=== PATIENT | female | born 1955 | race American Indian/Alaskan Native ===

== ENCOUNTER 2019-03-31 18:37 | Emergency (ER) | payer MEDICARE ==
[2019-03-31] MEDS ORDERED: ASPIRIN 81 MG TAB CHEW PO ONE (19:58)
[2019-03-31] MEDS ORDERED: SODIUM CHLORIDE 0.9% 1000 ML IV SOLN IV ONE (19:59)
[2019-03-31] MEDS ORDERED: PIPERACILLIN/TAZOBACTAM 3.375 3.375 GM/50 ML BAG IV ONE (20:01)
--- NOTE | 2019-03-31 20:07 | Emergency Department Report ---
ED Chest Pain HPI - General Chief Complaint: Chest Pain Stated Complaint: DIFFICULTY BREATHING Time Seen by Provider: 03/31/19 19:52 Source: patient, EMS Mode of arrival: Ambulatory Limitations: No Limitations - History of Present Illness Initial Comments: Patient is 63 years old female with history of chronic respiratory failure status post tracheostomy secondary to tracheal stenosis, COPD, hypertension and diabetes. Patient presented to the ER via EMS for evaluation of chest pain, cough, fever and chills for the last 2 days. Patient described her chest pain as substernal, sharp with no radiation. Patient stated that pain associated with shortness of breast. Patient is actively coughing in the emergency room. Patient denied any nausea, vomiting or abdominal pain. MD Complaint: chest pain -: days(s) (2) Onset: during rest Pain Location: substernal Severity: moderate Quality: sharp Consistency: intermittent Other Symptoms: cough, fever - Related Data Home Medications Medication Instructions Recorded Confirmed Last Taken Apixaban 5 mg PO Q12HRT 01/28/19 01/28/19 01/27/19 Atorvastatin 40 mg PO DAILY 01/28/19 01/28/19 01/27/19 Diclofenac 1% topical gel 1 applic TP DAILY PRN 01/28/19 01/28/19 Unknown Emollient Cream 20 mg PO DAILY 01/28/19 01/28/19 01/27/19 Escitalopram 20 mg PO DAILY 01/28/19 01/28/19 01/27/19 Gabapentin 300 mg PO BID 01/28/19 01/28/19 01/27/19 Lasix TAB 40 mg PO DAILY 01/28/19 01/28/19 01/27/19 Levothyroxine 125 mcg PO DAILY 01/28/19 01/28/19 01/27/19 Senna 8.6 mg PO Q12HRT 01/28/19 01/28/19 01/27/19 guaiFENesin 100 mg PO Q4HRT 01/28/19 01/28/19 01/27/19 Previous Rx's Medication Instructions Recorded Last Taken Type Ipratropium/Albuterol Sulfate 1 ampul IH Q8HRT #30 ampul.neb 02/01/19 Unknown Rx [DUONEB *Not for PRN Use*] Lisinopril [Zestril TAB] 2.5 mg PO BID #30 tablet 02/01/19 Unknown Rx Sulfamethoxazole/Trimethoprim 1 each PO Q12HR #60 tablet 02/01/19 Unknown Rx [Bactrim DS TAB] dilTIAZem [Cardizem] 60 mg PO Q6HR #120 tablet 02/01/19 Unknown Rx predniSONE 20 mg PO DAILY #10 02/01/19 Unknown Rx Allergies Allergy/AdvReac Type Severity Reaction Status Date / Time levofloxacin [From Levaquin] Allergy Rash Verified 01/27/19 21:36 morphine Allergy Rash Verified 01/27/19 21:36 Heart Score - HEART Score History: Moderately suspicious EKG: Non-specific Age: > 65 Risk factors: > 3 risk factors or hx of atherosclerotic disease Troponin: < normal limit HEART Score: 6 - Critical Actions Critical Actions: 4-6 pts:12-16.6% risk of adverse cardiac event. Should be admitted ED Review of Systems ROS: Stated complaint: DIFFICULTY BREATHING Other details as noted in HPI Comment: All other systems reviewed and negative Constitutional: chills, fever Respiratory: cough, shortness of breath, SOB with exertion, SOB at rest. denies: orthopnea, wheezing Cardiovascular: chest pain, palpitations Gastrointestinal: denies: abdominal pain, nausea, vomiting Musculoskeletal: denies: back pain Neurological: denies: headache, weakness, numbness, paresthesias, confusion, abnormal gait ED Past Medical Hx - Past Medical History Hx Hypertension: Yes Hx Congestive Heart Failure: Yes Hx Diabetes: Yes Hx Renal Disease: Yes Hx Arthritis: Yes Hx Headaches / Migraines: Yes Additional medical history: Acute and chronic resp failure, A-flutter, thracheomalacia, hypoxia, pulmonary edema, volume overload - Surgical History Hx Open Heart Surgery: Yes Additional Surgical History: trach from open heart surgery - Social History Smoking Status: Former Smoker - Medications Home Medications: Home Medications Medication Instructions Recorded Confirmed Last Taken Type Apixaban 5 mg PO Q12HRT 01/28/19 01/28/19 01/27/19 History Atorvastatin 40 mg PO DAILY 01/28/19 01/28/19 01/27/19 History Diclofenac 1% topical gel 1 applic TP DAILY PRN 01/28/19 01/28/19 Unknown History Emollient Cream 20 mg PO DAILY 01/28/19 01/28/19 01/27/19 History Escitalopram 20 mg PO DAILY 01/28/19 01/28/19 01/27/19 History Gabapentin 300 mg PO BID 01/28/19 01/28/19 01/27/19 History Lasix TAB 40 mg PO DAILY 01/28/19 01/28/19 01/27/19 History Levothyroxine 125 mcg PO DAILY 01/28/19 01/28/19 01/27/19 History Senna 8.6 mg PO Q12HRT 01/28/19 01/28/19 01/27/19 History guaiFENesin 100 mg PO Q4HRT 01/28/19 01/28/19 01/27/19 History Ipratropium/Albuterol Sulfate 1 ampul IH Q8HRT #30 ampul.neb 02/01/19 Unknown Rx [DUONEB *Not for PRN Use*] Lisinopril [Zestril TAB] 2.5 mg PO BID #30 tablet 02/01/19 Unknown Rx Sulfamethoxazole/Trimethoprim 1 each PO Q12HR #60 tablet 02/01/19 Unknown Rx [Bactrim DS TAB] dilTIAZem [Cardizem] 60 mg PO Q6HR #120 tablet 02/01/19 Unknown Rx predniSONE 20 mg PO DAILY #10 02/01/19 Unknown Rx ED Physical Exam - General Limitations: No Limitations General appearance: alert, in no apparent distress - Head Head exam: Present: atraumatic, normocephalic, normal inspection - Eye Eye exam: Present: normal appearance - ENT ENT exam: Present: normal exam, normal orophraynx, mucous membranes moist - Neck Neck exam: Present: normal inspection, full ROM. Absent: tenderness, meningismus, lymphadenopathy, thyromegaly - Respiratory Respiratory exam: Present: rales, rhonchi. Absent: respiratory distress, wheezes, stridor, chest wall tenderness, accessory muscle use, decreased breath sounds, prolonged expiratory - Cardiovascular Cardiovascular Exam: Present: tachycardia, systolic murmur - GI/Abdominal GI/Abdominal exam: Present: soft, normal bowel sounds. Absent: distended, tenderness, guarding, rebound, rigid - Extremities Exam Extremities exam: Present: normal inspection, full ROM, normal capillary refill. Absent: tenderness, pedal edema, joint swelling, calf tenderness - Neurological Exam Neurological exam: Present: alert, oriented X3, CN II-XII intact - Skin Skin exam: Present: warm, intact, normal color ED Course Vital Signs 11/21/19 11/21/19 11/21/19 19:48 20:00 20:30 Temperature 98.4 F Pulse Rate 141 H 134 H 131 H Respiratory 20 14 27 H Rate Blood Pressure 126/51 146/50 O2 Sat by Pulse 98 100 100 Oximetry 03/31/19 03/31/19 03/31/19 21:00 21:31 22:01 Temperature Pulse Rate 127 H 127 H 129 H Respiratory 23 21 19 Rate Blood Pressure 146/50 146/50 146/50 O2 Sat by Pulse 100 100 99 Oximetry 03/31/19 03/31/19 03/31/19 22:31 22:55 23:00 Temperature Pulse Rate 130 H 125 H 124 H Respiratory 19 20 20 Rate Blood Pressure 146/50 146/50 146/98 O2 Sat by Pulse 100 100 99 Oximetry 03/31/19 04/01/19 04/01/19 23:31 00:01 00:37 Temperature Pulse Rate 132 H 128 H Respiratory 21 20 Rate Blood Pressure 146/98 146/98 146/98 O2 Sat by Pulse 98 99 100 Oximetry 04/01/19 04/01/19 04/01/19 00:47 01:01 01:33 Temperature Pulse Rate 120 H 115 H Respiratory 19 Rate Blood Pressure 146/98 146/98 O2 Sat by Pulse 97 Oximetry 04/01/19 04/01/19 04/01/19 02:01 02:30 03:01 Temperature Pulse Rate 101 H 89 66 Respiratory 20 19 18 Rate Blood Pressure 111/84 108/75 98/68 O2 Sat by Pulse 99 98 97 Oximetry 04/01/19 03:30 Temperature Pulse Rate 72 Respiratory 19 Rate Blood Pressure 97/62 O2 Sat by Pulse 99 Oximetry ED Medical Decision Making - Lab Data Result diagrams: 03/31/19 20:58 03/31/19 20:58 - EKG Data -: EKG Interpreted by Oh EKG shows normal: sinus rhythm Rate: tachycardia - EKG Data 04/01/19 02:14 Atrial flutter with RVR - Radiology Data Radiology results: report reviewed - Medical Decision Making Patient is 63 years old female with history of chronic respiratory failure status post tracheostomy secondary to tracheal stenosis, COPD, hypertension and diabetes. Patient presented to the ER via EMS for evaluation of chest pain, cough, fever and chills for the last 2 days. Patient described her chest pain as substernal, sharp with no radiation. Patient stated that pain associated with shortness of breast. Patient is actively coughing in the emergency room. Patient denied any nausea, vomiting or abdominal pain Patient found to have atrial flutter with RVR. Patient is started on Cardizem drip. Patient CTA chest showed type I aortic dissection. I discussed the patient with , cardiothoracic surgeon at [facility]. He accepted the patient to be transferred to [facility]. Patient received Dilaudid for pain. Dr Bravo called back and stated that there is no surgical bed at [facility] and advised to look for other facility I discussed the patient with Dr Mack from [facility]. Patient accepted by Dr Ferris and to be transferred to [facility]. Critical Care Time: Yes Critical care time in (mins) excluding proc time.: 60 Critical care attestation.: If time is entered above; I have spent that time in minutes in the direct care of this critically ill patient, excluding procedure time. ED Disposition Clinical Impression: Chest pain, Aortic dissection Disposition: [id number] ANOTHER TYPE HLTHCARE Is pt being admited?: No Condition: Stable Instructions: Chest Pain (ED) Referrals: PRIMARY CARE, [Primary Care Provider] - 3-5 Days
--- NOTE | 2019-03-31 20:43 | XRay Report ---
CHEST 1 VIEW INDICATION: Chest Pain COMPARISON: 01/27/2019 FINDINGS: Support devices: Tracheostomy tube remains in position Heart: Mildly enlarged but stable. Prominence of the left heart border could be left atrial enlargeme nt; it has not changed. Lungs/Pleura: Inspiration is more optimal, and I see no convincing evidence of acute disease. IMPRESSION: 1. No significant change. Signer Name: Nathan Presley MD Signed: 03/31/2019 8:39 PM Workstation Name: [email or web address]
[2019-03-31 21:11] LABS: Hematocrit 34.3 % (30.3-42.9); Hemoglobin 10.7 gm/dl (10.1-14.3); Mean Corpuscular HGB Conc 31 % (30-34); Mean Corpuscular Volume 87 fl (79-97); Platelet Count 296 K/mm3 (140-440); Red Blood Count 3.94 M/mm3 (3.65-5.03); Red Cell Distribution Width 17.8 % (13.2-15.2)
[2019-03-31 21:21] LABS: INR 1.16 (0.87-1.13)
[2019-03-31 21:22] LABS: Bacteria,Urine 4+ /HPF (Negative); Bilirubin,Urine NEG (Negative); Blood,Urine SM (Negative); Color,Urine Straw (Yellow); Mucus,Urine FEW /HPF; Protein,Urine <15 mg/dL mg/dL (Negative); Urobilinogen,Urine < 2.0 mg/dL (<2.0)
[2019-03-31 21:23] LABS: Partial Thromboplastin Time 31.1 Sec. (24.2-36.6)
[2019-03-31 21:28] LABS: BUN/Creatinine Ratio 34; Blood Urea Nitrogen 37 mg/dL (7-17); Calcium 9.1 mg/dL (8.4-10.2); Hemolysis Index 47
[2019-03-31 21:32] LABS: Alanine Aminotransferase 15 units/L (7-56); Albumin 3.9 g/dL (3.9-5)
[2019-03-31 21:48] LABS: Bilirubin,Direct < 0.2 mg/dL (0-0.2)
[2019-03-31 21:51] LABS: Basophils % (Manual) 0 % (0.0-1.8); Eosinophils % (Manual) 0 % (0.0-4.3); Myelocytes # (Manual) 0.1 K/mm3; Total Cells Counted 100
[2019-03-31 21:52] LABS: Anisocytosis Few; Target Cells Few
[2019-04-01] MEDS ORDERED: dilTIAZem 25 MG/5 ML INJ IV ONE (00:01)
[2019-04-01] MEDS ORDERED: dilTIAZem/D5W 100 MG/100 ML BAG IV SCH (01:00)
--- NOTE | 2019-04-01 01:35 | Cat Scan Report ---
CT angio chest INDICATION / CLINICAL INFORMATION: CHEST PAIN WITH SOB. TECHNIQUE: Axial CT images were obtained after injection of Omnipaque 350, 100 cc IV contrast using CTA protocol . 3 plane MIP / 3D reconstructions were produced. All CT scans at this location are performed using C T dose reduction for ALARA by means of automated exposure control. COMPARISON: None available. FINDINGS: Lung volumes are diminished and there is bilateral atelectasis. An tracheostomy catheter is in satisf actory position. Negative for mediastinal mass or adenopathy. Imaging of the upper abdomen is unremarkable. The bolus is suboptimal for evaluation the pulmonary arteries. No large central embolus is present. Negative for aneurysm. A type I dissection originates at the level of the right brachiocephalic arter y. No extension is seen into the deeper a sending thoracic aorta. What appears to be the false lumen is more posteriorly located and higher in density. The great vessels, celiac axis, SMA and right chel[place] l artery arise from the true lumen. Dilatation of the main pulmonary artery trunk measures 5.4 cm. IMPRESSION: 1. Type I dissection. 2. Diminished lung volumes with bilateral lateral atelectasis. 3. Dilated pulmonary artery trunk indicative of pulmonary arterial hypertension. CRITICAL RESULT: Time of Discovery: 12:25 AM. Time of Communication: 12:27 AM. Licensed Practitioner Receiving Report: Dr. Harrison in the emergency room. Read Back Performed: Yes. Signer Name: Miguelito Gonzalez MD Signed: 04/01/2019 1:31 AM Workstation Name: [id number]
[2019-04-01] MEDS ORDERED: HYDROmorphone 1 MG/1 ML INJ ONE (01:43)
[2019-04-01] MEDS ORDERED: HYDROmorphone 1 MG/1 ML INJ IV ONE (03:43)
[2019-04-01 05:07] VITALS: BP 91/76
== END 2019-04-01 06:06 | disposition other institution (70) ==
LOC: ED 18:37
DX: I71.00 Dissection of unspecified site of aorta (principal); R05 Cough; I11.0 Hypertensive heart disease with heart failure; I50.9 Heart failure, unspecified; E11.9 Type 2 diabetes mellitus without complications; M19.90 Unspecified osteoarthritis, unspecified site; G43.909 Migraine, unspecified, not intractable, without status migrainosus; Z98.890 Other specified postprocedural states; Z87.891 Personal history of nicotine dependence; Z79.899 Other long term (current) drug therapy; Z88.1 Allergy status to other antibiotic agents; Z88.5 Allergy status to narcotic agent
CPT/HCPCS: 36415; 71045; 71275; 80048; 80076; 81001; 82140; 83880; 84484; 85007; 85025; 85610; 85730; 87040; 93005; 93010; 96365; 96366; 96367; 96375; 99285; J1170; J2543; J7030; Q9967

== ENCOUNTER 2019-04-22 10:22 | Inpatient (IN) | payer MEDICARE ==
[2019-04-22] MEDS ORDERED: FAMOTIDINE 20 MG/2 ML INJ IV ONE (12:07)
[2019-04-22] MEDS ORDERED: ALBUTEROL 2.5 MG/3 ML NEBU IH ONE (12:07)
[2019-04-22] MEDS ORDERED: ACETAMINOPHEN 325 MG TAB PO STA (12:07)
--- NOTE | 2019-04-22 12:08 | Emergency Department Report ---
ED Chest Pain HPI - General Chief Complaint: Chest Pain Stated Complaint: CHEST PAIN Time Seen by Provider: 04/22/19 11:40 Source: patient, EMS ( EMS documentation not available at time of chart dictation ), RN notes reviewed, old records reviewed Mode of arrival: Stretcher Limitations: Physical Limitation - History of Present Illness MD Complaint: chest pain, other -: Gradual Onset: during rest Pain Location: left chest, right chest Pain Radiation: none Severity: mild Quality: aching Consistency: intermittent Improves With: nothing Worsens With: nothing Other Symptoms: cough Aspirin use within the Past 7 Days: (0) No - Related Data On Oral Contraceptives: No Home Medications Medication Instructions Recorded Confirmed Last Taken Apixaban 5 mg PO Q12HRT 01/28/19 01/28/19 01/27/19 Atorvastatin 40 mg PO DAILY 01/28/19 01/28/19 01/27/19 Diclofenac 1% topical gel 1 applic TP DAILY PRN 01/28/19 01/28/19 Unknown Emollient Cream 20 mg PO DAILY 01/28/19 01/28/19 01/27/19 Escitalopram 20 mg PO DAILY 01/28/19 01/28/19 01/27/19 Gabapentin 300 mg PO BID 01/28/19 01/28/19 01/27/19 Lasix TAB 40 mg PO DAILY 01/28/19 01/28/19 01/27/19 Levothyroxine 125 mcg PO DAILY 01/28/19 01/28/19 01/27/19 Senna 8.6 mg PO Q12HRT 01/28/19 01/28/19 01/27/19 guaiFENesin 100 mg PO Q4HRT 01/28/19 01/28/19 01/27/19 Previous Rx's Medication Instructions Recorded Last Taken Type Ipratropium/Albuterol Sulfate 1 ampul IH Q8HRT #30 ampul.neb 02/01/19 Unknown Rx [DUONEB *Not for PRN Use*] Lisinopril [Zestril TAB] 2.5 mg PO BID #30 tablet 02/01/19 Unknown Rx Sulfamethoxazole/Trimethoprim 1 each PO Q12HR #60 tablet 02/01/19 Unknown Rx [Bactrim DS TAB] dilTIAZem [Cardizem] 60 mg PO Q6HR #120 tablet 02/01/19 Unknown Rx predniSONE 20 mg PO DAILY #10 02/01/19 Unknown Rx Allergies Allergy/AdvReac Type Severity Reaction Status Date / Time levofloxacin [From Levaquin] Allergy Rash Verified 01/27/19 21:36 morphine Allergy Rash Verified 01/27/19 21:36 Heart Score - HEART Score History: Slightly suspicious EKG: Non-specific Age: 45-65 Risk factors: > 3 risk factors or hx of atherosclerotic disease Troponin: < normal limit HEART Score: 4 - Critical Actions Critical Actions: 4-6 pts:12-16.6% risk of adverse cardiac event. Should be admitted ED Review of Systems ROS: Stated complaint: CHEST PAIN Other details as noted in HPI ED Past Medical Hx - Past Medical History Hx Hypertension: Yes Hx Congestive Heart Failure: Yes Hx Diabetes: Yes Hx Renal Disease: Yes Hx Arthritis: Yes Hx Headaches / Migraines: Yes Additional medical history: Acute and chronic resp failure, A-flutter, thracheomalacia, hypoxia, pulmonary edema, volume overload, trach - Surgical History Hx Open Heart Surgery: Yes Additional Surgical History: trach from open heart surgery - Social History Smoking Status: Former Smoker Substance Use Type: None - Medications Home Medications: Home Medications Medication Instructions Recorded Confirmed Last Taken Type Apixaban 5 mg PO Q12HRT 01/28/19 01/28/19 01/27/19 History Atorvastatin 40 mg PO DAILY 01/28/19 01/28/19 01/27/19 History Diclofenac 1% topical gel 1 applic TP DAILY PRN 01/28/19 01/28/19 Unknown History Emollient Cream 20 mg PO DAILY 01/28/19 01/28/19 01/27/19 History Escitalopram 20 mg PO DAILY 01/28/19 01/28/19 01/27/19 History Gabapentin 300 mg PO BID 01/28/19 01/28/19 01/27/19 History Lasix TAB 40 mg PO DAILY 01/28/19 01/28/19 01/27/19 History Levothyroxine 125 mcg PO DAILY 01/28/19 01/28/19 01/27/19 History Senna 8.6 mg PO Q12HRT 01/28/19 01/28/19 01/27/19 History guaiFENesin 100 mg PO Q4HRT 01/28/19 01/28/19 01/27/19 History Ipratropium/Albuterol Sulfate 1 ampul IH Q8HRT #30 ampul.neb 02/01/19 Unknown Rx [DUONEB *Not for PRN Use*] Lisinopril [Zestril TAB] 2.5 mg PO BID #30 tablet 02/01/19 Unknown Rx Sulfamethoxazole/Trimethoprim 1 each PO Q12HR #60 tablet 02/01/19 Unknown Rx [Bactrim DS TAB] dilTIAZem [Cardizem] 60 mg PO Q6HR #120 tablet 02/01/19 Unknown Rx predniSONE 20 mg PO DAILY #10 02/01/19 Unknown Rx ED Physical Exam - General Limitations: No Limitations ED Course Vital Signs 04/22/19 11:22 Temperature 98.8 F Pulse Rate 103 H Respiratory 20 Rate Blood Pressure 146/102 O2 Sat by Pulse 98 Oximetry ED Medical Decision Making - Lab Data Result diagrams: 04/22/19 12:34 04/22/19 12:34 Critical care attestation.: If time is entered above; I have spent that time in minutes in the direct care of this critically ill patient, excluding procedure time. ED Disposition Condition: Stable Referrals: VALARIE PATRICIO MD [Primary Care Provider] - 3-5 Days
[2019-04-22 12:50] LABS: Basophils # (Auto) 0.1 K/mm3 (0.0-0.1); Basophils % (Auto) 1.9 % (0.0-1.8); Eosinophils # (Auto) 0.2 K/mm3 (0.0-0.4); Eosinophils % (Auto) 2.3 % (0.0-4.3); Hematocrit 33.1 % (30.3-42.9); Hemoglobin 10.4 gm/dl (10.1-14.3); Lymphocytes # (Auto) 1.6 K/mm3 (1.2-5.4); Lymphocytes % (Auto) 22.4 % (13.4-35.0); Mean Corpuscular HGB Conc 32 % (30-34); Mean Corpuscular Volume 86 fl (79-97); Monocytes # (Auto) 0.7 K/mm3 (0.0-0.8); Monocytes % (Auto) 10.6 % (0.0-7.3); Platelet Count 191 K/mm3 (140-440); Red Blood Count 3.83 M/mm3 (3.65-5.03); Red Cell Distribution Width 18.2 % (13.2-15.2)
[2019-04-22 13:04] LABS: Alanine Aminotransferase 24 units/L (7-56); BUN/Creatinine Ratio 11; Blood Urea Nitrogen 9 mg/dL (7-17); Calcium 9.5 mg/dL (8.4-10.2); Hemolysis Index 24
[2019-04-22 13:22] LABS: INR 1.06 (0.87-1.13)
[2019-04-22] MEDS ORDERED: FUROSEMIDE 40 MG/4 ML INJ IV ONE (14:09)
--- NOTE | 2019-04-22 14:09 | XRay Report ---
CHEST 1 VIEW 04/22/2019 1:01 PM INDICATION / CLINICAL INFORMATION: Chest Pain. Substernal chest pain that began at 1:00 AM. COMPARISON: None available. FINDINGS: SUPPORT DEVICES: Tracheostomy tube is unchanged. HEART / MEDIASTINUM: Enlarged but stable. Pulmonary venous hypertension. LUNGS / PLEURA: Borderline interstitial pulmonary edema. No significant pleural effusion. No pneumoth orax. ADDITIONAL FINDINGS: No significant additional findings. IMPRESSION: 1. Cardiomegaly with borderline interstitial pulmonary edema. Signer Name: Reginald Pino MD Signed: 04/22/2019 2:04 PM Workstation Name: [id number]
[2019-04-22] MEDS ORDERED: methylPREDNISolone Sod Succinate 125 MG/2 ML INJ IV ONE (14:10)
[2019-04-22] MEDS ORDERED: dilTIAZem 60 MG TAB PO STA (14:12)
[2019-04-22] MEDS ORDERED: IPRATROPIUM 0.02% NEBU 2.5 ML IH ONE (14:12)
--- NOTE | 2019-04-22 14:12 | Emergency Department Report ---
<MAURICIO VENEGAS - Last Filed: 04/22/19 15:09> ED General Adult HPI - General Chief complaint: Chest Pain Stated complaint: CHEST PAIN Time Seen by Provider: 04/22/19 11:40 Source: patient, EMS ( EMS documentation not available at time of chart dictation ), RN notes reviewed, old records reviewed Mode of arrival: Stretcher Limitations: No Limitations - History of Present Illness Initial comments: Cardiology: [place] [facility] Past medical history: Morbid obesity, chronic respiratory failure, COPD, chronic tracheostomy, tracheal stenosis, congestive heart failure, on systemic anticoagulation for A. fib/cecil schilling Apparently in 2013, patient had aortic dissection repair in 2013 at [facility]. There are reportedly no reports of coronary artery disease, and the patient recently had an echocardiogram performed [facility] [place], which showed dilated right heart Chambers, and ejection fraction of 50%. Patient was seen in this hospital March 2019, or chest discomfort, and was found to have a possible type I dissection, and she was transferred to [facility]. When questioned about her stay, she indicated that her tracheostomy was changed, but otherwise, no surgical intervention was performed. Today, she presents to the ER with a complaint of acute on chronic bilateral lower extremity swelling, chest wall discomfort, cough, shortness of breath. There is no vomiting. There is no diaphoresis. She endorses compliance with his systemic anticoagulation. There is no abdominal pain. There are no urinary symptoms. The patient denies hematemesis of bright red blood per rectum. The patient is also asking to eat at this time. -: Gradual Location: chest Severity scale (0 -10): 8 Quality: other Consistency: other Improves with: other Worsens with: other Associated Symptoms: other - Related Data Home Medications Medication Instructions Recorded Confirmed Last Taken Apixaban 5 mg PO Q12HRT 01/28/19 01/28/19 01/27/19 Atorvastatin 40 mg PO DAILY 01/28/19 01/28/19 01/27/19 Diclofenac 1% topical gel 1 applic TP DAILY PRN 01/28/19 01/28/19 Unknown Emollient Cream 20 mg PO DAILY 01/28/19 01/28/19 01/27/19 Escitalopram 20 mg PO DAILY 01/28/19 01/28/19 01/27/19 Gabapentin 300 mg PO BID 01/28/19 01/28/1901/27/19 Lasix TAB 40 mg PO DAILY 01/28/19 01/28/19 01/27/19 Levothyroxine 125 mcg PO DAILY 01/28/19 01/28/19 01/27/19 Senna 8.6 mg PO Q12HRT 01/28/19 01/28/19 01/27/19 guaiFENesin 100 mg PO Q4HRT 01/28/19 01/28/19 01/27/19 Previous Rx's Medication Instructions Recorded Last Taken Type Ipratropium/Albuterol Sulfate 1 ampul IH Q8HRT #30 ampul.neb 02/01/19 Unknown Rx [DUONEB *Not for PRN Use*] Lisinopril [Zestril TAB] 2.5 mg PO BID #30 tablet 02/01/19 Unknown Rx Sulfamethoxazole/Trimethoprim 1 each PO Q12HR #60 tablet 02/01/19 Unknown Rx [Bactrim DS TAB] dilTIAZem [Cardizem] 60 mg PO Q6HR #120 tablet 02/01/19 Unknown Rx predniSONE 20 mg PO DAILY #10 02/01/19 Unknown Rx Allergies Allergy/AdvReac Type Severity Reaction Status Date / Time levofloxacin [From Levaquin] Allergy Rash Verified 01/27/19 21:36 morphine Allergy Rash Verified 01/27/19 21:36 ED Review of Systems Constitutional: denies: fever Eyes: denies: eye discharge ENT: congestion Respiratory: shortness of breath, wheezing Cardiovascular: chest pain, edema Gastrointestinal: denies: vomiting Genitourinary: denies: dysuria Musculoskeletal: arthralgia, myalgia Skin: denies: lesions Neurological: weakness ED Past Medical Hx - Past Medical History Hx Hypertension: Yes Hx Congestive Heart Failure: Yes Hx Diabetes: Yes Hx Renal Disease: Yes Hx Arthritis: Yes Hx Headaches / Migraines: Yes Additional medical history: Acute and chronic resp failure, A-flutter, thracheomalacia, hypoxia, pulmonary edema, volume overload, trach - Surgical History Hx Open Heart Surgery: Yes Additional Surgical History: trach from open heart surgery - Social History Smoking Status: Former Smoker Substance Use Type: None - Medications Home Medications: Home Medications Medication Instructions Recorded Confirmed Last Taken Type Apixaban 5 mg PO Q12HRT 01/28/19 01/28/19 01/27/19 History Atorvastatin 40 mg PO DAILY 01/28/19 01/28/19 01/27/19 History Diclofenac 1% topical gel 1 applic TP DAILY PRN 01/28/19 01/28/19 Unknown His tory Emollient Cream 20 mg PO DAILY 01/28/19 01/28/19 01/27/19 History Escitalopram 20 mg PO DAILY 01/28/19 01/28/19 01/27/19 History Gabapentin 300 mg PO BID 01/28/19 01/28/19 01/27/19 History Lasix TAB 40 mg PO DAILY 01/28/19 01/28/19 01/27/19 History Levothyroxine 125 mcg PO DAILY 01/28/19 01/28/19 01/27/19 History Senna 8.6 mg PO Q12HRT 01/28/19 01/28/19 01/27/19 History guaiFENesin 100 mg PO Q4HRT 01/28/19 01/28/19 01/27/19 History Ipratropium/Albuterol Sulfate 1 ampul IH Q8HRT #30 ampul.neb 02/01/19 Unknown Rx [DUONEB *Not for PRN Use*] Lisinopril [Zestril TAB] 2.5 mg PO BID #30 tablet 02/01/19 Unknown Rx Sulfamethoxazole/Trimethoprim 1 each PO Q12HR #60 tablet 02/01/19 Unknown Rx [Bactrim DS TAB] dilTIAZem [Cardizem] 60 mg PO Q6HR #120 tablet 02/01/19 Unknown Rx predniSONE 20 mg PO DAILY #10 02/01/19 Unknown Rx ED Physical Exam - General Limitations: No Limitations General appearance: alert, anxious, obese - Head Head exam: Present: atraumatic, normocephalic - Eye Eye exam: Present: normal appearance, EOMI. Absent: nystagmus - ENT ENT exam: Present: normal exam, mucous membranes moist, normal external ear exam, other (tracheostomy in place, without redness, pus or streaking) - Neck Neck exam: Present: normal inspection, full ROM. Absent: tenderness, meningismus - Respiratory Respiratory exam: Present: respiratory distress, wheezes, rhonchi, accessory muscle use - Cardiovascular Cardiovascular Exam: Present: tachycardia, irregular rhythm, normal heart sounds. Absent: systolic murmur, diastolic murmur, rubs, gallop - GI/Abdominal GI/Abdominal exam: Present: soft. Absent: distended, tenderness, guarding, rebound, rigid, pulsatile mass - Extremities Exam Extremities exam: Present: normal inspection, full ROM, pedal edema, other (2+ pulses noted in the bilateral upper and lower extremities. There is no palpable cord. negative Homans sign. Muscular compartments are soft. The pelvis is stable.). Absent: calf tenderness - Back Exam Back exam: Present: normal inspection, full ROM. Absent: tenderness, CVA tenderness (R), CVA tenderness (L), paraspinal tenderness, vertebral tenderness - Neurological Exam Neurological exam: Present: alert, other (there is no facial droop. The tongue is midline. The extraocular movements are intact bilaterally. Speaking in full sentences. Minimal elevation of the base of the tongue. There is 5 out of 5 strength in the bilateral upper and lower extremities, and sensation is intact to light touch in the bilateral upper and lower extremities. Appropriate insight.) - Psychiatric Psychiatric exam: Present: anxious - Skin Skin exam: Present: warm, dry, intact, normal color. Absent: rash ED Course - Reevaluation(s) Reevaluation #1: 04/22/19 14:10 Differential diagnosis, including but not limited to: COPD, congestive heart failure, chronic dissection, pneumonia, acute coronary syndrome, pulmonary embolism Assessment and plan: 64-year-old female with multiple chronic medical issues, likely presenting with COPD and CHF exacerbation. Based off of review of her prior documentation, it is unlikely that any emergent surgical intervention wasn't active during her recent transfer. In addition, cardiology has recently consult on this patient, and has not specifically recommended cardiac risk stratification. Patient medical records have been requested, we are currently waiting them to be transmitted. We will currently treat her with albuterol, Atrovent, steroids, Lasix, Pepcid and Tylenol. CT scan of the chest is pending at this time. Clinically doubt pulmonary embolism at this time. 04/22/19 14:10 04/22/19 14:10 Reevaluation #2: 04/22/19 15:[address] Keegan Gibbons to follow up on cta chest Reevaluation #3: 04/22/19 15:09 Medical records are reviewed and appreciated. As per her discharge summary, this CT angiogram demonstrated a non-A, non-B arch dissection. As per discharge summary, it was thought that the patient had a residual type a dissection following repair, with no evidence of acute event. Patient was supposed to be discharged to follow up with Mana Brar in 2-3 weeks Patient was started on a diltiazem drip for rapid A. fib flutter. ED Medical Decision Making - Lab Data Result diagrams: 04/22/19 12:34 04/22/19 12:34 Vital Signs 04/22/19 11:22 Temperature 98.8 F Pulse Rate 103 H Respiratory 20 Rate Blood Pressure 146/102 O2 Sat by Pulse 98 Oximetry Lab Results 04/22/19 04/22/19 04/22/19 Range/Units 12:34 12:34 12:34 WBC 7.0 (4.5-11.0) K/mm3 RBC 3.83 (3.65-5.03) M/mm3 Hgb 10.4 (10.1-14.3) gm/dl Hct 33.1 (30.3-42.9) % MCV 86 (79-97) fl MCH 27 L (28-32) pg MCHC 32 (30-34) % RDW 18.2 H (13.2-15.2) % Plt Count 191 (140-440) K/mm3 Lymph % (Auto) 22.4 (13.4-35.0) % Pitt % (Auto) 10.6 H (0.0-7.3) % Eos % (Auto) 2.3 (0.0-4.3) % Baso % (Auto) 1.9 H (0.0-1.8) % Lymph # 1.6 (1.2-5.4) K/mm3 Pitt # 0.7 (0.0-0.8) K/mm3 Eos # 0.2 (0.0-0.4) K/mm3 Baso # 0.1 (0.0-0.1) K/mm3 Seg Neutrophils % 62.8 (40.0-70.0) % Seg Neutrophils # 4.4 (1.8-7.7) K/mm3 PT 13.9 (12.2-14.9) Sec. INR 1.06 (0.87-1.13) APTT 31.0 (24.2-36.6) Sec. D-Dimer 363.07 H (0-234) ng/mlDDU Sodium 141 (137-145) mmol/L Potassium 4.4 (3.6-5.0) mmol/L Chloride 101.3 (98-107) mmol/L Carbon Dioxide 26 (22-30) mmol/L Anion Gap 18 mmol/L BUN 9 (7-17) mg/dL Creatinine 0.8 (0.7-1.2) mg/dL Estimated GFR > 60 ml/min BUN/Creatinine Ratio 11 % Glucose 147 H (65-100) mg/dL Calcium 9.5 (8.4-10.2) mg/dL Magnesium 1.70 (1.7-2.3) mg/dL Total Bilirubin 0.60 (0.1-1.2) mg/dL AST 23 (5-40) units/L ALT 24 (7-56) units/L Alkaline Phosphatase 116 (35-129) units/L Total Creatine Kinase 156 H (30-135) units/L Troponin T 0.013 (0.00-0.029) ng/mL NT-Pro-B Natriuret Pep (0-900) pg/mL Total Protein 7.3 (6.3-8.2) g/dL Albumin 4.0 (3.9-5) g/dL Albumin/Globulin Ratio 1.2 % /13/19 Range/Units 12:34 WBC (4.5-11.0) K/mm3 RBC (3.65-5.03) M/mm3 Hgb (10.1-14.3) gm/dl Hct (30.3-42.9) % MCV (79-97) fl MCH (28-32) pg MCHC (30-34) % RDW (13.2-15.2) % Plt Count (140-440) K/mm3 Lymph % (Auto) (13.4-35.0) % Pitt % (Auto) (0.0-7.3) % Eos % (Auto) (0.0-4.3) % Baso % (Auto) (0.0-1.8) % Lymph # (1.2-5.4) K/mm3 Pitt # (0.0-0.8) K/mm3 Eos # (0.0-0.4) K/mm3 Baso # (0.0-0.1) K/mm3 Seg Neutrophils % (40.0-70.0) % Seg Neutrophils # (1.8-7.7) K/mm3 PT (12.2-14.9) Sec. INR (0.87-1.13) APTT (24.2-36.6) Sec. D-Dimer (0-234) ng/mlDDU Sodium (137-145) mmol/L Potassium (3.6-5.0) mmol/L Chloride (98-107) mmol/L Carbon Dioxide (22-30) mmol/L Anion Gap mmol/L BUN (7-17) mg/dL Creatinine (0.7-1.2) mg/dL Estimated GFR ml/min BUN/Creatinine Ratio % Glucose (65-100) mg/dL Calcium (8.4-10.2) mg/dL Magnesium (1.7-2.3) mg/dL Total Bilirubin (0.1-1.2) mg/dL AST (5-40) units/L ALT (7-56) units/L Alkaline Phosphatase (35-129) units/L Total Creatine Kinase (30-135) units/L Troponin T (0.00-0.029) ng/mL NT-Pro-B Natriuret Pep 2542 H (0-900) pg/mL Total Protein (6.3-8.2) g/dL Albumin (3.9-5) g/dL Albumin/Globulin Ratio % - EKG Data -: EKG Interpreted by Me - EKG Data 04/22/19 14:08 The EKG today shows atrial flutter, 2-1 block, QTC prolonged, PVC, motion artifact, abnormal EKG, unchanged from prior, not consistent with ST elevation myocardial infarction. - Radiology Data Radiology results: image reviewed interpreted by me: X-ray the chest shows enlarged cardiac silhouette, widened mediastinum, pulmonary vascular congestion, portable technique. ED Disposition Clinical Impression: Tracheostomy dependence, CHF exacerbation, COPD with exacerbation, Trachea displaced, Encounter for tracheostomy tube change, Obesity, Chronic thoracic aortic dissection, Atrial flutter, Anticoagulant long-term use Disposition: [id number] OP ADMIT IP TO THIS HOSP Condition: Stable <ARLYN REEDER - Last Filed: 04/22/19 17:40> - Procedure Description Procedures done: Ultrasound-guided peripheral venous access by Dr. Arlyn Reeder. Indication: Lack of venous access. Patient provided verbal informed consent for procedure. She understands the risk of arterial puncture and infiltration. I use vascular probe and ultrasound to view compressible forearm pain 3 cm distal to the antecubital crease. I access the vein under direct visualization with venous return. I was able to flush the catheter with 30 mL normal saline flushe without infiltration. No complication. Only one puncture attempt was required. ED Medical Decision Making - Lab Data Result diagrams: 04/22/19 12:34 04/22/19 12:34 <ANA GIBBONS - Last Filed: 04/22/19 22:27> ED Review of Systems ROS: Stated complaint: CHEST PAIN Other details as noted in HPI ED Course Vital Signs 04/22/19 04/22/19 04/22/19 11:22 14:11 14:57 Temperature 98.8 F Pulse Rate 103 H Pulse Rate [ 115 H Anterior Bilateral Throughout] Respiratory 20 Rate Respiratory 24 Rate [Anterior Bilateral Throughout] Blood Pressure 146/102 O2 Sat by Pulse 98 Oximetry O2 Sat by Pulse 96 Oximetry [ Assessment] 04/22/19 04/22/19 04/22/19 15:14 15:16 15:21 Temperature Pulse Rate 109 H 109 H Pulse Rate [ 115 H Anterior Bilateral Throughout] Respiratory 17 20 Rate Respiratory 21 Rate [Anterior Bilateral Throughout] Blood Pressure O2 Sat by Pulse 91 90 Oximetry O2 Sat by Pulse Oximetry [ Assessment] 04/22/19 04/22/19 04/22/19 15:30 15:46 16:00 Temperature Pulse Rate 116 H 103 H 106 H Pulse Rate [ Anterior Bilateral Throughout] Respiratory 26 H 22 20 Rate Respiratory Rate [Anterior Bilateral Throughout] Blood Pressure O2 Sat by Pulse 88 93 90 Oximetry O2 Sat by Pulse Oximetry [ Assessment] 04/22/19 04/22/19 04/22/19 16:16 16:46 17:00 Temperature Pulse Rate 106 H 102 H 114 H Pulse Rate [ Anterior Bilateral Throughout] Respiratory 20 25 H 25 H Rate Respiratory Rate [Anterior Bilateral Throughout] Blood Pressure O2 Sat by Pulse 99 99 87 Oximetry O2 Sat by Pulse Oximetry [ Assessment] 04/22/19 04/22/19 04/22/19 17:16 17:30 17:46 Temperature Pulse Rate 106 H 109 H 107 H Pulse Rate [ Anterior Bilateral Throughout] Respiratory 19 20 20 Rate Respiratory Rate [Anterior Bilateral Throughout] Blood Pressure O2 Sat by Pulse 97 98 97 Oximetry O2 Sat by Pulse Oximetry [ Assessment] 04/22/19 04/22/19 04/22/19 18:00 18:11 18:16 Temperature Pulse Rate 114 H 116 H 109 H Pulse Rate [ Anterior Bilateral Throughout] Respiratory 20 15 Rate Respiratory Rate [Anterior Bilateral Throughout] Blood Pressure 184/115 O2 Sat by Pulse 100 87 Oximetry O2 Sat by Pulse Oximetry [ Assessment] 04/22/19 04/22/19 04/22/19 18:30 18:40 18:46 Temperature Pulse Rate 114 H 18 L 104 H Pulse Rate [ Anterior Bilateral Throughout] Respiratory 20 109 H 22 Rate Respiratory Rate [Anterior Bilateral Throughout] Blood Pressure O2 Sat by Pulse 89 84 Oximetry O2 Sat by Pulse Oximetry [ Assessment] 04/22/19 04/22/19 04/22/19 19:00 19:15 19:31 Temperature Pulse Rate 108 H 104 H 106 H Pulse Rate [ Anterior Bilateral Throughout] Respiratory 17 21 14 Rate Respiratory Rate [Anterior Bilateral Throughout] Blood Pressure O2 Sat by Pulse 86 81 L 86 Oximetry O2 Sat by Pulse Oximetry [ Assessment] 04/22/19 04/22/19 04/22/19 20:31 20:45 21:12 Temperature Pulse Rate 116 H 117 H Pulse Rate [ Anterior Bilateral Throughout] Respiratory 30 H 30 H Rate Respiratory Rate [Anterior Bilateral Throughout] Blood Pressure 146/90 142/90 142/90 O2 Sat by Pulse 97 96 95 Oximetry O2 Sat by Pulse Oximetry [ Assessment] 04/22/19 04/22/19 04/22/19 21:15 21:31 21:45 Temperature Pulse Rate 115 H 118 H 110 H Pulse Rate [ Anterior Bilateral Throughout] Respiratory 16 30 H 30 H Rate Respiratory Rate [Anterior Bilateral Throughout] Blood Pressure 136/81 122/77 129/87 O2 Sat by Pulse 96 Oximetry O2 Sat by Pulse Oximetry [ Assessment] - Reevaluation(s) Reevaluation #4: 04/22/19 19:59 Unfortunately IV line placed by IV team infiltrated during CT angiogram attempt. Dr. Griffin Reeder was kind enough to place a 18-gauge catheter under ultrasound guidance for CT scan. At this time CT scan is still pending. Patient's tracheostomy was then noticed to be partially dislodged. I was at the bedside doing tracheostomy changed by respiratory therapist. 6.0 tracheostomy cannula was inserted. 02 saturations supported with Ambu bag and doing tracheostomy change. O2 saturations are in the 90s with supplemental oxygen via trach. Ativan 1 mg ordered after tracheostomy placement 04/22/19 20:29 The tracheostomy change patient became very anxious and sitting on the side of the bed of the oxygen saturation remained in the high 90s. Patient received Dilaudid 1 mg in addition to the Ativan she is given as well as 4 of Zofran. Patient is placed on vent for respiratory support. She is currently sedated wi th saturations of 98% on vent. ABG ordered. pt's pulse ox inacurrate at times while she was agitated and clenching her hands. sats remained in the 90's with good wave form 04/22/19 22:09 ct report reviewed: dissection stable lung opacities differential noted pt still on vent and sedated after ativan and dilaudid, bp improved abg on vent reviewed and suggest chronic co2 retention hospitalist to be informed for admission ED Medical Decision Making - Lab Data Result diagrams: 04/22/19 12:34 04/22/19 12:34 - Radiology Data Radiology results: report reviewed CTA CHEST WITH IV CONTRAST INDICATION / CLINICAL INFORMATION: cp sob dissection. TECHNIQUE: Axial CT images were obtained through the chest after injection of 200 ML IV contrast (100 mL on initial scan with IV infiltration. Additional 100 mL for subsequent repeat scan. ) 3 plane MIP and/or 3D reconstructions were produced. All CT scans at this location are performed using CT dose reduction for ALARA by means of automated exposure control. COMPARISON: Prior CTA chest, 04/01/2019 FINDINGS: PULMONARY ARTERIES: No pulmonary emboli. THORACIC AORTA: There is a known type I aortic dissection that is unchanged in appearance or extent since the recent CTA chest of 04/01/2019. HEART: No significant abnorm ality. No pericardial effusion. CORONARY ARTERIES: Coronary artery calcification is present diffusely. PLEURA: No pleural effusion. No pneumothorax. LYMPH NODES: No significant adenopathy. LUNGS: There are bibasilar pulmonary opacities present, new since the prior CTA chest. This could represent bibasilar pneumonia. ADDITIONAL FINDINGS: None. UPPER ABDOMEN: Images of the upper abdomen show absence of the left kidney. Aortic dissection is visible extending to the level of the aortic bifurcation. The celiac axis, SMA, and right renal artery appear to arise from the true lumen. The appearance is unchanged from prior exam. No acute finding is seen within the abdomen. SKELETAL STRUCTURES: No sign ificant osseous abnormality. Chronic spondylitic change of the spine is again noted. IMPRESSION: 1. No CT evidence for pulmonary embolism. 2. No interval change in the appearance or extent of the known type I aortic dissection 3. Interval development of pulmonary opacities throughout both lower lobes. It is unclear if this is atelectasis with congestion versus possible pneumonia. Clinical correlation is recommended.. Critical care attestation.: If time is entered above; I have spent that time in minutes in the direct care of this critically ill patient, excluding procedure time. ED Disposition Is pt being admited?: Yes Time of Disposition: 22:14 (Dr Carlson)
[2019-04-22] MEDS ORDERED: MORPHINE 2 MG/1 ML INJ IV ONE (15:32)
[2019-04-22] MEDS ORDERED: HYDROmorphone 1 MG/1 ML INJ IV ONE ×3 (15:47→20:20)
[2019-04-22] MEDS ORDERED: dilTIAZem 30 MG TAB ONE ×2 (16:32→18:05)
[2019-04-22] MEDS ORDERED: LORazepam 2 MG/ML VIAL IV ONE (19:56)
[2019-04-22] MEDS ORDERED: HYDROmorphone 1 MG/1 ML INJ ONE (20:23)
[2019-04-22 20:55] LABS: ABG Base Excess 1.8 mmol/L (-2.0-3.0); ABG HCO3 28.3 mmol/L (20.0-26.0); ABG Methemoglobin 0.5 % (0.0-1.5); ABG PCO2 52.8 mm Hg; ABG PH 7.346 pH Units (7.350-7.450); ABG PO2 115.9 mm Hg (80.0-90.0)
--- NOTE | 2019-04-22 21:40 | Cat Scan Report ---
CTA CHEST WITH IV CONTRAST INDICATION / CLINICAL INFORMATION: cp sob dissection. TECHNIQUE: Axial CT images were obtained through the chest after injection of 200 ML IV contrast (100 mL on init ial scan with IV infiltration. Additional 100 mL for subsequent repeat scan. ) 3 plane MIP and/or 3 D reconstructions were produced. All CT scans at this location are performed using CT dose reduction for ALARA by means of automated exposure control. COMPARISON: Prior CTA chest, 04/01/2019 FINDINGS: PULMONARY ARTERIES: No pulmonary emboli. THORACIC AORTA: There is a known type I aortic dissection that is unchanged in appearance or extent s kassi the recent CTA chest of 04/01/2019. HEART: No significant abnormality. No pericardial effusion. CORONARY ARTERIES: Coronary artery calcification is present diffusely. PLEURA: No pleural effusion. No pneumothorax. LYMPH NODES: No significant adenopathy. LUNGS: There are bibasilar pulmonary opacities present, new since the prior CTA chest. This could rep resent bibasilar pneumonia. ADDITIONAL FINDINGS: None. UPPER ABDOMEN: Images of the upper abdomen show absence of the left kidney. Aortic dissection is visi ble extending to the level of the aortic bifurcation. The celiac axis, SMA, and right renal artery ap pear to arise from the true lumen. The appearance is unchanged from prior exam. No acute finding is s een within the abdomen. SKELETAL STRUCTURES: No significant osseous abnormality. Chronic spondylitic change of the spine is a gain noted. IMPRESSION: 1. No CT evidence for pulmonary embolism. 2. No interval change in the appearance or extent of the known type I aortic dissection 3. Interval development of pulmonary opacities throughout both lower lobes. It is unclear if this is atelectasis with congestion versus possible pneumonia. Clinical correlation is recommended.. Signer Name: Jaylene Christine MD Signed: 04/22/2019 9:36 PM Workstation Name: [id number]
[2019-04-22] MEDS ORDERED: labetaloL 200 MG in DEXTROSE 5% IN WATER 160 ML IV ONE (21:47)
[2019-04-22] MEDS ORDERED: MORPHINE 2 MG/1 ML INJ IV PRN (23:20)
--- NOTE | 2019-04-23 02:07 | History and Physical Report ---
History of Present Illness Date of examination: 04/22/19 Date of admission: 04/22/19 22:17 Chief complaint: Shortness of breath Chest pain History of present illness: Patient is a 64-year-old -[place] female with significant history of Morbid obesity, chronic respiratory failure, COPD, chronic tracheostomy, tracheal stenosis, congestive heart failure, on systemic anticoagulation for A. fib/flutter on eliquis. She presents to the emergency room today complaining of shortness of breath and some chest pain. She was recently diagnosed at [facility] with a chronic thoracic aortic dissection which required no immediate intervention. She has indicated that she has been having progressive swelling of her lower extremities and has been having some shortness of breath. Patient is on chronic trach and she has some changes in positioning of her trach in the ER today and she had to be eventually placed on the ventilator. She denies any fever or chills, no nausea vomiting, no abdominal pain, no hematuria or dysuria. Work-up in the emergency room including chest x-ray was consistent with cardiomegaly and borderline interstitial pulmonary edema. Past History Past Medical History: atrial fib, COPD, heart failure, other (History of chronic aortic dissection) Past Surgical History: Other (Tracheostomy placement) Social history: no significant social history Family history: no significant family history Medications and Allergies Allergies Allergy/AdvReac Type Severity Reaction Status Date / Time levofloxacin [From Levaquin] Allergy Rash Verified 01/27/19 21:36 morphine Allergy Rash Verified 01/27/19 21:36 Home Medications Medication Instructions Recorded Confirmed Last Taken Type Apixaban 5 mg PO Q12HRT 01/28/19 01/28/19 01/27/19 History Atorvastatin 40 mg PO DAILY 01/28/19 01/28/19 01/27/19 History Diclofenac 1% topical gel 1 applic TP DAILY PRN 01/28/19 01/28/19 Unknown History Emollient Cream 20 mg PO DAILY 01/28/19 01/28/19 01/27/19 History Escitalopram 20 mg PO DAILY 01/28/19 01/28/19 01/27/19 History Gabapentin 300 mg PO BID 01/28/19 01/28/19 01/27/19 History Lasix TAB 40 mg PO DAILY 01/28/19 01/28/19 01/27/19 History Levothyroxine 125 mcg PO DAILY 01/28/19 01/28/19 01/27/19 History Senna 8.6 mg PO Q12HRT 01/28/19 01/28/19 01/27/19 History guaiFENesin 100 mg PO Q4HRT 01/28/19 01/28/19 01/27/19 History Ipratropium/Albuterol Sulfate 1 ampul IH Q8HRT #30 ampul.neb 02/01/19 Unknown Rx [DUONEB *Not for PRN Use*] Lisinopril [Zestril TAB] 2.5 mg PO BID #30 tablet 02/01/19 Unknown Rx Sulfamethoxazole/Trimethoprim 1 each PO Q12HR #60 tablet 02/01/19 Unknown Rx [Bactrim DS TAB] dilTIAZem [Cardizem] 60 mg PO Q6HR #120 tablet 02/01/19 Unknown Rx predniSONE 20 mg PO DAILY #10 02/01/19 Unknown Rx Active Meds: Active Medications Acetaminophen (Tylenol) 650 mg PO Q6H PRN PRN Reason: Pain MILD(1-3)/Fever >100.5/ARMENDARIZ Furosemide (Lasix) 40 mg IV BID@0600,1800 KAMARI Sodium Chloride (Sodium Chloride Flush Syringe 10 Ml) 10 ml IV BID KAMARI Sodium Chloride (Sodium Chloride Flush Syringe 10 Ml) 10 ml IV PRN PRN PRN Reason: LINE FLUSH Review of Systems Cardiovascular: chest pain, shortness of breath Exam - Constitutional Vitals: Temp Pulse Resp BP Pulse Ox 98.8 F 91 H 30 H 168/104 94 04/22/19 11:22 04/23/19 01:45 04/23/19 01:45 04/23/19 01:45 04/23/19 01:45 General appearance: Present: no acute distress, well-nourished - EENT Eyes: Present: PERRL, EOM intact ENT: hearing intact, clear oral mucosa, dentition normal, other (Trach in place) - Neck Neck: Present: supple, normal ROM - Respiratory Respiratory effort: normal Respiratory: bilateral: diminished - Cardiovascular Rhythm: regular Heart Sounds: Present: S1 & S2 - Extremities Extremities: pulses intact Extremity abnormal: edema (Trace bilateral ankle edema) Peripheral Pulses: within normal limits - Abdominal General gastrointestinal: Present: soft, non-tender, non-distended - Integumentary Integumentary: Present: clear, warm, dry - Neurologic Neurologic: CNII-XII intact Results - Labs CBC & Chem 7: 04/23/19 04:34 04/23/19 04:34 Labs: Abnormal lab results 04/22/19 04/22/19 04/22/19 Range/Units 12:34 12:34 12:34 MCH 27 L (28-32) pg RDW 18.2 H (13.2-15.2) % [place] % (Auto) 10.6 H (0.0-7.3) % Baso % (Auto) 1.9 H (0.0-1.8) % D-Dimer 363.07 H (0-234) ng/mlDDU ABG pH (7.350-7.450) pH Units ABG pO2 (80.0-90.0) mm Hg ABG HCO3 (20.0-26.0) mmol/L ABG Hemoglobin (12.0-16.0) gm/dl Glucose 147 H (65-100) mg/dL Total Creatine Kinase 156 H (30-135) units/L NT-Pro-B Natriuret Pep (0-900) pg/mL 04/22/19 04/22/19 Range/Units 12:34 20:35 MCH (28-32) pg RDW (13.2-15.2) % [place] % (Auto) (0.0-7.3) % Baso % (Auto) (0.0-1.8) % D-Dimer (0-234) ng/mlDDU ABG pH 7.346 L (7.350-7.450) pH Units ABG pO2 115.9 H (80.0-90.0) mm Hg ABG HCO3 28.3 H (20.0-26.0) mmol/L ABG Hemoglobin 11.7 L (12.0-16.0) gm/dl Glucose (65-100) mg/dL Total Creatine Kinase (30-135) units/L NT-Pro-B Natriuret Pep 2542 H (0-900) pg/mL Assessment and Plan - Patient Problems (1) CHF exacerbation Current Visit: Yes Status: Acute Plan to address problem: Patient will be diuresed with Lasix we will monitor input and output will also monitor daily weight. We will request cardiology evaluation and recommendation. (2) Chronic thoracic aortic dissection Current Visit: Yes Status: Acute Plan to address problem: Stable. She was recently evaluated at [facility] and does not require any immediate intervention (3) Encounter for tracheostomy tube change Current Visit: Yes Status: Acute Plan to address problem: Patient had changes in replacement of her trach today and had to be placed on a ventilator. We request further evaluation and follow-up by the solid surface fabricator. (4) Chest pain Current Visit: No Status: Acute Plan to address problem: Work-up so far been negative. Will monitor EKG. (5) History of atrial fibrillation Current Visit: Yes Status: Acute Plan to address problem: Rate is currently controlled. (6) DVT prophylaxis Current Visit: Yes Status: Acute Plan to address problem: Patient on anticoagulation. (7) Full code status Current Visit: Yes Status: Acute
[2019-04-23] MEDS ORDERED: HYDROmorphone 1 MG/1 ML INJ IV ONE (03:21)
[2019-04-23] MEDS ORDERED: HYDROmorphone 1 MG/1 ML INJ ONE ×3 (03:25→23:41)
[2019-04-23 05:02] LABS: Basophils % (Auto) 0.6 % (0.0-1.8); Hemoglobin 11.5 gm/dl (10.1-14.3); Lymphocytes % (Auto) 15.1 % (13.4-35.0); Mean Corpuscular HGB Conc 32 % (30-34); Mean Corpuscular Volume 85 fl (79-97); Monocytes # (Auto) 0.1 K/mm3 (0.0-0.8); Monocytes % (Auto) 0.8 % (0.0-7.3); Platelet Count 223 K/mm3 (140-440); Red Blood Count 4.24 M/mm3 (3.65-5.03); Red Cell Distribution Width 18.3 % (13.2-15.2)
[2019-04-23 05:10] LABS: INR 1.09 (0.87-1.13)
[2019-04-23 05:11] LABS: Partial Thromboplastin Time 30.2 Sec. (24.2-36.6)
[2019-04-23 05:20] LABS: BUN/Creatinine Ratio 12; Blood Urea Nitrogen 13 mg/dL (7-17); Calcium 10.1 mg/dL (8.4-10.2); Hemolysis Index 0
[2019-04-23 05:22] LABS: ABG Base Excess 3.9 mmol/L (-2.0-3.0); ABG HCO3 26.5 mmol/L (20.0-26.0); ABG Methemoglobin 0.5 % (0.0-1.5); ABG Oxygen Saturation 98.9 % (95.0-99.0); ABG PCO2 32.9 mm Hg; ABG PH 7.524 pH Units (7.350-7.450); ABG PO2 142.3 mm Hg (80.0-90.0)
[2019-04-23] MEDS ORDERED: FUROSEMIDE 40 MG/4 ML INJ ONE ×2 (06:32→18:00)
[2019-04-23] MEDS: FUROSEMIDE 40 MG/4 ML INJ IV SCH ×2 (06:33→18:01)
--- NOTE | 2019-04-23 08:18 | Progress Note ---
Assessment and Plan Assessment and plan: --Acute on chronic systolic CHF Current Visit: Yes Status: Acute Patient will be diuresed with Lasix we will monitor input and output will also monitor daily weight.f/u ECHO We will request cardiology evaluation and recommendation. -- Chronic thoracic aortic dissection Current Visit: Yes Status: Acute Stable. She was recently evaluated at [facility] and does not require any immediate intervention --Encounter for tracheostomy tube change Current Visit: Yes Status: Acute Patient had changes in replacement of her trach today and had to be placed on a ventilator. Pulmonary critical following --Acute on chronic respiratory failure ventilatory support, duo nebs, pulmonary critical following --Chest pain Current Visit: No Status: Acute Work-up so far been negative. Cardiology following --History of atrial fibrillation Current Visit: Yes Status: Acute Rate controlled.On Eliquis --DVT prophylaxis Current Visit: Yes Status: Acute Patient on anticoagulation. -- Full code status Current Visit: Yes Status: Acute Monitor closely and adjust management as needed Patient is awaiting ICU placement Plan of care reviewed with the patient and her nurse Critical care time 35 minutes History Interval history: Patient seen and examined in the emergency room awaiting ICU bed assignment Morbidly obese female patient with history of tracheostomy on vent Complains of shortness of breath and generalized body pains in moderate distress Denies chest pain, no nausea vomiting Vital signs noted Hospitalist Physical - Constitutional Vitals: Temp Pulse Resp BP Pulse Ox 98.8 F 107 H 28 H 145/80 100 04/22/19 11:22 04/23/19 06:01 04/23/19 06:01 04/23/19 06:01 04/23/19 06:12 General appearance: Present: mild distress, well-nourished - EENT Eyes: Present: PERRL - Neck Neck: Present: supple, normal ROM - Respiratory Respiratory effort: normal Respiratory: bilateral: diminished, rhonchi, negative: rales, wheezing - Cardiovascular Rhythm: regular Heart Sounds: Present: S1 & S2 - Extremities Extremities: no ischemia, No edema - Abdominal General gastrointestinal: soft, non-tender, non-distended, normal bowel sounds - Integumentary Integumentary: Present: clear, warm - Psychiatric Psychiatric: appropriate mood/affect, cooperative - Neurologic Neurologic: moves all extremities Results - Labs CBC & Chem 7: 04/23/19 04:34 04/23/19 04:34 Labs: Laboratory Last Values WBC 6.9 K/mm3 (4.5-11.0) 04/23/19 04:34 RBC 4.24 M/mm3 (3.65-5.03) 04/23/19 04:34 Hgb 11.5 gm/dl (10.1-14.3) 04/23/19 04:34 Hct 36.0 % (30.3-42.9) 04/23/19 04:34 MCV 85 fl (79-97) 04/23/19 04:34 MCH 27 pg (28-32) L 04/23/19 04:34 MCHC 32 % (30-34) 04/23/19 04:34 RDW 18.3 % (13.2-15.2) H 04/23/19 04:34 Plt Count 223 K/mm3 (140-440) 04/23/19 04:34 Lymph % (Auto) 15.1 % (13.4-35.0) 04/23/19 04:34 [place] % (Auto) 0.8 % (0.0-7.3) 04/23/19 04:34 Eos % (Auto) 0.0 % (0.0-4.3) 04/23/19 04:34 Baso % (Auto) 0.6 % (0.0-1.8) 04/23/19 04:34 Lymph # 1.0 K/mm3 (1.2-5.4) L 04/23/19 04:34 [place] # 0.1 K/mm3 (0.0-0.8) 04/23/19 04:34 Eos # 0.0 K/mm3 (0.0-0.4) 04/23/19 04:34 Baso # 0.0 K/mm3 (0.0-0.1) 04/23/19 04:34 Seg Neutrophils % 83.5 % (40.0-70.0) H 04/23/19 04:34 Seg Neutrophils # 5.7 K/mm3 (1.8-7.7) 04/23/19 04:34 PT 14.2 Sec. (12.2-14.9) 04/23/19 04:34 INR 1.09 (0.87-1.13) 04/23/19 04:34 APTT 30.2 Sec. (24.2-36.6) 04/23/19 04:34 D-Dimer 363.07 ng/mlDDU (0-234) H 04/22/19 12:34 ABG pH 7.524 pH Units (7.350-7.450) H 04/23/19 05:00 ABG pCO2 32.9 mm Hg 04/23/19 05:00 ABG pO2 142.3 mm Hg (80.0-90.0) H 04/23/19 05:00 ABG HCO3 26.5 mmol/L (20.0-26.0) H 04/23/19 05:00 ABG O2 Saturation 98.9 % (95.0-99.0) 04/23/19 05:00 ABG O2 Content 15.6 (0.0-44) 04/23/19 05:00 ABG Base Excess 3.9 mmol/L (-2.0-3.0) H 04/23/19 05:00 ABG Hemoglobin 11.3 gm/dl (12.0-16.0) L 04/23/19 05:00 ABG Carboxyhemoglobin 1.4 % (0.0-5.0) 04/23/19 05:00 ABG Methemoglobin 0.5 % (0.0-1.5) 04/23/19 05:00 Oxyhemoglobin 97.0 % (95.0-99.0) 04/23/19 05:00 FiO2 50 % 04/23/19 05:00 Sodium 144 mmol/L (137-145) 04/23/19 04:34 Potassium 4.5 mmol/L (3.6-5.0) 04/23/19 04:34 Chloride 99.1 mmol/L (98-107) 04/23/19 04:34 Carbon Dioxide 24 mmol/L (22-30) 04/23/19 04:34 Anion Gap 25 mmol/L 04/23/19 04:34 BUN 13 mg/dL (7-17) 04/23/19 04:34 Creatinine 1.1 mg/dL (0.7-1.2) 04/23/19 04:34 Estimated GFR > 60 ml/min 04/23/19 04:34 BUN/Creatinine Ratio 12 % 04/23/19 04:34 Glucose 217 mg/dL (65-100) H 04/23/19 04:34 Calcium 10.1 mg/dL (8.4-10.2) 04/23/19 04:34 Magnesium 1.70 mg/dL (1.7-2.3) 04/22/19 12:34 Total Bilirubin 0.60 mg/dL (0.1-1.2) 04/22/19 12:34 AST 23 units/L (5-40) 04/22/19 12:34 ALT 24 units/L (7-56) 04/22/19 12:34 Alkaline Phosphatase 116 units/L (35-129) 04/22/19 12:34 Total Creatine Kinase 156 units/L (30-135) H 04/22/19 12:34 Troponin T 0.014 ng/mL (0.00-0.029) 04/22/19 18:26 NT-Pro-B Natriuret Pep 2542 pg/mL (0-900) H 04/22/19 12:34 Total Protein 7.3 g/dL (6.3-8.2) 04/22/19 12:34 Albumin 4.0 g/dL (3.9-5) 04/22/19 12:34 Albumin/Globulin Ratio 1.2 % 04/22/19 12:34 Active Medications - Current Medications Current Medications: Generic Name Dose Route Start Last Admin Trade Name Freq PRN Reason Stop Dose Admin Acetaminophen 650 mg 04/22/19 23:20 Tylenol PO Q6H PRN Pain MILD(1-3)/Fever >100.5/ARMENDARIZ Furosemide 40 mg 04/23/19 06:00 04/23/19 06:33 Lasix IV 40 mg BID@0600,1800 KAMARI Administration Sodium Chloride 10 ml 04/23/19 10:00 Sodium Chloride Flush Syringe 10 Ml IV BID KAMARI Sodium Chloride 10 ml 04/22/19 23:20 Sodium Chloride Flush Syringe 10 Ml IV PRN PRN LINE FLUSH
[2019-04-23] MEDS ORDERED: HYDROmorphone 1 MG/1 ML INJ IM PRN (09:24)
[2019-04-23] MEDS: HYDROmorphone 1 MG/1 ML INJ IV PRN ×3 (09:51→23:35)
[2019-04-23] MEDS ORDERED: NON-FORMULARY EACH (Gabapentin 300 MG) PO SCH (10:00)
[2019-04-23] MEDS ORDERED: NON-FORMULARY EACH (Atorvastatin 40 MG) PO SCH (10:00)
[2019-04-23] MEDS ORDERED: LEVOTHYROXINE 125 MCG PO SCH (10:00)
[2019-04-23] MEDS ORDERED: NON-FORMULARY EACH (Escitalopram 20 MG) PO SCH (10:00)
--- NOTE | 2019-04-23 10:56 | Consultation ---
History of Present Illness Consult date: 04/23/19 Requesting physician: DAVID QUIROZ Reason for consult: other (acute and chronic respiratory failure; s/p trachesotomy; chest pain) History of present illness: Patient is a 64-year-old -[place] female with significant history of Morbid obesity, chronic respiratory failure, COPD, chronic tracheostomy, tracheal stenosis, congestive heart failure, on systemic anticoagulation for A. fib/flutter on eliquis. She presents to the emergency room today complaining of shortness of breath and some chest pain. She was recently diagnosed at [facility] with a chronic thoracic aortic dissection which required no immediate intervention. She has indicated that she has been having progressive swelling of her lower e xtremities and has been having some shortness of breath. Patient is on chronic trach and she has some changes in positioning of her trach in the ER today and she had to be eventually placed on the ventilator. She denies any fever or chills, no nausea vomiting, no abdominal pain, no hematuria or dysuria. Work-up in the emergency room including chest x-ray was consistent with cardiomegaly and borderline interstitial pulmonary edema. Patient was seen and examined. Vitals, labs, medications, chart and imaging reviewed. Currently resting peacefully on MVS REVIEW OF SYSTEMS Constitutional: denies: fever Eyes: denies: eye discharge ENT: congestion Respiratory: shortness of breath, wheezing Cardiovascular: chest pain, edema Gastrointestinal: denies: vomiting Genitourinary: denies: dysuria Musculoskeletal: arthralgia, myalgia Skin: denies: lesions Neurological: weakness Past History Past Medical History: atrial fib, COPD, heart failure, other (History of chronic aortic dissection) Past Surgical History: Other (Tracheostomy placement) Social history: no significant social history Family history: no significant family history Medications and Allergies Allergies Allergy/AdvReac Type Severity Reaction Status Date / Time levofloxacin [From Levaquin] Allergy Rash Verified 01/27/19 21:36 morphine Allergy Rash Verified 01/27/19 21:36 Home Medications Medication Instructions Recorded Confirmed Last Taken Type Apixaban 5 mg PO Q12HRT 01/28/19 04/25/19 01/27/19 History Atorvastatin 40 mg PO DAILY 01/28/19 04/25/19 01/27/19 History Escitalopram 20 mg PO DAILY 01/28/19 04/25/19 01/27/19 History guaiFENesin 600 mg PO Q4HRT 01/28/19 04/25/19 01/27/19 History Ipratropium/Albuterol Sulfate 1 ampul IH Q8HRT #30 ampul.neb 02/01/19 04/25/19 Unknown Rx [DUONEB *Not for PRN Use*] Benzonatate [Tessalon Perles] 100 mg PO Q8HR PRN 04/25/19 04/25/19 Unknown History Budesonide [Pulmicort Respules] 0.5 mg IH Q12HR 04/25/19 04/25/19 Unknown History Fluticasone [Flonase] 50 mcg BID 04/25/19 04/25/19 Unknown History HYDROcodone/APAP 5-325 [[place] 5 - 325 mg Q6HR PRN 04/25/19 04/25/19 Unknown History 5-325 mg TAB] Insulin Lispro [Admelog] 5 unit SQ TID 04/25/19 04/25/19 Unknown History Pantoprazole [Protonix TAB] 40 mg PO QDAY 04/25/19 04/25/19 Unknown History allopurinoL [Zyloprim] 300 mg PO QDAY 04/25/19 04/25/19 Unknown History Acetaminophen [Acetaminophen TAB] 1 tab PO Q6H PRN #15 tablet 04/26/19 Unknown Rx Apixaban [Eliquis] 5 mg PO Q12HR #60 tablet 04/26/19 Unknown Rx AtorvaSTATin [Lipitor] 40 mg PO QHS #30 tablet 04/26/19 Unknown Rx Famotidine [Pepcid] 20 mg PO DAILY #30 tablet 04/26/19 Unknown Rx Furosemide [Lasix TAB] 40 mg PO QDAY #30 tablet 04/26/19 Unknown Rx Gabapentin 300 mg PO BID #60 capsule 04/26/19 Unknown Rx Insulin Lispro 1 unit SQ ACHS PRN #1 vial 04/26/19 Unknown Rx Levothyroxine [Synthroid] 125 mcg PO DAILY@0600 #30 tablet 04/26/19 Unknown Rx Lisinopril [Zestril TAB] 2.5 mg PO QDAY #30 tab 04/26/19 Unknown Rx Magnesium Hydroxide [Milk of 30 ml PO QDAY PRN oral.liqd 04/26/19 Unknown Rx Magnesia] dilTIAZem CD [Cardizem Cd] 240 mg PO QDAY #30 cap 04/26/19 Unknown Rx hydrALAZINE [Apresoline TAB] 25 mg PO TID #90 tablet 04/26/19 Unknown Rx predniSONE [Deltasone] 1 dose PO QDAY #78 tab 04/26/19 Unknown Rx Insulin Glargine [Lantus VIAL] 12 unit SUB-Q QAM #1000 ml 04/28/19 Unknown Rx Active Meds: Active Medications Acetaminophen (Tylenol) 650 mg PO Q6H PRN PRN Reason: Pain MILD(1-3)/Fever >100.5/ARMENDARIZ Apixaban (Eliquis) 5 mg PO Q12HR KAMARI Atorvastatin Calcium (Lipitor) 40 mg PO QHS KAMARI Escitalopram Oxalate (Lexapro) 20 mg PO DAILY KAMARI Furosemide (Lasix) 40 mg IV BID@0600,1800 [facility] Last Admin: 04/23/19 06:33 Dose: 40 mg Documented by: Gabapentin (Gabapentin) 300 mg PO BID [facility] Hydromorphone HCl (Dilaudid) 0.5 mg IV Q6H PRN PRN Reason: Pain , Severe (7-10) Last Admin: 04/23/19 09:51 Dose: 0.5 mg Documented by: Levothyroxine Sodium (Synthroid) 125 mcg PO DAILY@0600 [facility] Sodium Chloride (Sodium Chloride Flush Syringe 10 Ml) 10 ml IV BID [facility] Last Admin: 04/23/19 09:52 Dose: 10 ml Documented by: Sodium Chloride (Sodium Chloride Flush Syringe 10 Ml) 10 ml IV PRN PRN PRN Reason: LINE FLUSH Physical Examination Vital signs: Vital Signs Temp Pulse Resp BP Pulse Ox 98.8 F 103 H 20 146/102 98 04/22/19 11:22 04/22/19 11:22 04/22/19 11:22 04/22/19 11:22 04/22/19 11:22 General appearance: Present: obes, normocephalic, atraumatic, on MVS Obese s/p tracheostomy - EENT Eyes: Present: PERRL - Neck Neck: Present: supple, normal ROM - Respiratory Respiratory effort: normal Respiratory: bilateral: diminished, rhonchi, negative: rales, wheezing - Cardiovascular Rhythm: regular Heart Sounds: Present: S1 & S2 - Extremities Extremities: no ischemia, + bilateral lower extremity edema - Abdominal General gastrointestinal: soft, non-tender, non-distended, normal bowel sounds - Integumentary Integumentary: Present: clear, warm - Psychiatric Psychiatric: anxious mood/affect, cooperative - Neurologic Neurologic: moves all extremities Results - Laboratory Findings CBC and BMP: 04/25/19 05:02 04/25/19 05:02 ABG ABG pH 7.524 pH Units (7.350-7.450) H 04/23/19 05:00 ABG pCO2 32.9 mm Hg 04/23/19 05:00 ABG pO2 142.3 mm Hg (80.0-90.0) H 04/23/19 05:00 ABG O2 Saturation 98.9 % (95.0-99.0) 04/23/19 05:00 PT/INR, D-dimer PT 14.2 Sec. (12.2-14.9) 04/23/19 04:34 INR 1.09 (0.87-1.13) 04/23/19 04:34 D-Dimer 363.07 ng/mlDDU (0-234) H 04/22/19 12:34 Abnormal lab findings: Abnormal Labs 04/22/19 04/22/19 04/22/19 12:34 12:34 12:34 MCH 27 L RDW 18.2 H [place] % (Auto) 10.6 H Baso % (Auto) 1.9 H Lymph # Seg Neutrophils % D-Dimer 363.07 H ABG pH ABG pO2 ABG HCO3 ABG Base Excess ABG Hemoglobin Glucose 147 H Total Creatine Kinase 156 H NT-Pro-B Natriuret Pep 04/22/19 04/22/19 04/23/19 12:34 20:35 04:34 MCH 27 L RDW 18.3 H [place] % (Auto) Baso % (Auto) Lymph # 1.0 L Seg Neutrophils % 83.5 H D-Dimer ABG pH 7.346 L ABG pO2 115.9 H ABG HCO3 28.3 H ABG Base Excess ABG Hemoglobin 11.7 L Glucose Total Creatine Kinase NT-Pro-B Natriuret Pep 2542 H 04/23/19 04/23/19 04:34 05:00 MCH RDW [place] % (Auto) Baso % (Auto) Lymph # Seg Neutrophils % D-Dimer ABG pH 7.524 H ABG pO2 142.3 H ABG HCO3 26.5 H ABG Base Excess 3.9 H ABG Hemoglobin 11.3 L Glucose 217 H Total Creatine Kinase NT-Pro-B Natriuret Pep - Diagnostic Findings Chest x-ray: image reviewed Assessment and Plan -Acute and chronic hypoxic respiratory failure -s/p trachesotomy with trach change -Pulmonary HTN, cor pulmonale -COPD -Morbid obesity -Sleep apnea with OHS -Acute on chronic systolic heart failure -Chronic atrial fibrillation -Chronic atrial fibrillation flutter - History of chronic aortic dissection stable -Morbid obesity RECOMMENDATIONS -Admit ICU -VAP bundle addressed -Trach care, airway clearance, secretion management - Continue to wean supplemental oxygen for target O2 sat's > 90% acutely - Start SBT and transition to ATP as tolerated - VAP bundle addressed - Lung protective strategies - Bronchodilators with pulmonary hygiene per RT - Accuchecks with glycemic control per SSI (While critically ill target blood glucose of 140-180 mg/dL; avoid hypoglycemia) - Avoid benzodiazepines to reduce the possibility of delirium - prn analgesia per CPOT score -Agitation management - Maintenance of sleep-wake cycle, avoid delirium -If she is not off MVS by the morning, will need tube feeding nutritional support -Aspiration precautions, HOB >40 - G.I. & VTE prophylaxis (chronic anticoagulation) - PT/OT/ROM exercises - Mobility protocol and off loading for pressure ulcer prevention -Chronic home medications, agitation management CONDITION: CRITICAL PROGNOSIS: GUARDED CODE STATUS: FULL CODE The high probability of a clinically significant, sudden or life-threatening d eterioration of the [respiratory, cardiovascular ] system(s) required my full and direct attention, intervention and personal management. The aggregate critical care time was [35] minutes without overlap. Time includes spent on; [x] Data Review and interpretation [x] Patient assessment and monitoring of vital signs [x] Documentation [x] Medication orders and management
--- NOTE | 2019-04-23 11:43 | Consultation ---
History of Present Illness Consult date: 04/23/19 Consult reason: atrial fibrillation History of present illness: 64 year old obese -[place] female presenting to the emergency room which shortness of breath. Chest x-ray shows some basilar interstitial edema in both lung mcdonald. Patient's has his chronic history of atrial fibrillation and is on chronic anticoagulation. Past History Past Medical History: atrial fib, COPD, heart failure, other (History of chronic aortic dissection) Past Surgical History: Other (Tracheostomy placement) Social history: no significant social history Family history: no significant family history Medications and Allergies Allergies Allergy/AdvReac Type Severity Reaction Status Date / Time levofloxacin [From Levaquin] Allergy Rash Verified 01/27/19 21:36 morphine Allergy Rash Verified 01/27/19 21:36 Home Medications Medication Instructions Recorded Confirmed Last Taken Type Apixaban 5 mg PO Q12HRT 01/28/19 01/28/19 01/27/19 History Atorvastatin 40 mg PO DAILY 01/28/19 01/28/19 01/27/19 History Diclofenac 1% topical gel 1 applic TP DAILY PRN 01/28/19 01/28/19 Unknown History Emollient Cream 20 mg PO DAILY 01/28/19 01/28/19 01/27/19 History Escitalopram 20 mg PO DAILY 01/28/19 01/28/19 01/27/19 History Gabapentin 300 mg PO BID 01/28/19 01/28/19 01/27/19 History Lasix TAB 40 mg PO DAILY 01/28/19 01/28/19 01/27/19 History Levothyroxine 125 mcg PO DAILY 01/28/19 01/28/19 01/27/19 History Senna 8.6 mg PO Q12HRT 01/28/19 01/28/19 01/27/19 History guaiFENesin 100 mg PO Q4HRT 01/28/19 01/28/19 01/27/19 History Ipratropium/Albuterol Sulfate 1 ampul IH Q8HRT #30 ampul.neb 02/01/19 Unknown Rx [DUONEB *Not for PRN Use*] Lisinopril [Zestril TAB] 2.5 mg PO BID #30 tablet 02/01/19 Unknown Rx Sulfamethoxazole/Trimethoprim 1 each PO Q12HR #60 tablet 02/01/19 Unknown Rx [Bactrim DS TAB] dilTIAZem [Cardizem] 60 mg PO Q6HR #120 tablet 02/01/19 Unknown Rx predniSONE 20 mg PO DAILY #10 02/01/19 Unknown Rx Active Meds: Active Medications Acetaminophen (Tylenol) 650 mg PO Q6H PRN PRN Reason: Pain MILD(1-3)/Fever >100.5/ARMENDARIZ Apixaban (Eliquis) 5 mg PO Q12HR [facility] Atorvastatin Calcium (Lipitor) 40 mg PO QHS [facility] Escitalopram Oxalate (Lexapro) 20 mg PO DAILY [facility] Furosemide (Lasix) 40 mg IV BID@0600,1800 [facility] Last Admin: 04/23/19 06:33 Dose: 40 mg Documented by: Gabapentin (Gabapentin) 300 mg PO BID [facility] Hydromorphone HCl (Dilaudid) 0.5 mg IV Q6H PRN PRN Reason: Pain , Severe (7-10) Last Admin: 04/23/19 09:51 Dose: 0.5 mg Documented by: Levothyroxine Sodium (Synthroid) 125 mcg PO DAILY@0600 [facility] Sodium Chloride (Sodium Chloride Flush Syringe 10 Ml) 10 ml IV BID [facility] Last Admin: 04/23/19 09:52 Dose: 10 ml Documented by: Sodium Chloride (Sodium Chloride Flush Syringe 10 Ml) 10 ml IV PRN PRN PRN Reason: LINE FLUSH Review of Systems Constitutional: no weight loss, no weight gain, no chills, no sweats, no night sweats, no fatigue Ears, nose, mouth and throat: no deferred, no ear pain, no ear discharge, no tinnitis, no decreased hearing, no sinus pain, no epistaxis, no dental pain, no mouth pain Breasts: no deferred, no normal, no change in shape, no swelling Cardiovascular: no chest pain, no orthopnea, no palpitations, no edema, no syncope Respiratory: no cough, no cough with sputum, no hemoptysis, no shortness of breath, no dyspnea on exertion, no congestion, no pain Gastrointestinal: no abdominal pain, no nausea, no vomiting, no diarrhea, no constipation, no melena, no hematochezia Genitourinary Female: no dyspareunia, no dysmenorrhea, no dysuria, no nocturia, no vaginal itching Integumentary: no rash, no pruritis, no redness, no sores, no wounds Neurological: no paralysis, no weakness, no parathesias, no vertigo, no headaches Psychiatric: no anxiety, no memory loss, no change in sleep habits, no sleep disturbances Endocrine: no cold intolerance, no heat intolerance, no polyphagia, no excessive thirst Physical Examination Vital Signs Temp Pulse Resp BP Pulse Ox 98.8 F 103 H 20 146/102 98 04/22/19 11:22 04/22/19 11:22 04/22/19 11:22 04/22/19 11:04/22/19 11:22 General appearance: no acute distress, mild distress, obese HEENT: Positive: PERRL, EOMI, Normocephaly, Mucus Membranes Moist Neck: Positive: neck supple, trachea midline, Other (Midline trach in place). Negative: JVD/HJR Cardiac: Positive: S1/S2, PMI, Dilated, Laterally Displaced. Negative: Reg Rate and Rhythm, S3, S4 Lungs: Positive: clear to auscultation. Negative: No Wheeze, Rales, Rhonchi Neuro: Positive: Grossly Intact Abdomen: Positive: Unremarkable, Active Bowel Sounds Extremities: Present: normal. Absent: edema Results 04/23/19 04:34 04/23/19 04:34 Cardiac Enzymes 04/22/19 Range/Units 12:34 AST 23 (5-40) units/L Coagulation 04/22/19 04/23/19 Range/Units 12:34 04:34 PT 13.9 14.2 (12.2-14.9) Sec. INR 1.06 1.09 (0.87-1.13) APTT 31.0 30.2 (24.2-36.6) Sec. CBC 04/22/19 04/23/19 Range/Units 12:34 04:34 WBC 7.0 6.9 (4.5-11.0) K/mm3 RBC 3.83 4.24 (3.65-5.03) M/mm3 Hgb 10.4 11.5 (10.1-14.3) gm/dl Hct 33.1 36.0 (30.3-42.9) % Plt Count 191 223 (140-440) K/mm3 Lymph # 1.6 1.0 L (1.2-5.4) K/mm3 [place] # 0.7 0.1 (0.0-0.8) K/mm3 Eos # 0.2 0.0 (0.0-0.4) K/mm3 Baso # 0.1 0.0 (0.0-0.1) K/mm3 Comprehensive Metabolic Panel 04/22/19 04/23/19 Range/Units 12:34 04:34 Sodium 141 144 (137-145) mmol/L Potassium 4.4 4.5 (3.6-5.0) mmol/L Chloride 101.3 99.1 (98-107) mmol/L Carbon Dioxide 26 24 (22-30) mmol/L BUN 9 13 (7-17) mg/dL Creatinine 0.8 1.1 (0.7-1.2) mg/dL Glucose 147 H 217 H (65-100) mg/dL Calcium 9.5 10.1 (8.4-10.2) mg/dL AST 23 (5-40) units/L ALT 24 (7-56) units/L Alkaline Phosphatase 116 (35-129) units/L Total Protein 7.3 (6.3-8.2) g/dL Albumin 4.0 (3.9-5) g/dL EKG interpretations - Telemetry EKG Rhythm: Atrial Fibrillation Assessment and Plan 1. Acute decompensated systolic heart failure 2. Chronic atrial fibrillation 3. COPD 4. Chronic tracheostomy in place 5. Chronic atrial fibrillation flutter 6. History of chronic aortic dissection stable 7. Morbid obesity 8. Chronic cor pulmonale with severe pulmonary hypertension Plan Currently stable resume home cardiac medication gradual diuresis. Check echocardiogram
[2019-04-23] MEDS: ESCITALOPRAM 10 MG TAB PO SCH (12:08)
[2019-04-23] MEDS: LEVOTHYROXINE 125 MCG TAB PO SCH (12:08)
[2019-04-23] MEDS ORDERED: GABAPENTIN 300 MG CAP ONE ×2 (18:00→23:40)
[2019-04-23] MEDS: GABAPENTIN 300 MG CAP PO SCH ×2 (18:01→23:35)
[2019-04-23] MEDS ORDERED: hydrALAZINE 20 MG/1 ML INJ IV PRN (18:22)
[2019-04-23] MEDS ORDERED: NON-FORMULARY EACH (Apixaban 5 MG) PO SCH (20:00)
[2019-04-23] MEDS: hydrALAZINE 25 MG TAB PO SCH (23:35)
[2019-04-23] MEDS: APIXABAN 5 MG TAB PO SCH (23:35)
[2019-04-23] MEDS ORDERED: APIXABAN 5 MG TAB ONE (23:40)
[2019-04-23] MEDS ORDERED: hydrALAZINE 25 MG TAB ONE (23:40)
[2019-04-24] MEDS ORDERED: hydrALAZINE 25 MG TAB ONE (06:52)
[2019-04-24] MEDS ORDERED: FUROSEMIDE 40 MG/4 ML INJ ONE (06:52)
[2019-04-24] MEDS: FUROSEMIDE 40 MG/4 ML INJ IV SCH ×2 (07:11→18:47)
[2019-04-24] MEDS: hydrALAZINE 25 MG TAB PO SCH ×3 (07:11→21:10)
[2019-04-24] MEDS: LEVOTHYROXINE 125 MCG TAB PO SCH (07:11)
[2019-04-24] MEDS: HYDROmorphone 1 MG/1 ML INJ IV PRN ×2 (07:30→21:09)
[2019-04-24] MEDS ORDERED: HYDROmorphone 1 MG/1 ML INJ ONE ×2 (07:46→13:02)
[2019-04-24] MEDS ORDERED: GABAPENTIN 300 MG CAP ONE (10:17)
[2019-04-24] MEDS ORDERED: APIXABAN 5 MG TAB ONE (10:17)
[2019-04-24] MEDS: GABAPENTIN 300 MG CAP PO SCH ×2 (10:22→21:10)
[2019-04-24] MEDS: ESCITALOPRAM 10 MG TAB PO SCH (10:22)
[2019-04-24] MEDS: APIXABAN 5 MG TAB PO SCH ×2 (10:22→21:10)
--- NOTE | 2019-04-24 12:08 | Progress Note ---
Assessment and Plan 1. Acute decompensated systolic heart failure 2. Chronic atrial fibrillation 3. COPD 4. Chronic tracheostomy in place 5. Chronic Lymphedema 6. History of chronic aortic dissection stable 7. Morbid obesity 8. Chronic cor pulmonale with severe pulmonary hypertension Plan Currently stable resume home cardiac medication gradual diuresis. Check echocardiogram Subjective Date of service: 05/01/19 Interval history: No cardiac symptoms. Objective Vital Signs Pulse Resp BP BP Pulse Ox Pulse Ox 04/24/19 07:56 119 H 24 148/83 98 04/24/19 07:09 121 H 24 140/83 97 04/24/19 07:00 123 H 52/30 92 04/24/19 06:30 121 H 52/30 91 04/24/19 06:00 52/30 95 04/24/19 05:30 52/30 86 04/24/19 05:00 127 H 52/30 91 04/24/19 04:40 96 04/24/19 04:30 124 H 52/30 87 04/24/19 04:00 116 H 52/30 93 04/24/19 03:30 131 H 52/30 100 04/24/19 03:00 127 H 96 04/24/19 02:30 127 H 95 04/24/19 02:00 130/102 91 04/24/19 01:30 130/102 94 04/24/19 01:15 97 04/24/19 01:00 130/102 98 04/24/19 00:46 130/102 91 04/24/19 00:30 130/102 98 04/24/19 00:16 130/102 98 04/24/19 00:00 130/102 100 04/23/19 23:46 130/102 85 04/23/19 23:30 130/102 88 04/23/19 23:16 130/102 89 04/23/19 23:00 130/102 93 04/23/19 22:46 130/102 92 04/23/19 22:30 130/102 85 04/23/19 22:16 130/102 90 04/23/19 22:00 130/102 98 04/23/19 21:46 130/102 99 04/23/19 21:30 130/102 100 04/23/19 21:16 130/102 91 04/23/19 21:00 130/102 88 04/23/19 20:46 130/102 95 04/23/19 20:30 130/102 95 04/23/19 20:16 128 H 16 130/102 100 04/23/19 20:00 124 H 15 129/94 95 04/23/19 19:46 124 H 16 158/140 94 04/23/19 19:35 121 H 52/30 97 04/23/19 19:30 125 H 18 152/110 99 04/23/19 19:16 121 H 30 H 100 04/23/19 19:00 123 H 18 152/110 04/23/19 18:45 123 H 22 152/110 04/23/19 18:31 126 H 18 152/110 04/23/19 18:25 97 04/23/19 18:15 122 H 25 H 152/110 100 04/23/19 18:01 116 H 20 179/113 100 04/23/19 17:45 125 H 17 179/113 100 04/23/19 17:31 121 H 27 H 152/110 100 04/23/19 17:15 122 H 14 179/113 100 04/23/19 17:00 118 H 15 179/113 95 04/23/19 16:45 117 H 17 183/122 98 04/23/19 16:30 123 H 15 183/122 95 04/23/19 16:27 18 04/23/19 16:15 113 H 21 161/120 100 04/23/19 16:00 121 H 19 161/120 93 04/23/19 15:45 114 H 16 158/110 100 04/23/19 15:30 115 H 17 158/110 97 04/23/19 15:15 110 H 22 178/115 100 04/23/19 15:00 118 H 17 178/115 97 04/23/19 14:45 117 H 14 179/112 100 04/23/19 14:30 116 H 20 179/112 96 04/23/19 14:15 122 H 23 166/107 100 04/23/19 14:01 122 H 24 166/107 100 04/23/19 13:45 113 H 13 166/107 04/23/19 13:31 119 H 12 166/107 04/23/19 13:15 118 H 17 166/107 04/23/19 13:01 120 H 13 166/107 99 04/23/19 12:45 109 H 17 166/107 100 04/23/19 12:35 113 H 18 99 - Physical Examination HEENT: Positive: PERRL, EOMI, Normocephaly, Mucus Membranes Moist Neck: Positive: neck supple, trachea midline, Other (Midline trach in place). Negative: JVD/HJR Cardiac: Positive: Regular Rate, irregularly irregular, S1/S2, PMI, Dilated, Laterally Displaced Lungs: Positive: clear to auscultation, No Wheeze, Rales, Rhonchi Neuro: Positive: Grossly Intact, No Lateralizing Findings Abdomen: Positive: Unremarkable, Active Bowel Sounds Extremities: Present: normal, edema, +3 Edema, Other
--- NOTE | 2019-04-24 12:16 | XRay Report ---
CHEST 1 VIEW 04/24/2019 11:39 AM INDICATION / CLINICAL INFORMATION: resp failure on vent. COMPARISON: 04/22/19 FINDINGS: SUPPORT DEVICES: Tracheostomy tube is unchanged. HEART / MEDIASTINUM: Heart is enlarged but stable. LUNGS / PLEURA: Slight improvement in interstitial edema. No pneumothorax. ADDITIONAL FINDINGS: No significant additional findings. IMPRESSION: 1. Improved pulmonary edema. Signer Name: Reginald Pino MD Signed: 04/24/2019 12:12 PM Workstation Name: [id number]
--- NOTE | 2019-04-24 13:07 | Progress Note ---
Assessment and Plan -Acute and chronic hypoxic respiratory failure -s/p trachesotomy with trach change -Pulmonary HTN, cor pulmonale -COPD -Morbid obesity -Sleep apnea with OHS -Acute on chronic systolic heart failure -Chronic atrial fibrillation -Chronic atrial fibrillation flutter - History of chronic aortic dissection stable -Morbid obesity -ATP- in severe distress at this time. 1 dose of dilaudid given, 1 dose of furosemide, 1 dose of 80mg solumedrol and bronchodilaotrs administered stat. -Trach care, airway clearance, secretion management - Continue to wean supplemental oxygen for target O2 sat's > 90% - Bronchodilators with pulmonary hygiene per RT -Accuchecks with glycemic control per SSI (While critically ill target blood glucose of 140-180 mg/dL; avoid hypoglycemia) -Avoid benzodiazepines to reduce the possibility of delirium - prn analgesia per CPOT score -Agitation management - Maintenance of sleep-wake cycle, avoid delirium -Aspiration precautions, HOB >40 - G.I. & VTE prophylaxis (chronic anticoagulation) - PT/OT/ROM exercises - Mobility protocol and off loading for pressure ulcer prevention -Chronic home medications, agitation management CONDITION: CRITICAL PROGNOSIS: GUARDED CODE STATUS: FULL CODE The high probability of a clinically significant, sudden or life-threatening deterioration of the [respiratory, cardiovascular ] system(s) required my full and direct attention, intervention and personal management. The aggregate critical care time was [30] minutes without overlap. Time includes spent on; [x] Data Review and interpretation [x] Patient assessment and monitoring of vital signs [x] Documentation [x] Medication orders and management Subjective Date of service: 04/24/19 Interval history: Patient is seen today for:acute on chronic respiratory failure;s/p tracheostomy; acute systolic heart failure; morbid obesity; Seen and examined at bedside; 24hour events reviewed; nursing and respiratory ca re staff consulted; in acute respiratory distress, tachypnic, tachycardia, restless in bed- just brought up to the ICU from the ED s/p trach to ATP Objective - Exam Narrative Exam: General appearance: Present: obese, normocephalic, atraumatic, In severe respiratory distress Obese s/p tracheostomy to ATP - EENT Eyes: Present: PERRL - Neck Neck: Present: supple, normal ROM - Respiratory Respiratory effort: normal Respiratory: bilateral: diminished, rhonchi, negative: rales, wheezing - Cardiovascular Rhythm: regular Heart Sounds: Present: S1 & S2 - Extremities Extremities: no ischemia, + bilateral lower extremity edema - Abdominal General gastrointestinal: soft, non-tender, non-distended, normal bowel sounds - Integumentary Integumentary: Present: clear, warm - Psychiatric Psychiatric: anxious mood/affect, cooperative - Neurologic Neurologic: moves all extremities Vital Signs - 12hr 04/24/19 04/24/19 04/24/19 01:15 01:30 02:00 Pulse Rate Respiratory Rate Blood Pressure 130/102 130/102 Blood Pressure [Left] O2 Sat by Pulse 97 94 91 Oximetry O2 Sat by Pulse Oximetry [ Assessment] 04/24/19 04/24/19 04/24/19 02:30 03:00 03:30 Pulse Rate 127 H 127 H 131 H Respiratory Rate Blood Pressure 52/30 Blood Pressure [Left] O2 Sat by Pulse 95 96 100 Oximetry O2 Sat by Pulse Oximetry [ Assessment] 04/24/19 04/24/19 04/24/19 04:00 04:30 04:40 Pulse Rate 116 H 124 H Respiratory Rate Blood Pressure 52/30 52/30 Blood Pressure [Left] O2 Sat by Pulse 93 87 Oximetry O2 Sat by Pulse 96 Oximetry [ Assessment] 04/24/19 04/24/19 04/24/19 05:00 05:30 06:00 Pulse Rate 127 H Respiratory Rate Blood Pressure 52/30 52/30 52/30 Blood Pressure [Left] O2 Sat by Pulse 91 86 95 Oximetry O2 Sat by Pulse Oximetry [ Assessment] 04/24/19 04/24/19 04/24/19 06:30 07:00 07:09 Pulse Rate 121 H 123 H 121 H Respiratory 24 Rate Blood Pressure 52/30 52/30 Blood Pressure 140/83 [Left] O2 Sat by Pulse 91 92 97 Oximetry O2 Sat by Pulse Oximetry [ Assessment] 04/24/19 04/24/19 04/24/19 07:30 07:56 08:00 Pulse Rate 124 H 119 H 133 H Respiratory 24 Rate Blood Pressure 148/83 148/83 Blood Pressure 148/83 [Left] O2 Sat by Pulse 97 98 98 Oximetry O2 Sat by Pulse Oximetry [ Assessment] 04/24/19 04/24/19 04/24/19 08:30 09:00 09:30 Pulse Rate 119 H 135 H Respiratory 17 Rate Blood Pressure 148/83 148/83 148/83 Blood Pressure [Left] O2 Sat by Pulse 96 93 84 Oximetry O2 Sat by Pulse Oximetry [ Assessment] 04/24/19 04/24/19 04/24/19 10:30 11:00 11:30 Pulse Rate 131 H 112 H 131 H Respiratory 29 H 29 H 18 Rate Blood Pressure 107/85 107/85 Blood Pressure 107/65 [Left] O2 Sat by Pulse 80 L 81 L 100 Oximetry O2 Sat by Pulse Oximetry [ Assessment] 04/24/19 12:36 Pulse Rate 129 H Respiratory 18 Rate Blood Pressure Blood Pressure 132/66 [Left] O2 Sat by Pulse 100 Oximetry O2 Sat by Pulse Oximetry [ Assessment] CBC and BMP: 04/25/19 05:02 04/25/19 05:02 ABG, PT/INR, D-dimer: ABG POC ABG pH 7.433 (7.35-7.45) 04/24/19 00:46 ABG pH 7.524 pH Units (7.350-7.450) H 04/23/19 05:00 POC ABG pCO2 50.0 (35-45) H 04/24/19 00:46 ABG pCO2 32.9 mm Hg 04/23/19 05:00 POC ABG pO2 119 (80-105) H 04/24/19 00:46 ABG pO2 142.3 mm Hg (80.0-90.0) H 04/23/19 05:00 POC ABG HCO3 33.4 (22-26 mml/L) 04/24/19 00:46 POC ABG Total CO2 35 (23-27mmol/L) 04/24/19 00:46 POC ABG O2 Sat 99 04/24/19 00:46 ABG O2 Saturation 98.9 % (95.0-99.0) 04/23/19 05:00 PT/INR, D-dimer PT 14.2 Sec. (12.2-14.9) 04/23/19 04:34 INR 1.09 (0.87-1.13) 04/23/19 04:34 D-Dimer 363.07 ng/mlDDU (0-234) H 04/22/19 12:34 Abnormal lab findings: Abnormal Labs 12/13/19 12/13/19 12/13/19 12:34 12:34 12:34 MCH 27 L RDW 18.2 H [place] % (Auto) 10.6 H Baso % (Auto) 1.9 H Lymph # Seg Neutrophils % D-Dimer 363.07 H ABG pH POC ABG pCO2 POC ABG pO2 ABG pO2 ABG HCO3 ABG Base Excess ABG Hemoglobin Glucose 147 H Total Creatine Kinase 156 H NT-Pro-B Natriuret Pep 04/22/19 04/22/19 04/23/19 12:34 20:35 04:34 MCH 27 L RDW 18.3 H [place] % (Auto) Baso % (Auto) Lymph # 1.0 L Seg Neutrophils % 83.5 H D-Dimer ABG pH 7.346 L POC ABG pCO2 POC ABG pO2 ABG pO2 115.9 H ABG HCO3 28.3 H ABG Base Excess ABG Hemoglobin 11.7 L Glucose Total Creatine Kinase NT-Pro-B Natriuret Pep 2542 H 04/23/19 04/23/19 04/24/19 04:34 05:00 00:46 MCH RDW [place] % (Auto) Baso % (Auto) Lymph # Seg Neutrophils % D-Dimer ABG pH 7.524 H POC ABG pCO2 50.0 H POC ABG pO2 119 H ABG pO2 142.3 H ABG HCO3 26.5 H ABG Base Excess 3.9 H ABG Hemoglobin 11.3 L Glucose 217 H Total Creatine Kinase NT-Pro-B Natriuret Pep
[2019-04-24] MEDS ORDERED: dilTIAZem 30 MG TAB PO ONE ×2 (14:24→16:00)
--- NOTE | 2019-04-24 14:49 | Progress Note ---
Assessment and Plan Assessment and plan: --Afib flutter with rapid ventricular rate: Current Visit: Yes Status: Acute will resume home Cardizem, closely monitor IV Cardizem as needed, if no improvement Consider Cardizem drip, Patient is on Eliquis Cardiology following --Acute on chronic respiratory failure Current Visit: Yes Status: Acute s/p ventilatory support, today patient is on T piece Follow-up chest x-ray today, improved pulmonary edema --Encounter for tracheostomy tube change Current Visit: Yes Status: Acute Tracheostomy care --Acute on chronic systolic CHF/ EF 30 to 35% Current Visit: Yes Status: Acute IV diuretics, input output monitoring, low-sodium diet Beta-blockers, BASSAM inhibitors, cardiology following -- Chronic thoracic aortic dissection Current Visit: Yes Status: Acute Stable. She was recently evaluated at [facility] and does not require any immediate intervention --Atypical chest pain Current Visit: No Status: Acute Work-up so far been negative. Cardiology following --History of atrial fibrillation Current Visit: Yes Status: Acute Rate controlled on admission. Today has intermittant a flutter with rapid ventricular rate on Eliquis --DVT prophylaxis Current Visit: Yes Status: Acute Patient on anticoagulation. -- Full code status Current Visit: Yes Status: Acute Closely monitor in ICU, adjust the management as needed Plan of care reviewed with the patient, family member at the bedside And her nurse Sales Associate Cashier recommendations noted and appreciated Critical care time 35 minutes History Interval history: Patient seen and examined in ER awaiting ICU bed assignment Medical records reviewed Patient is admitted with acute on chronic respiratory failure A. fib flutter, today rapid ventricular rate Patient denies any chest pain, is moderate shortness of breath Off ventilatory support, tracheostomy on T-piece Mild distress, Vital signs reviewed Hospitalist Physical - Constitutional Vitals: Temp Pulse Resp BP Pulse Ox 98.8 F 133 H 31 H 152/105 91 04/22/19 11:22 04/24/19 13:30 04/24/19 13:30 04/24/19 13:30 04/24/19 13:30 General appearance: Present: mild distress, well-nourished, other (Tracheostomy on T-piece) - EENT Eyes: Present: PERRL, EOM intact - Neck Neck: Present: supple, normal ROM - Respiratory Respiratory effort: normal Respiratory: bilateral: diminished, rhonchi, negative: rales, wheezing - Cardiovascular Rhythm: irregularly irregular Heart Sounds: Present: S1 & S2 (Tachycardia) - Extremities Extremities: no ischemia Extremity abnormal: edema - Abdominal General gastrointestinal: soft, non-tender, non-distended, normal bowel sounds - Integumentary Integumentary: Present: clear, warm - Psychiatric Psychiatric: appropriate mood/affect, cooperative - Neurologic Neurologic: CNII-XII intact, moves all extremities Results - Labs CBC & Chem 7: 04/23/19 04:34 04/23/19 04:34 Labs: Laboratory Last Values WBC 6.9 K/mm3 (4.5-11.0) 04/23/19 04:34 RBC 4.24 M/mm3 (3.65-5.03) 04/23/19 04:34 Hgb 11.5 gm/dl (10.1-14.3) 04/23/19 04:34 Hct 36.0 % (30.3-42.9) 04/23/19 04:34 MCV 85 fl (79-97) 04/23/19 04:34 MCH 27 pg (28-32) L 04/23/19 04:34 MCHC 32 % (30-34) 04/23/19 04:34 RDW 18.3 % (13.2-15.2) H 04/23/19 04:34 Plt Count 223 K/mm3 (140-440) 04/23/19 04:34 Lymph % (Auto) 15.1 % (13.4-35.0) 04/23/19 04:34 [place] % (Auto) 0.8 % (0.0-7.3) 04/23/19 04:34 Eos % (Auto) 0.0 % (0.0-4.3) 04/23/19 04:34 Baso % (Auto) 0.6 % (0.0-1.8) 04/23/19 04:34 Lymph # 1.0 K/mm3 (1.2-5.4) L 04/23/19 04:34 [place] # 0.1 K/mm3 (0.0-0.8) 04/23/19 04:34 Eos # 0.0 K/mm3 (0.0-0.4) 04/23/19 04:34 Baso # 0.0 K/mm3 (0.0-0.1) 04/23/19 04:34 Seg Neutrophils % 83.5 % (40.0-70.0) H 04/23/19 04:34 Seg Neutrophils # 5.7 K/mm3 (1.8-7.7) 04/23/19 04:34 PT 14.2 Sec. (12.2-14.9) 04/23/19 04:34 INR 1.09 (0.87-1.13) 04/23/19 04:34 APTT 30.2 Sec. (24.2-36.6) 04/23/19 04:34 D-Dimer 363.07 ng/mlDDU (0-234) H 04/22/19 12:34 POC ABG pH 7.433 (7.35-7.45) 04/24/19 00:46 ABG pH 7.524 pH Units (7.350-7.450) H 04/23/19 05:00 POC ABG pCO2 50.0 (35-45) H 04/24/19 00:46 ABG pCO2 32.9 mm Hg 04/23/19 05:00 POC ABG pO2 119 (80-105) H 04/24/19 00:46 ABG pO2 142.3 mm Hg (80.0-90.0) H 04/23/19 05:00 POC ABG HCO3 33.4 (22-26 mml/L) 04/24/19 00:46 ABG HCO3 26.5 mmol/L (20.0-26.0) H 04/23/19 05:00 POC ABG Total CO2 35 (23-27mmol/L) 04/24/19 00:46 POC ABG O2 Sat 99 04/24/19 00:46 ABG O2 Saturation 98.9 % (95.0-99.0) 04/23/19 05:00 ABG O2 Content 15.6 (0.0-44) 04/23/19 05:00 POC ABG Base Excess 9 ((-2) - (+3)mmol/L) 04/24/19 00:46 ABG Base Excess 3.9 mmol/L (-2.0-3.0) H 04/23/19 05:00 ABG Hemoglobin 11.3 gm/dl (12.0-16.0) L 04/23/19 05:00 ABG Carboxyhemoglobin 1.4 % (0.0-5.0) 04/23/19 05:00 ABG Methemoglobin 0.5 % (0.0-1.5) 04/23/19 05:00 Oxyhemoglobin 97.0 % (95.0-99.0) 04/23/19 05:00 FiO2 40 % 04/24/19 00:46 Sodium 144 mmol/L (137-145) 04/23/19 04:34 Potassium 4.5 mmol/L (3.6-5.0) 04/23/19 04:34 Chloride 99.1 mmol/L (98-107) 04/23/19 04:34 Carbon Dioxide 24 mmol/L (22-30) 04/23/19 04:34 Anion Gap 25 mmol/L 04/23/19 04:34 BUN 13 mg/dL (7-17) 04/23/19 04:34 Creatinine 1.1 mg/dL (0.7-1.2) 04/23/19 04:34 Estimated GFR > 60 ml/min 04/23/19 04:34 BUN/Creatinine Ratio 12 % 04/23/19 04:34 Glucose 217 mg/dL (65-100) H 04/23/19 04:34 Calcium 10.1 mg/dL (8.4-10.2) 04/23/19 04:34 Magnesium 1.70 mg/dL (1.7-2.3) 04/22/19 12:34 Total Bilirubin 0.60 mg/dL (0.1-1.2) 04/22/19 12:34 AST 23 units/L (5-40) 04/22/19 12:34 ALT 24 units/L (7-56) 04/22/19 12:34 Alkaline Phosphatase 116 units/L (35-129) 04/22/19 12:34 Total Creatine Kinase 156 units/L (30-135) H 04/22/19 12:34 Troponin T 0.014 ng/mL (0.00-0.029) 04/22/19 18:26 NT-Pro-B Natriuret Pep 2542 pg/mL (0-900) H 04/22/19 12:34 Total Protein 7.3 g/dL (6.3-8.2) 04/22/19 12:34 Albumin 4.0 g/dL (3.9-5) 04/22/19 12:34 Albumin/Globulin Ratio 1.2 % 04/22/19 12:34 Active Medications - Current Medications Current Medications: Generic Name Dose Route Start Last Admin Trade Name Freq PRN Reason Stop Dose Admin Acetaminophen 650 mg 04/22/19 23:20 Tylenol PO Q6H PRN Pain MILD(1-3)/Fever >100.5/ARMENDARIZ Apixaban 5 mg 04/23/19 22:00 04/24/19 10:22 Eliquis PO 5 mg Q12HR KAMARI Administration Atorvastatin Calcium 40 mg 04/23/19 22:00 04/23/19 23:35 Lipitor PO 40 mg QHS KAMARI Administration Diltiazem HCl 30 mg 04/24/19 18:00 Cardizem PO Q6HR KAMARI Escitalopram Oxalate 20 mg 04/23/19 12:00 04/24/19 10:22 Lexapro PO 20 mg DAILY KAMARI Administration Furosemide 40 mg 04/23/19 06:00 04/24/19 07:11 Lasix IV 40 mg BID@0600,1800 KAMARI Administration Gabapentin 300 mg 04/23/19 12:00 04/24/19 10:22 Gabapentin PO 300 mg BID KAMARI Administration Hydralazine HCl 25 mg 04/23/19 22:00 04/24/19 07:11 Apresoline PO 25 mg Q8HR KAMARI Administration Hydralazine HCl 10 mg 04/23/19 18:22 Apresoline IV Q4HR PRN Hypertension Hydromorphone HCl 0.5 mg 04/23/19 09:50 04/24/19 07:30 Dilaudid IV 0.5 mg Q6H PRN Administration Pain , Severe (7-10) Levothyroxine Sodium 125 mcg 04/23/19 12:00 04/24/19 07:11 Synthroid PO 125 mcg DAILY@0600 K[facility]ARI Administration Sodium Chloride 10 ml 04/23/19 10:00 04/24/19 12:01 Sodium Chloride Flush Syringe 10 Ml IV 10 ml BID KAMARI Administration Sodium Chloride 10 ml 04/22/19 23:20 Sodium Chloride Flush Syringe 10 Ml IV PRN PRN LINE FLUSH
[2019-04-24] MEDS: methylPREDNISolone Sod Succinate 125 MG/2 ML INJ IV SCH (15:16)
[2019-04-24] MEDS: IPRATROPIUM/ALBUTEROL SULFATE 3 ML AMPUL.NEB IH SCH ×2 (15:36→20:44)
[2019-04-24] MEDS ORDERED: dilTIAZem 25 MG/5 ML INJ IV PRN (15:41)
--- NOTE | 2019-04-24 15:58 | XRay Report ---
CHEST 1 VIEW INDICATION / CLINICAL INFORMATION: Respiratory failure. COMPARISON: 04/24/2019 at 1140 hours FINDINGS: SUPPORT DEVICES: Tracheostomy tube is stable in position. HEART / MEDIASTINUM: Cardiac silhouette remains enlarged with ectasia of the thoracic aorta and promi nence of the pulmonary arteries. LUNGS / PLEURA: Pulmonary vascular congestion is developing. Additionally there is interval developme nt of left pleural effusion. No pneumothorax. ADDITIONAL FINDINGS: No significant additional findings. IMPRESSION: 1. Interval development of pulmonary vascular congestion and left pleural effusion. Signer Name: Jaylene Christine MD Signed: 04/24/2019 3:54 PM Workstation Name: [id number]
[2019-04-24] MEDS ORDERED: HYDROmorphone 1 MG/1 ML INJ IV ONE (16:00)
[2019-04-24] MEDS: ACETYLCYSTEINE 20% 200 MG/1 ML *FOR INHALATION USE INHALATION SCH (16:07)
[2019-04-24] MEDS ORDERED: dilTIAZem 30 MG TAB PO SCH (20:00)
[2019-04-24] MEDS: dilTIAZem 30 MG TAB PO SCH (21:10)
[2019-04-25] MEDS: methylPREDNISolone Sod Succinate 125 MG/2 ML INJ IV SCH ×4 (01:36→21:43)
[2019-04-25] MEDS: HYDROmorphone 1 MG/1 ML INJ IV PRN ×4 (01:40→21:43)
[2019-04-25] MEDS: ACETYLCYSTEINE 20% 200 MG/1 ML *FOR INHALATION USE INHALATION SCH ×3 (05:07→21:10)
[2019-04-25 05:28] LABS: Hematocrit 34.6 % (30.3-42.9); Lymphocytes # (Auto) 0.7 K/mm3 (1.2-5.4); Lymphocytes % (Auto) 8.9 % (13.4-35.0); Mean Corpuscular HGB Conc 32 % (30-34); Mean Corpuscular Volume 85 fl (79-97); Monocytes # (Auto) 0.1 K/mm3 (0.0-0.8); Monocytes % (Auto) 1.6 % (0.0-7.3); Platelet Count 197 K/mm3 (140-440); Red Blood Count 4.06 M/mm3 (3.65-5.03); Red Cell Distribution Width 18.2 % (13.2-15.2)
[2019-04-25 06:04] LABS: Alanine Aminotransferase 22 units/L (7-56); Albumin 4.1 g/dL (3.9-5); BUN/Creatinine Ratio 19; Blood Urea Nitrogen 21 mg/dL (7-17); Calcium 8.7 mg/dL (8.4-10.2); Hemolysis Index 9
[2019-04-25] MEDS: hydrALAZINE 25 MG TAB PO SCH ×3 (06:57→21:42)
[2019-04-25] MEDS: dilTIAZem 60 MG TAB PO SCH ×3 (06:57→19:07)
[2019-04-25] MEDS: FUROSEMIDE 40 MG/4 ML INJ IV SCH ×2 (06:58→19:07)
[2019-04-25] MEDS: LEVOTHYROXINE 125 MCG TAB PO SCH (06:58)
[2019-04-25] MEDS: IPRATROPIUM/ALBUTEROL SULFATE 3 ML AMPUL.NEB IH SCH ×4 (07:50→21:10)
[2019-04-25] MEDS: APIXABAN 5 MG TAB PO SCH ×2 (09:25→21:42)
[2019-04-25] MEDS: GABAPENTIN 300 MG CAP PO SCH ×2 (09:25→21:42)
[2019-04-25] MEDS: ESCITALOPRAM 10 MG TAB PO SCH (09:25)
[2019-04-25] MEDS ORDERED: dilTIAZem 25 MG/5 ML INJ IV PRN (10:00)
--- NOTE | 2019-04-25 10:44 | Progress Note ---
Assessment and Plan Assessment and plan: Patient is a 64-year-old -[place] female with significant history of Morbid obesity, chronic respiratory failure, COPD, chronic tracheostomy, tracheal stenosis, congestive heart failure, on systemic anticoagulation for A. fib/flutter on eliquis. She presents to the emergency room today complaining of shortness of breath and some chest pain. She was recently diagnosed at [facility] with a chronic thoracic aortic dissection which required no immediate intervention. Patient had tracheostomy tube change was in acute respiratory failure placed on ventilatory support, patient stabilized, went removed and placed on T-piece, had brief episode of a flutter with rapid ventricular rate, resolved with Cardizem --Acute on chronic respiratory failure Current Visit: Yes Status: Acute s/p ventilatory support, today patient is on T piece Follow-up chest x-ray today, improved pulmonary edema --Encounter for tracheostomy tube change Current Visit: Yes Status: Acute Tracheostomy care --Afib flutter with rapid ventricular rate: Resolved Current Visit: Yes Status: Acute will resume home Cardizem, closely monitor IV Cardizem as needed, if no improvement Consider Cardizem drip, Patient is on Eliquis Cardiology following --Acute on chronic systolic CHF/ EF 30 to 35% Current Visit: Yes Status: Acute IV diuretics, input output monitoring, low-sodium diet Beta-blockers, BASSAM inhibitors, cardiology following -- Chronic thoracic aortic dissection Current Visit: Yes Status: Acute Stable. She was recently evaluated at [facility] and does not require any immediate intervention --Atypical chest pain Current Visit: No Status: Acute Work-up so far been negative. Cardiology following --History of atrial fibrillation Current Visit: Yes Status: Acute Rate controlled on admission. Today has intermittant a flutter with rapid ventricular rate on Eliquis --DVT prophylaxis Current Visit: Yes Status: Acute Patient on anticoagulation. -- Full code status Current Visit: Yes Status: Acute Stable to be transferred out of ICU, adjust the management as needed Plan of care reviewed with the patient, family member at the bedside And her nurse, [employer] Intern recommendations noted and appreciated Critical care time 35 minutes Disposition; discharge in 1 to 2 days if stable History Interval history: Patient Seen and examined medical records reviewed Patient feels better today on T-piece Sinus rhythm rate controlled Denies chest pain or shortness of breath Vital signs noted Hospitalist Physical - Constitutional Vitals: Temp Pulse Resp BP Pulse Ox 98.4 F 114 H 14 88/58 90 04/25/19 08:00 04/25/19 09:01 04/25/19 09:01 04/25/19 09:01 04/25/19 09:01 General appearance: Present: mild distress, well-nourished, other (Tracheostomy on T-piece) - EENT Eyes: Present: PERRL, EOM intact - Neck Neck: Present: supple, normal ROM - Respiratory Respiratory effort: normal Respiratory: bilateral: diminished, rhonchi, negative: rales, wheezing - Cardiovascular Rhythm: regular Heart Sounds: Present: S1 & S2 - Extremities Extremities: no ischemia Extremity abnormal: edema - Abdominal General gastrointestinal: soft, non-tender, non-distended, normal bowel sounds - Integumentary Integumentary: Present: clear, warm - Psychiatric Psychiatric: appropriate mood/affect, cooperative - Neurologic Neurologic: moves all extremities Results - Labs CBC & Chem 7: 04/25/19 05:02 04/25/19 05:02 Labs: Laboratory Last Values WBC 8.1 K/mm3 (4.5-11.0) 04/25/19 05:02 RBC 4.06 M/mm3 (3.65-5.03) 04/25/19 05:02 Hgb 11.0 gm/dl (10.1-14.3) 04/25/19 05:02 Hct 34.6 % (30.3-42.9) 04/25/19 05:02 MCV 85 fl (79-97) 04/25/19 05:02 MCH 27 pg (28-32) L 04/25/19 05:02 MCHC 32 % (30-34) 04/25/19 05:02 RDW 18.2 % (13.2-15.2) H 04/25/19 05:02 Plt Count 197 K/mm3 (140-440) 04/25/19 05:02 Lymph % (Auto) 8.9 % (13.4-35.0) L 04/25/19 05:02 [place] % (Auto) 1.6 % (0.0-7.3) 04/25/19 05:02 Eos % (Auto) 0.0 % (0.0-4.3) 04/25/19 05:02 Baso % (Auto) 0.0 % (0.0-1.8) 04/25/19 05:02 Lymph # 0.7 K/mm3 (1.2-5.4) L 04/25/19 05:02 [place] # 0.1 K/mm3 (0.0-0.8) 04/25/19 05:02 Eos # 0.0 K/mm3 (0.0-0.4) 04/25/19 05:02 Baso # 0.0 K/mm3 (0.0-0.1) 04/25/19 05:02 Seg Neutrophils % 89.5 % (40.0-70.0) H 04/25/19 05:02 Seg Neutrophils # 7.2 K/mm3 (1.8-7.7) 04/25/19 05:02 PT 14.2 Sec. (12.2-14.9) 04/23/19 04:34 INR 1.09 (0.87-1.13) 04/23/19 04:34 APTT 30.2 Sec. (24.2-36.6) 04/23/19 04:34 D-Dimer 363.07 ng/mlDDU (0-234) H 04/22/19 12:34 POC ABG pH 7.433 (7.35-7.45) 04/24/19 00:46 ABG pH 7.524 pH Units (7.350-7.450) H 04/23/19 05:00 POC ABG pCO2 50.0 (35-45) H 04/24/19 00:46 ABG pCO2 32.9 mm Hg 04/23/19 05:00 POC ABG pO2 119 (80-105) H 04/24/19 00:46 ABG pO2 142.3 mm Hg (80.0-90.0) H 04/23/19 05:00 POC ABG HCO3 33.4 (22-26 mml/L) 04/24/19 00:46 ABG HCO3 26.5 mmol/L (20.0-26.0) H 04/23/19 05:00 POC ABG Total CO2 35 (23-27mmol/L) 04/24/19 00:46 POC ABG O2 Sat 99 04/24/19 00:46 ABG O2 Saturation 98.9 % (95.0-99.0) 04/23/19 05:00 ABG O2 Content 15.6 (0.0-44) 04/23/19 05:00 POC ABG Base Excess 9 ((-2) - (+3)mmol/L) 04/24/19 00:46 ABG Base Excess 3.9 mmol/L (-2.0-3.0) H 04/23/19 05:00 ABG Hemoglobin 11.3 gm/dl (12.0-16.0) L 04/23/19 05:00 ABG Carboxyhemoglobin 1.4 % (0.0-5.0) 04/23/19 05:00 ABG Methemoglobin 0.5 % (0.0-1.5) 04/23/19 05:00 Oxyhemoglobin 97.0 % (95.0-99.0) 04/23/19 05:00 FiO2 40 % 04/24/19 00:46 Sodium 141 mmol/L (137-145) 04/25/19 05:02 Potassium 4.2 mmol/L (3.6-5.0) 04/25/19 05:02 Chloride 95.6 mmol/L (98-107) L 04/25/19 05:02 Carbon Dioxide 26 mmol/L (22-30) 04/25/19 05:02 Anion Gap 24 mmol/L 04/25/19 05:02 BUN 21 mg/dL (7-17) H 04/25/19 05:02 Creatinine 1.1 mg/dL (0.7-1.2) 04/25/19 05:02 Estimated GFR > 60 ml/min 04/25/19 05:02 BUN/Creatinine Ratio 19 % 04/25/19 05:02 Glucose 246 mg/dL (65-100) H 04/25/19 05:02 Calcium 8.7 mg/dL (8.4-10.2) 04/25/19 05:02 Magnesium 1.70 mg/dL (1.7-2.3) 04/22/19 12:34 Total Bilirubin 0.80 mg/dL (0.1-1.2) 04/25/19 05:02 AST 19 units/L (5-40) 04/25/19 05:02 ALT 22 units/L (7-56) 04/25/19 05:02 Alkaline Phosphatase 98 units/L (35-129) 04/25/19 05:02 Total Creatine Kinase 156 units/L (30-135) H 04/22/19 12:34 Troponin T 0.014 ng/mL (0.00-0.029) 04/22/19 18:26 NT-Pro-B Natriuret Pep 2542 pg/mL (0-900) H 04/22/19 12:34 Total Protein 6.8 g/dL (6.3-8.2) 04/25/19 05:02 Albumin 4.1 g/dL (3.9-5) 04/25/19 05:02 Albumin/Globulin Ratio 1.5 % 04/25/19 05:02 Active Medications - Current Medications Current Medications: Generic Name Dose Route Start Last Admin Trade Name Freq PRN Reason Stop Dose Admin Acetaminophen 650 mg 04/22/19 23:20 Tylenol PO Q6H PRN Pain MILD(1-3)/Fever >100.5/ARMENDARIZ Acetylcysteine 200 mg 04/24/19 16:00 04/25/19 07:49 Mucomyst Inhalation INHALATION 04/26/19 08:01 200 mg Q8HRT KAMARI Administration Albuterol/Ipratropium 1 ampul 04/24/19 16:00 04/25/19 07:50 Duoneb *Not For Prn Use* IH 1 ampul QIDRT KAMARI Administration Apixaban 5 mg 04/23/19 22:00 04/25/19 09:25 Eliquis PO 5 mg Q12HR KAMARI Administration Atorvastatin Calcium 40 mg 04/23/19 22:00 04/24/19 21:10 Lipitor PO 40 mg QHS KAMARI Administration Diltiazem HCl 60 mg 04/25/19 06:00 04/25/19 06:57 Cardizem PO 60 mg Q6HR KAMARI Administration Diltiazem HCl 10 mg 04/25/19 10:00 Cardizem IV Q4H PRN Tachyarrhythmias Escitalopram Oxalate 20 mg 04/23/19 12:00 04/25/19 09:25 Lexapro PO 20 mg DAILY KAMARI Administration Furosemide 40 mg 04/23/19 06:00 04/25/19 06:58 Lasix IV 40 mg BID@0600,1800 KAMARI Administration Gabapentin 300 mg 04/23/19 12:00 04/25/19 09:25 Gabapentin PO 300 mg BID KAMARI Administration Hydralazine HCl 25 mg 04/23/19 22:00 04/25/19 06:57 Apresoline PO 25 mg Q8HR KAMARI Administration Hydralazine HCl 10 mg 04/23/19 18:22 04/24/19 15:07 Apresoline IV 10 mg Q4HR PRN Administration Hypertension Hydromorphone HCl 0.5 mg 04/23/19 09:50 04/25/19 08:02 Dilaudid IV 0.5 mg Q6H PRN Administration Pain , Severe (7-10) Levothyroxine Sodium 125 mcg 04/23/19 12:00 04/25/19 06:58 Synthroid PO 125 mcg DAILY@0600 KAMARI Administration Methylprednisolone Sodium Succinate 80 mg 04/24/19 16:00 04/25/19 08:02 Solu-Medrol IV 80 mg Q8H KAMARI Administration Sodium Chloride 10 ml 04/23/19 10:00 04/25/19 09:26 Sodium Chloride Flush Syringe 10 Ml IV 10 ml BID KAMARI Administration Sodium Chloride 10 ml 04/22/19 23:20 Sodium Chloride Flush Syringe 10 Ml IV PRN PRN LINE FLUSH
[2019-04-25] MEDS ORDERED: ALBUTEROL 2.5 MG/3 ML NEBU IH PRN (11:44)
--- NOTE | 2019-04-25 11:49 | Progress Note ---
Assessment and Plan Acute heart failure Dilated cardiomyopathy an echocardiogram this admission shows a decreased left ventricular systolic function EF 30-35%. an echocardiogram at [facility] 11/2018 reports an LVEF at 50%. Chronic atrial fibrillation rate controlled with diltiazem on oral anticoagulation with Eliquis Chronic pulmonary disease Steroid dependent COPD with indwelling tracheostomy Hx of thoracotomy in 2013 for repair of a thoracic aortic dissection. Subjective Date of service: 04/25/19 Interval history: Patient is sitting up at the bedside and appears comfortable. Afib with a well controlled ventricular rate on telemetry. Objective Vital Signs Temp Pulse Pulse Pulse Resp Resp BP 04/25/19 11:41 86 12 04/25/19 11:01 96 H 15 184/149 04/25/19 10:31 68 20 112/80 04/25/19 10:00 76 19 121/66 04/25/19 09:31 103 H 23 121/66 04/25/19 09:01 114 H 14 88/58 04/25/19 08:31 102 H 23 154/95 04/25/19 08:20 04/25/19 08:17 04/25/19 08:01 77 20 130/84 04/25/19 08:00 98.4 F 77 77 20 04/25/19 07:50 77 16 04/25/19 07:30 75 20 152/96 04/25/19 07:01 116 H 14 140/76 04/25/19 06:57 82 142/89 04/25/19 06:31 83 16 136/86 04/25/19 06:01 107 H 21 136/86 04/25/19 05:30 107 H 20 136/86 04/25/19 05:00 79 19 136/85 04/25/19 04:30 74 18 131/75 04/25/19 04:01 73 21 131/99 04/25/19 04:00 04/25/19 03:30 78 18 131/87 04/25/19 03:00 97.8 F 91 H 21 135/87 04/25/19 02:31 97 H 16 140/88 04/25/19 02:00 106 H 11 L 136/97 04/25/19 01:30 109 H 21 149/86 04/25/19 01:00 115 H 20 141/91 04/25/19 00:30 97 H 18 149/86 04/25/19 00:00 98 H 20 152/92 04/24/19 23:30 85 19 152/92 04/24/19 23:00 98.2 F 98 H 20 136/93 04/24/19 22:30 115 H 23 170/100 04/24/19 22:00 125 H 20 170/100 04/24/19 21:30 125 H 24 136/93 04/24/19 21:26 127 H 25 H 04/24/19 21:10 125 H 136/93 04/24/19 21:00 126 H 29 H 148/92 04/24/19 20:47 04/24/19 20:30 119 H 20 139/116 04/24/19 20:00 117 H 27 H 139/116 04/24/19 19:30 121 H 27 H 140/95 04/24/19 19:00 99.0 F 127 H 16 142/86 04/24/19 18:32 112 H 22 148/96 04/24/19 18:30 116 H 22 148/96 04/24/19 18:24 116 H 21 148/96 04/24/19 18:20 116 H 22 148/96 04/24/19 18:10 117 H 21 148/96 04/24/19 18:00 119 H 45 H 142/99 04/24/19 17:50 125 H 17 142/99 04/24/19 17:40 126 H 24 142/99 04/24/19 17:30 122 H 26 H 154/90 04/24/19 17:20 118 H 23 154/90 04/24/19 17:10 129 H 25 H 154/90 04/24/19 17:00 123 H 20 145/90 04/24/19 16:50 128 H 25 H 145/90 04/24/19 16:40 127 H 24 145/90 04/24/19 16:35 126 H 04/24/19 16:30 125 H 25 H 04/24/19 16:20 127/83 04/24/19 16:18 127/83 04/24/19 16:08 128 H 137/86 04/24/19 15:44 129 H 19 04/24/19 15:37 129 H 20 04/24/19 15:30 99.1 F 04/24/19 15:09 134 H 205/165 04/24/19 15:07 135 H 205/165 04/24/19 14:20 134 H 26 H 127/83 04/24/19 14:10 134 H 26 H 127/83 04/24/19 14:00 134 H 26 H 127/83 04/24/19 13:50 133 H 24 127/83 04/24/19 13:40 134 H 26 H 127/83 04/24/19 13:30 133 H 31 H 152/105 04/24/19 13:00 137 H 25 H 147/89 04/24/19 12:36 129 H 18 04/24/19 12:30 140 H 30 H 131/97 BP Pulse Ox Pulse Ox 04/25/19 11:41 04/25/19 11:01 89 04/25/19 10:31 87 04/25/19 10:00 94 04/25/19 09:31 90 04/25/19 09:01 90 04/25/19 08:31 86 04/25/19 08:20 96 04/25/19 08:17 95 04/25/19 08:01 87 04/25/19 08:00 87 04/25/19 07:50 04/25/19 07:30 84 04/25/19 07:01 92 04/25/19 06:57 04/25/19 06:31 93 04/25/19 06:01 98 04/25/19 05:30 04/25/19 05:00 93 04/25/19 04:30 94 04/25/19 04:01 91 04/25/19 04:00 96 04/25/19 03:30 88 04/25/19 03:00 89 04/25/19 02:31 86 04/25/19 02:00 97 04/25/19 01:30 99 04/25/19 01:00 90 04/25/19 00:30 90 04/25/19 00:00 94 04/24/19 23:30 88 04/24/19 23:00 92 04/24/19 22:30 92 04/24/19 22:00 91 04/24/19 21:30 91 04/24/19 21:26 04/24/19 21:10 04/24/19 21:00 99 04/24/19 20:47 96 04/24/19 20:30 96 04/24/19 20:00 95 04/24/19 19:30 86 04/24/19 19:00 88 04/24/19 18:32 82 L 04/24/19 18:30 91 04/24/19 18:24 91 04/24/19 18:20 91 04/24/19 18:10 91 04/24/19 18:00 92 04/24/19 17:50 95 04/24/19 17:40 88 04/24/19 17:30 88 04/24/19 17:20 89 04/24/19 17:10 88 04/24/19 17:00 88 04/24/19 16:50 87 04/24/19 16:40 89 04/24/19 16:35 04/24/19 16:30 88 04/24/19 16:20 04/24/19 16:18 04/24/19 16:08 04/24/19 15:44 98 04/24/19 15:37 04/24/19 15:30 04/24/19 15:09 04/24/19 15:07 04/24/19 14:20 91 04/24/19 14:10 93 04/24/19 14:00 88 04/24/19 13:50 86 04/24/19 13:40 89 04/24/19 13:30 91 04/24/19 13:00 99 04/24/19 12:36 132/66 100 04/24/19 12:30 - Physical Examination General: No Apparent Distress HEENT: Positive: PERRL Neck: Positive: Other (Midline trach in place) Cardiac: Positive: irregularly irregular Neuro: Positive: Grossly Intact - Labs and Meds Cardiac Enzymes 04/25/19 Range/Units 05:02 AST 19 (5-40) units/L CBC 04/25/19 Range/Units 05:02 WBC 8.1 (4.5-11.0) K/mm3 RBC 4.06 (3.65-5.03) M/mm3 Hgb 11.0 (10.1-14.3) gm/dl Hct 34.6 (30.3-42.9) % Plt Count 197 (140-440) K/mm3 Lymph # 0.7 L (1.2-5.4) K/mm3 [place] # 0.1 (0.0-0.8) K/mm3 Eos # 0.0 (0.0-0.4) K/mm3 Baso # 0.0 (0.0-0.1) K/mm3 Comprehensive Metabolic Panel 04/25/19 Range/Units 05:02 Sodium 141 (137-145) mmol/L Potassium 4.2 (3.6-5.0) mmol/L Chloride 95.6 L (98-107) mmol/L Carbon Dioxide 26 (22-30) mmol/L BUN 21 H (7-17) mg/dL Creatinine 1.1 (0.7-1.2) mg/dL Glucose 246 H (65-100) mg/dL Calcium 8.7 (8.4-10.2) mg/dL AST 19 (5-40) units/L ALT 22 (7-56) units/L Alkaline Phosphatase 98 (35-129) units/L Total Protein 6.8 (6.3-8.2) g/dL Albumin 4.1 (3.9-5) g/dL
[2019-04-25] MEDS: INSULIN LISPRO 100 UNIT/ML SUB-Q SCH ×3 (11:59→22:47)
--- NOTE | 2019-04-25 12:05 | Progress Note ---
Assessment and Plan Acute and chronic hypoxic respiratory failure s/p trachesotomy with trach change Pulmonary HTN, cor pulmonale COPD Morbid obesity Sleep apnea with OHS Acute on chronic systolic heart failure Chronic atrial fibrillation Chronic atrial fibrillation flutter History of chronic aortic dissection stable Morbid obesity - discussed CTA with radiologist; apparently contrast films not getting across earlier - ST evaluation for PMV trials - add Pepcid for GI prophylaxis - continue supplemental oxygen as needed to keep O2 sat's > 90% - continue bronchodilators (AISHWARYA & LABA) with routine trach care and pulmonary hygiene per RT - Accuchecks with glycemic control per SSI for target BG < 180 mg/dl - continue systemic steroids with slow taper (tapered to 60 mg IV q8h) - continue aspiration precautions, HOB >40 - continue anticoagulation for A-fib - PT/OT as tolerated - mobility protocols for pressure ulcer prophylaxis - GI & VTE prophylaxis - Flu & Pneumovax addressed per protocol - Discharge planning ongoing concurrently .... re-evaluate in am & prn Subjective Date of service: 04/25/19 Principal diagnosis: Ac and ch hypoxemic resp failure; Pulmonary HTN; COPD; YOHANNES; A-fib Interval history: Patient is seen today for: Ac and ch hypoxemic resp failure; s/p trachesotomy with trach change; Pulmonary HTN; COPD; Morbid obesity; YOHANNES Seen and examined at bedside; 24hour events reviewed; nursing and respiratory care staff consulted; no adverse overnight events reported to me; resting peacefully in bed; denies acute chest pains or palpitations; feels better; ate breakfast; No N/V/F/C; remains on RTC t-piece Objective Vital Signs - 12hr 04/25/19 04/25/19 04/25/19 00:30 01:00 01:30 Temperature Pulse Rate 97 H 115 H 109 H Pulse Rate [ Anterior Bilateral Throughout] Pulse Rate [ From Monitor] Respiratory 18 20 21 Rate Respiratory Rate [Anterior Bilateral Throughout] Blood Pressure 149/86 141/91 149/86 O2 Sat by Pulse 90 90 99 Oximetry O2 Sat by Pulse Oximetry [ Assessment] 04/25/19 04/25/19 04/25/19 02:00 02:31 03:00 Temperature 97.8 F Pulse Rate 106 H 97 H 91 H Pulse Rate [ Anterior Bilateral Throughout] Pulse Rate [ From Monitor] Respiratory 11 L 16 21 Rate Respiratory Rate [Anterior Bilateral Throughout] Blood Pressure 136/97 140/88 135/87 O2 Sat by Pulse 97 86 89 Oximetry O2 Sat by Pulse Oximetry [ Assessment] 04/25/19 04/25/19 04/25/19 03:30 04:00 04:01 Temperature Pulse Rate 78 73 Pulse Rate [ Anterior Bilateral Throughout] Pulse Rate [ From Monitor] Respiratory 18 21 Rate Respiratory Rate [Anterior Bilateral Throughout] Blood Pressure 131/87 131/99 O2 Sat by Pulse 88 91 Oximetry O2 Sat by Pulse 96 Oximetry [ Assessment] 04/25/19 04/25/19 04/25/19 04:30 05:00 05:30 Temperature Pulse Rate 74 79 107 H Pulse Rate [ Anterior Bilateral Throughout] Pulse Rate [ From Monitor] Respiratory 18 19 20 Rate Respiratory Rate [Anterior Bilateral Throughout] Blood Pressure 131/75 136/85 136/86 O2 Sat by Pulse 94 93 Oximetry O2 Sat by Pulse Oximetry [ Assessment] 04/25/19 04/25/19 04/25/19 06:01 06:31 06:57 Temperature Pulse Rate 107 H 83 82 Pulse Rate [ Anterior Bilateral Throughout] Pulse Rate [ From Monitor] Respiratory 21 16 Rate Respiratory Rate [Anterior Bilateral Throughout] Blood Pressure 136/86 136/86 142/89 O2 Sat by Pulse 98 93 Oximetry O2 Sat by Pulse Oximetry [ Assessment] 04/25/19 04/25/19 04/25/19 07:01 07:30 07:50 Temperature Pulse Rate 116 H 75 Pulse Rate [ 77 Anterior Bilateral Throughout] Pulse Rate [ From Monitor] Respiratory 14 20 Rate Respiratory 16 Rate [Anterior Bilateral Throughout] Blood Pressure 140/76 152/96 O2 Sat by Pulse 92 84 Oximetry O2 Sat by Pulse Oximetry [ Assessment] 04/25/19 04/25/19 04/25/19 08:00 08:01 08:17 Temperature 98.4 F Pulse Rate 77 77 Pulse Rate [ Anterior Bilateral Throughout] Pulse Rate [ 77 From Monitor] Respiratory 20 20 Rate Respiratory Rate [Anterior Bilateral Throughout] Blood Pressure 130/84 O2 Sat by Pulse 87 87 95 Oximetry O2 Sat by Pulse Oximetry [ Assessment] 04/25/19 04/25/19 04/25/19 08:20 08:31 09:01 Temperature Pulse Rate 102 H 114 H Pulse Rate [ Anterior Bilateral Throughout] Pulse Rate [ From Monitor] Respiratory 23 14 Rate Respiratory Rate [Anterior Bilateral Throughout] Blood Pressure 154/95 88/58 O2 Sat by Pulse 86 90 Oximetry O2 Sat by Pulse 96 Oximetry [ Assessment] 04/25/19 04/25/19 04/25/19 09:31 10:00 10:31 Temperature Pulse Rate 103 H 76 68 Pulse Rate [ Anterior Bilateral Throughout] Pulse Rate [ From Monitor] Respiratory 23 19 20 Rate Respiratory Rate [Anterior Bilateral Throughout] Blood Pressure 121/66 121/66 112/80 O2 Sat by Pulse 90 94 87 Oximetry O2 Sat by Pulse Oximetry [ Assessment] 04/25/19 04/25/19 04/25/19 11:01 11:41 11:43 Temperature Pulse Rate 96 H Pulse Rate [ 86 Anterior Bilateral Throughout] Pulse Rate [ From Monitor] Respiratory 15 Rate Respiratory 12 Rate [Anterior Bilateral Throughout] Blood Pressure 184/149 O2 Sat by Pulse 89 97 Oximetry O2 Sat by Pulse Oximetry [ Assessment] 04/25/19 11:58 Temperature Pulse Rate 76 Pulse Rate [ Anterior Bilateral Throughout] Pulse Rate [ From Monitor] Respiratory Rate Respiratory Rate [Anterior Bilateral Throughout] Blood Pressure 111/75 O2 Sat by Pulse Oximetry O2 Sat by Pulse Oximetry [ Assessment] Constitutional: no acute distress, other (elderly looking morbidly obese AAF, normocephalic with mildly increased respiratory effort at rest) Eyes: non-icteric ENT: oropharynx moist, other (+ midline Shiley trach tube in Neck (#6)) Neck: supple, other (+ large neck circumference) Effort: mildly labored Ascultation: Bilateral: diminished breath sounds, rhonchi Percussion: Bilateral: not dull Cardiovascular: regular rate and rhythm Gastrointestinal: normoactive bowel sounds, soft, non-tender, non-distended, other (protuberant) Integumentary: normal Extremities: no cyanosis, pulses normal, no ischemia or petechiae, edema (trace) Neurologic: normal mental status, non-focal exam (grossly), pupils equal and round, CN II-XII normal Psychiatric: anxious CBC and BMP: 04/25/19 05:02 04/25/19 05:02 ABG, PT/INR, D-dimer: ABG POC ABG pH 7.433 (7.35-7.45) 04/24/19 00:46 ABG pH 7.524 pH Units (7.350-7.450) H 04/23/19 05:00 POC ABG pCO2 50.0 (35-45) H 04/24/19 00:46 ABG pCO2 32.9 mm Hg 04/23/19 05:00 POC ABG pO2 119 (80-105) H 04/24/19 00:46 ABG pO2 142.3 mm Hg (80.0-90.0) H 04/23/19 05:00 POC ABG HCO3 33.4 (22-26 mml/L) 04/24/19 00:46 POC ABG Total CO2 35 (23-27mmol/L) 04/24/19 00:46 POC ABG O2 Sat 99 04/24/19 00:46 ABG O2 Saturation 98.9 % (95.0-99.0) 04/23/19 05:00 PT/INR, D-dimer PT 14.2 Sec. (12.2-14.9) 04/23/19 04:34 INR 1.09 (0.87-1.13) 04/23/19 04:34 D-Dimer 363.07 ng/mlDDU (0-234) H 04/22/19 12:34 Abnormal lab findings: Abnormal Labs 04/22/19 04/22/19 04/22/19 12:34 12:34 12:34 MCH 27 L RDW 18.2 H Lymph % (Auto) [place] % (Auto) 10.6 H Baso % (Auto) 1.9 H Lymph # Seg Neutrophils % D-Dimer 363.07 H ABG pH POC ABG pCO2 POC ABG pO2 ABG pO2 ABG HCO3 ABG Base Excess ABG Hemoglobin Chloride BUN Glucose 147 H POC Glucose Total Creatine Kinase 156 H NT-Pro-B Natriuret Pep 04/22/19 04/22/19 04/23/19 12:34 20:35 04:34 MCH 27 L RDW 18.3 H Lymph % (Auto) [place] % (Auto) Baso % (Auto) Lymph # 1.0 L Seg Neutrophils % 83.5 H D-Dimer ABG pH 7.346 L POC ABG pCO2 POC ABG pO2 ABG pO2 115.9 H ABG HCO3 28.3 H ABG Base Excess ABG Hemoglobin 11.7 L Chloride BUN Glucose POC Glucose Total Creatine Kinase NT-Pro-B Natriuret Pep 2542 H 04/23/19 04/23/19 04/24/19 04:34 05:00 00:46 MCH RDW Lymph % (Auto) [place] % (Auto) Baso % (Auto) Lymph # Seg Neutrophils % D-Dimer ABG pH 7.524 H POC ABG pCO2 50.0 H POC ABG pO2 119 H ABG pO2 142.3 H ABG HCO3 26.5 H ABG Base Excess 3.9 H ABG Hemoglobin 11.3 L Chloride BUN Glucose 217 H POC Glucose Total Creatine Kinase NT-Pro-B Natriuret Pep 04/25/19 04/25/19 04/25/19 05:02 05:02 11:56 MCH 27 L RDW 18.2 H Lymph % (Auto) 8.9 L [place] % (Auto) Baso % (Auto) Lymph # 0.7 L Seg Neutrophils % 89.5 H D-Dimer ABG pH POC ABG pCO2 POC ABG pO2 ABG pO2 ABG HCO3 ABG Base Excess ABG Hemoglobin Chloride 95.6 L BUN 21 H Glucose 246 H POC Glucose 327 H Total Creatine Kinase NT-Pro-B Natriuret Pep CT scan - chest: image reviewed (no contrast noted on CTA chest) Allied health notes reviewed: nursing
[2019-04-25] MEDS: FAMOTIDINE 20 MG TAB PO SCH (13:48)
[2019-04-25] MEDS: INSULIN GLARGINE 100 UNITS/ML SUB-Q SCH (13:48)
[2019-04-25] MEDS ORDERED: MAGNESIUM HYDROXIDE (MOM) ORAL LIQD UDC PO PRN (14:49)
[2019-04-26] MEDS: dilTIAZem 60 MG TAB PO SCH ×4 (00:20→18:10)
[2019-04-26] MEDS: ACETYLCYSTEINE 20% 200 MG/1 ML *FOR INHALATION USE INHALATION SCH ×2 (05:03→09:12)
[2019-04-26] MEDS: hydrALAZINE 25 MG TAB PO SCH ×3 (05:35→22:16)
[2019-04-26] MEDS: HYDROmorphone 1 MG/1 ML INJ IV PRN ×4 (05:36→22:30)
[2019-04-26] MEDS: FUROSEMIDE 40 MG/4 ML INJ IV SCH ×2 (05:36→18:10)
[2019-04-26] MEDS: LEVOTHYROXINE 125 MCG TAB PO SCH (05:36)
[2019-04-26] MEDS: methylPREDNISolone Sod Succinate 125 MG/2 ML INJ IV SCH ×3 (05:36→22:17)
[2019-04-26] MEDS: IPRATROPIUM/ALBUTEROL SULFATE 3 ML AMPUL.NEB IH SCH ×3 (08:27→20:32)
[2019-04-26] MEDS: INSULIN LISPRO 100 UNIT/ML SUB-Q SCH ×4 (09:19→23:41)
[2019-04-26] MEDS: APIXABAN 5 MG TAB PO SCH ×2 (09:22→22:16)
[2019-04-26] MEDS: GABAPENTIN 300 MG CAP PO SCH ×2 (09:23→22:16)
[2019-04-26] MEDS: FAMOTIDINE 20 MG TAB PO SCH (09:23)
[2019-04-26] MEDS: ESCITALOPRAM 10 MG TAB PO SCH (09:23)
--- NOTE | 2019-04-26 10:38 | Progress Note ---
Assessment and Plan Acute heart failure Dilated cardiomyopathy an echocardiogram this admission shows a decreased left ventricular systolic function EF 30-35%. an echocardiogram at [place] 11/2018 reports an LVEF at 50%. Chronic atrial fibrillation rate controlled with diltiazem on oral anticoagulation with Eliquis Chronic pulmonary disease Steroid dependent COPD with indwelling tracheostomy Hx of thoracotomy in 2013 for repair of a thoracic aortic dissection. no documented coronary artery disease Morbidly obese Recommend: Continue medical therapy for chronic atrial fibrillation and for left ventricular systolic dysfunction as tolerated. Subjective Date of service: 04/26/19 Interval history: Patient is sitting up at the bedside and appears comfortable. Afib with a well controlled ventricular rate on telemetry. Objective Vital Signs Temp Pulse Pulse Pulse Resp Resp BP 04/26/19 09:47 04/26/19 09:46 04/26/19 09:42 116 H 20 04/26/19 05:35 64 127/89 04/26/19 04:00 86 04/26/19 03:35 98.3 F 64 19 127/89 04/26/19 01:48 85 20 04/26/19 00:20 74 04/26/19 00:00 92 H 04/25/19 23:07 98.8 F 62 18 113/78 04/25/19 21:42 56 L 113/78 04/25/19 21:16 04/25/19 21:10 74 20 04/25/19 19:49 98.3 F 56 L 20 113/78 04/25/19 19:07 75 123/93 04/25/19 18:31 123/93 04/25/19 17:38 123/93 04/25/19 17:01 75 16 123/93 04/25/19 16:31 71 11 L 123/93 04/25/19 16:30 98.1 F 04/25/19 16:01 76 20 119/86 04/25/19 16:00 76 76 20 04/25/19 15:31 76 14 118/78 04/25/19 15:00 73 18 115/79 04/25/19 14:35 74 118/78 04/25/19 14:31 72 21 118/78 04/25/19 14:01 65 18 100/72 04/25/19 13:31 74 22 141/80 04/25/19 13:01 92 H 25 H 139/76 04/25/19 12:31 118 H 19 141/80 04/25/19 12:01 93 H 19 139/76 04/25/19 12:00 97.9 F 105 H 93 H 19 04/25/19 11:58 76 111/75 04/25/19 11:43 04/25/19 11:41 86 12 04/25/19 11:31 76 17 112/80 04/25/19 11:01 96 H 15 184/149 Pulse Ox Pulse Ox 04/26/19 09:47 98 04/26/19 09:46 98 04/26/19 09:42 04/26/19 05:35 04/26/19 04:00 96 04/26/19 03:35 94 04/26/19 01:48 93 04/26/19 00:20 04/26/19 00:00 04/25/19 23:07 96 04/25/19 21:42 04/25/19 21:16 96 04/25/19 21:10 04/25/19 19:49 94 04/25/19 19:07 04/25/19 18:31 04/25/19 17:38 04/25/19 17:01 95 04/25/19 16:31 93 04/25/19 16:30 04/25/19 16:01 93 04/25/19 16:00 93 04/25/19 15:31 97 04/25/19 15:00 92 04/25/19 14:35 04/25/19 14:31 94 04/25/19 14:01 94 04/25/19 13:31 96 04/25/19 13:01 95 04/25/19 12:31 92 04/25/19 12:01 94 04/25/19 12:00 94 04/25/19 11:58 04/25/19 11:43 97 04/25/19 11:41 04/25/19 11:31 95 04/25/19 11:01 89 - Physical Examination General: No Apparent Distress HEENT: Positive: PERRL Neck: Positive: Other (Midline trach in place) Cardiac: Positive: irregularly irregular Neuro: Positive: Grossly Intact Extremities: Present: edema - Allied health notes Allied health notes reviewed: nursing
[2019-04-26] MEDS: INSULIN GLARGINE 100 UNITS/ML SUB-Q SCH (12:09)
--- NOTE | 2019-04-26 13:39 | Progress Note ---
Assessment and Plan Patient is resting on Ttube, FiO2 35%, O2 saturation is 98%. Patient is afebrile, no leukocytosis. Patient complains of nonspecific symptoms, no acute respiratory distress. Patient CXR reported pulmonary vascular congestion and left pleural effusion. Obtaining ultrasound of the chest. if there is significant effusion, consider thoracentesis. if no significant pleural effusion, patient can be discharged from the pulmonary point of view. Recommend pulmonary follow up as out patient. - Patient Problems (1) COPD with exacerbation Current Visit: Yes Status: Acute Plan to address problem: Continue ttube, Fio2 of 35%. Continue albuterol and atrovent aerosol treatments continue IV solumedrol Patient is on apxiaban continue famotidine (2) CHF exacerbation Current Visit: Yes Status: Acute Plan to address problem: Mangement as per cardiology (3) Atrial flutter Current Visit: Yes Status: Acute Plan to address problem: Patient is on apixaban Management as per cardiology (4) Pleural effusion, left Current Visit: Yes Status: Acute Plan to address problem: Obtain ultrasound of the chest (5) Acute and chronic respiratory failure Current Visit: Yes Status: Acute Plan to address problem: Continue ttube, Fio2 of 35%. Continue albuterol and atrovent aerosol treatments continue IV solumedrol Patient is on apxiaban continue famotidine Subjective Date of service: 04/26/19 Interval history: Patient is resting on Ttube, FiO2 35%, O2 saturation is 98%. Patient is a febrile, no leukocytosis. Patient complains of nonspecific symptoms, no acute respiratory distress. Patient CXR reported pulmonary vascular congestion and left pleural effusion. Obtaining ultrasound of the chest. if there is significant effusion, consider thoracentesis. if no significant pleural eff usion, patient can be discharged from the pulmonary point of view. Recommend pulmonary follow up as out patient. Objective Vital Signs - 12hr 04/26/19 04/26/19 04/26/19 01:48 03:35 04:00 Temperature 98.3 F Pulse Rate 64 86 Pulse Rate [ Anterior Bilateral Throughout] Pulse Rate [ 85 From Monitor] Respiratory 20 19 Rate Respiratory Rate [Anterior Bilateral Throughout] Blood Pressure 127/89 O2 Sat by Pulse 93 94 Oximetry O2 Sat by Pulse 96 Oximetry [ Assessment] 04/26/19 04/26/19 04/26/19 05:35 08:00 09:03 Temperature Pulse Rate 64 64 59 L Pulse Rate [ Anterior Bilateral Throughout] Pulse Rate [ From Monitor] Respiratory Rate Respiratory Rate [Anterior Bilateral Throughout] Blood Pressure 127/89 95/60 O2 Sat by Pulse 99 Oximetry O2 Sat by Pulse Oximetry [ Assessment] 04/26/19 04/26/19 04/26/19 09:42 09:46 09:47 Temperature Pulse Rate Pulse Rate [ 116 H Anterior Bilateral Throughout] Pulse Rate [ From Monitor] Respiratory Rate Respiratory 20 Rate [Anterior Bilateral Throughout] Blood Pressure O2 Sat by Pulse 98 Oximetry O2 Sat by Pulse 98 Oximetry [ Assessment] 04/26/19 12:03 Temperature Pulse Rate Pulse Rate [ Anterior Bilateral Throughout] Pulse Rate [ From Monitor] Respiratory 20 Rate Respiratory Rate [Anterior Bilateral Throughout] Blood Pressure O2 Sat by Pulse Oximetry O2 Sat by Pulse Oximetry [ Assessment] Constitutional: no acute distress, alert, other (elderly looking morbidly obese AAF, normocephalic, patient somewhat anxious) Eyes: non-icteric ENT: oropharynx moist, other (+ midline Shiley trach tube in Neck (#6)) Neck: supple, other (+ large neck circumference) Effort: mildly labored Ascultation: Bilateral: diminished breath sounds Percussion: Bilateral: not dull Cardiovascular: regular rate and rhythm Gastrointestinal: normoactive bowel sounds, soft, non-tender, non-distended, other (protuberant) Integumentary: normal Extremities: no cyanosis, pulses normal, no ischemia or petechiae, edema (trace) Neurologic: normal mental status, non-focal exam (grossly), pupils equal and round, CN II-XII normal Psychiatric: anxious CBC and BMP: 04/25/19 05:02 04/25/19 05:02 ABG, PT/INR, D-dimer: ABG POC ABG pH 7.433 (7.35-7.45) 04/24/19 00:46 ABG pH 7.524 pH Units (7.350-7.450) H 04/23/19 05:00 POC ABG pCO2 50.0 (35-45) H 04/24/19 00:46 ABG pCO2 32.9 mm Hg 04/23/19 05:00 POC ABG pO2 119 (80-105) H 04/24/19 00:46 ABG pO2 142.3 mm Hg (80.0-90.0) H 04/23/19 05:00 POC ABG HCO3 33.4 (22-26 mml/L) 04/24/19 00:46 POC ABG Total CO2 35 (23-27mmol/L) 04/24/19 00:46 POC ABG O2 Sat 99 04/24/19 00:46 ABG O2 Saturation 98.9 % (95.0-99.0) 04/23/19 05:00 PT/INR, D-dimer PT 14.2 Sec. (12.2-14.9) 04/23/19 04:34 INR 1.09 (0.87-1.13) 04/23/19 04:34 D-Dimer 363.07 ng/mlDDU (0-234) H 04/22/19 12:34 Abnormal lab findings: Abnormal Labs 04/22/19 04/22/19 04/22/19 12:34 12:34 12:34 MCH 27 L RDW 18.2 H Lymph % (Auto) Sebastian % (Auto) 10.6 H Baso % (Auto) 1.9 H Lymph # Seg Neutrophils % D-Dimer 363.07 H ABG pH POC ABG pCO2 POC ABG pO2 ABG pO2 ABG HCO3 ABG Base Excess ABG Hemoglobin Chloride BUN Glucose 147 H POC Glucose Total Creatine Kinase 156 H NT-Pro-B Natriuret Pep 04/22/19 04/22/19 04/23/19 12:34 20:35 04:34 MCH 27 L RDW 18.3 H Lymph % (Auto) Sebastian % (Auto) Baso % (Auto) Lymph # 1.0 L Seg Neutrophils % 83.5 H D-Dimer ABG pH 7.346 L POC ABG pCO2 POC ABG pO2 ABG pO2 115.9 H ABG HCO3 28.3 H ABG Base Excess ABG Hemoglobin 11.7 L Chloride BUN Glucose POC Glucose Total Creatine Kinase NT-Pro-B Natriuret Pep 2542 H 04/23/19 04/23/19 04/24/19 04:34 05:00 00:46 MCH RDW Lymph % (Auto) Sebastian % (Auto) Baso % (Auto) Lymph # Seg Neutrophils % D-Dimer ABG pH 7.524 H POC ABG pCO2 50.0 H POC ABG pO2 119 H ABG pO2 142.3 H ABG HCO3 26.5 H ABG Base Excess 3.9 H ABG Hemoglobin 11.3 L Chloride BUN Glucose 217 H POC Glucose Total Creatine Kinase NT-Pro-B Natriuret Pep 04/25/19 04/25/19 04/25/19 05:02 05:02 11:56 MCH 27 L RDW 18.2 H Lymph % (Auto) 8.9 L Sebastian % (Auto) Baso % (Auto) Lymph # 0.7 L Seg Neutrophils % 89.5 H D-Dimer ABG pH POC ABG pCO2 POC ABG pO2 ABG pO2 ABG HCO3 ABG Base Excess ABG Hemoglobin Chloride 95.6 L BUN 21 H Glucose 246 H POC Glucose 327 H Total Creatine Kinase NT-Pro-B Natriuret Pep 04/25/19 04/25/19 04/26/19 16:22 23:48 09:14 MCH RDW Lymph % (Auto) Sebastian % (Auto) Baso % (Auto) Lymph # Seg Neutrophils % D-Dimer ABG pH POC ABG pCO2 POC ABG pO2 ABG pO2 ABG HCO3 ABG Base Excess ABG Hemoglobin Chloride BUN Glucose POC Glucose 313 H 247 H 292 H Total Creatine Kinase NT-Pro-B Natriuret Pep 04/26/19 04/26/19 12:21 12:42 MCH RDW Lymph % (Auto) Sebastian % (Auto) Baso % (Auto) Lymph # Seg Neutrophils % D-Dimer ABG pH POC ABG pCO2 POC ABG pO2 ABG pO2 ABG HCO3 ABG Base Excess ABG Hemoglobin Chloride BUN Glucose POC Glucose 362 H 344 H Total Creatine Kinase NT-Pro-B Natriuret Pep Chest x-ray: report reviewed (Pulmonary vascular congestion and left pleural effusion.), image reviewed Allied health notes reviewed: nursing
--- NOTE | 2019-04-26 13:52 | Progress Note ---
Assessment and Plan Assessment and plan: Patient is a 64-year-old -[place] woman with a history of Morbid obesity, chronic respiratory failure, COPD, chronic tracheostomy, tracheal stenosis, congestive heart failure, A. fib/flutter on eliquis and type 1 Aortic dissection who presented to [facility] ED with shortness of breath and chest pains. She was recently diagnosed at [facility] with an Aortic Dissection but required no immediate intervention. Patient had tracheostomy tube change due to acute respiratory failure and placed on mechanical ventilatory support, patient stabilized, MV was weaned off and she was placed on T-piece. She had brief episode of a flutter with rapid ventricular rate, resolved with IV Cardizem. --Acute on chronic respiratory failure suspected due to CHF+Lung disease Current Visit: Yes Status: Acute s/p ventilatory support, today patient is on T piece Follow-up chest x-ray today, improved pulmonary edema --Acute on chronic systolic CHF/ EF 30 to 35% Current Visit: Yes Status: Acute IV diuretics, input output monitoring, low-sodium diet Beta-blockers if bp allows, small dose of BASSAM inhibitors d/w Dr. Varghese, Cardiology following ok to discharge per Dr. Varghese --Encounter for tracheostomy tube change Current Visit: Yes Status: Acute Tracheostomy care --Afib/A. flutter with rapid ventricular rate: Resolved Current Visit: Yes Status: Acute will resume home Cardizem, closely monitor IV Cardizem treatment to oral Cardizem Patient is on Eliquis Cardiology following --Dilated cardiomyopathy an echocardiogram this admission shows a decreased left ventricular systolic function EF 30-35%. an echocardiogram at [place] 11/2018 reports an LVEF at 50%. --Chronic thoracic aortic dissection Current Visit: Yes Status: Acute Stable. She was recently evaluated at [facility] and does not require any immediate intervention --Atypical chest pain Current Visit: No Status: Acute Work-up so far been negative. Cardiology following --Hx of thoracotomy in 2013 for repair of a thoracic aortic dissection. no documented coronary artery disease --Morbidly obese diet modification stressed --History of chronic atrial fibrillation Current Visit: Yes Status: Acute Rate controlled on admission. Today has intermittant a flutter with rapid ventricular rate on Eliquis --DVT prophylaxis Current Visit: Yes Status: Acute Patient on anticoagulation. -- Full code status Current Visit: Yes Status: Acute Disposition: home History Interval history: Patient was seen and examined. Follow-up on current diagnosis of respiratory failure. No overnight events reported to me. Patient denies any chest pain, shortness breath, nausea/vomiting or severe headaches. Imaging, nursing note, chart, labs and old chart reviewed. Discussed with patient. Hospitalist Physical - Physical exam Narrative exam: Gen: WDWN, NAD, Awake, Alert, Orientated HEENT: NCAT, EOMI, PERRL, OP Clear Neck: supple, no adenopathy, no thyromegaly, no JVD CVS/Heart: RRR, normal S1S2, pulses present bilaterally Chest/Lungs: CTA B, Symmetrical chest expansion, good air entry bilaterally GI/Abdomen: soft, NTND, good bowel sounds, no guarding or rebound /Bladder: no suprapubic tenderness, no CVA or paraspinal tenderness Extermity/Skin: no c/c/e, no obvious rash MSK: FROM x 4 Neuro: CN 2-12 grossly intact, no new focal deficits Psych: calm - Constitutional Vitals: Temp Pulse Resp BP Pulse Ox 98.3 F 116 H 20 95/60 98 04/26/19 03:35 04/26/19 09:42 04/26/19 12:03 04/26/19 09:03 04/26/19 09:47 General appearance: Present: well-nourished, other (Tracheostomy on T-piece) Results - Labs CBC & Chem 7: 04/25/19 05:02 04/25/19 05:02 Labs: Laboratory Last Values WBC 8.1 K/mm3 (4.5-11.0) 04/25/19 05:02 RBC 4.06 M/mm3 (3.65-5.03) 04/25/19 05:02 Hgb 11.0 gm/dl (10.1-14.3) 04/25/19 05:02 Hct 34.6 % (30.3-42.9) 04/25/19 05:02 MCV 85 fl (79-97) 04/25/19 05:02 MCH 27 pg (28-32) L 04/25/19 05:02 MCHC 32 % (30-34) 04/25/19 05:02 RDW 18.2 % (13.2-15.2) H 04/25/19 05:02 Plt Count 197 K/mm3 (140-440) 04/25/19 05:02 Lymph % (Auto) 8.9 % (13.4-35.0) L 04/25/19 05:02 Winston % (Auto) 1.6 % (0.0-7.3) 04/25/19 05:02 Eos % (Auto) 0.0 % (0.0-4.3) 04/25/19 05:02 Baso % (Auto) 0.0 % (0.0-1.8) 04/25/19 05:02 Lymph # 0.7 K/mm3 (1.2-5.4) L 04/25/19 05:02 Winston # 0.1 K/mm3 (0.0-0.8) 04/25/19 05:02 Eos # 0.0 K/mm3 (0.0-0.4) 04/25/19 05:02 Baso # 0.0 K/mm3 (0.0-0.1) 04/25/19 05:02 Seg Neutrophils % 89.5 % (40.0-70.0) H 04/25/19 05:02 Seg Neutrophils # 7.2 K/mm3 (1.8-7.7) 04/25/19 05:02 PT 14.2 Sec. (12.2-14.9) 04/23/19 04:34 INR 1.09 (0.87-1.13) 04/23/19 04:34 APTT 30.2 Sec. (24.2-36.6) 04/23/19 04:34 D-Dimer 363.07 ng/mlDDU (0-234) H 04/22/19 12:34 POC ABG pH 7.433 (7.35-7.45) 04/24/19 00:46 ABG pH 7.524 pH Units (7.350-7.450) H 04/23/19 05:00 POC ABG pCO2 50.0 (35-45) H 04/24/19 00:46 ABG pCO2 32.9 mm Hg 04/23/19 05:00 POC ABG pO2 119 (80-105) H 04/24/19 00:46 ABG pO2 142.3 mm Hg (80.0-90.0) H 04/23/19 05:00 POC ABG HCO3 33.4 (22-26 mml/L) 04/24/19 00:46 ABG HCO3 26.5 mmol/L (20.0-26.0) H 04/23/19 05:00 POC ABG Total CO2 35 (23-27mmol/L) 04/24/19 00:46 POC ABG O2 Sat 99 04/24/19 00:46 ABG O2 Saturation 98.9 % (95.0-99.0) 04/23/19 05:00 ABG O2 Content 15.6 (0.0-44) 04/23/19 05:00 POC ABG Base Excess 9 ((-2) - (+3)mmol/L) 04/24/19 00:46 ABG Base Excess 3.9 mmol/L (-2.0-3.0) H 04/23/19 05:00 ABG Hemoglobin 11.3 gm/dl (12.0-16.0) L 04/23/19 05:00 ABG Carboxyhemoglobin 1.4 % (0.0-5.0) 04/23/19 05:00 ABG Methemoglobin 0.5 % (0.0-1.5) 04/23/19 05:00 Oxyhemoglobin 97.0 % (95.0-99.0) 04/23/19 05:00 FiO2 40 % 04/24/19 00:46 Sodium 141 mmol/L (137-145) 04/25/19 05:02 Potassium 4.2 mmol/L (3.6-5.0) 04/25/19 05:02 Chloride 95.6 mmol/L (98-107) L 04/25/19 05:02 Carbon Dioxide 26 mmol/L (22-30) 04/25/19 05:02 Anion Gap 24 mmol/L 04/25/19 05:02 BUN 21 mg/dL (7-17) H 04/25/19 05:02 Creatinine 1.1 mg/dL (0.7-1.2) 04/25/19 05:02 Estimated GFR > 60 ml/min 04/25/19 05:02 BUN/Creatinine Ratio 19 % 04/25/19 05:02 Glucose 246 mg/dL (65-100) H 04/25/19 05:02 POC Glucose 344 (70-105) H 04/26/19 12:42 Calcium 8.7 mg/dL (8.4-10.2) 04/25/19 05:02 Magnesium 1.70 mg/dL (1.7-2.3) 04/22/19 12:34 Total Bilirubin 0.80 mg/dL (0.1-1.2) 04/25/19 05:02 AST 19 units/L (5-40) 04/25/19 05:02 ALT 22 units/L (7-56) 04/25/19 05:02 Alkaline Phosphatase 98 units/L (35-129) 04/25/19 05:02 Total Creatine Kinase 156 units/L (30-135) H 04/22/19 12:34 Troponin T 0.014 ng/mL (0.00-0.029) 04/22/19 18:26 NT-Pro-B Natriuret Pep 2542 pg/mL (0-900) H 04/22/19 12:34 Total Protein 6.8 g/dL (6.3-8.2) 04/25/19 05:02 Albumin 4.1 g/dL (3.9-5) 04/25/19 05:02 Albumin/Globulin Ratio 1.5 % 04/25/19 05:02 Active Medications - Current Medications Current Medications: Generic Name Dose Route Start Last Admin Trade Name Freq PRN Reason Stop Dose Admin Acetaminophen 650 mg 04/22/19 23:20 Tylenol PO Q6H PRN Pain MILD(1-3)/Fever >100.5/ARMENDARIZ Albuterol 2.5 mg 04/25/19 11:44 Proventil IH Q4HRT PRN Shortness Of Breath Albuterol/Ipratropium 1 ampul 04/25/19 14:00 04/26/19 08:27 Duoneb *Not For Prn Use* IH Not Given TIDRT KAMARI Apixaban 5 mg 04/23/19 22:00 04/26/19 09:22 Eliquis PO 5 mg Q12HR KAMARI Administration Atorvastatin Calcium 40 mg 04/23/19 22:00 04/25/19 21:42 Lipitor PO 40 mg QHS KAMARI Administration Diltiazem HCl 60 mg 04/25/19 06:00 04/26/19 12:01 Cardizem PO 60 mg Q6HR KAMARI Administration Diltiazem HCl 10 mg 04/25/19 10:00 Cardizem IV Q4H PRN Tachyarrhythmias Escitalopram Oxalate 20 mg 04/23/19 12:00 04/26/19 09:23 Lexapro PO 20 mg DAILY KAMARI Administration Famotidine 20 mg 04/25/19 13:00 04/26/19 09:23 Pepcid PO 20 mg DAILY KAMARI Administration Furosemide 40 mg 04/23/19 06:00 04/26/19 05:36 Lasix IV 40 mg BID@0600,1800 KAMARI Administration Gabapentin 300 mg 04/23/19 12:00 04/26/19 09:23 Gabapentin PO 300 mg BID KAMARI Administration Hydralazine HCl 25 mg 04/23/19 22:00 04/26/19 05:35 Apresoline PO 25 mg Q8HR KAMARI Administration Hydralazine HCl 10 mg 04/23/19 18:22 04/24/19 15:07 Apresoline IV 10 mg Q4HR PRN Administration Hypertension Hydromorphone HCl 0.5 mg 04/23/19 09:50 04/26/19 12:03 Dilaudid IV 0.5 mg Q6H PRN Administration Pain , Severe (7-10) Insulin Glargine 8 units 04/25/19 13:00 04/26/19 12:09 Lantus SUB-Q 8 units DAILY KAMARI Administration Insulin Human Lispro 0 unit 04/25/19 11:30 04/26/19 12:55 Humalog SUB-Q 6 unit ACHS KAMARI Administration Protocol Levothyroxine Sodium 125 mcg 04/23/19 12:00 04/26/19 05:36 Synthroid PO 125 mcg DAILY@0600 KAMARI Administration Magnesium Hydroxide 30 ml 04/25/19 14:49 Milk Of Magnesia PO QDAY PRN Constipation Methylprednisolone Sodium Succinate 60 mg 04/25/19 13:00 04/26/19 05:36 Solu-Medrol IV 60 mg Q8H KAMARI Administration Sodium Chloride 10 ml 04/23/19 10:00 04/26/19 09:24 Sodium Chloride Flush Syringe 10 Ml IV 10 ml BID KAMARI Administration Sodium Chloride 10 ml 04/22/19 23:20 Sodium Chloride Flush Syringe 10 Ml IV PRN PRN LINE FLUSH Nutrition/Malnutrition Assess - Dietary Evaluation Nutrition/Malnutrition Findings: Nutrition Notes Start: 04/25/19 12:51 Freq: Status: Active Protocol: Document 04/25/19 12:51 LM (Rec: 04/25/19 13:20 LM [id number]) Nutrition Notes Need for Assessment generated from: MD Order,Education Initial or Follow up Assessment Current Diagnosis COPD,Heart Failure,Respiratory Failure Other Pertinent Diagnosis a fib, trach dependence Current Diet mechanical soft Labs/Tests BUN 21 BG 246 Pertinent Medications Solumedrol Lasix Humalog Height 5 ft 9 in Weight 100 kg Usual Body Weight 122.72 kg [place] Body Weight (kg) 65.90 BMI 32.5 Weight change and time frame 18.5% wt loss. Time frame unknown Weight Status Obese Subjective/Other Information MD consult for diet education. Pt not able to speak at time of visit and communicated by writing. Pt repoerted she ate 50% of breakfast this AM and that her UBW is 270 lb. Pt unaware of wt loss or time frame. Provided low NA diet education for pt. Pt with no diagnosis of DM and no A1C in chart. Elevated BG may be due to solumedrol. Pt asked for Ensure. Will give Glucerna d/t elevated BG. Burn Absent Trauma Absent GI Symptoms None Current % PO Fair (50-74%) Minimum of two criteria Yes Energy Intake (severe) < or equal to 50% Estimated Energy Requirement > or equal to 5 days Interpretation of Weight Loss (severe) >10% in 6 months #1 Nutrition Diagnosis Malnutrition Etiology COPD, chronic illness As Evidenced by Signs and Symptoms 18.5% wt loss, < or equal to 50% EER >5 days Is patient on ventilator? No Is Patient Ambulatory and/or Out of Bed No REE-([facility]-confined to bed) 1936.296 Kcal/Kg value to use for calculation 17 Approximate Energy Requirements Using 1700 kcal/Kg Calculation Used for Recommendations Kcal/kg Additional Notes Protein: 99-125g (1.2-1.5g/kg AdjBW 83 kg) Fluid: 1 ml/kcal or per MD Nutrition Intervention Change Diet Order: Continue current Add Supplement/Snack (indicate name/kcal Glucerna strawberry daily /protein ) Provides kCal: 220 Provides Protein (gm) 10 Teaching Recipient Patient Learning Readiness Good Teaching Methods Discussion,Handout Response to Teaching Verbalize understanding Education Handouts Provided Hypertension Barriers to Learning Cognitive/Verbal RD phone number provided Yes Patient aware of follow up options Yes Goal #1 Meet at least 75% of energy and protein needs Anticipated Discharge Needs: Cardiac Follow-Up By: 04/27/19 Additional Comments F/U for PO/ONS intakes, ONS needs, diet education needs
--- NOTE | 2019-04-26 13:58 | Discharge Summary ---
Providers - Providers Date of Admission: 04/22/19 22:17 Date of discharge: 04/29/19 Attending physician: AMAURY HOPPER 04/22/19 23:20 Consult to Dietitian/Nutrition [CONS] Routine Physician Instructions: Reason For Exam: Reason for Consult: Diet education Consult to Physician [CONS] Routine Comment: Consulting Provider: MAIRA SAUCEDO Physician Instructions: Reason For Exam: TRACHEOSTOMY DEPENDENT, 04/23/19 06:09 Consult to Cardiology [CONS] Routine Consulting Provider: MAURICIO REMY Reason For Exam: chest pain, h/o afib Primary care physician: VALARIE PATRICIO Hospitalization Condition: Stable Hospital course: Patient is a 64-year-old -[place] woman with a history of IDDM, Morbid obesity, chronic respiratory failure, COPD, chronic tracheostomy, tracheal stenosis, congestive heart failure, A. fib/flutter on eliquis and type 1 Aortic dissection who presented to [facility] ED with shortness of breath and chest pains. She was recently diagnosed at [facility] with an Aortic Dissection but required no immediate intervention. Patient had tracheostomy tube change due to acute respiratory failure and placed on mechanical ventilatory support, patient stabilized, MV was weaned off and she was placed on T-piece. She had brief episode of a flutter with rapid ventricular rate, resolved with IV Cardizem. Discharge Diagnoses: --Acute on chronic respiratory failure suspected due to CHF+Lung disease --Acute on chronic systolic CHF/ EF 30 to 35% --Encounter for tracheostomy tube change --Afib/A. flutter with rapid ventricular rate: Resolved --Dilated cardiomyopathy, an echocardiogram this admission shows a decreased left ventricular systolic function EF 30-35%. An echocardiogram at [place] 11/2018 reports an LVEF at 50%. --Chronic Aortic dissection --Atypical chest pain --Hx of thoracotomy in 2013 for repair of a thoracic aortic dissection. --Morbidly obese --History of chronic atrial fibrillation --Uncontrolled type 2 IDDM with hyperglycemia due to steroids: ok to d/c with weaning dose of steroids and increase in Lantus dose Disposition: home Disposition: - TO HOME OR SELFCARE Time spent for discharge: 31 minutes Core Measure Documentation - Palliative Care Palliative Care/ Comfort Measures: Not Applicable - Core Measures Any of the following diagnoses?: none - VTE Discharge Requirements Deep Vein Thrombosis/Pulmonary Embolism Present on Admission: No Has pt received <5 days of overlap therapy or INR<2.0: No Anticoagulant overlap therapy prescribed at discharge: No Contraindication No Overlap Therapy order at DC: Not Indicated Exam - Physical Exam Narrative exam: Gen: chronic disable appearing, WDWN, NAD, Awake, Alert, Orientated HEENT: NCAT, EOMI, PERRL, OP Clear Neck: trach collar in place supple, no adenopathy, no thyromegaly, no JVD CVS/Heart: irregular irregular, normal S1S2, pulses present bilaterally Chest/Lungs: diminished air entry, Symmetrical chest expansion, good air entry bilaterally GI/Abdomen: soft, NTND, good bowel sounds, no guarding or rebound /Bladder: no suprapubic tenderness, no CVA or paraspinal tenderness Extermity/Skin: no c/c/e, no obvious rash, large legs with chronic venous changes MSK: FROM x 4 Neuro: CN 2-12 grossly intact, no new focal deficits Psych: calm - Constitutional Vitals: Temp Pulse Resp BP Pulse Ox 98.3 F 116 H 20 95/60 98 04/26/19 03:35 04/26/19 09:42 04/26/19 12:03 04/26/19 09:03 04/26/19 09:47 Plan Activity: up only with assistance (continue to use your Walker), fall precautions, other (no strenous activity ) Diet: low salt (Mechanical soft) Follow up with: VALARIE PATRICIO MD [Primary Care Provider] - 3-5 Days Prescriptions: RX: AtorvaSTATin [Lipitor] 40 mg PO QHS #30 tablet RX: hydrALAZINE [Apresoline TAB] 25 mg PO TID #90 tablet dilTIAZem CD [Cardizem Cd] 240 mg PO QDAY #30 cap RX: predniSONE [Deltasone] 1 dose PO QDAY #78 tab RX: Apixaban [Eliquis] 5 mg PO Q12HR #60 tablet RX: Insulin Lispro 1 unit SQ ACHS PRN #1 vial PRN Reason: Hyperglycemia Insulin Glargine [Lantus VIAL] 12 unit SUB-Q QAM #1000 ml Furosemide [Lasix TAB] 40 mg PO QDAY #30 tablet RX: Famotidine [Pepcid] 20 mg PO DAILY #30 tablet RX: Lisinopril [Zestril TAB] 2.5 mg PO QDAY #30 tab
[2019-04-27] MEDS: dilTIAZem 60 MG TAB PO SCH ×5 (01:00→23:34)
[2019-04-27] MEDS: methylPREDNISolone Sod Succinate 125 MG/2 ML INJ IV SCH ×3 (05:42→20:59)
[2019-04-27] MEDS: HYDROmorphone 1 MG/1 ML INJ IV PRN ×3 (05:43→20:05)
[2019-04-27] MEDS: hydrALAZINE 25 MG TAB PO SCH ×3 (05:47→21:00)
[2019-04-27] MEDS: LEVOTHYROXINE 125 MCG TAB PO SCH (05:48)
[2019-04-27] MEDS: FUROSEMIDE 40 MG/4 ML INJ IV SCH ×2 (05:49→19:05)
[2019-04-27] MEDS: INSULIN GLARGINE 100 UNITS/ML SUB-Q SCH (09:00)
[2019-04-27] MEDS: INSULIN LISPRO 100 UNIT/ML SUB-Q SCH ×4 (09:00→22:48)
[2019-04-27] MEDS: ACETAMINOPHEN 325 MG TAB PO PRN (09:06)
[2019-04-27] MEDS: FAMOTIDINE 20 MG TAB PO SCH (09:08)
[2019-04-27] MEDS: ESCITALOPRAM 10 MG TAB PO SCH (09:09)
[2019-04-27] MEDS: APIXABAN 5 MG TAB PO SCH ×2 (09:09→21:00)
[2019-04-27] MEDS: GABAPENTIN 300 MG CAP PO SCH ×2 (09:10→21:00)
[2019-04-27] MEDS: IPRATROPIUM/ALBUTEROL SULFATE 3 ML AMPUL.NEB IH SCH ×3 (09:57→20:00)
--- NOTE | 2019-04-27 12:37 | Progress Note ---
<HOOD MAYA - Last Filed: 04/27/19 12:59> Assessment and Plan Acute heart failure Dilated cardiomyopathy an echocardiogram this admission shows a decreased left ventricular systolic function EF 30-35%. an echocardiogram at [place] 11/2018 reports an LVEF at 50%. Chronic atrial fibrillation rate controlled with diltiazem on oral anticoagulation with Eliquis Chronic pulmonary disease Steroid dependent COPD with indwelling tracheostomy Hx of thoracotomy in 2013 for repair of a thoracic aortic dissection. no documented coronary artery disease Morbidly obese Recommend: Continue medical therapy for chronic atrial fibrillation and for left ventricular systolic dysfunction as tolerated. Otherwise, conservative cardiac management. We will sign off. Subjective Date of service: 04/27/19 Interval history: Patient is sitting up at the bedside and appears comfortable. Discharge planning is in process. Afib with a well controlled ventricular rate on telemetry. Objective Vital Signs Temp Pulse Pulse Resp Resp BP Pulse Ox 04/27/19 11:15 84 04/27/19 11:13 98.1 F 76 20 131/86 91 04/27/19 09:57 74 20 04/27/19 09:48 94 04/27/19 08:00 104 H 04/27/19 07:50 98.5 F 76 20 126/95 91 04/27/19 03:25 98.0 F 88 18 127/101 89 04/27/19 01:00 97 04/27/19 00:00 82 04/26/19 23:52 98.0 F 82 20 109/86 93 04/26/19 20:41 97 04/26/19 20:00 63 20 04/26/19 19:31 98.4 F 113 H 18 112/85 95 04/26/19 18:34 22 04/26/19 18:26 89 135/74 98 04/26/19 16:24 04/26/19 16:02 96 H 18 04/26/19 13:00 20 97 Pulse Ox 04/27/19 11:15 04/27/19 11:13 04/27/19 09:57 04/27/19 09:48 04/27/19 08:00 97 04/27/19 07:50 04/27/19 03:25 04/27/19 01:00 04/27/19 00:00 96 04/26/19 23:52 04/26/19 20:41 04/26/19 20:00 12/17/19 19:31 04/26/19 18:34 04/26/19 18:26 04/26/19 16:24 96 04/26/19 16:02 04/26/19 13:00 - Physical Examination General: No Apparent Distress HEENT: Positive: PERRL Neck: Positive: Other (Midline trach in place) Cardiac: Positive: irregularly irregular Neuro: Positive: Grossly Intact - Allied health notes Allied health notes reviewed: nursing <MAURICIO REMY - Last Filed: 05/03/19 23:34> Assessment and Plan I have seen and evaluated the patient and agree with the assessment and plan.
--- NOTE | 2019-04-27 17:48 | Progress Note ---
Assessment and Plan Assessment and plan: Patient is a 64-year-old -Iranian woman with a history of Morbid obesity, chronic respiratory failure, COPD, chronic tracheostomy, tracheal stenosis, congestive heart failure, A. fib/flutter on eliquis and type 1 Aortic dissection who [facility] with shortness of breath and chest pains. She was recently diagnosed at [facility] with an Aortic Dissection but required no immediate intervention. Patient had tracheostomy tube change due to acute respiratory failure and placed on mechanical ventilatory support, patient stabilized, MV was weaned off and she was placed on T-piece. She had brief episode of a flutter with rapid ventricular rate, resolved with IV Cardizem. --Acute on chronic respiratory failure suspected due to CHF+Lung disease Current Visit: Yes Status: Acute s/p ventilatory support, today patient is on T piece Follow-up chest x-ray today, improved pulmonary edema --Acute on chronic systolic CHF/ EF 30 to 35% Current Visit: Yes Status: Acute IV diuretics, input output monitoring, low-sodium diet Beta-blockers if bp allows, small dose of BASSAM inhibitors d/w Dr. Varghese, Cardiology following ok to discharge per Dr. Varghese --Encounter for tracheostomy tube change Current Visit: Yes Status: Acute Tracheostomy care --Afib/A. flutter with rapid ventricular rate: Resolved Current Visit: Yes Status: Acute will resume home Cardizem, closely monitor IV Cardizem treatment to oral Cardizem Patient is on Eliquis Cardiology following --Dilated cardiomyopathy an echocardiogram this admission shows a decreased left ventricular systolic function EF 30-35%. an echocardiogram at [place] 11/2018 reports an LVEF at 50%. --Chronic thoracic aortic dissection Current Visit: Yes Status: Acute Stable. She was recently evaluated at [facility] and does not require any immediate intervention --Atypical chest pain Current Visit: No Status: Acute Work-up so far been negative. Cardiology following --Hx of thoracotomy in 2014 for repair of a thoracic aortic dissection. no documented coronary artery disease --Morbidly obese diet modification stressed --History of chronic atrial fibrillation Current Visit: Yes Status: Acute Rate controlled on admission. Today has intermittant a flutter with rapid ventricular rate on Eliquis --DVT prophylaxis Current Visit: Yes Status: Acute Patient on anticoagulation. -- Full code status Current Visit: Yes Status: Acute Disposition: awaiting on Dr. Bennett clearance, called him but no answer, he ordered chest ultrasound which has not been reported. I called head of [facility], Dr. Vegas, still unable to resolve the issue of Chest Ultrasound being done but no report. Also, Dr. Bennett has yet to round History Interval history: Patient was seen and examined. Follow-up on current diagnosis of respiratory failure. No overnight events reported to me. Patient denies any chest pain, shortness breath, nausea/vomiting or severe headaches. Imaging, nursing note, chart, labs and old chart reviewed. Discussed with patient. Hospitalist Physical - Physical exam Narrative exam: Gen: chronic disable appearing, WDWN, NAD, Awake, Alert, Orientated HEENT: NCAT, EOMI, PERRL, OP Clear Neck: trach collar in place supple, no adenopathy, no thyromegaly, no JVD CVS/Heart: irregular irregular, normal S1S2, pulses present bilaterally Chest/Lungs: diminished air entry, Symmetrical chest expansion, good air entry bilaterally GI/Abdomen: soft, NTND, good bowel sounds, no guarding or rebound /Bladder: no suprapubic tenderness, no CVA or paraspinal tenderness Extermity/Skin: no c/c/e, no obvious rash, large legs with chronic venous changes MSK: FROM x 4 Neuro: CN 2-12 grossly intact, no new focal deficits Psych: calm - Constitutional Vitals: Temp Pulse Resp BP Pulse Ox 98.1 F 90 20 131/86 96 04/27/19 11:13 04/27/19 15:36 04/27/19 13:20 04/27/19 11:13 04/27/19 13:00 General appearance: Present: well-nourished, other (Tracheostomy on T-piece) Results - Labs CBC & Chem 7: 04/25/19 05:02 04/25/19 05:02 Labs: Laboratory Last Values WBC 8.1 K/mm3 (4.5-11.0) 04/25/19 05:02 RBC 4.06 M/mm3 (3.65-5.03) 04/25/19 05:02 Hgb 11.0 gm/dl (10.1-14.3) 04/25/19 05:02 Hct 34.6 % (30.3-42.9) 04/25/19 05:02 MCV 85 fl (79-97) 04/25/19 05:02 MCH 27 pg (28-32) L 04/25/19 05:02 MCHC 32 % (30-34) 04/25/19 05:02 RDW 18.2 % (13.2-15.2) H 04/25/19 05:02 Plt Count 197 K/mm3 (140-440) 04/25/19 05:02 Lymph % (Auto) 8.9 % (13.4-35.0) L 04/25/19 05:02 [place] % (Auto) 1.6 % (0.0-7.3) 04/25/19 05:02 Eos % (Auto) 0.0 % (0.0-4.3) 04/25/19 05:02 Baso % (Auto) 0.0 % (0.0-1.8) 04/25/19 05:02 Lymph # 0.7 K/mm3 (1.2-5.4) L 04/25/19 05:02 [place] # 0.1 K/mm3 (0.0-0.8) 04/25/19 05:02 Eos # 0.0 K/mm3 (0.0-0.4) 04/25/19 05:02 Baso # 0.0 K/mm3 (0.0-0.1) 04/25/19 05:02 Seg Neutrophils % 89.5 % (40.0-70.0) H 04/25/19 05:02 Seg Neutrophils # 7.2 K/mm3 (1.8-7.7) 04/25/19 05:02 PT 14.2 Sec. (12.2-14.9) 04/23/19 04:34 INR 1.09 (0.87-1.13) 04/23/19 04:34 APTT 30.2 Sec. (24.2-36.6) 04/23/19 04:34 D-Dimer 363.07 ng/mlDDU (0-234) H 04/22/19 12:34 POC ABG pH 7.433 (7.35-7.45) 04/24/19 00:46 ABG pH 7.524 pH Units (7.350-7.450) H 04/23/19 05:00 POC ABG pCO2 50.0 (35-45) H 04/24/19 00:46 ABG pCO2 32.9 mm Hg 04/23/19 05:00 POC ABG pO2 119 (80-105) H 04/24/19 00:46 ABG pO2 142.3 mm Hg (80.0-90.0) H 04/23/19 05:00 POC ABG HCO3 33.4 (22-26 mml/L) 04/24/19 00:46 ABG HCO3 26.5 mmol/L (20.0-26.0) H 04/23/19 05:00 POC ABG Total CO2 35 (23-27mmol/L) 04/24/19 00:46 POC ABG O2 Sat 99 04/24/19 00:46 ABG O2 Saturation 98.9 % (95.0-99.0) 04/23/19 05:00 ABG O2 Content 15.6 (0.0-44) 04/23/19 05:00 POC ABG Base Excess 9 ((-2) - (+3)mmol/L) 04/24/19 00:46 ABG Base Excess 3.9 mmol/L (-2.0-3.0) H 04/23/19 05:00 ABG Hemoglobin 11.3 gm/dl (12.0-16.0) L 04/23/19 05:00 ABG Carboxyhemoglobin 1.4 % (0.0-5.0) 04/23/19 05:00 ABG Methemoglobin 0.5 % (0.0-1.5) 04/23/19 05:00 Oxyhemoglobin 97.0 % (95.0-99.0) 04/23/19 05:00 FiO2 40 % 04/24/19 00:46 Sodium 141 mmol/L (137-145) 04/25/19 05:02 Potassium 4.2 mmol/L (3.6-5.0) 04/25/19 05:02 Chloride 95.6 mmol/L (98-107) L 04/25/19 05:02 Carbon Dioxide 26 mmol/L (22-30) 04/25/19 05:02 Anion Gap 24 mmol/L 04/25/19 05:02 BUN 21 mg/dL (7-17) H 04/25/19 05:02 Creatinine 1.1 mg/dL (0.7-1.2) 04/25/19 05:02 Estimated GFR > 60 ml/min 04/25/19 05:02 BUN/Creatinine Ratio 19 % 04/25/19 05:02 Glucose 246 mg/dL (65-100) H 04/25/19 05:02 POC Glucose 425 (70-105) H 04/27/19 16:49 Calcium 8.7 mg/dL (8.4-10.2) 04/25/19 05:02 Magnesium 1.70 mg/dL (1.7-2.3) 04/22/19 12:34 Total Bilirubin 0.80 mg/dL (0.1-1.2) 04/25/19 05:02 AST 19 units/L (5-40) 04/25/19 05:02 ALT 22 units/L (7-56) 04/25/19 05:02 Alkaline Phosphatase 98 units/L (35-129) 04/25/19 05:02 Total Creatine Kinase 156 units/L (30-135) H 04/22/19 12:34 Troponin T 0.014 ng/mL (0.00-0.029) 04/22/19 18:26 NT-Pro-B Natriuret Pep 2542 pg/mL (0-900) H 04/22/19 12:34 Total Protein 6.8 g/dL (6.3-8.2) 04/25/19 05:02 Albumin 4.1 g/dL (3.9-5) 04/25/19 05:02 Albumin/Globulin Ratio 1.5 % 04/25/19 05:02 Active Medications - Current Medications Current Medications: Generic Name Dose Route Start Last Admin Trade Name Freq PRN Reason Stop Dose Admin Acetaminophen 650 mg 04/22/19 23:20 04/27/19 09:06 Tylenol PO 650 mg Q6H PRN Administration Pain MILD(1-3)/Fever >100.5/ARMENDARIZ Albuterol 2.5 mg 04/25/19 11:44 Proventil IH Q4HRT PRN Shortness Of Breath Albuterol/Ipratropium 1 ampul 04/25/19 14:00 04/27/19 13:19 Duoneb *Not For Prn Use* IH 1 ampul TIDRT KAMARI Administration Apixaban 5 mg 04/23/19 22:00 04/27/19 09:09 Eliquis PO 5 mg Q12HR KAMARI Administration Atorvastatin Calcium 40 mg 04/23/19 22:00 04/26/19 22:17 Lipitor PO 40 mg QHS KAMARI Administration Diltiazem HCl 60 mg 04/25/19 06:00 04/27/19 11:15 Cardizem PO 60 mg Q6HR KAMARI Administration Diltiazem HCl 10 mg 04/25/19 10:00 Cardizem IV Q4H PRN Tachyarrhythmias Escitalopram Oxalate 20 mg 04/23/19 12:00 04/27/19 09:09 Lexapro PO 20 mg DAILY KAMARI Administration Famotidine 20 mg 04/25/19 13:00 04/27/19 09:08 Pepcid PO 20 mg DAILY KAMARI Administration Furosemide 40 mg 04/23/19 06:00 04/27/19 05:49 Lasix IV 40 mg BID@0600,1800 KAMARI Administration Gabapentin 300 mg 04/23/19 12:00 04/27/19 09:10 Gabapentin PO 300 mg BID KAMARI Administration Hydralazine HCl 25 mg 04/23/19 22:00 04/27/19 15:36 Apresoline PO 25 mg Q8HR KAMARI Administration Hydralazine HCl 10 mg 04/23/19 18:22 04/24/19 15:07 Apresoline IV 10 mg Q4HR PRN Administration Hypertension Hydromorphone HCl 0.5 mg 04/23/19 09:50 04/27/19 11:20 Dilaudid IV 0.5 mg Q6H PRN Administration Pain , Severe (7-10) Insulin Glargine 8 units 04/25/19 13:00 04/27/19 09:00 Lantus SUB-Q 8 units DAILY KAMARI Administration Insulin Human Lispro 0 unit 04/25/19 11:30 04/27/19 11:18 Humalog SUB-Q 6 unit ACHS KAMARI Administration Protocol Levothyroxine Sodium 125 mcg 04/23/19 12:00 04/27/19 05:48 Synthroid PO 125 mcg DAILY@0600 KAMARI Administration Magnesium Hydroxide 30 ml 04/25/19 14:49 04/27/19 09:06 Milk Of Magnesia PO 30 ml QDAY PRN Administration Constipation Methylprednisolone Sodium Succinate 60 mg 04/25/19 13:00 04/27/19 15:34 Solu-Medrol IV 60 mg Q8H KAMARI Administration Sodium Chloride 10 ml 04/23/19 10:00 04/27/19 11:17 Sodium Chloride Flush Syringe 10 Ml IV 10 ml BID KAMARI Administration Sodium Chloride 10 ml 04/22/19 23:20 Sodium Chloride Flush Syringe 10 Ml IV PRN PRN LINE FLUSH Nutrition/Malnutrition Assess - Dietary Evaluation Nutrition/Malnutrition Findings: Nutrition Notes Start: 04/25/19 12:51 Freq: Status: Active Protocol: Document 04/27/19 09:45 CT (Rec: 04/27/19 09:51 CT [id number]) Co-Sign 04/27/19 09:45 LP Nutrition Notes Initial or Follow up Reassessment Current Diagnosis COPD,Heart Failure,Respiratory Failure Other Pertinent Diagnosis a fib, trach dependence Current Diet mechanical soft Labs/Tests POC Glu 301 Pertinent Medications Lasix Solumedrol Humalog Lantus Height 5 ft 9 in Weight 122.4 kg [place] Body Weight (kg) 65.90 BMI 39.8 Weight change and time frame wt gain noted possibly d/t edema/fluid accumulation Weight Status Obese Subjective/Other Information Follow up for PO/ONS intake and diet education reinforcement. Pt is non verbal, was able to shake head yes and no. Pt stated she does not have her glasses to read the diet education handout. Pt stated she has a family member that will come to the hospital and will read it to her in full and they will write down any questions. Gave verbal education for Heart Failure diet. Pt ate 100% of breakfast and 50% of dinner. Pt requested 2 Glucerna per day. Percent of energy/protein needs met: 100% energy / 86% protein Burn Absent Trauma Absent GI Symptoms None Current % PO Good (75-100%) Minimum of two criteria Yes Energy Intake (severe) < or equal to 50% Estimated Energy Requirement > or equal to 5 days Interpretation of Weight Loss (severe) >10% in 6 months #1 Nutrition Diagnosis Malnutrition As Evidenced by Signs and Symptoms Pt consumng 100% energy and 86 % protein needs Diagnosis Progress(for reassessment Improved documentation) Is patient on ventilator? No Is Patient Ambulatory and/or Out of Bed No REE-([facility]-confined to bed) 2204.820 Kcal/Kg value to use for calculation 14 Approximate Energy Requirements Using 1714 kcal/Kg Calculation Used for Recommendations Kcal/kg Additional Notes Protein: 99-125g (1.2-1.5g/kg AdjBW 83 kg) Fluid: 1 ml/kcal or per MD Nutrition Intervention Change Diet Order: Continue current Add Supplement/Snack (indicate name/kcal Add glucerna BID /protein ) Provides kCal: 440 Provides Protein (gm) 20 Teaching Recipient Patient Learning Readiness Good Teaching Methods Discussion,Handout Response to Teaching Verbalize understanding Education Handouts Provided Heart Failure Barriers to Learning Cognitive/Verbal RD phone number provided Yes Patient aware of follow up options Yes Goal #1 Meet at least 75% of energy and protein needs Anticipated Discharge Needs: Cardiac Follow-Up By: 05/04/19 Additional Comments Follow up for stable intakes, diet education needs
--- NOTE | 2019-04-27 17:52 | Progress Note ---
Assessment and Plan Patient is resting on Ttube, FiO2 35%, O2 saturation is 96%. Patient is afebrile, no leukocytosis. Patient CXR reported pulmonary vascular congestion and left pleural effusion. Obtained ultrasound of the chest, no significant pleural effusion reported. Patient can be discharged from pulmonary point of view. Recommend pulmonary follow up as out patient. - Patient Problems (1) COPD with exacerbation Current Visit: Yes Status: Acute Plan to address problem: Continue ttube, Fio2 of 35%. Continue albuterol and atrovent aerosol treatments continue IV solumedrol Patient is on apxiaban continue famotidine (2) CHF exacerbation Current Visit: Yes Status: Acute Plan to address problem: Mangement as per cardiology (3) Atrial flutter Current Visit: Yes Status: Acute Plan to address problem: Patient is on apixaban Management as per cardiology (4) Pleural effusion, left Current Visit: Yes Status: Acute Plan to address problem: Obtained ultrasound of the chest, no significant pleural effusion reported (5) Acute and chronic respiratory failure Current Visit: Yes Status: Acute Plan to address problem: Continue ttube, Fio2 of 35%. Continue albuterol and atrovent aerosol treatments continue IV solumedrol Patient is on apxiaban continue famotidine Subjective Date of service: 04/27/19 Interval history: Patient is resting on Ttube, FiO2 35%, O2 saturation is 96%. Patient is afebrile, no leukocytosis. Patient CXR reported pulmonary vascular congestion and left pleural effusion. Obtained ultrasound of the chest, no significant pleural effusion reported. Patient can be discharged from pulmonary point of view. Recommend pulmonary follow up as out patient. Objective Vital Signs - 12hr 04/27/19 04/27/19 04/27/19 07:50 08:00 09:48 Temperature 98.5 F Pulse Rate 76 104 H Pulse Rate [ Anterior Bilateral Throughout] Pulse Rate [ Left Dorsalis Pedis] Pulse Rate [ Right Dorsalis Pedis] Respiratory 20 Rate Respiratory Rate [Anterior Bilateral Throughout] Respiratory Rate [Chest] Blood Pressure 126/95 O2 Sat by Pulse 91 94 Oximetry O2 Sat by Pulse 97 Oximetry [ Assessment] 04/27/19 04/27/19 04/27/19 09:57 10:00 11:13 Temperature 98.1 F Pulse Rate 76 Pulse Rate [ 74 Anterior Bilateral Throughout] Pulse Rate [ Left Dorsalis Pedis] Pulse Rate [ Right Dorsalis Pedis] Respiratory 20 Rate Respiratory 20 Rate [Anterior Bilateral Throughout] Respiratory 18 Rate [Chest] Blood Pressure 131/86 O2 Sat by Pulse 91 Oximetry O2 Sat by Pulse Oximetry [ Assessment] 04/27/19 04/27/19 04/27/19 11:15 12:00 13:00 Temperature Pulse Rate 84 80 Pulse Rate [ Anterior Bilateral Throughout] Pulse Rate [ 80 Left Dorsalis Pedis] Pulse Rate [ 18 L Right Dorsalis Pedis] Respiratory Rate Respiratory Rate [Anterior Bilateral Throughout] Respiratory Rate [Chest] Blood Pressure O2 Sat by Pulse 96 Oximetry O2 Sat by Pulse Oximetry [ Assessment] 04/27/19 04/27/19 13:20 15:36 Temperature Pulse Rate 90 Pulse Rate [ 74 Anterior Bilateral Throughout] Pulse Rate [ Left Dorsalis Pedis] Pulse Rate [ Right Dorsalis Pedis] Respiratory Rate Respiratory 20 Rate [Anterior Bilateral Throughout] Respiratory Rate [Chest] Blood Pressure O2 Sat by Pulse Oximetry O2 Sat by Pulse Oximetry [ Assessment] Constitutional: no acute distress, alert, other (elderly looking morbidly obese AAF, normocephalic, patient somewhat anxious) Eyes: non-icteric ENT: oropharynx moist, other (+ midline Shiley trach tube in Neck (#6)) Neck: supple, other (+ large neck circumference) Effort: mildly labored Ascultation: Bilateral: diminished breath sounds Percussion: Bilateral: not dull Cardiovascular: regular rate and rhythm Gastrointestinal: normoactive bowel sounds, soft, non-tender, non-distended, other (protuberant) Integumentary: normal Extremities: no cyanosis, pulses normal, no ischemia or petechiae, edema (trace) Neurologic: normal mental status, non-focal exam (grossly), pupils equal and round, CN II-XII normal Psychiatric: anxious CBC and BMP: 04/25/19 05:02 04/25/19 05:02 ABG, PT/INR, D-dimer: ABG POC ABG pH 7.433 (7.35-7.45) 04/24/19 00:46 ABG pH 7.524 pH Units (7.350-7.450) H 04/23/19 05:00 POC ABG pCO2 50.0 (35-45) H 04/24/19 00:46 ABG pCO2 32.9 mm Hg 04/23/19 05:00 POC ABG pO2 119 (80-105) H 04/24/19 00:46 ABG pO2 142.3 mm Hg (80.0-90.0) H 04/23/19 05:00 POC ABG HCO3 33.4 (22-26 mml/L) 04/24/19 00:46 POC ABG Total CO2 35 (23-27mmol/L) 04/24/19 00:46 POC ABG O2 Sat 99 04/24/19 00:46 ABG O2 Saturation 98.9 % (95.0-99.0) 04/23/19 05:00 PT/INR, D-dimer PT 14.2 Sec. (12.2-14.9) 04/23/19 04:34 INR 1.09 (0.87-1.13) 04/23/19 04:34 D-Dimer 363.07 ng/mlDDU (0-234) H 04/22/19 12:34 Abnormal lab findings: Abnormal Labs 04/22/19 04/22/19 04/22/19 12:34 12:34 12:34 MCH 27 L RDW 18.2 H Lymph % (Auto) [place] % (Auto) 10.6 H Baso % (Auto) 1.9 H Lymph # Seg Neutrophils % D-Dimer 363.07 H ABG pH POC ABG pCO2 POC ABG pO2 ABG pO2 ABG HCO3 ABG Base Excess ABG Hemoglobin Chloride BUN Glucose 147 H POC Glucose Total Creatine Kinase 156 H NT-Pro-B Natriuret Pep 04/22/19 04/22/19 04/23/19 12:34 20:35 04:34 MCH 27 L RDW 18.3 H Lymph % (Auto) [place] % (Auto) Baso % (Auto) Lymph # 1.0 L Seg Neutrophils % 83.5 H D-Dimer ABG pH 7.346 L POC ABG pCO2 POC ABG pO2 ABG pO2 115.9 H ABG HCO3 28.3 H ABG Base Excess ABG Hemoglobin 11.7 L Chloride BUN Glucose POC Glucose Total Creatine Kinase NT-Pro-B Natriuret Pep 2542 H 04/23/19 04/23/19 04/24/19 04:34 05:00 00:46 MCH RDW Lymph % (Auto) [place] % (Auto) Baso % (Auto) Lymph # Seg Neutrophils % D-Dimer ABG pH 7.524 H POC ABG pCO2 50.0 H POC ABG pO2 119 H ABG pO2 142.3 H ABG HCO3 26.5 H ABG Base Excess 3.9 H ABG Hemoglobin 11.3 L Chloride BUN Glucose 217 H POC Glucose Total Creatine Kinase NT-Pro-B Natriuret Pep 04/25/19 04/25/19 04/25/19 05:02 05:02 11:56 MCH 27 L RDW 18.2 H Lymph % (Auto) 8.9 L [place] % (Auto) Baso % (Auto) Lymph # 0.7 L Seg Neutrophils % 89.5 H D-Dimer ABG pH POC ABG pCO2 POC ABG pO2 ABG pO2 ABG HCO3 ABG Base Excess ABG Hemoglobin Chloride 95.6 L BUN 21 H Glucose 246 H POC Glucose 327 H Total Creatine Kinase NT-Pro-B Natriuret Pep 04/25/19 04/25/19 04/26/19 16:22 23:48 09:14 MCH RDW Lymph % (Auto) [place] % (Auto) Baso % (Auto) Lymph # Seg Neutrophils % D-Dimer ABG pH POC ABG pCO2 POC ABG pO2 ABG pO2 ABG HCO3 ABG Base Excess ABG Hemoglobin Chloride BUN Glucose POC Glucose 313 H 247 H 292 H Total Creatine Kinase NT-Pro-B Natriuret Pep 04/26/19 04/26/19 04/26/19 12:21 12:42 17:52 MCH RDW Lymph % (Auto) [place] % (Auto) Baso % (Auto) Lymph # Seg Neutrophils % D-Dimer ABG pH POC ABG pCO2 POC ABG pO2 ABG pO2 ABG HCO3 ABG Base Excess ABG Hemoglobin Chloride BUN Glucose POC Glucose 362 H 344 H 333 H Total Creatine Kinase NT-Pro-B Natriuret Pep 04/26/19 04/27/19 04/27/19 21:02 07:57 11:21 MCH RDW Lymph % (Auto) [place] % (Auto) Baso % (Auto) Lymph # Seg Neutrophils % D-Dimer ABG pH POC ABG pCO2 POC ABG pO2 ABG pO2 ABG HCO3 ABG Base Excess ABG Hemoglobin Chloride BUN Glucose POC Glucose 359 H 301 H 347 H Total Creatine Kinase NT-Pro-B Natriuret Pep 04/27/19 16:49 MCH RDW Lymph % (Auto) [place] % (Auto) Baso % (Auto) Lymph # Seg Neutrophils % D-Dimer ABG pH POC ABG pCO2 POC ABG pO2 ABG pO2 ABG HCO3 ABG Base Excess ABG Hemoglobin Chloride BUN Glucose POC Glucose 425 H Total Creatine Kinase NT-Pro-B Natriuret Pep Allied health notes reviewed: nursing
--- NOTE | 2019-04-27 18:59 | Ultrasound Report ---
Sonography of the chest INDICATION: Left pleural effusion COMPARISON: Chest x-ray 04/24/2019 Examination of the chest bilaterally revealed no significant pleural effusion. Signer Name: Seb Major MD Signed: 04/27/2019 6:54 PM Workstation Name: [id number]
[2019-04-27] MEDS ORDERED: INSULIN LISPRO 100 UNIT/ML SUB-Q ONE (23:00)
[2019-04-27] MEDS: dilTIAZem 30 MG TAB PO SCH (23:37)
[2019-04-28] MEDS: HYDROmorphone 1 MG/1 ML INJ IV PRN (03:26)
[2019-04-28] MEDS: hydrALAZINE 25 MG TAB PO SCH ×3 (05:01→21:10)
[2019-04-28] MEDS: FUROSEMIDE 40 MG/4 ML INJ IV SCH ×2 (05:01→18:14)
[2019-04-28] MEDS: methylPREDNISolone Sod Succinate 125 MG/2 ML INJ IV SCH ×3 (05:01→21:11)
[2019-04-28] MEDS: LEVOTHYROXINE 125 MCG TAB PO SCH (05:01)
[2019-04-28] MEDS: dilTIAZem 60 MG TAB PO SCH ×4 (05:01→23:40)
[2019-04-28] MEDS: IPRATROPIUM/ALBUTEROL SULFATE 3 ML AMPUL.NEB IH SCH ×3 (08:27→21:21)
[2019-04-28] MEDS: FAMOTIDINE 20 MG TAB PO SCH (09:27)
[2019-04-28] MEDS: APIXABAN 5 MG TAB PO SCH ×2 (09:27→21:09)
[2019-04-28] MEDS: ESCITALOPRAM 10 MG TAB PO SCH (09:27)
[2019-04-28] MEDS: GABAPENTIN 300 MG CAP PO SCH ×2 (09:27→21:09)
[2019-04-28] MEDS: INSULIN GLARGINE 100 UNITS/ML SUB-Q SCH (09:28)
[2019-04-28] MEDS: INSULIN LISPRO 100 UNIT/ML SUB-Q SCH ×4 (09:29→23:40)
[2019-04-28] MEDS: ACETAMINOPHEN 325 MG TAB PO PRN (09:43)
--- NOTE | 2019-04-28 13:30 | Progress Note ---
Assessment and Plan -Acute and chronic hypoxic respiratory failure -s/p trachesotomy with trach change -Pulmonary HTN, cor pulmonale -COPD -Morbid obesity -Sleep apnea with OHS -Acute on chronic systolic heart failure -Chronic atrial fibrillation -Chronic atrial fibrillation flutter - History of chronic aortic dissection stable -Morbid obesity -Trach care, airway clearance, secretion management - Continue to wean supplemental oxygen for target O2 sat's > 90% acutely - Bronchodilators with pulmonary hygiene per RT - Accuchecks with glycemic control per SSI - Avoid benzodiazepines to reduce the possibility of delirium - prn analgesia per CPOT score - Maintenance of sleep-wake cycle, avoid delirium -Aspiration precautions, HOB >40 - G.I. & VTE prophylaxis (chronic anticoagulation) - PT/OT/ROM exercises - Mobility protocol and off loading for pressure ulcer prevention -Chronic home medications, agitation management Discharge planning Subjective Date of service: 04/28/19 Interval history: Patient is seen today for:acute on chronic respiratory failure;s/p tracheostomy; acute systolic heart failure; morbid obesity; Seen and examined at bedside; 24hour events reviewed; nursing and respiratory care staff consulted; no adverse overnight events reported to me; resting peacefully in bed; denies acute chest pains or palpitations; feels better; ate b reakfast; No N/V/F/C; remains on ATC Doing well, discharge planning under way Objective Vital Signs - 12hr 04/28/19 04/28/19 04/28/19 03:19 04:18 08:00 Temperature 98.2 F Pulse Rate 80 Pulse Rate [ 100 H Anterior Bilateral Throughout] Respiratory 20 Rate Respiratory 18 Rate [Anterior Bilateral Throughout] Blood Pressure 142/102 O2 Sat by Pulse 86 Oximetry O2 Sat by Pulse 100 100 Oximetry [ Assessment] 04/28/19 04/28/19 04/28/19 08:24 08:29 09:15 Temperature 98.3 F Pulse Rate 75 Pulse Rate [ 95 H Anterior Bilateral Throughout] Respiratory 18 Rate Respiratory 24 Rate [Anterior Bilateral Throughout] Blood Pressure 134/94 O2 Sat by Pulse 98 99 Oximetry O2 Sat by Pulse Oximetry [ Assessment] 04/28/19 04/28/19 04/28/19 10:00 12:19 12:25 Temperature 98.7 F Pulse Rate 75 83 83 Pulse Rate [ Anterior Bilateral Throughout] Respiratory 20 Rate Respiratory Rate [Anterior Bilateral Throughout] Blood Pressure 133/103 133/103 O2 Sat by Pulse 99 98 Oximetry O2 Sat by Pulse Oximetry [ Assessment] Constitutional: no acute distress, alert, other (elderly looking morbidly obese AAF, normocephalic,up beat) Eyes: non-icteric ENT: oropharynx moist, other (+ midline Shiley trach tube in Neck (#6)) Neck: supple, other (+ large neck circumference) Effort: normal Ascultation: Bilateral: diminished breath sounds, rhonchi Percussion: Bilateral: not dull Cardiovascular: regular rate and rhythm, other (S1,S2, no murmurs) Gastrointestinal: normoactive bowel sounds, soft, non-tender, non-distended, other (protuberant) Integumentary: normal Extremities: no cyanosis, pulses normal, no ischemia or petechiae, edema (trace) Neurologic: normal mental status, non-focal exam (grossly), pupils equal and round, CN II-XII normal, motor strength normal and Psychiatric: mood appropriate, affect normal CBC and BMP: 04/25/19 05:02 04/25/19 05:02 ABG, PT/INR, D-dimer: ABG POC ABG pH 7.433 (7.35-7.45) 04/24/19 00:46 ABG pH 7.524 pH Units (7.350-7.450) H 04/23/19 05:00 POC ABG pCO2 50.0 (35-45) H 04/24/19 00:46 ABG pCO2 32.9 mm Hg 04/23/19 05:00 POC ABG pO2 119 (80-105) H 04/24/19 00:46 ABG pO2 142.3 mm Hg (80.0-90.0) H 04/23/19 05:00 POC ABG HCO3 33.4 (22-26 mml/L) 04/24/19 00:46 POC ABG Total CO2 35 (23-27mmol/L) 04/24/19 00:46 POC ABG O2 Sat 99 04/24/19 00:46 ABG O2 Saturation 98.9 % (95.0-99.0) 04/23/19 05:00 PT/INR, D-dimer PT 14.2 Sec. (12.2-14.9) 12/14/19 04:34 INR 1.09 (0.87-1.13) 04/23/19 04:34 D-Dimer 363.07 ng/mlDDU (0-234) H 04/22/19 12:34 Abnormal lab findings: Abnormal Labs 04/22/19 04/22/19 04/22/19 12:34 12:34 12:34 MCH 27 L RDW 18.2 H Lymph % (Auto) [place] % (Auto) 10.6 H Baso % (Auto) 1.9 H Lymph # Seg Neutrophils % D-Dimer 363.07 H ABG pH POC ABG pCO2 POC ABG pO2 ABG pO2 ABG HCO3 ABG Base Excess ABG Hemoglobin Chloride BUN Glucose 147 H POC Glucose Total Creatine Kinase 156 H NT-Pro-B Natriuret Pep 04/22/19 04/22/19 04/23/19 12:34 20:35 04:34 MCH 27 L RDW 18.3 H Lymph % (Auto) [place] % (Auto) Baso % (Auto) Lymph # 1.0 L Seg Neutrophils % 83.5 H D-Dimer ABG pH 7.346 L POC ABG pCO2 POC ABG pO2 ABG pO2 115.9 H ABG HCO3 28.3 H ABG Base Excess ABG Hemoglobin 11.7 L Chloride BUN Glucose POC Glucose Total Creatine Kinase NT-Pro-B Natriuret Pep 2542 H 04/23/19 04/23/19 04/24/19 04:34 05:00 00:46 MCH RDW Lymph % (Auto) [place] % (Auto) Baso % (Auto) Lymph # Seg Neutrophils % D-Dimer ABG pH 7.524 H POC ABG pCO2 50.0 H POC ABG pO2 119 H ABG pO2 142.3 H ABG HCO3 26.5 H ABG Base Excess 3.9 H ABG Hemoglobin 11.3 L Chloride BUN Glucose 217 H POC Glucose Total Creatine Kinase NT-Pro-B Natriuret Pep 04/25/19 04/25/19 04/25/19 05:02 05:02 11:56 MCH 27 L RDW 18.2 H Lymph % (Auto) 8.9 L [place] % (Auto) Baso % (Auto) Lymph # 0.7 L Seg Neutrophils % 89.5 H D-Dimer ABG pH POC ABG pCO2 POC ABG pO2 ABG pO2 ABG HCO3 ABG Base Excess ABG Hemoglobin Chloride 95.6 L BUN 21 H Glucose 246 H POC Glucose 327 H Total Creatine Kinase NT-Pro-B Natriuret Pep 04/25/19 04/25/19 04/26/19 16:22 23:48 09:14 MCH RDW Lymph % (Auto) [place] % (Auto) Baso % (Auto) Lymph # Seg Neutrophils % D-Dimer ABG pH POC ABG pCO2 POC ABG pO2 ABG pO2 ABG HCO3 ABG Base Excess ABG Hemoglobin Chloride BUN Glucose POC Glucose 313 H 247 H 292 H Total Creatine Kinase NT-Pro-B Natriuret Pep 04/26/19 04/26/19 04/26/19 12:21 12:42 17:52 MCH RDW Lymph % (Auto) [place] % (Auto) Baso % (Auto) Lymph # Seg Neutrophils % D-Dimer ABG pH POC ABG pCO2 POC ABG pO2 ABG pO2 ABG HCO3 ABG Base Excess ABG Hemoglobin Chloride BUN Glucose POC Glucose 362 H 344 H 333 H Total Creatine Kinase NT-Pro-B Natriuret Pep 04/26/19 04/27/19 04/27/19 21:02 07:57 11:21 MCH RDW Lymph % (Auto) [place] % (Auto) Baso % (Auto) Lymph # Seg Neutrophils % D-Dimer ABG pH POC ABG pCO2 POC ABG pO2 ABG pO2 ABG HCO3 ABG Base Excess ABG Hemoglobin Chloride BUN Glucose POC Glucose 359 H 301 H 347 H Total Creatine Kinase NT-Pro-B Natriuret Pep 04/27/19 04/27/19 04/28/19 16:49 22:21 07:33 MCH RDW Lymph % (Auto) [place] % (Auto) Baso % (Auto) Lymph # Seg Neutrophils % D-Dimer ABG pH POC ABG pCO2 POC ABG pO2 ABG pO2 ABG HCO3 ABG Base Excess ABG Hemoglobin Chloride BUN Glucose POC Glucose 425 H 369 H 306 H Total Creatine Kinase NT-Pro-B Natriuret Pep 04/28/19 12:02 MCH RDW Lymph % (Auto) [place] % (Auto) Baso % (Auto) Lymph # Seg Neutrophils % D-Dimer ABG pH POC ABG pCO2 POC ABG pO2 ABG pO2 ABG HCO3 ABG Base Excess ABG Hemoglobin Chloride BUN Glucose POC Glucose 495 H Total Creatine Kinase NT-Pro-B Natriuret Pep Allied health notes reviewed: nursing
--- NOTE | 2019-04-28 18:07 | Progress Note ---
Assessment and Plan Assessment and plan: Patient is a 64-year-old -[place] woman with a history of Morbid obesity, chronic respiratory failure, COPD, chronic tracheostomy, tracheal stenosis, congestive heart failure, A. fib/flutter on eliquis and type 1 Aortic dissection who presented to [facility] ED with shortness of breath and chest pains. She was recently diagnosed at [facility] with an Aortic Dissection but required no immediate intervention. Patient had tracheostomy tube change due to acute respiratory failure and placed on mechanical ventilatory support, patient stabilized, MV was weaned off and she was placed on T-piece. She had brief episode of a flutter with rapid ventricular rate, resolved with IV Cardizem. --Acute on chronic respiratory failure suspected due to CHF+Lung disease Current Visit: Yes Status: Acute s/p ventilatory support, today patient is on T piece Follow-up chest x-ray today, improved pulmonary edema --Acute on chronic systolic CHF/ EF 30 to 35% Current Visit: Yes Status: Acute IV diuretics, input output monitoring, low-sodium diet Beta-blockers if bp allows, small dose of BASSAM inhibitors d/w Dr. Varghese, Cardiology following ok to discharge per Dr. Varghese --Encounter for tracheostomy tube change Current Visit: Yes Status: Acute Tracheostomy care --Afib/A. flutter with rapid ventricular rate: Resolved Current Visit: Yes Status: Acute will resume home Cardizem, closely monitor IV Cardizem treatment to oral Cardizem Patient is on Eliquis Cardiology following --Dilated cardiomyopathy an echocardiogram this admission shows a decreased left ventricular systolic function EF 30-35%. an echocardiogram at [facility] 11/2018 reports an LVEF at 50%. --Chronic thoracic aortic dissection Current Visit: Yes Status: Acute Stable. She was recently evaluated at [facility] and does not require any immediate intervention --Atypical chest pain Current Visit: No Status: Acute Work-up so far been negative. Cardiology following --Hx of thoracotomy in 2014 for repair of a thoracic aortic dissection. no documented coronary artery disease --Morbidly obese diet modification stressed --History of chronic atrial fibrillation Current Visit: Yes Status: Acute Rate controlled on admission. Today has intermittant a flutter with rapid ventricular rate on Eliquis --DVT prophylaxis Current Visit: Yes Status: Acute Patient on anticoagulation. -- Full code status Current Visit: Yes Status: Acute Disposition: waiting on transportation, d/c have been entered since 0658 this morning. History Interval history: Patient was seen and examined. Follow-up on current diagnosis of respiratory failure. No overnight events reported to me. Patient denies any chest pain, shortness breath, nausea/vomiting or severe headaches. Imaging, nursing note, chart, labs and old chart reviewed. Discussed with patient. Hospitalist Physical - Physical exam Narrative exam: Gen: chronic disable appearing, WDWN, NAD, Awake, Alert, Orientated HEENT: NCAT, EOMI, PERRL, OP Clear Neck: trach collar in place supple, no adenopathy, no thyromegaly, no JVD CVS/Heart: irregular irregular, normal S1S2, pulses present bilaterally Chest/Lungs: diminished air entry, Symmetrical chest expansion, good air entry bilaterally GI/Abdomen: soft, NTND, good bowel sounds, no guarding or rebound /Bladder: no suprapubic tenderness, no CVA or paraspinal tenderness Extermity/Skin: no c/c/e, no obvious rash, large legs with chronic venous changes MSK: FROM x 4 Neuro: CN 2-12 grossly intact, no new focal deficits Psych: calm - Constitutional Vitals: Temp Pulse Resp BP Pulse Ox 98.7 F 88 18 133/103 95 04/28/19 12:19 04/28/19 14:38 04/28/19 14:38 04/28/19 12:25 04/28/19 14:03 General appearance: Present: well-nourished, other (Tracheostomy on T-piece) Results - Labs CBC & Chem 7: 04/25/19 05:02 04/25/19 05:02 Labs: Laboratory Last Values WBC 8.1 K/mm3 (4.5-11.0) 04/25/19 05:02 RBC 4.06 M/mm3 (3.65-5.03) 04/25/19 05:02 Hgb 11.0 gm/dl (10.1-14.3) 04/25/19 05:02 Hct 34.6 % (30.3-42.9) 04/25/19 05:02 MCV 85 fl (79-97) 04/25/19 05:02 MCH 27 pg (28-32) L 04/25/19 05:02 MCHC 32 % (30-34) 04/25/19 05:02 RDW 18.2 % (13.2-15.2) H 04/25/19 05:02 Plt Count 197 K/mm3 (140-440) 04/25/19 05:02 Lymph % (Auto) 8.9 % (13.4-35.0) L 04/25/19 05:02 Latimer % (Auto) 1.6 % (0.0-7.3) 04/25/19 05:02 Eos % (Auto) 0.0 % (0.0-4.3) 04/25/19 05:02 Baso % (Auto) 0.0 % (0.0-1.8) 04/25/19 05:02 Lymph # 0.7 K/mm3 (1.2-5.4) L 04/25/19 05:02 Latimer # 0.1 K/mm3 (0.0-0.8) 04/25/19 05:02 Eos # 0.0 K/mm3 (0.0-0.4) 04/25/19 05:02 Baso # 0.0 K/mm3 (0.0-0.1) 04/25/19 05:02 Seg Neutrophils % 89.5 % (40.0-70.0) H 04/25/19 05:02 Seg Neutrophils # 7.2 K/mm3 (1.8-7.7) 04/25/19 05:02 PT 14.2 Sec. (12.2-14.9) 04/23/19 04:34 INR 1.09 (0.87-1.13) 04/23/19 04:34 APTT 30.2 Sec. (24.2-36.6) 04/23/19 04:34 D-Dimer 363.07 ng/mlDDU (0-234) H 04/22/19 12:34 POC ABG pH 7.433 (7.35-7.45) 04/24/19 00:46 ABG pH 7.524 pH Units (7.350-7.450) H 04/23/19 05:00 POC ABG pCO2 50.0 (35-45) H 04/24/19 00:46 ABG pCO2 32.9 mm Hg 04/23/19 05:00 POC ABG pO2 119 (80-105) H 04/24/19 00:46 ABG pO2 142.3 mm Hg (80.0-90.0) H 04/23/19 05:00 POC ABG HCO3 33.4 (22-26 mml/L) 04/24/19 00:46 ABG HCO3 26.5 mmol/L (20.0-26.0) H 04/23/19 05:00 POC ABG Total CO2 35 (23-27mmol/L) 04/24/19 00:46 POC ABG O2 Sat 99 04/24/19 00:46 ABG O2 Saturation 98.9 % (95.0-99.0) 04/23/19 05:00 ABG O2 Content 15.6 (0.0-44) 04/23/19 05:00 POC ABG Base Excess 9 ((-2) - (+3)mmol/L) 04/24/19 00:46 ABG Base Excess 3.9 mmol/L (-2.0-3.0) H 04/23/19 05:00 ABG Hemoglobin 11.3 gm/dl (12.0-16.0) L 04/23/19 05:00 ABG Carboxyhemoglobin 1.4 % (0.0-5.0) 04/23/19 05:00 ABG Methemoglobin 0.5 % (0.0-1.5) 04/23/19 05:00 Oxyhemoglobin 97.0 % (95.0-99.0) 04/23/19 05:00 FiO2 40 % 04/24/19 00:46 Sodium 141 mmol/L (137-145) 04/25/19 05:02 Potassium 4.2 mmol/L (3.6-5.0) 04/25/19 05:02 Chloride 95.6 mmol/L (98-107) L 04/25/19 05:02 Carbon Dioxide 26 mmol/L (22-30) 04/25/19 05:02 Anion Gap 24 mmol/L 04/25/19 05:02 BUN 21 mg/dL (7-17) H 04/25/19 05:02 Creatinine 1.1 mg/dL (0.7-1.2) 04/25/19 05:02 Estimated GFR > 60 ml/min 04/25/19 05:02 BUN/Creatinine Ratio 19 % 04/25/19 05:02 Glucose 246 mg/dL (65-100) H 04/25/19 05:02 POC Glucose 393 (70-105) H 04/28/19 17:27 Calcium 8.7 mg/dL (8.4-10.2) 04/25/19 05:02 Magnesium 1.70 mg/dL (1.7-2.3) 04/22/19 12:34 Total Bilirubin 0.80 mg/dL (0.1-1.2) 04/25/19 05:02 AST 19 units/L (5-40) 04/25/19 05:02 ALT 22 units/L (7-56) 04/25/19 05:02 Alkaline Phosphatase 98 units/L (35-129) 04/25/19 05:02 Total Creatine Kinase 156 units/L (30-135) H 04/22/19 12:34 Troponin T 0.014 ng/mL (0.00-0.029) 04/22/19 18:26 NT-Pro-B Natriuret Pep 2542 pg/mL (0-900) H 04/22/19 12:34 Total Protein 6.8 g/dL (6.3-8.2) 04/25/19 05:02 Albumin 4.1 g/dL (3.9-5) 04/25/19 05:02 Albumin/Globulin Ratio 1.5 % 04/25/19 05:02 Active Medications - Current Medications Current Medications: Generic Name Dose Route Start Last Admin Trade Name Freq PRN Reason Stop Dose Admin Acetaminophen 650 mg 04/22/19 23:20 04/28/19 09:43 Tylenol PO 650 mg Q6H PRN Administration Pain MILD(1-3)/Fever >100.5/ARMENDARIZ Albuterol 2.5 mg 04/25/19 11:44 Proventil IH Q4HRT PRN Shortness Of Breath Albuterol/Ipratropium 1 ampul 04/25/19 14:00 04/28/19 14:01 Duoneb *Not For Prn Use* IH 1 ampul TIDRT KAMARI Administration Apixaban 5 mg 04/23/19 22:00 04/28/19 09:27 Eliquis PO 5 mg Q12HR KAMARI Administration Atorvastatin Calcium 40 mg 04/23/19 22:00 04/27/19 21:00 Lipitor PO 40 mg QHS KAMARI Administration Diltiazem HCl 60 mg 04/25/19 06:00 04/28/19 12:25 Cardizem PO 60 mg Q6HR KAMARI Administration Diltiazem HCl 10 mg 04/25/19 10:00 Cardizem IV Q4H PRN Tachyarrhythmias Escitalopram Oxalate 20 mg 04/23/19 12:00 04/28/19 09:27 Lexapro PO 20 mg DAILY KAMARI Administration Famotidine 20 mg 04/25/19 13:00 04/28/19 09:27 Pepcid PO 20 mg DAILY KAMARI Administration Furosemide 40 mg 04/23/19 06:00 04/28/19 05:01 Lasix IV 40 mg BID@0600,1800 KAMARI Administration Gabapentin 300 mg 04/23/19 12:00 04/28/19 09:27 Gabapentin PO 300 mg BID KAMARI Administration Hydralazine HCl 25 mg 04/23/19 22:00 04/28/19 05:01 Apresoline PO 25 mg Q8HR KAMARI Administration Hydralazine HCl 10 mg 04/23/19 18:22 04/24/19 15:07 Apresoline IV 10 mg Q4HR PRN Administration Hypertension Hydromorphone HCl 0.5 mg 04/23/19 09:50 04/28/19 03:26 Dilaudid IV 0.5 mg Q6H PRN Administration Pain , Severe (7-10) Insulin Glargine 8 units 04/25/19 13:00 04/28/19 09:28 Lantus SUB-Q 8 units DAILY KAMARI Administration Insulin Human Lispro 0 unit 04/25/19 11:30 04/28/19 12:22 Humalog SUB-Q 8 unit ACHS KAMARI Administration Protocol Levothyroxine Sodium 125 mcg 04/23/19 12:00 04/28/19 05:01 Synthroid PO 125 mcg DAILY@0600 KAMARI Administration Magnesium Hydroxide 30 ml 04/25/19 14:49 04/27/19 09:06 Milk Of Magnesia PO 30 ml QDAY PRN Administration Constipation Methylprednisolone Sodium Succinate 60 mg 04/25/19 13:00 04/28/19 05:01 Solu-Medrol IV 60 mg Q8H KAMARI Administration Sodium Chloride 10 ml 04/23/19 10:00 04/28/19 09:28 Sodium Chloride Flush Syringe 10 Ml IV 10 ml BID KAMARI Administration Sodium Chloride 10 ml 04/22/19 23:20 Sodium Chloride Flush Syringe 10 Ml IV PRN PRN LINE FLUSH Nutrition/Malnutrition Assess - Dietary Evaluation Nutrition/Malnutrition Findings: Nutrition Notes Start: 04/25/19 12:51 Freq: Status: Active Protocol: Document 04/27/19 09:45 CT (Rec: 04/27/19 09:51 CT [id number]) Co-Sign 04/27/19 09:45 LP Nutrition Notes Initial or Follow up Reassessment Current Diagnosis COPD,Heart Failure,Respiratory Failure Other Pertinent Diagnosis a fib, trach dependence Current Diet mechanical soft Labs/Tests POC Glu 301 Pertinent Medications Lasix Solumedrol Humalog Lantus Height 5 ft 9 in Weight 122.4 kg [place] Body Weight (kg) 65.90 BMI 39.8 Weight change and time frame wt gain noted possibly d/t edema/fluid accumulation Weight Status Obese Subjective/Other Information Follow up for PO/ONS intake and diet education reinforcement. Pt is non verbal, was able to shake head yes and no. Pt stated she does not have her glasses to read the diet education handout. Pt stated she has a family member that will come to the hospital and will read it to her in full and they will write down any questions. Gave verbal education for Heart Failure diet. Pt ate 100% of breakfast and 50% of dinner. Pt requested 2 Glucerna per day. Percent of energy/protein needs met: 100% energy / 86% protein Burn Absent Trauma Absent GI Symptoms None Current % PO Good (75-100%) Minimum of two criteria Yes Energy Intake (severe) < or equal to 50% Estimated Energy Requirement > or equal to 5 days Interpretation of Weight Loss (severe) >10% in 6 months #1 Nutrition Diagnosis Malnutrition As Evidenced by Signs and Symptoms Pt consumng 100% energy and 86 % protein needs Diagnosis Progress(for reassessment Improved documentation) Is patient on ventilator? No Is Patient Ambulatory and/or Out of Bed No REE-([place]-confined to bed) 2204.820 Kcal/Kg value to use for calculation 14 Approximate Energy Requirements Using 1714 kcal/Kg Calculation Used for Recommendations Kcal/kg Additional Notes Protein: 99-125g (1.2-1.5g/kg AdjBW 83 kg) Fluid: 1 ml/kcal or per MD Nutrition Intervention Change Diet Order: Continue current Add Supplement/Snack (indicate name/kcal Add glucerna BID /protein ) Provides kCal: 440 Provides Protein (gm) 20 Teaching Recipient Patient Learning Readiness Good Teaching Methods Discussion,Handout Response to Teaching Verbalize understanding Education Handouts Provided Heart Failure Barriers to Learning Cognitive/Verbal RD phone number provided Yes Patient aware of follow up options Yes Goal #1 Meet at least 75% of energy and protein needs Anticipated Discharge Needs: Cardiac Follow-Up By: 05/04/19 Additional Comments Follow up for stable intakes, diet education needs
[2019-04-29] MEDS: LEVOTHYROXINE 125 MCG TAB PO SCH (06:31)
[2019-04-29] MEDS: hydrALAZINE 25 MG TAB PO SCH (06:31)
[2019-04-29] MEDS: methylPREDNISolone Sod Succinate 125 MG/2 ML INJ IV SCH (06:31)
[2019-04-29] MEDS: dilTIAZem 60 MG TAB PO SCH (06:31)
[2019-04-29] MEDS: FUROSEMIDE 40 MG/4 ML INJ IV SCH (06:32)
[2019-04-29 08:14] VITALS: BP 125/90
[2019-04-29] MEDS: IPRATROPIUM/ALBUTEROL SULFATE 3 ML AMPUL.NEB IH SCH ×2 (08:31→13:02)
[2019-04-29] MEDS: INSULIN LISPRO 100 UNIT/ML SUB-Q SCH (09:27)
[2019-04-29] MEDS: FAMOTIDINE 20 MG TAB PO SCH (10:35)
[2019-04-29] MEDS: ESCITALOPRAM 10 MG TAB PO SCH (10:35)
[2019-04-29] MEDS: ACETAMINOPHEN 325 MG TAB PO PRN (10:36)
[2019-04-29] MEDS: APIXABAN 5 MG TAB PO SCH (10:36)
[2019-04-29] MEDS: GABAPENTIN 300 MG CAP PO SCH (10:37)
[2019-04-29] MEDS: INSULIN GLARGINE 100 UNITS/ML SUB-Q SCH (10:40)
== END 2019-04-29 15:43 | disposition home or self-care (01) | DRG 208 ==
LOC: ED 10:22 → CC1 22:17 → 4A 04-25 17:48
PROVIDERS: ADMIT Internal Medicine Geriatric Medicine; ATTEND Internal Medicine
PROC: 5A1935Z Respiratory Ventilation, Less than 24 Consecutive Hours (ICD-10-PCS; principal; 2019-04-22)
PROC: 4A033R1 Measurement of Arterial Saturation, Peripheral, Percutaneous Approach (ICD-10-PCS; 2019-04-22)
PROC: 05HY33Z Insertion of Infusion Device into Upper Vein, Percutaneous Approach (ICD-10-PCS; 2019-04-22)
PROC: B54MZZA Ultrasonography of Right Upper Extremity Veins, Guidance (ICD-10-PCS; 2019-04-22)
PROC: 0B21XFZ Change Tracheostomy Device in Trachea, External Approach (ICD-10-PCS; 2019-04-22)
DX: J95.09 Other tracheostomy complication (principal); J96.20 Acute and chronic respiratory failure, unspecified whether with hypoxia or hypercapnia; I50.23 Acute on chronic systolic (congestive) heart failure; I71.01 Dissection of thoracic aorta; J44.1 Chronic obstructive pulmonary disease with (acute) exacerbation; I48.20 Chronic atrial fibrillation, unspecified; I48.92 Unspecified atrial flutter; I42.0 Dilated cardiomyopathy; J90 Pleural effusion, not elsewhere classified; E66.2 Morbid (severe) obesity with alveolar hypoventilation; Z68.41 Body mass index [BMI] 40.0-44.9, adult; I25.10 Atherosclerotic heart disease of native coronary artery without angina pectoris; I11.0 Hypertensive heart disease with heart failure; E11.649 Type 2 diabetes mellitus with hypoglycemia without coma; G43.909 Migraine, unspecified, not intractable, without status migrainosus; I27.29 Other secondary pulmonary hypertension; M19.90 Unspecified osteoarthritis, unspecified site; I27.81 Cor pulmonale (chronic); Y84.8 Other medical procedures as the cause of abnormal reaction of the patient, or of later complication, without mention of misadventure at the time of the procedure; Z79.01 Long term (current) use of anticoagulants; Z71.3 Dietary counseling and surveillance; Z88.1 Allergy status to other antibiotic agents; Z88.6 Allergy status to analgesic agent; Z87.891 Personal history of nicotine dependence
CPT/HCPCS: 36415; 36600; 71045; 71275; 76604; 80048; 80053; 82550; 82803; 82962; 83735; 83880; 84484; 85025; 85379; 85610; 85730; 93005; 93010; 93306; 94002; 94003; 94640; 94644; 94760; 96374; 96375; 96376; G0378; A9270-GY; J0360; J1170; J1815; J1940; J2060; J2270; J2930; Q9967

== ENCOUNTER 2019-07-11 14:02 | Inpatient (IN) | payer MEDICARE ==
[2019-07-11] MEDS ORDERED: HYDROmorphone 1 MG/1 ML INJ IV ONE (14:35)
[2019-07-11] MEDS ORDERED: methylPREDNISolone Sod Succinate 125 MG/2 ML INJ IV ONE (14:35)
[2019-07-11] MEDS ORDERED: ALBUTEROL 2.5 MG/3 ML NEBU IH ONE (14:35)
[2019-07-11] MEDS ORDERED: ONDANSETRON 4 MG/2 ML INJ IV ONE (14:35)
[2019-07-11] MEDS ORDERED: MAGNESIUM SULFATE 2 GM/50 ML BAG IV ONE (14:35)
[2019-07-11] MEDS ORDERED: BENZONATATE 100 MG CAP PO ONE (14:35)
[2019-07-11] MEDS ORDERED: IPRATROPIUM 0.02% NEBU 2.5 ML IH ONE (14:36)
--- NOTE | 2019-07-11 14:45 | XRay Report ---
CHEST 2 VIEWS INDICATION: Chest Pain. COMPARISON: 06/28/2019 FINDINGS: Support devices: Stable satisfactory device positioning. Heart: Stable cardiomegaly and sternotomy change. Lungs/pleura: No acute air space or interstitial disease. No pneumothorax. Additional findings: None. IMPRESSION: 1. No acute findings. Signer Name: Ihsan Arita MD Signed: 07/11/2019 2:40 PM Workstation Name: [id number]
[2019-07-11 15:00] LABS: Basophils % (Auto) 0.9 % (0.0-1.8); Eosinophils % (Auto) 0.8 % (0.0-4.3); Hematocrit 32.3 % (30.3-42.9); Hemoglobin 10.4 gm/dl (10.1-14.3); Lymphocytes # (Auto) 1.8 K/mm3 (1.2-5.4); Lymphocytes % (Auto) 33.8 % (13.4-35.0); Mean Corpuscular HGB Conc 32 % (30-34); Mean Corpuscular Volume 82 fl (79-97); Monocytes # (Auto) 0.6 K/mm3 (0.0-0.8); Monocytes % (Auto) 10.3 % (0.0-7.3); Platelet Count 133 K/mm3 (140-440); Red Blood Count 3.94 M/mm3 (3.65-5.03)
[2019-07-11 15:11] LABS: INR 1.06 (0.87-1.13)
[2019-07-11 15:15] LABS: BUN/Creatinine Ratio 19; Blood Urea Nitrogen 17 mg/dL (7-17); Calcium 9.2 mg/dL (8.4-10.2); Hemolysis Index 26
--- NOTE | 2019-07-11 15:36 | Emergency Department Report ---
ED Shortness of Breath HPI - General Chief Complaint: Dyspnea/Respdistress Stated Complaint: MARÍA Time Seen by Provider: 07/11/19 14:27 Source: patient, EMS, old records reviewed Mode of arrival: Stretcher Limitations: No Limitations - History of Present Illness Initial Comments: 64-year-old female the past medical history of tracheostomy dependence, CHF, COPD, diabetes, hypertension, chronic type I aortic dissection, and chronic atrial fibrillation currently on Eliquis presents to the hospital complains of shortness of breath x2 days. Patient having a cough productive of green sputum and increased wheezing episodes. Patient also complains of increasing generalized leg edema with associated leg pain due to swelling. Patient is chronic respiratory failure and is oxygen dependent. Upon EMS arrival patient had labored breathing and using accessory muscles. She received Solu-Medrol 125 mg and albuterol 5 mg prior to arrival. Patient states she has been compliant with her medications including Lasix. She reports anterior left-sided chest pain that is worse with palpation. - Related Data Home Medications Medication Instructions Recorded Confirmed Last Taken Insulin Lispro [Admelog] 5 unit SQ TID 04/25/19 06/29/19 Unknown Previous Rx's Medication Instructions Recorded Last Taken Type Acetaminophen [Acetaminophen TAB] 1 tab PO Q6H PRN #15 tablet 04/26/19 Unknown Rx Lisinopril [Zestril TAB] 2.5 mg PO QDAY #30 tab 04/26/19 Unknown Rx Apixaban 5 mg PO Q12HRT #60 07/02/19 Unknown Rx Apixaban [Eliquis] 5 mg PO Q12HR #60 tablet 07/02/19 Unknown Rx AtorvaSTATin [Lipitor] 40 mg PO QHS #30 tablet 07/02/19 Unknown Rx Benzonatate [Tessalon Perles] 100 mg PO Q8HR PRN #30 cap 07/02/19 Unknown Rx Budesonide [Pulmicort Respules] 0.5 mg IH Q12HR 30 Days 07/02/19 Unknown Rx Escitalopram 20 mg PO DAILY #30 07/02/19 Unknown Rx Escitalopram [Lexapro] 20 mg PO DAILY tablet 07/02/19 Unknown Rx Famotidine [Pepcid] 20 mg PO DAILY #30 tablet 07/02/19 Unknown Rx Fluticasone [Flonase] 50 mcg IN BID 30 Days bottle 07/02/19 Unknown Rx Fluticasone [Flonase] 200 mcg NS QDAY bottle 07/02/19 Unknown Rx Furosemide [Lasix TAB] 40 mg PO QDAY #30 tablet 07/02/19 Unknown Rx Gabapentin 300 mg PO BID #60 capsule 07/02/19 Unknown Rx Insulin Glargine [Lantus VIAL] 12 unit SUB-Q QAM #1000 ml 07/02/19 Unknown Rx Ipratropium/Albuterol Sulfate 1 ampul IH Q8HRT #30 ampul.neb 07/02/19 Unknown Rx [DUONEB *Not for PRN Use*] Levothyroxine [Synthroid] 125 mcg PO DAILY@0600 #30 tablet 07/02/19 Unknown Rx Magnesium Hydroxide [Milk of 30 ml PO QDAY PRN 30 Days 07/02/19 Unknown Rx Magnesia] oral.liqd Pantoprazole [Protonix TAB] 40 mg PO QDAY #30 07/02/19 Unknown Rx Prednisone [predniSONE 5 mg (6-Day 5 mg PO .TAPER #1 tab.ds.pk 07/02/19 Unknown Rx Pack, 21 Tabs)] allopurinoL [Zyloprim] 300 mg PO QDAY #30 07/02/19 Unknown Rx dilTIAZem CD [Cardizem CD] 240 mg PO QDAY #30 cap 07/02/19 Unknown Rx guaiFENesin [Robitussin] 200 mg PO Q4H PRN #1 bottle 07/02/19 Unknown Rx hydrALAZINE [Apresoline TAB] 25 mg PO TID #90 tablet 07/02/19 Unknown Rx lisinopriL [Zestril TAB] 2.5 mg PO QDAY #30 tablet 07/02/19 Unknown Rx oxyCODONE /ACETAMINOPHEN [Percocet 2 tab PO Q6H PRN #8 tablet 07/02/19 Unknown Rx 5/325 mg] Allergies Allergy/AdvReac Type Severity Reaction Status Date / Time levofloxacin [From Levaquin] Allergy Rash Verified 01/27/19 21:36 morphine Allergy Rash Verified 01/27/19 21:36 ED Review of Systems ROS: Stated complaint: MARÍA Other details as noted in HPI Comment: All other systems reviewed and negative ED Past Medical Hx - Past Medical History Previous Medical History?: Yes Hx Hypertension: Yes Hx Congestive Heart Failure: Yes Hx Diabetes: Yes Hx Renal Disease: Yes Hx Arthritis: Yes Hx Headaches / Migraines: Yes Hx COPD: Yes Additional medical history: Acute and chronic resp failure, A-flutter, thracheomalacia, hypoxia, pulmonary edema, volume overload, trach, a-fib, chronic type I aortic dissection - Surgical History Past Surgical History?: Yes Hx Open Heart Surgery: Yes Additional Surgical History: trach from open heart surgery - Social History Smoking Status: Never Smoker Substance Use Type: None - Medications Home Medications: Home Medications Medication Instructions Recorded Confirmed Last Taken Type Insulin Lispro [Admelog] 5 unit SQ TID 04/25/19 06/29/19 Unknown History Acetaminophen [Acetaminophen TAB] 1 tab PO Q6H PRN #15 tablet 04/26/19 06/29/19 Unknown Rx Lisinopril [Zestril TAB] 2.5 mg PO QDAY #30 tab 04/26/19 06/29/19 Unknown Rx Apixaban 5 mg PO Q12HRT #60 07/02/19 Unknown Rx Apixaban [Eliquis] 5 mg PO Q12HR #60 tablet 07/02/19 Unknown Rx AtorvaSTATin [Lipitor] 40 mg PO QHS #30 tablet 07/02/19 Unknown Rx Benzonatate [Tessalon Perles] 100 mg PO Q8HR PRN #30 cap 07/02/19 Unknown Rx Budesonide [Pulmicort Respules] 0.5 mg IH Q12HR 30 Days 07/02/19 Unknown Rx Escitalopram 20 mg PO DAILY #30 07/02/19 Unknown Rx Escitalopram [Lexapro] 20 mg PO DAILY tablet 07/02/19 Unknown Rx Famotidine [Pepcid] 20 mg PO DAILY #30 tablet 07/02/19 Unknown Rx Fluticasone [Flonase] 50 mcg IN BID 30 Days bottle 07/02/19 Unknown Rx Fluticasone [Flonase] 200 mcg NS QDAY bottle 07/02/19 Unknown Rx Furosemide [Lasix TAB] 40 mg PO QDAY #30 tablet 07/02/19 Unknown Rx Gabapentin 300 mg PO BID #60 capsule 07/02/19 Unknown Rx Insulin Glargine [Lantus VIAL] 12 unit SUB-Q QAM #1000 ml 07/02/19 Unknown Rx Ipratropium/Albuterol Sulfate 1 ampul IH Q8HRT #30 ampul.neb 07/02/19 Unknown Rx [DUONEB *Not for PRN Use*] Levothyroxine [Synthroid] 125 mcg PO DAILY@0600 #30 tablet 07/02/19 Unknown Rx Magnesium Hydroxide [Milk of 30 ml PO QDAY PRN 30 Days 07/02/19 Unknown Rx Magnesia] oral.liqd Pantoprazole [Protonix TAB] 40 mg PO QDAY #30 07/02/19 Unknown Rx Prednisone [predniSONE 5 mg (6-Day 5 mg PO .TAPER #1 tab.ds.pk 07/02/19 Unknown Rx Pack, 21 Tabs)] allopurinoL [Zyloprim] 300 mg PO QDAY #30 07/02/19 Unknown Rx dilTIAZem CD [Cardizem CD] 240 mg PO QDAY #30 cap 07/02/19 Unknown Rx guaiFENesin [Robitussin] 200 mg PO Q4H PRN #1 bottle 07/02/19 Unknown Rx hydrALAZINE [Apresoline TAB] 25 mg PO TID #90 tablet 07/02/19 Unknown Rx lisinopriL [Zestril TAB] 2.5 mg PO QDAY #30 tablet 07/02/19 Unknown Rx oxyCODONE /ACETAMINOPHEN [Percocet 2 tab PO Q6H PRN #8 tablet 07/02/19 Unknown Rx 5/325 mg] ED Physical Exam - General Limitations: No Limitations - Other Other exam information: General: No acute distress Head: Atraumatic Eyes: normal appearance ENT: Moist mucous membranes Neck: Normal appearance, no midline tenderness Chest: Mild tachypnea, no accessory muscle use, reproducible anterior chest wall tenderness, bilateral expiratory wheezing CV: Regular rate and rhythm Abdomen: Soft, normal bowel sounds, nontender, nondistended, no rebound or guarding Back: Normal inspection Extremity: Bilateral lower extremity edema, without leg asymmetry or isolated calf tenderness Neuro: Alert O x 3, no facial asymmetry, speech clear, no gross motor sensory deficit Psych: Appropriate behavior Skin: No rash ED Course Vital Signs 07/11/19 07/11/19 07/11/19 14:06 14:09 14:10 Temperature 97.8 F Pulse Rate 87 Pulse Rate [ Posterior Bilateral Bases ] Respiratory 24 Rate Respiratory Rate [Posterior Bilateral Bases] Blood Pressure 127/95 127/95 Blood Pressure [Right] O2 Sat by Pulse 99 93 99 Oximetry 07/11/19 07/11/19 07/11/19 14:11 14:12 14:14 Temperature Pulse Rate 73 88 88 Pulse Rate [ Posterior Bilateral Bases ] Respiratory 12 18 Rate Respiratory Rate [Posterior Bilateral Bases] Blood Pressure 127/95 127/95 127/95 Blood Pressure [Right] O2 Sat by Pulse 100 100 100 Oximetry 07/11/19 07/11/19 07/11/19 14:15 14:16 14:18 Temperature Pulse Rate 86 89 Pulse Rate [ Posterior Bilateral Bases ] Respiratory 22 15 19 Rate Respiratory Rate [Posterior Bilateral Bases] Blood Pressure 127/95 127/95 Blood Pressure [Right] O2 Sat by Pulse 100 100 100 Oximetry 07/11/19 07/11/19 07/11/19 14:20 14:22 14:24 Temperature Pulse Rate 85 90 82 Pulse Rate [ Posterior Bilateral Bases ] Respiratory 15 19 14 Rate Respiratory Rate [Posterior Bilateral Bases] Blood Pressure 127/95 127/95 127/95 Blood Pressure [Right] O2 Sat by Pulse 100 100 100 Oximetry 07/11/19 07/11/19 07/11/19 14:26 14:28 14:30 Temperature Pulse Rate 87 88 82 Pulse Rate [ Posterior Bilateral Bases ] Respiratory 12 17 18 Rate Respiratory Rate [Posterior Bilateral Bases] Blood Pressure 127/95 127/95 131/91 Blood Pressure [Right] O2 Sat by Pulse 100 98 99 Oximetry 07/11/19 07/11/19 07/11/19 14:32 14:34 14:36 Temperature Pulse Rate 89 93 H 89 Pulse Rate [ Posterior Bilateral Bases ] Respiratory 16 13 17 Rate Respiratory Rate [Posterior Bilateral Bases] Blood Pressure 131/91 131/91 131/91 Blood Pressure [Right] O2 Sat by Pulse 100 100 99 Oximetry 07/11/19 07/11/19 07/11/19 14:38 14:40 14:42 Temperature Pulse Rate 88 95 H 88 Pulse Rate [ Posterior Bilateral Bases ] Respiratory 17 14 17 Rate Respiratory Rate [Posterior Bilateral Bases] Blood Pressure 131/91 131/91 131/91 Blood Pressure [Right] O2 Sat by Pulse 98 99 98 Oximetry 07/11/19 07/11/19 07/11/19 14:44 14:46 14:48 Temperature Pulse Rate 85 86 90 Pulse Rate [ Posterior Bilateral Bases ] Respiratory 19 12 14 Rate Respiratory Rate [Posterior Bilateral Bases] Blood Pressure 131/91 131/91 131/91 Blood Pressure [Right] O2 Sat by Pulse 98 99 100 Oximetry 07/11/19 07/11/19 07/11/19 14:50 14:52 14:54 Temperature Pulse Rate 111 H 95 H 90 Pulse Rate [ Posterior Bilateral Bases ] Respiratory 25 H 24 16 Rate Respiratory Rate [Posterior Bilateral Bases] Blood Pressure 131/91 131/91 131/91 Blood Pressure [Right] O2 Sat by Pulse 97 94 100 Oximetry 07/11/19 07/11/19 07/11/19 14:56 14:58 15:00 Temperature Pulse Rate 89 86 94 H Pulse Rate [ Posterior Bilateral Bases ] Respiratory 20 20 22 Rate Respiratory Rate [Posterior Bilateral Bases] Blood Pressure 131/91 131/91 131/91 Blood Pressure [Right] O2 Sat by Pulse 100 100 100 Oximetry 07/11/19 07/11/19 07/11/19 15:01 15:06 15:08 Temperature Pulse Rate 94 H 88 98 H Pulse Rate [ Posterior Bilateral Bases ] Respiratory 19 22 22 Rate Respiratory Rate [Posterior Bilateral Bases] Blood Pressure 84/62 Blood Pressure [Right] O2 Sat by Pulse 100 100 100 Oximetry 07/11/19 07/11/19 07/11/19 15:10 15:17 15:20 Temperature Pulse Rate 97 H 97 H Pulse Rate [ 87 Posterior Bilateral Bases ] Respiratory 22 14 Rate Respiratory 19 Rate [Posterior Bilateral Bases] Blood Pressure 84/62 117/86 Blood Pressure [Right] O2 Sat by Pulse 98 100 Oximetry 07/11/19 07/11/19 07/11/19 15:49 15:50 16:00 Temperature Pulse Rate 88 87 Pulse Rate [ Posterior Bilateral Bases ] Respiratory 19 19 Rate Respiratory Rate [Posterior Bilateral Bases] Blood Pressure 125/93 Blood Pressure 127/100 [Right] O2 Sat by Pulse 95 90 Oximetry 07/11/19 17:00 Temperature Pulse Rate 106 H Pulse Rate [ Posterior Bilateral Bases ] Respiratory 17 Rate Respiratory Rate [Posterior Bilateral Bases] Blood Pressure 112/93 Blood Pressure [Right] O2 Sat by Pulse 97 Oximetry ED Medical Decision Making - Lab Data Result diagrams: 07/11/19 14:35 07/11/19 14:35 Lab Results 07/11/19 07/11/19 07/11/19 Range/Units 14:35 14:35 14:35 WBC 5.4 (4.5-11.0) K/mm3 RBC 3.94 (3.65-5.03) M/mm3 Hgb 10.4 (10.1-14.3) gm/dl Hct 32.3 (30.3-42.9) % MCV 82 (79-97) fl MCH 27 L (28-32) pg MCHC 32 (30-34) % RDW 20.0 H (13.2-15.2) % Plt Count 133 L (140-440) K/mm3 Lymph % (Auto) 33.8 (13.4-35.0) % [place] % (Auto) 10.3 H (0.0-7.3) % Eos % (Auto) 0.8 (0.0-4.3) % Baso % (Auto) 0.9 (0.0-1.8) % Lymph # 1.8 (1.2-5.4) K/mm3 [place] # 0.6 (0.0-0.8) K/mm3 Eos # 0.0 (0.0-0.4) K/mm3 Baso # 0.0 (0.0-0.1) K/mm3 Seg Neutrophils % 54.2 (40.0-70.0) % Seg Neutrophils # 3.0 (1.8-7.7) K/mm3 PT 13.9 (12.2-14.9) Sec. INR 1.06 (0.87-1.13) Sodium 141 (137-145) mmol/L Potassium 4.2 (3.6-5.0) mmol/L Chloride 100.6 (98-107) mmol/L Carbon Dioxide 27 (22-30) mmol/L Anion Gap 18 mmol/L BUN 17 (7-17) mg/dL Creatinine 0.9 (0.7-1.2) mg/dL Estimated GFR > 60 ml/min BUN/Creatinine Ratio 19 % Glucose 266 H (65-100) mg/dL Calcium 9.2 (8.4-10.2) mg/dL Troponin T < 0.010 (0.00-0.029) ng/mL NT-Pro-B Natriuret Pep (0-900) pg/mL 07/11/19 Range/Units 14:35 WBC (4.5-11.0) K/mm3 RBC (3.65-5.03) M/mm3 Hgb (10.1-14.3) gm/dl Hct (30.3-42.9) % MCV (79-97) fl MCH (28-32) pg MCHC (30-34) % RDW (13.2-15.2) % Plt Count (140-440) K/mm3 Lymph % (Auto) (13.4-35.0) % [place] % (Auto) (0.0-7.3) % Eos % (Auto) (0.0-4.3) % Baso % (Auto) (0.0-1.8) % Lymph # (1.2-5.4) K/mm3 [place] # (0.0-0.8) K/mm3 Eos # (0.0-0.4) K/mm3 Baso # (0.0-0.1) K/mm3 Seg Neutrophils % (40.0-70.0) % Seg Neutrophils # (1.8-7.7) K/mm3 PT (12.2-14.9) Sec. INR (0.87-1.13) Sodium (137-145) mmol/L Potassium (3.6-5.0) mmol/L Chloride (98-107) mmol/L Carbon Dioxide (22-30) mmol/L Anion Gap mmol/L BUN (7-17) mg/dL Creatinine (0.7-1.2) mg/dL Estimated GFR ml/min BUN/Creatinine Ratio % Glucose (65-100) mg/dL Calcium (8.4-10.2) mg/dL Troponin T (0.00-0.029) ng/mL NT-Pro-B Natriuret Pep 957.5 H (0-900) pg/mL - EKG Data -: EKG Interpreted by Me (David schilling) EKG shows normal: ST-T waves (No STEMI) Rate: normal (88) - EKG Data When compared to previous EKG there are: no significant change - Radiology Data Radiology results: report reviewed CHEST 2 VIEWS INDICATION: Chest Pain. COMPARISON: 06/28/2019 FINDINGS: Support devices: Stable satisfactory device positioning. Heart: Stable cardiomegaly and sternotomy change. Lungs/pleura: No acute air space or interstitial disease. No pneumothorax. Additional findings: None. IMPRESSION: 1. No acute findings. - Medical Decision Making Patient presents with COPD exacerbation and reproducible anterior chest wall tenderness with unchanged EKG and negative troponin. Patient treated in the ED with additional Solu-Medrol, magnesium, duo nebs, and tracheostomy care. Patient also has extremity edema likely result of right heart failure/chronic pulmonary hypertension without signs of pulmonary edema on chest x-ray. Patient will be admitted to the hospitalist service for further management - Differential Diagnosis COPD, asthma, bronchitis, pneumonia, CHF Critical Care Time: No Critical care attestation.: If time is entered above; I have spent that time in minutes in the direct care of this critically ill patient, excluding procedure time. ED Disposition Clinical Impression: COPD with exacerbation, Tracheostomy dependent, Atrial flutter, Bilateral lower extremity edema, Chest wall pain Disposition: OP ADMIT IP TO THIS HOSP Is pt being admited?: Yes Condition: Stable Time of Disposition: 16:01 (Dr ko/hosp)
--- NOTE | 2019-07-11 21:37 | History and Physical Report ---
History of Present Illness Date of examination: 07/11/19 Date of admission: 07/11/19 16:04 Chief complaint: Increasing SOB for 3 days History of present illness: 64-year-old female the past medical history of tracheostomy dependence, CHF, COPD, diabetes, hypertension, chronic type I aortic dissection, and chronic atrial fibrillation currently on Eliquis presents to the hospital complains of shortness of breath x2 days. Patient having a cough productive of green sputum and increased wheezing episodes. Patient also complains of increasing generalized leg edema with associated leg pain due to swelling. Patient is chronic respiratory failure and is oxygen dependent. Upon EMS arrival patient had labored breathing and using accessory muscles. She received Solu-Medrol 125 mg and albuterol 5 mg prior to arrival. Patient states she has been compliant with her medications including Lasix. She reports anterior left-sided chest pain that is worse with palpation. Past Medical History Previous Medical History?: Yes Hypertension: Yes Congestive Heart Failure: Yes Diabetes: Yes Renal Disease: Yes Arthritis: Yes Headaches / Migraines: Yes COPD: Yes Additional medical history: Acute and chronic resp failure, A-flutter, t hracheomalacia, hypoxia, pulmonary edema, volume overload, trach, a-fib, chronic type I aortic dissection Surgical History Past Surgical History?: Yes Open Heart Surgery: Yes Additional Surgical History: trach from open heart surgery Social History Smoking Status: Never Smoker Substance Use Type: None Family history Htn - Medications Home Medications: Home Medications Medication Instructions Recorded Confirmed Last Taken Type Insulin Lispro [Admelog] 5 unit SQ TID 04/25/19 06/29/19 Unknown History Acetaminophen [Acetaminophen TAB] 1 tab PO Q6H PRN #15 tablet 04/26/19 06/29/19 Unknown Rx Lisinopril [Zestril TAB] 2.5 mg PO QDAY #30 tab 04/26/19 06/29/19 Unknown Rx Apixaban 5 mg PO Q12HRT #60 07/02/19 Unknown Rx Apixaban [Eliquis] 5 mg PO Q12HR #60 tablet 07/02/19 Unknown Rx AtorvaSTATin [Lipitor] 40 mg PO QHS #30 tablet 07/02/19 Unknown Rx Benzonatate [Tessalon Perles] 100 mg PO Q8HR PRN #30 cap 07/02/19 Unknown Rx Budesonide [Pulmicort Respules] 0.5 mg IH Q12HR 30 Days 07/02/19 Unknown Rx Escitalopram 20 mg PO DAILY #30 07/02/19 Unknown Rx Escitalopram [Lexapro] 20 mg PO DAILY tablet 07/02/19 Unknown Rx Famotidine [Pepcid] 20 mg PO DAILY #30 tablet 07/02/19 Unknown Rx Fluticasone [Flonase] 50 mcg IN BID 30 Days bottle 07/02/19 Unknown Rx Fluticasone [Flonase] 200 mcg NS QDAY bottle 07/02/19 Unknown Rx Furosemide [Lasix TAB] 40 mg PO QDAY #30 tablet 07/02/19 Unknown Rx Gabapentin 300 mg PO BID #60 capsule 07/02/19 Unknown Rx Insulin Glargine [Lantus VIAL] 12 unit SUB-Q QAM #1000 ml 07/02/19 Unknown Rx Ipratropium/Albuterol Sulfate 1 ampul IH Q8HRT #30 ampul.neb 07/02/19 Unknown Rx [DUONEB *Not for PRN Use*] Levothyroxine [Synthroid] 125 mcg PO DAILY@0600 #30 tablet 07/02/19 Unknown Rx Magnesium Hydroxide [Milk of 30 ml PO QDAY PRN 30 Days 07/02/19 Unknown Rx Magnesia] oral.liqd Pantoprazole [Protonix TAB] 40 mg PO QDAY #30 07/02/19 Unknown Rx Prednisone [predniSONE 5 mg (6-Day 5 mg PO .TAPER #1 tab.ds.pk 07/02/19 Unknown Rx Pack, 21 Tabs)] allopurinoL [Zyloprim] 300 mg PO QDAY #30 07/02/19 Unknown Rx dilTIAZem CD [Cardizem CD] 240 mg PO QDAY #30 cap 07/02/19 Unknown Rx guaiFENesin [Robitussin] 200 mg PO Q4H PRN #1 bottle 07/02/19 Unknown Rx hydrALAZINE [Apresoline TAB] 25 mg PO TID #90 tablet 07/02/19 Unknown Rx lisinopriL [Zestril TAB] 2.5 mg PO QDAY #30 tablet 07/02/19 Unknown Rx oxyCODONE /ACETAMINOPHEN [Percocet 2 tab PO Q6H PRN #8 tablet 07/02/19 Unknown Rx 5/325 mg] Review of Systems ROS: Stated complaint: MARÍA Other details as noted in HPI All other systems reviewed and negative Medications and Allergies Allergies Allergy/AdvReac Type Severity Reaction Status Date / Time levofloxacin [From Levaquin] Allergy Rash Verified 01/27/19 21:36 morphine Allergy Rash Verified 01/27/19 21:36 Home Medications Medication Instructions Recorded Confirmed Last Taken Type Insulin Lispro [Admelog] 5 unit SQ TID 04/25/19 06/29/19 Unknown History Acetaminophen [Acetaminophen TAB] 1 tab PO Q6H PRN #15 tablet 04/26/19 06/29/19 Unknown Rx Lisinopril [Zestril TAB] 2.5 mg PO QDAY #30 tab 04/26/19 06/29/19 Unknown Rx Apixaban 5 mg PO Q12HRT #60 07/02/19 Unknown Rx Apixaban [Eliquis] 5 mg PO Q12HR #60 tablet 07/02/19 Unknown Rx AtorvaSTATin [Lipitor] 40 mg PO QHS #30 tablet 07/02/19 Unknown Rx Benzonatate [Tessalon Perles] 100 mg PO Q8HR PRN #30 cap 07/02/19 Unknown Rx Budesonide [Pulmicort Respules] 0.5 mg IH Q12HR 30 Days 07/02/19 Unknown Rx Escitalopram 20 mg PO DAILY #30 07/02/19 Unknown Rx Escitalopram [Lexapro] 20 mg PO DAILY tablet 07/02/19 Unknown Rx Famotidine [Pepcid] 20 mg PO DAILY #30 tablet 07/02/19 Unknown Rx Fluticasone [Flonase] 50 mcg IN BID 30 Days bottle 07/02/19 Unknown Rx Fluticasone [Flonase] 200 mcg NS QDAY bottle 07/02/19 Unknown Rx Furosemide [Lasix TAB] 40 mg PO QDAY #30 tablet 07/02/19 Unknown Rx Gabapentin 300 mg PO BID #60 capsule 07/02/19 Unknown Rx Insulin Glargine [Lantus VIAL] 12 unit SUB-Q QAM #1000 ml 07/02/19 Unknown Rx Ipratropium/Albuterol Sulfate 1 ampul IH Q8HRT #30 ampul.neb 07/02/19 Unknown Rx [DUONEB *Not for PRN Use*] Levothyroxine [Synthroid] 125 mcg PO DAILY@0600 #30 tablet 07/02/19 Unknown Rx Magnesium Hydroxide [Milk of 30 ml PO QDAY PRN 30 Days 07/02/19 Unknown Rx Magnesia] oral.liqd Pantoprazole [Protonix TAB] 40 mg PO QDAY #30 07/02/19 Unknown Rx Prednisone [predniSONE 5 mg (6-Day 5 mg PO .TAPER #1 tab.ds.pk 07/02/19 Unknown Rx Pack, 21 Tabs)] allopurinoL [Zyloprim] 300 mg PO QDAY #30 07/02/19 Unknown Rx dilTIAZem CD [Cardizem CD] 240 mg PO QDAY #30 cap 07/02/19 Unknown Rx guaiFENesin [Robitussin] 200 mg PO Q4H PRN #1 bottle 07/02/19 Unknown Rx hydrALAZINE [Apresoline TAB] 25 mg PO TID #90 tablet 07/02/19 Unknown Rx lisinopriL [Zestril TAB] 2.5 mg PO QDAY #30 tablet 07/02/19 Unknown Rx oxyCODONE /ACETAMINOPHEN [Percocet 2 tab PO Q6H PRN #8 tablet 07/02/19 Unknown Rx 5/325 mg] Exam - Constitutional Vitals: Temp Pulse Resp BP Pulse Ox 97.8 F 115 H 18 115/65 98 07/11/19 14:06 07/11/19 20:00 07/11/19 20:00 07/11/19 20:00 07/11/19 19:40 General appearance: Present: mild distress, well-nourished - EENT Eyes: Present: PERRL ENT: hearing intact, clear oral mucosa - Neck Neck: Present: supple, normal ROM - Respiratory Respiratory effort: normal Respiratory: bilateral: diminished, rhonchi, wheezing - Cardiovascular Heart rate: 78 Rhythm: regular Heart Sounds: Present: S1 & S2. Absent: rub, click - Extremities Extremities: no ischemia, pulses intact, pulses symmetrical, No edema Extremity abnormal: edema Peripheral Pulses: within normal limits - Abdominal General gastrointestinal: Present: soft, non-tender, non-distended, normal bowel sounds Female genitourinary: Present: normal - Rectal Rectal Exam: deferred - Integumentary Integumentary: Present: clear, warm, dry - Musculoskeletal Musculoskeletal: gait normal, strength equal bilaterally - Psychiatric Psychiatric: appropriate mood/affect, intact judgment & insight - Neurologic Neurologic: CNII-XII intact, moves all extremities - Allied Health Allied health notes reviewed: nursing, case management Results - Labs CBC & Chem 7: 07/12/19 04:22 07/12/19 04:22 Labs: Laboratory Last Values WBC 5.4 K/mm3 (4.5-11.0) 07/11/19 14:35 RBC 3.94 M/mm3 (3.65-5.03) 07/11/19 14:35 Hgb 10.4 gm/dl (10.1-14.3) 07/11/19 14:35 Hct 32.3 % (30.3-42.9) 07/11/19 14:35 MCV 82 fl (79-97) 07/11/19 14:35 MCH 27 pg (28-32) L 07/11/19 14:35 MCHC 32 % (30-34) 07/11/19 14:35 RDW 20.0 % (13.2-15.2) H 07/11/19 14:35 Plt Count 133 K/mm3 (140-440) L 07/11/19 14:35 Lymph % (Auto) 33.8 % (13.4-35.0) 07/11/19 14:35 Cross % (Auto) 10.3 % (0.0-7.3) H 07/11/19 14:35 Eos % (Auto) 0.8 % (0.0-4.3) 07/11/19 14:35 Baso % (Auto) 0.9 % (0.0-1.8) 07/11/19 14:35 Lymph # 1.8 K/mm3 (1.2-5.4) 07/11/19 14:35 Cross # 0.6 K/mm3 (0.0-0.8) 07/11/19 14:35 Eos # 0.0 K/mm3 (0.0-0.4) 07/11/19 14:35 Baso # 0.0 K/mm3 (0.0-0.1) 07/11/19 14:35 Seg Neutrophils % 54.2 % (40.0-70.0) 07/11/19 14:35 Seg Neutrophils # 3.0 K/mm3 (1.8-7.7) 07/11/19 14:35 PT 13.9 Sec. (12.2-14.9) 07/11/19 14:35 INR 1.06 (0.87-1.13) 07/11/19 14:35 Sodium 141 mmol/L (137-145) 07/11/19 14:35 Potassium 4.2 mmol/L (3.6-5.0) 07/11/19 14:35 Chloride 100.6 mmol/L (98-107) 07/11/19 14:35 Carbon Dioxide 27 mmol/L (22-30) 07/11/19 14:35 Anion Gap 18 mmol/L 07/11/19 14:35 BUN 17 mg/dL (7-17) 07/11/19 14:35 Creatinine 0.9 mg/dL (0.7-1.2) 07/11/19 14:35 Estimated GFR > 60 ml/min 07/11/19 14:35 BUN/Creatinine Ratio 19 % 07/11/19 14:35 Glucose 266 mg/dL (65-100) H 07/11/19 14:35 Calcium 9.2 mg/dL (8.4-10.2) 07/11/19 14:35 Troponin T < 0.010 ng/mL (0.00-0.029) 07/11/19 20:30 NT-Pro-B Natriuret Pep 957.5 pg/mL (0-900) H 07/11/19 14:35 - Imaging and Cardiology EKG: report reviewed Chest x-ray: report reviewed (NAF) Assessment and Plan Advance Directives: Yes (Full code) VTE prophylaxis?: Chemical Plan of care discussed with patient/family: Yes - Patient Problems (1) Acute respiratory failure with hypoxia Current Visit: Yes Status: Acute Plan to address problem: Patient initiated on IV Levaquin IV Solumedrol and Duonebs RTC and prn Vent if necessary Patient has Trach (2) COPD with exacerbation Current Visit: Yes Status: Acute Plan to address problem: Patient initiated on IV Levaquin IV Solumedrol and Duonebs RTC and prn Vent if necessary Patient has Trach (3) Tracheostomy dependence Current Visit: Yes Status: Chronic Plan to address problem: trach care (4) IDDM (insulin dependent diabetes mellitus) Current Visit: Yes Status: Chronic Plan to address problem: Cont insulin and coverage (5) Morbid obesity Current Visit: No Status: Chronic Plan to address problem: Patient to be counselleled about need for bariatric surgery Doubt whether she will get medical/cardiology clearance To see Dr Cunha as outpatient for consultation (6) HTN (hypertension) Current Visit: Yes Status: Chronic Qualifiers: Hypertension type: essential hypertension Qualified Code(s): I10 - Essentia l (primary) hypertension Plan to address problem: Cnt antihypertensives (7) HLD (hyperlipidemia) Current Visit: Yes Status: Chronic Qualifiers: Hyperlipidemia type: mixed hyperlipidemia Qualified Code(s): E78.2 - Mixed hyperlipidemia Plan to address problem: On statins (8) Hypothyroidism (acquired) Current Visit: Yes Status: Chronic Plan to address problem: COnt synthyroid (9) GERD (gastroesophageal reflux disease) Current Visit: Yes Status: Chronic Qualifiers: Esophagitis presence: without esophagitis Qualified Code(s): K21.9 - Gastro-esophageal reflux disease without esophagitis Plan to address problem: COnt PPI's (10) DVT prophylaxis Current Visit: No Status: Acute Plan to address problem: On ELiquis for Afib and GI prophylaxis
[2019-07-11] MEDS ORDERED: ACETAMINOPHEN 325 MG TAB PO PRN ×2 (21:39→21:43)
[2019-07-11] MEDS ORDERED: BENZONATATE 100 MG CAP PO PRN (21:39)
[2019-07-11] MEDS ORDERED: MAGNESIUM HYDROXIDE (MOM) ORAL LIQD UDC PO PRN (21:39)
[2019-07-11] MEDS ORDERED: ONDANSETRON 4 MG/2 ML INJ IV PRN (21:43)
[2019-07-11] MEDS ORDERED: oxyCODONE /ACETAMINOPHEN 5-325MG TAB PO PRN (21:43)
[2019-07-11] MEDS ORDERED: ALBUTEROL 2.5 MG/3 ML NEBU IH PRN (21:45)
[2019-07-11] MEDS ORDERED: NON-FORMULARY EACH (Escitalopram 20 MG) PO SCH (21:45)
[2019-07-11] MEDS ORDERED: HEPARIN 5,000 UNIT/1 ML VIAL SUB-Q SCH (22:00)
[2019-07-11] MEDS ORDERED: INSULIN GLARGINE 100 UNITS/ML SUB-Q SCH (22:00)
[2019-07-11] MEDS: BUDESONIDE 0.5 MG/2 ML NEBU IH SCH (22:26)
[2019-07-11] MEDS: AZITHROMYCIN 500 MG in SODIUM CHLORIDE 0.9% 250ML 250 ML IV SCH (23:11)
[2019-07-11] MEDS: FLUTICASONE PROPIONATE NASAL SPRAY 16 GM NS SCH (23:11)
[2019-07-11] MEDS: cefTRIAXone/NS 2 GM/100 ML 2 GM/100 ML BAG IV SCH (23:11)
[2019-07-11] MEDS: APIXABAN 5 MG TAB PO SCH (23:12)
[2019-07-11] MEDS: allopurinoL 300 MG TAB PO SCH (23:12)
[2019-07-11] MEDS: LISINOPRIL 5 MG TAB PO SCH (23:13)
[2019-07-11] MEDS: PANTOPRAZOLE 40 MG TAB PO SCH (23:13)
[2019-07-11] MEDS: FAMOTIDINE 20 MG TAB PO SCH (23:13)
[2019-07-11] MEDS: FUROSEMIDE 40 MG TAB PO SCH (23:14)
[2019-07-11] MEDS: GABAPENTIN 300 MG CAP PO SCH (23:14)
[2019-07-11] MEDS: methylPREDNISolone Sod Succinate 125 MG/2 ML INJ IV SCH (23:15)
[2019-07-11] MEDS: ESCITALOPRAM 10 MG TAB PO SCH (23:18)
[2019-07-11] MEDS: HYDROmorphone 1 MG/1 ML INJ IV PRN (23:28)
[2019-07-12 05:50] LABS: Basophils % (Auto) 0.3 % (0.0-1.8); Hematocrit 34.6 % (30.3-42.9); Hemoglobin 10.7 gm/dl (10.1-14.3); Lymphocytes % (Auto) 17.1 % (13.4-35.0); Mean Corpuscular HGB Conc 31 % (30-34); Mean Corpuscular Volume 84 fl (79-97); Monocytes % (Auto) 0.6 % (0.0-7.3); Red Blood Count 4.14 M/mm3 (3.65-5.03); Red Cell Distribution Width 19.8 % (13.2-15.2)
[2019-07-12 06:04] LABS: Platelet Count 142 K/mm3 (140-440)
[2019-07-12] MEDS: LEVOTHYROXINE 125 MCG TAB PO SCH (06:07)
[2019-07-12] MEDS: methylPREDNISolone Sod Succinate 125 MG/2 ML INJ IV SCH ×3 (06:07→21:52)
[2019-07-12 06:21] LABS: Alanine Aminotransferase 24 units/L (7-56); Albumin 3.8 g/dL (3.9-5); BUN/Creatinine Ratio 23; Blood Urea Nitrogen 23 mg/dL (7-17); Calcium 9.1 mg/dL (8.4-10.2); Hemolysis Index 46
[2019-07-12] MEDS: HYDROmorphone 1 MG/1 ML INJ IV PRN ×4 (07:23→21:59)
[2019-07-12] MEDS ORDERED: INSULIN LISPRO 100 UNIT/ML SUB-Q SCH (08:00)
[2019-07-12] MEDS: APIXABAN 5 MG TAB PO SCH ×2 (08:42→20:29)
[2019-07-12] MEDS: hydrALAZINE 25 MG TAB PO SCH ×3 (08:42→20:28)
[2019-07-12] MEDS: IPRATROPIUM/ALBUTEROL SULFATE 3 ML AMPUL.NEB IH SCH ×4 (08:52→20:12)
[2019-07-12] MEDS: BUDESONIDE 0.5 MG/2 ML NEBU IH SCH ×3 (08:52→20:11)
[2019-07-12] MEDS ORDERED: INSULIN GLARGINE 100 UNITS/ML SUB-Q NR (09:00)
[2019-07-12] MEDS: AZITHROMYCIN 500 MG in SODIUM CHLORIDE 0.9% 250ML 250 ML IV SCH (10:00)
[2019-07-12] MEDS: PANTOPRAZOLE 40 MG TAB PO SCH (10:41)
[2019-07-12] MEDS: dilTIAZem CD 240 MG CAP PO SCH (10:41)
[2019-07-12] MEDS: allopurinoL 300 MG TAB PO SCH (10:41)
[2019-07-12] MEDS: GABAPENTIN 300 MG CAP PO SCH ×2 (10:42→21:52)
[2019-07-12] MEDS: ESCITALOPRAM 10 MG TAB PO SCH (10:42)
[2019-07-12] MEDS: FAMOTIDINE 20 MG TAB PO SCH (10:42)
[2019-07-12] MEDS: FUROSEMIDE 40 MG TAB PO SCH (10:43)
[2019-07-12] MEDS: LISINOPRIL 5 MG TAB PO SCH (10:43)
[2019-07-12] MEDS: FLUTICASONE PROPIONATE NASAL SPRAY 16 GM NS SCH ×2 (10:43→21:52)
[2019-07-12] MEDS: guaiFENesin 100 MG/5 ML ORAL LIQD PO PRN ×2 (10:44→20:28)
[2019-07-12] MEDS: cefTRIAXone/NS 2 GM/100 ML 2 GM/100 ML BAG IV SCH (10:44)
[2019-07-12] MEDS: INSULIN LISPRO 100 UNIT/ML SUB-Q SCH ×2 (11:50→17:23)
--- NOTE | 2019-07-12 15:50 | Progress Note ---
Assessment and Plan Assessment and plan: -- Acute on chronic respiratory failure with hypoxia Current Visit: Yes Status: Acute Patient initiated on IV Levaquin IV Solumedrol and Duonebs RTC and prn Vent if necessary, Patient has Trach Pulmonary consult --COPD with exacerbation Current Visit: Yes Status: Acute Plan to address problem: Patient initiated on IV Levaquin IV Solumedrol and Duonebs RTC and prn Vent if necessary Patient has Trach --Chronic tracheostomy : Current Visit: Yes Status: Chronic trach care, intermittent suction -- IDDM (insulin dependent diabetes mellitus) Current Visit: Yes Status: Chronic Cont insulin and coverage -- Morbid obesity Current Visit: No Status: Chronic Patient to be counselleled about need for bariatric surgery Doubt whether she will get medical/cardiology clearance To see Dr Cunha as outpatient for consultation --HTN (hypertension) Current Visit: Yes Status: Chronic Cnt antihypertensives --HLD (hyperlipidemia) Current Visit: Yes Status: Chronic On statins --Hypothyroidism (acquired) Current Visit: Yes Status: Chronic COnt synthyroid -- GERD (gastroesophageal reflux disease) Current Visit: Yes Status: Chronic COnt PPI's -- DVT prophylaxis Current Visit: No Status: Acute On ELiquis for Afib and GI prophylaxis Monitor closely and adjust the management as needed Plan of care reviewed with the patient and her nurse History Interval history: Patient seen and examined this morning at bedside Patient's chart and other medical records reviewed Patient is in acute respiratory distress, with a lot of secretions in the tracheostomy tube Respiratory therapist did deep suctioning with significant improvement Patient has chronic tracheostomy Vital signs reviewed, in severe distress Morbidly obese Hospitalist Physical - Constitutional Vitals: Temp Pulse Resp BP Pulse Ox 97.5 F L 102 H 25 H 131/90 97 07/12/19 07:44 07/12/19 14:21 07/12/19 11:00 07/12/19 14:21 07/12/19 10:00 General appearance: Present: severe distress, well-nourished, other (Tracheostomy) - EENT Eyes: Present: PERRL, EOM intact - Neck Neck: Present: supple, normal ROM, other (Tracheostomy) - Respiratory Respiratory effort: labored Respiratory: bilateral: diminished, rhonchi, wheezing, negative: rales - Cardiovascular Rhythm: regular Heart Sounds: Present: S1 & S2 - Extremities Extremities: no ischemia Extremity abnormal: edema - Abdominal General gastrointestinal: soft, non-tender, non-distended, normal bowel sounds - Integumentary Integumentary: Present: clear, warm - Psychiatric Psychiatric: appropriate mood/affect, agitated, other (In distress) - Neurologic Neurologic: CNII-XII intact, moves all extremities Results - Labs CBC & Chem 7: 07/12/19 04:22 07/12/19 04:22 Labs: Laboratory Last Values WBC 5.8 K/mm3 (4.5-11.0) 07/12/19 04:22 RBC 4.14 M/mm3 (3.65-5.03) 07/12/19 04:22 Hgb 10.7 gm/dl (10.1-14.3) 07/12/19 04:22 Hct 34.6 % (30.3-42.9) 07/12/19 04:22 MCV 84 fl (79-97) 07/12/19 04:22 MCH 26 pg (28-32) L 07/12/19 04:22 MCHC 31 % (30-34) 07/12/19 04:22 RDW 19.8 % (13.2-15.2) H 07/12/19 04:22 Plt Count 142 K/mm3 (140-440) 07/12/19 04:22 Lymph % (Auto) 17.1 % (13.4-35.0) 07/12/19 04:22 [place]cl[place] % (Auto) 0.6 % (0.0-7.3) 07/12/19 04:22 Eos % (Auto) 0.0 % (0.0-4.3) 07/12/19 04:22 Baso % (Auto) 0.3 % (0.0-1.8) 07/12/19 04:22 Lymph # 1.0 K/mm3 (1.2-5.4) L 07/12/19 04:22 [place]cl[place]an # 0.0 K/mm3 (0.0-0.8) 07/12/19 04:22 Eos # 0.0 K/mm3 (0.0-0.4) 07/12/19 04:22 Baso # 0.0 K/mm3 (0.0-0.1) 07/12/19 04:22 Seg Neutrophils % 82.0 % (40.0-70.0) H 07/12/19 04:22 Seg Neutrophils # 4.8 K/mm3 (1.8-7.7) 07/12/19 04:22 PT 13.9 Sec. (12.2-14.9) 07/11/19 14:35 INR 1.06 (0.87-1.13) 07/11/19 14:35 Sodium 140 mmol/L (137-145) 07/12/19 04:22 Potassium 4.6 mmol/L (3.6-5.0) 07/12/19 04:22 Chloride 97.2 mmol/L (98-107) L 07/12/19 04:22 Carbon Dioxide 25 mmol/L (22-30) 07/12/19 04:22 Anion Gap 22 mmol/L 07/12/19 04:22 BUN 23 mg/dL (7-17) H 07/12/19 04:22 Creatinine 1.0 mg/dL (0.7-1.2) 07/12/19 04:22 Estimated GFR > 60 ml/min 07/12/19 04:22 BUN/Creatinine Ratio 23 % 07/12/19 04:22 Glucose 446 mg/dL (65-100) H 07/12/19 04:22 POC Glucose 391 (70-105) H 07/12/19 11:54 Hemoglobin A1c 10.4 % (4-6) H 07/11/19 14:35 Calcium 9.1 mg/dL (8.4-10.2) 07/12/19 04:22 Total Bilirubin 0.30 mg/dL (0.1-1.2) 07/12/19 04:22 AST 26 units/L (5-40) 07/12/19 04:22 ALT 24 units/L (7-56) 07/12/19 04:22 Alkaline Phosphatase 145 units/L (35-129) H 07/12/19 04:22 Troponin T < 0.010 ng/mL (0.00-0.029) 07/11/19 20:30 NT-Pro-B Natriuret Pep 957.5 pg/mL (0-900) H 07/11/19 14:35 Total Protein 6.6 g/dL (6.3-8.2) 07/12/19 04:22 Albumin 3.8 g/dL (3.9-5) L 07/12/19 04:22 Albumin/Globulin Ratio 1.4 % 07/12/19 04:22 Active Medications - Current Medications Current Medications: Generic Name Dose Route Start Last Admin Trade Name Freq PRN Reason Stop Dose Admin Acetaminophen 650 mg 07/11/19 21:43 Tylenol PO Q4H PRN Pain MILD(1-3)/Fever >100.5/ARMENDARIZ Albuterol 1 mg 07/11/19 21:45 Proventil IH Q4H PRN Wheezing Albuterol/Ipratropium 1 ampul 07/12/19 08:00 07/12/19 13:15 Duoneb *Not For Prn Use* IH 1 ampul QIDRT KAMARI Administration Allopurinol 300 mg 07/11/19 22:00 07/12/19 10:41 Zyloprim PO 300 mg QDAY KAMARI Administration Apixaban 5 mg 07/11/19 21:45 07/12/19 08:42 Eliquis PO 5 mg Q12HRT KAMARI Administration Atorvastatin Calcium 40 mg 07/11/19 22:00 07/11/19 23:14 Lipitor PO 40 mg QHS KAMARI Administration Benzonatate 100 mg 07/11/19 21:39 Tessalon Perles PO Q8HR PRN Cough Budesonide 0.5 mg 07/11/19 22:00 07/12/19 10:50 Pulmicort IH 0.5 mg Q12HR KAMARI Administration Diltiazem HCl 240 mg 07/12/19 10:00 07/12/19 10:41 Cardizem Cd PO 240 mg QDAY KAMARI Administration Escitalopram Oxalate 20 mg 07/11/19 22:00 07/12/19 10:42 Lexapro PO 20 mg DAILY KAMARI Administration Famotidine 20 mg 07/11/19 22:00 07/12/19 10:42 Pepcid PO 20 mg DAILY KAMARI Administration Fluticasone Propionate 50 mcg 07/11/19 22:00 07/12/19 10:43 Flonase NS 50 mcg BID KAMARI Administration Furosemide 40 mg 07/11/19 22:00 07/12/19 10:43 Lasix PO 40 mg QDAY KAMARI Administration Gabapentin 300 mg 07/11/19 22:00 07/12/19 10:42 Gabapentin PO 300 mg BID KAMARI Administration Guaifenesin 200 mg 07/11/19 21:39 07/12/19 10:44 Robitussin PO 200 mg Q4H PRN Administration Cough Hydralazine HCl 25 mg 07/12/19 08:00 07/12/19 14:21 Apresoline PO 25 mg TID KAMARI Administration Hydromorphone HCl 0.5 mg 07/11/19 21:43 07/12/19 10:44 Dilaudid IV 0.5 mg Q3H PRN Administration Pain , Severe (7-10) Azithromycin 500 mg/ Sodium 250 mls @ 250 mls/hr 07/11/19 22:00 07/12/19 10:00 Chloride IV 250 mls/hr Q24HR [facility] Administration Protocol Ceftriaxone Sodium 2 gm in 100 mls @ 200 mls/hr 07/11/19 22:00 07/12/19 10:44 Rocephin/Ns 2 Gm/100 Ml IV 200 mls/hr Q24HR [facility] Administration Protocol Insulin Glargine 15 units 07/13/19 08:00 Lantus SUB-Q QAMDIAB [facility] Insulin Human Lispro 8 unit 07/12/19 11:30 07/12/19 11:50 Humalog SUB-Q 8 unit AC [facility] Administration Levothyroxine Sodium 125 mcg 07/12/19 06:00 07/12/19 06:07 Synthroid PO 125 mcg DAILY@0600 [facility] Administration Lisinopril 2.5 mg 07/11/19 21:45 07/12/19 10:43 Zestril PO 2.5 mg QDAY [facility] Administration Magnesium Hydroxide 30 ml 07/11/19 21:39 Milk Of Magnesia PO QDAY PRN Constipation Methylprednisolone Sodium Succinate 60 mg 07/11/19 22:00 07/12/19 14:21 Solu-Medrol IV 60 mg Q8HR [facility] Administration Ondansetron HCl 4 mg 07/11/19 21:43 Zofran IV Q8H PRN Nausea And Vomiting Oxycodone/Acetaminophen 1 tab 07/11/19 21:43 Percocet 5/325 PO Q6H PRN Pain, Moderate (4-6) Pantoprazole Sodium 40 mg 07/11/19 22:00 07/12/19 10:41 Protonix PO 40 mg QDAY [facility] Administration Sodium Chloride 10 ml 07/11/19 22:00 07/12/19 10:46 Sodium Chloride Flush Syringe 10 Ml IV 10 ml BID KAMARI Administration Sodium Chloride 10 ml 07/11/19 21:43 Sodium Chloride Flush Syringe 10 Ml IV PRN PRN LINE FLUSH
[2019-07-13] MEDS: BUDESONIDE 0.5 MG/2 ML NEBU IH SCH ×4 (00:56→20:02)
[2019-07-13] MEDS: HYDROmorphone 1 MG/1 ML INJ IV PRN ×4 (03:34→20:51)
[2019-07-13] MEDS: methylPREDNISolone Sod Succinate 125 MG/2 ML INJ IV SCH ×2 (05:49→15:48)
[2019-07-13] MEDS: LEVOTHYROXINE 125 MCG TAB PO SCH (05:50)
[2019-07-13] MEDS ORDERED: INSULIN GLARGINE 100 UNITS/ML SUB-Q SCH (08:00)
[2019-07-13] MEDS: IPRATROPIUM/ALBUTEROL SULFATE 3 ML AMPUL.NEB IH SCH ×3 (08:22→20:03)
[2019-07-13] MEDS: hydrALAZINE 25 MG TAB PO SCH ×3 (09:28→20:59)
[2019-07-13] MEDS: APIXABAN 5 MG TAB PO SCH ×2 (09:28→20:59)
[2019-07-13] MEDS: INSULIN LISPRO 100 UNIT/ML SUB-Q SCH ×3 (09:32→17:08)
--- NOTE | 2019-07-13 11:16 | Progress Note ---
Assessment and Plan Assessment and plan: -- Acute on chronic respiratory failure with hypoxia Current Visit: Yes Status: Acute Patient initiated on IV Levaquin IV Solumedrol and Duonebs RTC and prn Vent if necessary, Patient has Trach --COPD with exacerbation Current Visit: Yes Status: Acute Patient initiated on IV Levaquin IV Solumedrol and Duonebs RTC and prn Vent if necessary Patient has Trach --Chronic tracheostomy : Current Visit: Yes Status: Chronic trach care, intermittent suction -- IDDM (insulin dependent diabetes mellitus) Current Visit: Yes Status: Chronic Cont insulin and coverage -- Morbid obesity Current Visit: No Status: Chronic Patient to be counselleled about need for bariatric surgery Doubt whether she will get medical/cardiology clearance To see Dr Cunha as outpatient for consultation --HTN (hypertension) Current Visit: Yes Status: Chronic Cnt antihypertensives --HLD (hyperlipidemia) Current Visit: Yes Status: Chronic On statins --Hypothyroidism (acquired) Current Visit: Yes Status: Chronic COnt synthyroid -- GERD (gastroesophageal reflux disease) Current Visit: Yes Status: Chronic COnt PPI's -- DVT prophylaxis Current Visit: No Status: Acute On ELiquis for Afib and GI prophylaxis Monitor closely and adjust the management as needed Plan of care reviewed with the patient and her nurse History Interval history: Patient seen and examined at the bedside this morning Patient's chart and medical records reviewed Patient feels slightly better still has congestion a lot of secretions and tracheostomy Alert awake oriented In mild distress Vital signs reviewed Hospitalist Physical - Constitutional Vitals: Temp Pulse Resp BP Pulse Ox 99.3 F 94 H 20 138/109 99 07/13/19 08:15 07/13/19 09:28 07/13/19 08:15 07/13/19 09:28 07/13/19 08:15 General appearance: Present: mild distress, well-nourished, other (Tracheostomy) - EENT Eyes: Present: PERRL, EOM intact - Neck Neck: Present: supple, normal ROM - Respiratory Respiratory effort: normal Respiratory: bilateral: diminished, rhonchi, negative: rales, wheezing - Cardiovascular Rhythm: regular Heart Sounds: Present: S1 & S2 - Extremities Extremities: no ischemia, No edema - Abdominal General gastrointestinal: soft, non-tender, non-distended, normal bowel sounds - Integumentary Integumentary: Present: clear, warm - Psychiatric Psychiatric: appropriate mood/affect, agitated - Neurologic Neurologic: moves all extremities Results - Labs CBC & Chem 7: 07/12/19 04:22 07/12/19 04:22 Labs: Laboratory Last Values WBC 5.8 K/mm3 (4.5-11.0) 07/12/19 04:22 RBC 4.14 M/mm3 (3.65-5.03) 07/12/19 04:22 Hgb 10.7 gm/dl (10.1-14.3) 07/12/19 04:22 Hct 34.6 % (30.3-42.9) 07/12/19 04:22 MCV 84 fl (79-97) 07/12/19 04:22 MCH 26 pg (28-32) L 07/12/19 04:22 MCHC 31 % (30-34) 07/12/19 04:22 RDW 19.8 % (13.2-15.2) H 07/12/19 04:22 Plt Count 142 K/mm3 (140-440) 07/12/19 04:22 Lymph % (Auto) 17.1 % (13.4-35.0) 07/12/19 04:22 Ralls % (Auto) 0.6 % (0.0-7.3) 07/12/19 04:22 Eos % (Auto) 0.0 % (0.0-4.3) 07/12/19 04:22 Baso % (Auto) 0.3 % (0.0-1.8) 07/12/19 04:22 Lymph # 1.0 K/mm3 (1.2-5.4) L 07/12/19 04:22 Ralls # 0.0 K/mm3 (0.0-0.8) 07/12/19 04:22 Eos # 0.0 K/mm3 (0.0-0.4) 07/12/19 04:22 Baso # 0.0 K/mm3 (0.0-0.1) 07/12/19 04:22 Seg Neutrophils % 82.0 % (40.0-70.0) H 07/12/19 04:22 Seg Neutrophils # 4.8 K/mm3 (1.8-7.7) 07/12/19 04:22 PT 13.9 Sec. (12.2-14.9) 07/11/19 14:35 INR 1.06 (0.87-1.13) 07/11/19 14:35 Sodium 140 mmol/L (137-145) 07/12/19 04:22 Potassium 4.6 mmol/L (3.6-5.0) 07/12/19 04:22 Chloride 97.2 mmol/L (98-107) L 07/12/19 04:22 Carbon Dioxide 25 mmol/L (22-30) 07/12/19 04:22 Anion Gap 22 mmol/L 07/12/19 04:22 BUN 23 mg/dL (7-17) H 07/12/19 04:22 Creatinine 1.0 mg/dL (0.7-1.2) 07/12/19 04:22 Estimated GFR > 60 ml/min 07/12/19 04:22 BUN/Creatinine Ratio 23 % 07/12/19 04:22 Glucose 446 mg/dL (65-100) H 07/12/19 04:22 POC Glucose 348 (70-105) H 07/13/19 08:47 Hemoglobin A1c 10.4 % (4-6) H 07/11/19 14:35 Calcium 9.1 mg/dL (8.4-10.2) 07/12/19 04:22 Total Bilirubin 0.30 mg/dL (0.1-1.2) 07/12/19 04:22 AST 26 units/L (5-40) 07/12/19 04:22 ALT 24 units/L (7-56) 07/12/19 04:22 Alkaline Phosphatase 145 units/L (35-129) H 07/12/19 04:22 Troponin T < 0.010 ng/mL (0.00-0.029) 07/11/19 20:30 NT-Pro-B Natriuret Pep 957.5 pg/mL (0-900) H 07/11/19 14:35 Total Protein 6.6 g/dL (6.3-8.2) 07/12/19 04:22 Albumin 3.8 g/dL (3.9-5) L 07/12/19 04:22 Albumin/Globulin Ratio 1.4 % 07/12/19 04:22 Active Medications - Current Medications Current Medications: Generic Name Dose Route Start Last Admin Trade Name Freq PRN Reason Stop Dose Admin Acetaminophen 650 mg 07/11/19 21:43 Tylenol PO Q4H PRN Pain MILD(1-3)/Fever >100.5/ARMENDARIZ Albuterol 1 mg 07/11/19 21:45 Proventil IH Q4H PRN Wheezing Albuterol/Ipratropium 1 ampul 07/12/19 08:00 07/13/19 08:22 Duoneb *Not For Prn Use* IH 1 ampul QIDRT KAMARI Administration Allopurinol 300 mg 07/11/19 22:00 07/12/19 10:41 Zyloprim PO 300 mg QDAY KAMARI Administration Apixaban 5 mg 07/11/19 21:45 07/13/19 09:28 Eliquis PO 5 mg Q12HRT KAMARI Administration Atorvastatin Calcium 40 mg 07/11/19 22:00 07/12/19 21:52 Lipitor PO 40 mg QHS KAMARI Administration Benzonatate 100 mg 07/11/19 21:39 Tessalon Perles PO Q8HR PRN Cough Budesonide 0.5 mg 07/13/19 08:00 07/13/19 08:23 Pulmicort IH 0.5 mg Q12HRT KAMARI Administration Diltiazem HCl 240 mg 07/12/19 10:00 07/12/19 10:41 Cardizem Cd PO 240 mg QDAY KAMARI Administration Escitalopram Oxalate 20 mg 07/11/19 22:00 07/12/19 10:42 Lexapro PO 20 mg DAILY KAMARI Administration Famotidine 20 mg 07/11/19 22:00 07/12/19 10:42 Pepcid PO 20 mg DAILY KAMARI Administration Fluticasone Propionate 50 mcg 07/11/19 22:00 07/12/19 21:52 Flonase NS 50 mcg BID KAMARI Administration Furosemide 40 mg 07/11/19 22:00 07/12/19 10:43 Lasix PO 40 mg QDAY KAMARI Administration Gabapentin 300 mg 07/11/19 22:00 07/12/19 21:52 Gabapentin PO 300 mg BID KAMARI Administration Guaifenesin 200 mg 07/11/19 21:39 07/12/19 20:28 Robitussin PO 200 mg Q4H PRN Administration Cough Hydralazine HCl 25 mg 07/12/19 08:00 07/13/19 09:28 Apresoline PO 25 mg TID KAMARI Administration Hydromorphone HCl 0.5 mg 07/11/19 21:43 07/13/19 09:29 Dilaudid IV 0.5 mg Q3H PRN Administration Pain , Severe (7-10) Azithromycin 500 mg/ Sodium 250 mls @ 250 mls/hr 07/11/19 22:00 07/12/19 10:00 Chloride IV 250 mls/hr Q24HR KAMARI Administration Protocol Ceftriaxone Sodium 2 gm in 100 mls @ 200 mls/hr 07/11/19 22:00 07/12/19 10:44 Rocephin/Ns 2 Gm/100 Ml IV 200 mls/hr Q24HR KAMARI Administration Protocol Insulin Glargine 15 units 07/13/19 08:00 07/13/19 09:31 Lantus SUB-Q 15 units QAMDIAB KAMARI Administration Insulin Human Lispro 8 unit 07/12/19 11:30 07/13/19 09:32 Humalog SUB-Q 8 unit AC KAMARI Administration Levothyroxine Sodium 125 mcg 07/12/19 06:00 07/13/19 05:50 Synthroid PO 125 mcg DAILY@0600 KAMARI Administration Lisinopril 2.5 mg 07/11/19 21:45 07/12/19 10:43 Zestril PO 2.5 mg QDAY KAMARI Administration Magnesium Hydroxide 30 ml 07/11/19 21:39 Milk Of Magnesia PO QDAY PRN Constipation Methylprednisolone Sodium Succinate 60 mg 07/11/19 22:00 07/13/19 05:49 Solu-Medrol IV 60 mg Q8HR KAMARI Administration Ondansetron HCl 4 mg 07/11/19 21:43 Zofran IV Q8H PRN Nausea And Vomiting Oxycodone/Acetaminophen 1 tab 07/11/19 21:43 Percocet 5/325 PO Q6H PRN Pain, Moderate (4-6) Pantoprazole Sodium 40 mg 07/11/19 22:00 07/12/19 10:41 Protonix PO 40 mg QDAY KAMARI Administration Sodium Chloride 10 ml 07/11/19 22:00 07/12/19 21:53 Sodium Chloride Flush Syringe 10 Ml IV 10 ml BID KAMARI Administration Sodium Chloride 10 ml 03/02/20 21:43 Sodium Chloride Flush Syringe 10 Ml IV PRN PRN LINE FLUSH
[2019-07-13] MEDS: ESCITALOPRAM 10 MG TAB PO SCH (11:40)
[2019-07-13] MEDS: LISINOPRIL 5 MG TAB PO SCH (11:41)
[2019-07-13] MEDS: PANTOPRAZOLE 40 MG TAB PO SCH (11:44)
[2019-07-13] MEDS: dilTIAZem CD 240 MG CAP PO SCH (11:44)
[2019-07-13] MEDS: GABAPENTIN 300 MG CAP PO SCH ×2 (11:45→20:59)
[2019-07-13] MEDS: FUROSEMIDE 40 MG TAB PO SCH (11:46)
[2019-07-13] MEDS: allopurinoL 300 MG TAB PO SCH (11:46)
[2019-07-13] MEDS: FAMOTIDINE 20 MG TAB PO SCH (11:47)
[2019-07-13] MEDS: guaiFENesin 100 MG/5 ML ORAL LIQD PO PRN ×3 (11:47→20:55)
[2019-07-13] MEDS: AZITHROMYCIN 500 MG in SODIUM CHLORIDE 0.9% 250ML 250 ML IV SCH (11:48)
[2019-07-13] MEDS: cefTRIAXone/NS 2 GM/100 ML 2 GM/100 ML BAG IV SCH (11:49)
[2019-07-13] MEDS: FLUTICASONE PROPIONATE NASAL SPRAY 16 GM NS SCH (11:50)
[2019-07-13] MEDS: methylPREDNISolone Sod Succinate 40 MG/1 ML INJ IV SCH (20:59)
[2019-07-14] MEDS: HYDROmorphone 1 MG/1 ML INJ IV PRN ×5 (01:13→19:01)
[2019-07-14] MEDS: guaiFENesin 100 MG/5 ML ORAL LIQD PO PRN ×5 (01:13→19:01)
[2019-07-14] MEDS: LEVOTHYROXINE 125 MCG TAB PO SCH (06:23)
[2019-07-14] MEDS: INSULIN LISPRO 100 UNIT/ML SUB-Q SCH ×3 (07:30→16:30)
[2019-07-14] MEDS: IPRATROPIUM/ALBUTEROL SULFATE 3 ML AMPUL.NEB IH SCH ×4 (07:50→20:18)
[2019-07-14] MEDS: BUDESONIDE 0.5 MG/2 ML NEBU IH SCH ×2 (07:55→20:18)
[2019-07-14] MEDS ORDERED: INSULIN GLARGINE 100 UNITS/ML SUB-Q SCH (08:00)
[2019-07-14] MEDS: hydrALAZINE 25 MG TAB PO SCH ×3 (08:40→21:43)
[2019-07-14] MEDS: APIXABAN 5 MG TAB PO SCH ×2 (08:41→21:43)
[2019-07-14] MEDS: AZITHROMYCIN 500 MG in SODIUM CHLORIDE 0.9% 250ML 250 ML IV SCH (09:56)
[2019-07-14] MEDS: cefTRIAXone/NS 2 GM/100 ML 2 GM/100 ML BAG IV SCH (09:56)
[2019-07-14] MEDS: ESCITALOPRAM 10 MG TAB PO SCH (09:57)
[2019-07-14] MEDS: dilTIAZem CD 240 MG CAP PO SCH (09:57)
[2019-07-14] MEDS: allopurinoL 300 MG TAB PO SCH (09:57)
[2019-07-14] MEDS: methylPREDNISolone Sod Succinate 40 MG/1 ML INJ IV SCH (09:57)
[2019-07-14] MEDS: PANTOPRAZOLE 40 MG TAB PO SCH (09:58)
[2019-07-14] MEDS: FUROSEMIDE 40 MG TAB PO SCH (09:58)
[2019-07-14] MEDS: GABAPENTIN 300 MG CAP PO SCH ×2 (09:58→21:43)
[2019-07-14] MEDS: LISINOPRIL 5 MG TAB PO SCH (09:58)
[2019-07-14] MEDS: FAMOTIDINE 20 MG TAB PO SCH (09:58)
[2019-07-14] MEDS: FLUTICASONE PROPIONATE NASAL SPRAY 16 GM NS SCH (10:00)
[2019-07-14] MEDS ORDERED: methylPREDNISolone Sod Succinate 40 MG/1 ML INJ IV SCH (15:15)
--- NOTE | 2019-07-14 15:15 | Progress Note ---
Assessment and Plan - Patient Problems (1) Acute respiratory failure with hypoxia Current Visit: Yes Status: Acute Plan to address problem: Patient initiated on IV Levaquin IV Solumedrol and Duonebs RTC and prn Vent if necessary Patient has Trach (2) COPD with exacerbation Current Visit: Yes Status: Acute Plan to address problem: Patient initiated on IV Levaquin IV Solumedrol and Duonebs RTC and prn Vent if necessary Patient has Trach (3) Tracheostomy dependence Current Visit: Yes Status: Chronic Plan to address problem: trach care (4) IDDM (insulin dependent diabetes mellitus) Current Visit: Yes Status: Chronic Plan to address problem: Cont insulin and coverage (5) Morbid obesity Current Visit: No Status: Chronic Plan to address problem: Patient to be counselleled about need for bariatric surgery Doubt whether she will get medical/cardiology clearance To see Dr Cunha as outpatient for consultation (6) HTN (hypertension) Current Visit: Yes Status: Chronic Qualifiers: Hypertension type: essential hypertension Qualified Code(s): I10 - Essential (primary) hypertension Plan to address problem: Cnt antihypertensives (7) HLD (hyperlipidemia) Current Visit: Yes Status: Chronic Qualifiers: Hyperlipidemia type: mixed hyperlipidemia Qualified Code(s): E78.2 - Mixed hyperlipidemia Plan to address problem: On statins (8) Hypothyroidism (acquired) Current Visit: Yes Status: Chronic Plan to address problem: COnt synthyroid (9) GERD (gastroesophageal reflux disease) Current Visit: Yes Status: Chronic Qualifiers: Esophagitis presence: without esophagitis Qualified Code(s): K21.9 - Gastro-esophageal reflux disease without esophagitis Plan to address problem: COnt PPI's (10) DVT prophylaxis Current Visit: No Status: Acute Plan to address problem: On ELiquis for Afib and GI prophylaxis Subjective Date of service: 07/14/19 Objective - Constitutional Vitals: Vital Signs - 12hr 07/14/19 07/14/19 07/14/19 04:02 05:30 07:49 Temperature 98.1 F 98.2 F Pulse Rate 87 103 H Pulse Rate [ Apical] Pulse Rate [ Left Radial] Pulse Rate [ Right Radial] Respiratory 20 18 Rate Blood Pressure 144/105 133/92 O2 Sat by Pulse 83 L 99 Oximetry O2 Sat by Pulse 95 Oximetry [ Assessment] 07/14/19 07/14/19 07/14/19 08:40 09:55 09:57 Temperature Pulse Rate 83 107 H 115 H Pulse Rate [ Apical] Pulse Rate [ Left Radial] Pulse Rate [ Right Radial] Respiratory Rate Blood Pressure 144/103 143/94 143/93 O2 Sat by Pulse 100 Oximetry O2 Sat by Pulse Oximetry [ Assessment] 07/14/19 07/14/19 07/14/19 09:58 10:00 11:24 Temperature 98.7 F Pulse Rate 115 H 104 H Pulse Rate [ 111 H Apical] Pulse Rate [ 111 H Left Radial] Pulse Rate [ 111 H Right Radial] Respiratory 27 H 20 Rate Blood Pressure 143/93 143/101 O2 Sat by Pulse 99 Oximetry O2 Sat by Pulse Oximetry [ Assessment] 07/14/19 14:51 Temperature Pulse Rate 111 H Pulse Rate [ Apical] Pulse Rate [ Left Radial] Pulse Rate [ Right Radial] Respiratory Rate Blood Pressure 143/101 O2 Sat by Pulse Oximetry O2 Sat by Pulse Oximetry [ Assessment] - Labs CBC & Chem 7: 07/12/19 04:22 07/12/19 04:22 Labs: Abnormal lab results 07/13/19 07/14/19 07/14/19 Range/Units 20:54 08:04 11:32 POC Glucose 393 H 367 H 364 H (70-105)
[2019-07-14] MEDS: INSULIN GLARGINE 100 UNITS/ML SUB-Q SCH ×2 (16:00→21:43)
[2019-07-14] MEDS: methylPREDNISolone Sod Succinate 125 MG/2 ML INJ IV SCH ×2 (18:26→21:44)
[2019-07-15] MEDS: guaiFENesin 100 MG/5 ML ORAL LIQD PO PRN ×4 (04:39→22:29)
[2019-07-15] MEDS: HYDROmorphone 1 MG/1 ML INJ IV PRN ×4 (04:39→22:30)
[2019-07-15] MEDS: LEVOTHYROXINE 125 MCG TAB PO SCH (05:36)
[2019-07-15] MEDS: methylPREDNISolone Sod Succinate 125 MG/2 ML INJ IV SCH ×3 (05:36→22:16)
[2019-07-15] MEDS: hydrALAZINE 25 MG TAB PO SCH ×3 (08:27→20:15)
[2019-07-15] MEDS: APIXABAN 5 MG TAB PO SCH ×2 (08:28→20:15)
[2019-07-15] MEDS: INSULIN LISPRO 100 UNIT/ML SUB-Q SCH ×3 (08:29→16:30)
[2019-07-15] MEDS: IPRATROPIUM/ALBUTEROL SULFATE 3 ML AMPUL.NEB IH SCH ×2 (10:14→20:25)
[2019-07-15] MEDS: BUDESONIDE 0.5 MG/2 ML NEBU IH SCH ×2 (10:14→20:24)
[2019-07-15] MEDS ORDERED: ALBUTEROL 2.5 MG/3 ML NEBU IH PRN ×2 (10:23→15:11)
[2019-07-15] MEDS: AZITHROMYCIN 500 MG in SODIUM CHLORIDE 0.9% 250ML 250 ML IV SCH (10:33)
[2019-07-15] MEDS: cefTRIAXone/NS 2 GM/100 ML 2 GM/100 ML BAG IV SCH (10:33)
[2019-07-15] MEDS: ESCITALOPRAM 10 MG TAB PO SCH (10:34)
[2019-07-15] MEDS: FAMOTIDINE 20 MG TAB PO SCH (10:34)
[2019-07-15] MEDS: FUROSEMIDE 40 MG TAB PO SCH (10:35)
[2019-07-15] MEDS: LISINOPRIL 5 MG TAB PO SCH (10:35)
[2019-07-15] MEDS: allopurinoL 300 MG TAB PO SCH (10:35)
[2019-07-15] MEDS: PANTOPRAZOLE 40 MG TAB PO SCH (10:36)
[2019-07-15] MEDS: dilTIAZem CD 240 MG CAP PO SCH (10:36)
[2019-07-15] MEDS: GABAPENTIN 300 MG CAP PO SCH ×2 (10:37→22:15)
[2019-07-15] MEDS: FLUTICASONE PROPIONATE NASAL SPRAY 16 GM NS SCH ×2 (10:37→22:00)
[2019-07-15] MEDS: INSULIN GLARGINE 100 UNITS/ML SUB-Q SCH ×2 (10:38→22:00)
--- NOTE | 2019-07-15 17:07 | Discharge Summary ---
Providers - Providers Date of Admission: 07/12/19 15:51 Date of discharge: 07/15/19 Attending physician: FRANCISCO Salgado [facility] Condition: Stable Hospital course: 64-year-old female the past medical history of tracheostomy dependence, CHF, COPD, diabetes, hypertension, chronic type I aortic dissection, and chronic atrial fibrillation currently on Eliquis presents to the hospital complains of shortness of breath x2 days. Patient having a cough productive of green sputum and increased wheezing episodes. Patient also complains of increasing generalized leg edema with associated leg pain due to swelling. Patient is chronic respiratory failure and is oxygen dependent. Upon EMS arrival patient had labored breathing and using accessory muscles. She received Solu-Medrol 125 mg and albuterol 5 mg prior to arrival. Patient states she has been compliant with her medications including Lasix. She reports anterior left-sided chest pain that is worse with palpation. Past Medical History Previous Medical History?: Yes Hypertension: Yes Congestive Heart Failure: Yes Diabetes: Yes Renal Disease: Yes Arthritis: Yes Headaches / Migraines: Yes COPD: Yes Additional medical history: Acute and chronic resp failure, A-flutter, thracheomalacia, hypoxia, pulmonary edema, volume overload, trach, a-fib, chronic type I aortic dissection Disposition: TO HOME OR SELFCARE - Discharge Diagnoses (1) Acute respiratory failure with hypoxia Status: Acute (2) COPD with exacerbation Status: Acute (3) Tracheostomy dependence Status: Chronic (4) IDDM (insulin dependent diabetes mellitus) Status: Chronic (5) Morbid obesity Status: Chronic (6) HTN (hypertension) Status: Chronic Qualifiers: Hypertension type: essential hypertension Qualified Code(s): I10 - Essential (primary) hypertension (7) HLD (hyperlipidemia) Status: Chronic Qualifiers: Hyperlipidemia type: mixed hyperlipidemia Qualified Code(s): E78.2 - Mixed hyperlipidemia (8) Hypothyroidism (acquired) Status: Chronic (9) GERD (gastroesophageal reflux disease) Status: Chronic Qualifiers: Esophagitis presence: without esophagitis Qualified Code(s): K21.9 - Gastro-esophageal reflux disease without esophagitis (10) DVT prophylaxis Status: Acute Core Measure Documentation - Palliative Care Palliative Care/ Comfort Measures: Not Applicable - Core Measures Any of the following diagnoses?: none Exam - Constitutional Vitals: Temp Pulse Resp BP Pulse Ox 97.9 F 117 H 20 136/85 99 07/15/19 16:07 07/15/19 16:07 07/15/19 16:07 07/15/19 16:07 07/15/19 16:07 General appearance: Present: no acute distress, well-nourished - EENT Eyes: Present: PERRL ENT: hearing intact, clear oral mucosa - Neck Neck: Present: supple, normal ROM - Respiratory Respiratory effort: normal Respiratory: bilateral: CTA - Cardiovascular Heart Sounds: Present: S1 & S2. Absent: rub, click - Extremities Extremities: pulses symmetrical, No edema Peripheral Pulses: within normal limits - Abdominal General gastrointestinal: Present: soft, non-tender, non-distended, normal bowel sounds Female genitourinary: Present: normal - Integumentary Integumentary: Present: clear, warm, dry - Musculoskeletal Musculoskeletal: gait normal, strength equal bilaterally - Psychiatric Psychiatric: appropriate mood/affect, intact judgment & insight - Neurologic Neurologic: CNII-XII intact, moves all extremities Plan Follow up with: RUDY DAVISTAHLEQUAH MD MARCO [Primary Care Provider] - 3-5 Days DANNY SALGADO MD [Staff Physician] - 7 Days
--- NOTE | 2019-07-15 17:47 | Progress Note ---
Assessment and Plan - Patient Problems (1) Acute respiratory failure with hypoxia Current Visit: Yes Status: Acute Plan to address problem: Patient initiated on IV Levaquin IV Solumedrol and Duonebs RTC and prn Vent if necessary Patient has Trach Patient still very short of breath and cough productive of mucoid to yellow sputum. Patient in no distress. Cannot be discharged (2) COPD with exacerbation Current Visit: Yes Status: Acute Plan to address problem: Patient initiated on IV Levaquin IV Solumedrol and Duonebs RTC and prn Vent if necessary Patient has Trach Patient not responding" Increase her Solu-Medrol dosage to 80 twice daily (3) Tracheostomy dependence Current Visit: Yes Status: Chronic Plan to address problem: trach care (4) IDDM (insulin dependent diabetes mellitus) Current Visit: Yes Status: Chronic Plan to address problem: Cont insulin and coverage (5) Morbid obesity Current Visit: No Status: Chronic Plan to address problem: Patient to be counselleled about need for bariatric surgery Doubt whether she will get medical/cardiology clearance To see Dr Cunha as outpatient for consultation (6) HTN (hypertension) Current Visit: Yes Status: Chronic Qualifiers: Hypertension type: essential hypertension Qualified Code(s): I10 - Essential (primary) hypertension Plan to address problem: Cnt antihypertensives Hypertension well controlled (7) HLD (hyperlipidemia) Current Visit: Yes Status: Chronic Qualifiers: Hyperlipidemia type: mixed hyperlipidemia Qualified Code(s): E78.2 - Mixed hyperlipidemia Plan to address problem: On statins (8) Hypothyroidism (acquired) Current Visit: Yes Status: Chronic Plan to address problem: COnt synthyroid (9) GERD (gastroesophageal reflux disease) Current Visit: Yes Status: Chronic Qualifiers: Esophagitis presence: without esophagitis Qualified Code(s): K21.9 - Gastro-esophageal reflux disease without esophagitis Plan to address problem: COnt PPI's (10) DVT prophylaxis Current Visit: No Status: Acute Plan to address problem: On ELiquis for Afib and GI prophylaxis Subjective Date of service: 07/15/19 Principal diagnosis: Acute respiratory failure, COPD exacerbation Interval history: Patient still coughing and very short of breath. Cough productive of mucoid sputum. Patient very uncomfortable. Patient also has chest pain. Objective - Constitutional Vitals: Vital Signs - 12hr 07/15/19 07/15/19 07/15/19 08:27 09:20 10:00 Temperature 98.3 F Pulse Rate 89 117 H Pulse Rate [ Anterior Bilateral Throughout] Pulse Rate [ 112 H Apical] Pulse Rate [ 112 H Left Radial] Pulse Rate [ 112 H Right Radial] Respiratory 14 26 H Rate Respiratory Rate [Anterior Bilateral Throughout] Blood Pressure 145/87 134/105 O2 Sat by Pulse 89 94 Oximetry O2 Sat by Pulse Oximetry [ Assessment] 07/15/19 07/15/19 07/15/19 10:13 10:14 10:21 Temperature Pulse Rate Pulse Rate [ 120 H Anterior Bilateral Throughout] Pulse Rate [ Apical] Pulse Rate [ Left Radial] Pulse Rate [ Right Radial] Respiratory Rate Respiratory 20 Rate [Anterior Bilateral Throughout] Blood Pressure O2 Sat by Pulse 96 96 Oximetry O2 Sat by Pulse Oximetry [ Assessment] 07/15/19 07/15/19 07/15/19 10:35 10:36 10:41 Temperature Pulse Rate 120 H 120 H Pulse Rate [ Anterior Bilateral Throughout] Pulse Rate [ Apical] Pulse Rate [ Left Radial] Pulse Rate [ Right Radial] Respiratory Rate Respiratory Rate [Anterior Bilateral Throughout] Blood Pressure 134/105 145/105 O2 Sat by Pulse Oximetry O2 Sat by Pulse 96 Oximetry [ Assessment] 07/15/19 07/15/19 07/15/19 11:13 12:00 14:54 Temperature 98.6 F Pulse Rate 120 H 119 H 117 H Pulse Rate [ Anterior Bilateral Throughout] Pulse Rate [ Apical] Pulse Rate [ Left Radial] Pulse Rate [ Right Radial] Respiratory 18 Rate Respiratory Rate [Anterior Bilateral Throughout] Blood Pressure 154/107 154/100 O2 Sat by Pulse 93 Oximetry O2 Sat by Pulse Oximetry [ Assessment] 07/15/19 07/15/19 07/15/19 15:12 15:51 15:52 Temperature Pulse Rate 118 H 119 H Pulse Rate [ 117 H Anterior Bilateral Throughout] Pulse Rate [ Apical] Pulse Rate [ Left Radial] Pulse Rate [ Right Radial] Respiratory Rate Respiratory 20 Rate [Anterior Bilateral Throughout] Blood Pressure 154/100 O2 Sat by Pulse 80 L 87 Oximetry O2 Sat by Pulse Oximetry [ Assessment] 07/15/19 16:07 Temperature 97.9 F Pulse Rate 117 H Pulse Rate [ Anterior Bilateral Throughout] Pulse Rate [ Apical] Pulse Rate [ Left Radial] Pulse Rate [ Right Radial] Respiratory 20 Rate Respiratory Rate [Anterior Bilateral Throughout] Blood Pressure 136/85 O2 Sat by Pulse 99 Oximetry O2 Sat by Pulse Oximetry [ Assessment] General appearance: Present: no acute distress, mild distress, well-nourished - EENT Eyes: PERRL, EOM intact ENT: hearing intact, clear oral mucosa Ears: bilateral: normal - Neck Neck: supple, normal ROM - Respiratory Respiratory effort: normal Respiratory: bilateral: CTA, rhonchi, wheezing - Breasts Breasts: normal - Cardiovascular Heart rate: 78 Rhythm: regular Heart Sounds: Present: S1 & S2. Absent: gallop, rub Extremities: pulses intact, No edema, normal color, Full ROM - Gastrointestinal General gastrointestinal: Present: soft, non-tender, non-distended, normal bowel sounds - Genitourinary Female genitourinary: normal - Integumentary Integumentary: clear, warm, dry - Musculoskeletal Musculoskeletal: 1, strength equal bilaterally - Neurologic Neurologic: moves all extremities - Psychiatric Psychiatric: memory intact, appropriate mood/affect, intact judgment & insight - Labs CBC & Chem 7: 07/12/19 04:22 07/12/19 04:22 Labs: Abnormal lab results 07/15/19 07/15/19 07/15/19 Range/Units 08:00 11:16 16:17 POC Glucose 161 H 179 H 293 H (70-105)
[2019-07-15] MEDS: ARFORMOTEROL 15 MCG/2 ML NEBU IH SCH (20:24)
[2019-07-16] MEDS: HYDROmorphone 1 MG/1 ML INJ IV PRN ×4 (03:01→21:59)
[2019-07-16] MEDS: FLUTICASONE PROPIONATE NASAL SPRAY 16 GM NS SCH ×4 (03:11→22:02)
[2019-07-16] MEDS ORDERED: hydrALAZINE 20 MG/1 ML INJ IV ONE (06:00)
[2019-07-16] MEDS: LEVOTHYROXINE 125 MCG TAB PO SCH (06:33)
[2019-07-16] MEDS: methylPREDNISolone Sod Succinate 125 MG/2 ML INJ IV SCH ×3 (06:33→22:04)
[2019-07-16] MEDS ORDERED: REGADENOSON 0.4 MG/5 ML INJ IV ONE ×2 (08:04→08:09)
[2019-07-16] MEDS: INSULIN LISPRO 100 UNIT/ML SUB-Q SCH ×3 (08:10→16:39)
[2019-07-16] MEDS: APIXABAN 5 MG TAB PO SCH ×2 (09:05→21:30)
[2019-07-16] MEDS: BUDESONIDE 0.5 MG/2 ML NEBU IH SCH ×2 (09:39→20:22)
[2019-07-16] MEDS: IPRATROPIUM/ALBUTEROL SULFATE 3 ML AMPUL.NEB IH SCH ×3 (09:40→20:23)
[2019-07-16] MEDS: ARFORMOTEROL 15 MCG/2 ML NEBU IH SCH ×2 (09:40→20:22)
[2019-07-16] MEDS: ESCITALOPRAM 10 MG TAB PO SCH (10:13)
[2019-07-16] MEDS: allopurinoL 300 MG TAB PO SCH (10:13)
[2019-07-16] MEDS: PANTOPRAZOLE 40 MG TAB PO SCH (10:13)
[2019-07-16] MEDS: cefTRIAXone/NS 2 GM/100 ML 2 GM/100 ML BAG IV SCH (10:13)
[2019-07-16] MEDS: FAMOTIDINE 20 MG TAB PO SCH (10:13)
[2019-07-16] MEDS: INSULIN GLARGINE 100 UNITS/ML SUB-Q SCH ×2 (10:13→22:04)
[2019-07-16] MEDS: LISINOPRIL 5 MG TAB PO SCH (10:15)
[2019-07-16] MEDS: FUROSEMIDE 40 MG TAB PO SCH (10:15)
[2019-07-16] MEDS: GABAPENTIN 300 MG CAP PO SCH ×2 (10:15→22:04)
[2019-07-16] MEDS: dilTIAZem CD 240 MG CAP PO SCH (10:15)
[2019-07-16] MEDS: hydrALAZINE 25 MG TAB PO SCH ×3 (10:16→21:30)
[2019-07-16] MEDS: guaiFENesin 100 MG/5 ML ORAL LIQD PO PRN ×2 (10:33→23:43)
[2019-07-16] MEDS: AZITHROMYCIN 500 MG in SODIUM CHLORIDE 0.9% 250ML 250 ML IV SCH (10:57)
[2019-07-17] MEDS: HYDROmorphone 1 MG/1 ML INJ IV PRN ×3 (03:24→22:25)
[2019-07-17] MEDS ORDERED: hydrALAZINE 20 MG/1 ML INJ IV ONE (03:48)
[2019-07-17] MEDS: methylPREDNISolone Sod Succinate 125 MG/2 ML INJ IV SCH ×3 (06:54→22:16)
[2019-07-17] MEDS: LEVOTHYROXINE 125 MCG TAB PO SCH (06:54)
[2019-07-17] MEDS: ARFORMOTEROL 15 MCG/2 ML NEBU IH SCH ×2 (07:19→19:55)
[2019-07-17] MEDS: BUDESONIDE 0.5 MG/2 ML NEBU IH SCH ×2 (07:19→19:54)
[2019-07-17] MEDS: IPRATROPIUM/ALBUTEROL SULFATE 3 ML AMPUL.NEB IH SCH ×3 (07:22→19:54)
[2019-07-17] MEDS: INSULIN LISPRO 100 UNIT/ML SUB-Q SCH ×3 (07:32→16:24)
[2019-07-17] MEDS: hydrALAZINE 25 MG TAB PO SCH ×3 (08:30→21:40)
[2019-07-17] MEDS: INSULIN GLARGINE 100 UNITS/ML SUB-Q SCH ×2 (09:11→22:17)
[2019-07-17] MEDS: cefTRIAXone/NS 2 GM/100 ML 2 GM/100 ML BAG IV SCH (09:11)
[2019-07-17] MEDS: ESCITALOPRAM 10 MG TAB PO SCH (09:11)
[2019-07-17] MEDS: allopurinoL 300 MG TAB PO SCH (09:12)
[2019-07-17] MEDS: APIXABAN 5 MG TAB PO SCH ×2 (09:12→21:45)
[2019-07-17] MEDS: GABAPENTIN 300 MG CAP PO SCH ×2 (09:12→22:16)
[2019-07-17] MEDS: PANTOPRAZOLE 40 MG TAB PO SCH (09:12)
[2019-07-17] MEDS: FAMOTIDINE 20 MG TAB PO SCH (09:12)
[2019-07-17] MEDS: FUROSEMIDE 40 MG TAB PO SCH (09:12)
[2019-07-17] MEDS: LISINOPRIL 5 MG TAB PO SCH (09:13)
[2019-07-17] MEDS: dilTIAZem CD 240 MG CAP PO SCH (09:14)
[2019-07-17] MEDS: FLUTICASONE PROPIONATE NASAL SPRAY 16 GM NS SCH ×2 (09:14→22:17)
[2019-07-17] MEDS: AZITHROMYCIN 500 MG in SODIUM CHLORIDE 0.9% 250ML 250 ML IV SCH (09:52)
[2019-07-17] MEDS: hydrALAZINE 20 MG/1 ML INJ IV PRN ×2 (12:27→17:01)
--- NOTE | 2019-07-17 14:05 | Progress Note ---
Assessment and Plan - Patient Problems (1) Acute respiratory failure with hypoxia Current Visit: Yes Status: Acute Plan to address problem: Patient initiated on IV Levaquin IV Solumedrol and Duonebs RTC and prn Vent if necessary Patient has Trach Patient still very short of breath and cough productive of mucoid to yellow sputum. Patient in no distress. Cannot be discharged (2) COPD with exacerbation Current Visit: Yes Status: Acute Plan to address problem: Patient initiated on IV Levaquin IV Solumedrol and Duonebs RTC and prn Vent if necessary Patient has Trach Patient not responding" Increase her Solu-Medrol dosage to 80 twice daily (3) Tracheostomy dependence Current Visit: Yes Status: Chronic Plan to address problem: trach care (4) IDDM (insulin dependent diabetes mellitus) Current Visit: Yes Status: Chronic Plan to address problem: Cont insulin and coverage (5) Morbid obesity Current Visit: No Status: Chronic (6) HTN (hypertension) Current Visit: Yes Status: Chronic Qualifiers: Hypertension type: essential hypertension Qualified Code(s): I10 - Essential (primary) hypertension Plan to address problem: Cnt antihypertensives Hypertension well controlled (7) HLD (hyperlipidemia) Current Visit: Yes Status: Chronic Qualifiers: Hyperlipidemia type: mixed hyperlipidemia Qualified Code(s): E78.2 - Mixed hyperlipidemia Plan to address problem: On statins (8) Hypothyroidism (acquired) Current Visit: Yes Status: Chronic Plan to address problem: COnt synthyroid (9) GERD (gastroesophageal reflux disease) Current Visit: Yes Status: Chronic Qualifiers: Esophagitis presence: without esophagitis Qualified Code(s): K21.9 - Gastro-esophageal reflux disease without esophagitis Plan to address problem: COnt PPI's (10) DVT prophylaxis Current Visit: No Status: Acute Plan to address problem: On ELiquis for Afib and GI prophylaxis Subjective Date of service: 07/16/19 Principal diagnosis: Acute respiratory failure, COPD exacerbation Interval history: Patient still coughing and very short of breath. Cough productive of mucoid sputum. Patient very uncomfortable. Patient also has chest pain. Objective - Constitutional Vitals: Vital Signs - 12hr 07/17/19 07/17/19 07/17/19 03:36 04:01 04:54 Temperature 98.2 F Pulse Rate 117 H 117 H 117 H Pulse Rate [ Anterior Bilateral Throughout] Pulse Rate [ Apical] Pulse Rate [ Left Radial] Pulse Rate [ Right Radial] Respiratory 18 Rate Respiratory Rate [Anterior Bilateral Throughout] Blood Pressure 175/112 169/103 Blood Pressure 175/112 [Right] O2 Sat by Pulse 97 Oximetry O2 Sat by Pulse Oximetry [ Assessment] 07/17/19 07/17/19 07/17/19 07:23 07:24 07:26 Temperature Pulse Rate Pulse Rate [ 111 H Anterior Bilateral Throughout] Pulse Rate [ Apical] Pulse Rate [ Left Radial] Pulse Rate [ Right Radial] Respiratory Rate Respiratory 20 Rate [Anterior Bilateral Throughout] Blood Pressure Blood Pressure [Right] O2 Sat by Pulse 95 Oximetry O2 Sat by Pulse 96 Oximetry [ Assessment] 07/17/19 07/17/19 07/17/19 08:00 08:30 09:03 Temperature 97.9 F Pulse Rate 115 H 89 108 H Pulse Rate [ Anterior Bilateral Throughout] Pulse Rate [ Apical] Pulse Rate [ Left Radial] Pulse Rate [ Right Radial] Respiratory 18 Rate Respiratory Rate [Anterior Bilateral Throughout] Blood Pressure 155/74 Blood Pressure 168/113 [Right] O2 Sat by Pulse 99 Oximetry O2 Sat by Pulse Oximetry [ Assessment] 07/17/19 07/17/19 07/17/19 09:13 09:14 10:00 Temperature Pulse Rate 89 87 Pulse Rate [ Anterior Bilateral Throughout] Pulse Rate [ 98 H Apical] Pulse Rate [ 98 H Left Radial] Pulse Rate [ 98 H Right Radial] Respiratory 17 Rate Respiratory Rate [Anterior Bilateral Throughout] Blood Pressure 156/74 156/74 Blood Pressure [Right] O2 Sat by Pulse 99 Oximetry O2 Sat by Pulse Oximetry [ Assessment] 07/17/19 07/17/19 12:21 12:27 Temperature 98.0 F Pulse Rate 122 H 102 H Pulse Rate [ Anterior Bilateral Throughout] Pulse Rate [ Apical] Pulse Rate [ Left Radial] Pulse Rate [ Right Radial] Respiratory 18 Rate Respiratory Rate [Anterior Bilateral Throughout] Blood Pressure 168/94 168/94 Blood Pressure [Right] O2 Sat by Pulse 95 Oximetry O2 Sat by Pulse Oximetry [ Assessment] General appearance: Present: mild distress, well-nourished - EENT Eyes: PERRL, EOM intact ENT: hearing intact, clear oral mucosa Ears: bilateral: normal - Neck Neck: supple, normal ROM - Respiratory Respiratory effort: normal Respiratory: bilateral: CTA - Breasts Breasts: normal - Cardiovascular Rhythm: regular Heart Sounds: Present: S1 & S2. Absent: gallop, rub Extremities: pulses intact, No edema, normal color, Full ROM - Gastrointestinal General gastrointestinal: Present: soft, non-tender, non-distended, normal bowel sounds - Genitourinary Female genitourinary: normal - Integumentary Integumentary: clear, warm, dry - Musculoskeletal Musculoskeletal: 1, strength equal bilaterally - Neurologic Neurologic: moves all extremities - Psychiatric Psychiatric: memory intact, appropriate mood/affect, intact judgment & insight - Allied health notes Allied health notes reviewed: nursing, case management - Labs CBC & Chem 7: 07/12/19 04:22 07/12/19 04:22 Labs: Abnormal lab results 07/16/19 07/16/19 07/16/19 Range/Units 16:44 17:47 20:09 POC Glucose 390 H 359 H 392 H (70-105) 07/17/19 07/17/19 Range/Units 07:28 11:39 POC Glucose 423 H 419 H (70-105)
--- NOTE | 2019-07-17 14:06 | Progress Note ---
Assessment and Plan - Patient Problems (1) Acute respiratory failure with hypoxia Current Visit: Yes Status: Acute Plan to address problem: Patient initiated on IV Levaquin IV Solumedrol and Duonebs RTC and prn Vent if necessary Patient has Trach Patient still very short of breath and cough productive of mucoid to yellow sputum. Patient in no distress. Cannot be discharged (2) COPD with exacerbation Current Visit: Yes Status: Acute Plan to address problem: Patient initiated on IV Levaquin IV Solumedrol and Duonebs RTC and prn Vent if necessary Patient has Trach Patient not responding" Increase her Solu-Medrol dosage to 80 twice daily (3) Tracheostomy dependence Current Visit: Yes Status: Chronic Plan to address problem: trach care (4) IDDM (insulin dependent diabetes mellitus) Current Visit: Yes Status: Chronic Plan to address problem: Cont insulin and coverage (5) Morbid obesity Current Visit: No Status: Chronic Plan to address problem: Patient to be counselleled about need for bariatric surgery Doubt whether she will get medical/cardiology clearance To see Dr Cunha as outpatient for consultation (6) HTN (hypertension) Current Visit: Yes Status: Chronic Qualifiers: Hypertension type: essential hypertension Qualified Code(s): I10 - Essential (primary) hypertension Plan to address problem: Cnt antihypertensives Hypertension well controlled (7) HLD (hyperlipidemia) Current Visit: Yes Status: Chronic Qualifiers: Hyperlipidemia type: mixed hyperlipidemia Qualified Code(s): E78.2 - Mixed hyperlipidemia Plan to address problem: On statins (8) Hypothyroidism (acquired) Current Visit: Yes Status: Chronic Plan to address problem: COnt synthyroid (9) GERD (gastroesophageal reflux disease) Current Visit: Yes Status: Chronic Qualifiers: Esophagitis presence: without esophagitis Qualified Code(s): K21.9 - Gastro-esophageal reflux disease without esophagitis Plan to address problem: COnt PPI's (10) DVT prophylaxis Current Visit: No Status: Acute Plan to address problem: On ELiquis for Afib and GI prophylaxis Subjective Date of service: 07/16/19 Principal diagnosis: Acute respiratory failure, COPD exacerbation, morbid obesity, trach status, Interval history: Patient still coughing and very short of breath. Cough productive of mucoid sputum. Patient very uncomfortable. Patient also has chest pain. No fever Objective - Constitutional Vitals: Vital Signs - 12hr 07/17/19 07/17/1907/16/20 03:36 04:01 04:54 Temperature 98.2 F Pulse Rate 117 H 117 H 117 H Pulse Rate [ Anterior Bilateral Throughout] Pulse Rate [ Apical] Pulse Rate [ Left Radial] Pulse Rate [ Right Radial] Respiratory 18 Rate Respiratory Rate [Anterior Bilateral Throughout] Blood Pressure 175/112 169/103 Blood Pressure 175/112 [Right] O2 Sat by Pulse 97 Oximetry O2 Sat by Pulse Oximetry [ Assessment] 07/17/19 07/17/19 07/17/19 07:23 07:24 07:26 Temperature Pulse Rate Pulse Rate [ 111 H Anterior Bilateral Throughout] Pulse Rate [ Apical] Pulse Rate [ Left Radial] Pulse Rate [ Right Radial] Respiratory Rate Respiratory 20 Rate [Anterior Bilateral Throughout] Blood Pressure Blood Pressure [Right] O2 Sat by Pulse 95 Oximetry O2 Sat by Pulse 96 Oximetry [ Assessment] 07/17/19 07/17/19 07/17/19 08:00 08:30 09:03 Temperature 97.9 F Pulse Rate 115 H 89 108 H Pulse Rate [ Anterior Bilateral Throughout] Pulse Rate [ Apical] Pulse Rate [ Left Radial] Pulse Rate [ Right Radial] Respiratory 18 Rate Respiratory Rate [Anterior Bilateral Throughout] Blood Pressure 155/74 Blood Pressure 168/113 [Right] O2 Sat by Pulse 99 Oximetry O2 Sat by Pulse Oximetry [ Assessment] 07/17/19 07/17/19 07/17/19 09:13 09:14 10:00 Temperature Pulse Rate 89 87 Pulse Rate [ Anterior Bilateral Throughout] Pulse Rate [ 98 H Apical] Pulse Rate [ 98 H Left Radial] Pulse Rate [ 98 H Right Radial] Respiratory 17 Rate Respiratory Rate [Anterior Bilateral Throughout] Blood Pressure 156/74 156/74 Blood Pressure [Right] O2 Sat by Pulse 99 Oximetry O2 Sat by Pulse Oximetry [ Assessment] 07/17/19 07/17/19 12:21 12:27 Temperature 98.0 F Pulse Rate 122 H 102 H Pulse Rate [ Anterior Bilateral Throughout] Pulse Rate [ Apical] Pulse Rate [ Left Radial] Pulse Rate [ Right Radial] Respiratory 18 Rate Respiratory Rate [Anterior Bilateral Throughout] Blood Pressure 168/94 168/94 Blood Pressure [Right] O2 Sat by Pulse 95 Oximetry O2 Sat by Pulse Oximetry [ Assessment] General appearance: Present: mild distress, well-nourished - EENT Eyes: PERRL, EOM intact ENT: hearing intact, clear oral mucosa Ears: bilateral: normal - Neck Neck: supple, normal ROM - Respiratory Respiratory effort: normal Respiratory: bilateral: CTA - Breasts Breasts: normal - Cardiovascular Rhythm: regular Heart Sounds: Present: S1 & S2. Absent: gallop, rub Extremities: no ischemia, pulses intact, No edema, normal color, Full ROM - Gastrointestinal General gastrointestinal: Present: soft, non-tender, non-distended, normal bowel sounds - Genitourinary Female genitourinary: normal - Integumentary Integumentary: clear, warm, dry - Musculoskeletal Musculoskeletal: 1, strength equal bilaterally - Neurologic Neurologic: moves all extremities - Psychiatric Psychiatric: memory intact, appropriate mood/affect, intact judgment & insight - Allied health notes Allied health notes reviewed: nursing, case management - Labs CBC & Chem 7: 07/12/19 04:22 07/12/19 04:22 Labs: Abnormal lab results 07/16/19 07/16/19 07/16/19 Range/Units 16:44 17:47 20:09 POC Glucose 390 H 359 H 392 H (70-105) 07/17/19 07/17/19 Range/Units 07:28 11:39 POC Glucose 423 H 419 H (70-105)
[2019-07-17] MEDS: guaiFENesin 100 MG/5 ML ORAL LIQD PO PRN (15:27)
[2019-07-18] MEDS: methylPREDNISolone Sod Succinate 125 MG/2 ML INJ IV SCH ×2 (06:37→15:32)
[2019-07-18] MEDS: HYDROmorphone 1 MG/1 ML INJ IV PRN ×2 (06:37→15:46)
[2019-07-18] MEDS: LEVOTHYROXINE 125 MCG TAB PO SCH (06:37)
[2019-07-18] MEDS ORDERED: REGADENOSON 0.4 MG/5 ML INJ IV ONE (06:56)
[2019-07-18] MEDS: INSULIN LISPRO 100 UNIT/ML SUB-Q SCH ×3 (08:00→16:56)
[2019-07-18] MEDS: ESCITALOPRAM 10 MG TAB PO SCH (09:24)
[2019-07-18] MEDS: FAMOTIDINE 20 MG TAB PO SCH (09:24)
[2019-07-18] MEDS: FUROSEMIDE 40 MG TAB PO SCH (09:24)
[2019-07-18] MEDS: PANTOPRAZOLE 40 MG TAB PO SCH (09:24)
[2019-07-18] MEDS: cefTRIAXone/NS 2 GM/100 ML 2 GM/100 ML BAG IV SCH (09:24)
[2019-07-18] MEDS: GABAPENTIN 300 MG CAP PO SCH (09:24)
[2019-07-18] MEDS: APIXABAN 5 MG TAB PO SCH (09:24)
[2019-07-18] MEDS: allopurinoL 300 MG TAB PO SCH (09:24)
[2019-07-18] MEDS: dilTIAZem CD 240 MG CAP PO SCH (09:25)
[2019-07-18] MEDS: INSULIN GLARGINE 100 UNITS/ML SUB-Q SCH (09:25)
[2019-07-18] MEDS: hydrALAZINE 25 MG TAB PO SCH ×2 (09:26→15:32)
[2019-07-18] MEDS: LISINOPRIL 5 MG TAB PO SCH (09:26)
[2019-07-18] MEDS: FLUTICASONE PROPIONATE NASAL SPRAY 16 GM NS SCH (09:27)
[2019-07-18] MEDS: BUDESONIDE 0.5 MG/2 ML NEBU IH SCH (10:18)
[2019-07-18] MEDS: IPRATROPIUM/ALBUTEROL SULFATE 3 ML AMPUL.NEB IH SCH ×2 (10:18→16:06)
[2019-07-18] MEDS: ARFORMOTEROL 15 MCG/2 ML NEBU IH SCH (10:25)
--- NOTE | 2019-07-18 13:27 | Discharge Summary ---
Providers - Providers Date of Admission: 07/12/19 15:51 Date of discharge: 07/18/19 Attending physician: FRANCISCO JONAS [facility] Hospital[facility] Condition: Stable Hospital course: 64-year-old female the past medical history of tracheostomy dependence, CHF, COPD, diabetes, hypertension, chronic type I aortic dissection, and chronic atrial fibrillation currently on Eliquis presents to the hospital complains of shortness of breath x2 days. Patient having a cough productive of green sputum and increased wheezing episodes. Patient also complains of increasing generalized leg edema with associated leg pain due to swelling. Patient is chronic respiratory failure and is oxygen dependent. Upon EMS arrival patient had labored breathing and using accessory muscles. She received Solu-Medrol 125 mg and albuterol 5 mg prior to arrival. Patient states she has been compliant with her medications including Lasix. She reports anterior left-sided chest pain that is worse with palpation. Chest pain was musculoskeletal. Chest pain was evaluated. Was nonischemic. Noncardiac. (1) Acute respiratory failure with hypoxia Current Visit: Yes Status: Acute Plan to address problem: Patient initiated on IV Levaquin IV Solumedrol and Duonebs RTC and prn Vent if necessary Patient has Trach Patient improved with Solu-Medrol antibiotics and duo nebs. (2) COPD with exacerbation Current Visit: Yes Status: Acute Plan to address problem: Patient initiated on IV Levaquin IV Solumedrol and Duonebs RTC and prn Vent if necessary Patient has Trach Patient improved. (3) Tracheostomy dependence Current Visit: Yes Status: Chronic Plan to address problem: trach care (4) IDDM (insulin dependent diabetes mellitus) Current Visit: Yes Status: Chronic Plan to address problem: Cont insulin and coverage (5) Morbid obesity Current Visit: No Status: Chronic Plan to address problem: Patient to be counselleled about need for bariatric surgery Doubt whether she will get medical/cardiology clearance To see Dr Cunha as outpatient for consultation (6) HTN (hypertension) Current Visit: Yes Status: Chronic Qualifiers: Hypertension type: essential hypertension Qualified Code(s): I10 - Essential (primary) hypertension Plan to address problem: Cnt antihypertensives Hypertension well controlled (7) HLD (hyperlipidemia) Current Visit: Yes Status: Chronic Qualifiers: Hyperlipidemia type: mixed hyperlipidemia Qualified Code(s): E78.2 - Mixed hyperlipidemia Plan to address problem: On statins (8) Hypothyroidism (acquired) Current Visit: Yes Status: Chronic Plan to address problem: COnt synthyroid (9) GERD (gastroesophageal reflux disease) Current Visit: Yes Status: Chronic Qualifiers: Esophagitis presence: without esophagitis Qualified Code(s): K21.9 - Gastro-esophageal reflux disease without esophagitis Plan to address problem: COnt PPI's Disposition: - TO HOME OR SELFCARE Core Measure Documentation - Palliative Care Palliative Care/ Comfort Measures: Not Applicable - Core Measures Any of the following diagnoses?: none Exam - Constitutional Vitals: Temp Pulse Resp BP Pulse Ox 98.6 F 91 H 20 154/105 96 07/18/19 11:50 07/18/19 11:50 07/18/19 11:50 07/18/19 11:50 07/18/19 11:50 General appearance: Present: no acute distress, well-nourished - EENT Eyes: Present: PERRL ENT: hearing intact, clear oral mucosa - Neck Neck: Present: supple, normal ROM - Respiratory Respiratory effort: normal Respiratory: bilateral: CTA - Cardiovascular Heart rate: 78 Rhythm: regular Heart Sounds: Present: S1 & S2. Absent: rub, click - Extremities Extremities: pulses symmetrical, No edema Peripheral Pulses: within normal limits - Abdominal General gastrointestinal: Present: soft, non-tender, non-distended, normal bowel sounds Female genitourinary: Present: normal - Integumentary Integumentary: Present: clear, warm, dry - Musculoskeletal Musculoskeletal: gait normal, strength equal bilaterally - Psychiatric Psychiatric: appropriate mood/affect, intact judgment & insight - Neurologic Neurologic: CNII-XII intact, moves all extremities Plan Activity: no restrictions Diet: low salt, diabetic Follow up with: DANNY SALGADO MD [Staff Physician] - 7 Days BREMEN KARLIE DAVIS MD [Primary Care Provider] - 3-5 Days
[2019-07-18] MEDS: guaiFENesin 100 MG/5 ML ORAL LIQD PO PRN (15:31)
[2019-07-18 15:32] VITALS: BP 154/74
== END 2019-07-18 20:43 | disposition home health service (06) | DRG 189 ==
LOC: ED 14:02 → 4A 16:04 → OBSVTOIN 07-12 15:51
PROVIDERS: ADMIT Internal Medicine; ATTEND Internal Medicine
DX: J96.21 Acute and chronic respiratory failure with hypoxia (principal); J44.1 Chronic obstructive pulmonary disease with (acute) exacerbation; Z68.42 Body mass index [BMI] 45.0-49.9, adult; I48.20 Chronic atrial fibrillation, unspecified; I48.92 Unspecified atrial flutter; K21.9 Gastro-esophageal reflux disease without esophagitis; E66.01 Morbid (severe) obesity due to excess calories; I50.9 Heart failure, unspecified; E78.2 Mixed hyperlipidemia; E03.9 Hypothyroidism, unspecified; E11.9 Type 2 diabetes mellitus without complications; M19.90 Unspecified osteoarthritis, unspecified site; G43.909 Migraine, unspecified, not intractable, without status migrainosus; I11.0 Hypertensive heart disease with heart failure; Z79.01 Long term (current) use of anticoagulants; Z99.81 Dependence on supplemental oxygen; Z71.3 Dietary counseling and surveillance; Z93.0 Tracheostomy status; Z79.4 Long term (current) use of insulin; Z82.49 Family history of ischemic heart disease and other diseases of the circulatory system; Z79.899 Other long term (current) drug therapy; Z88.5 Allergy status to narcotic agent
CPT/HCPCS: 36415; 71045; 80048; 80053; 82962; 83036; 83880; 84484; 85025; 85610; 87116; 93005; 93010; 94640; 94644; 94760; G0378; A9270-GY; J0360; J0456; J0696; J1170; J1815; J2405; J2785; J2920; J2930; J3475; J7050

== ENCOUNTER 2019-08-11 15:38 | Emergency (ER) | payer MEDICARE ==
--- NOTE | 2019-08-11 16:21 | Emergency Department Report ---
ED Shortness of Breath HPI - General Chief Complaint: Dyspnea/Respdistress Stated Complaint: DIFFICULTY BREATHING Time Seen by Provider: 08/11/19 16:09 Source: patient, EMS Mode of arrival: Stretcher Limitations: Physical Limitation - History of Present Illness Initial Comments: Mrs. Land is a 64-year-old female with history of COPD, heart failure, chronic respiratory failure requiring tracheostomy trach collar for the past 3 years, severe obesity, diabetes mellitus, atrial fibrillation, chronic type I aortic dissection who presents with generalized body aches shortness of breath cough since last night. No new leg swelling. No known sick contacts. According to electronic record Mrs. Land has been admitted monthly since January 2019 for difficulty breathing. MD Complaint: shortness of breath, cough -: Gradual, days(s) (1) Severity: moderate Consistency: constant Improves With: nothing Worsens With: nothing Known History Of: COPD, congestive heart failure, diabetes Associated Symptoms: denies other symptoms - Related Data Previous Rx's Medication Instructions Recorded Last Taken Type Acetaminophen [Acetaminophen TAB] 1 tab PO Q6H PRN #15 tablet 04/26/19 Unknown Rx Lisinopril [Zestril TAB] 2.5 mg PO QDAY #30 tab 04/26/19 07/12/19 19:37 Rx Escitalopram [Lexapro] 20 mg PO DAILY tablet 07/02/19 Unknown Rx Fluticasone [Flonase] 50 mcg IN BID 30 Days bottle 07/02/19 07/12/19 19:37 Rx Magnesium Hydroxide [Milk of 30 ml PO QDAY PRN 30 Days 07/02/19 Unknown Rx Magnesia] oral.liqd guaiFENesin [Robitussin] 200 mg PO Q4H PRN #1 bottle 07/02/19 07/12/19 19:36 Rx Apixaban [Eliquis] 5 mg PO Q12HR #60 tablet 07/18/19 Unknown Rx Apixaban [Eliquis] 5 mg PO Q12HRT #60 tablet 07/18/19 Unknown Rx Arformoterol Nebu [Brovana Nebu] 15 mcg IH Q12HRT #20 ml 07/18/19 Unknown Rx Budesonide [Pulmicort Respules] 0.5 mg IH Q12HRT #60 nebu 07/18/19 Unknown Rx Cefuroxime Axetil [Ceftin] 500 mg PO Q12H #14 ml 07/18/19 Unknown Rx Escitalopram 20 mg PO DAILY #30 1000units 07/18/19 Unknown Rx Famotidine [Pepcid] 20 mg PO DAILY #30 tablet 07/18/19 Unknown Rx Fluticasone [Flonase] 200 mcg NS QDAY #1 bottle 07/18/19 Unknown Rx Furosemide [Lasix TAB] 40 mg PO QDAY #30 tablet 07/18/19 Unknown Rx Gabapentin 300 mg PO BID #60 capsule 07/18/19 Unknown Rx Insulin Glargine [Lantus VIAL] 12 unit SUB-Q QAM #300 pen 07/18/19 Unknown Rx Insulin Lispro [Admelog] 5 unit SQ TID #5 pen 07/18/19 Unknown Rx Ipratropium/Albuterol Sulfate 1 ampul IH Q8HRT #100 ampul.neb 07/18/19 Unknown Rx [DUONEB *Not for PRN Use*] Levothyroxine [Synthroid] 125 mcg PO DAILY@0600 #30 tablet 07/18/19 Unknown Rx Pantoprazole [Protonix TAB] 40 mg PO QDAY #30 tablet 07/18/19 Unknown Rx Prednisone [predniSONE 5 mg (6-Day 10 mg PO .TAPER #60 tab.ds.pk 07/18/19 Unknown Rx Pack, 21 Tabs)] allopurinoL [Zyloprim] 300 mg PO QDAY #30 tablet 07/18/19 Unknown Rx dilTIAZem CD [Cardizem CD] 240 mg PO QDAY #30 capsule 07/18/19 Unknown Rx hydrALAZINE [Apresoline TAB] 25 mg PO TID #90 tablet 07/18/19 Unknown Rx lisinopriL [Zestril TAB] 2.5 mg PO QDAY 320 Days #30 tablet 07/18/19 Unknown Rx oxyCODONE /ACETAMINOPHEN [Percocet 2 tab PO Q6H PRN #12 tablet 07/18/19 Unknown Rx 5/325 mg] DOXYCYCLINE Hyclate [Vibramycin 100 mg PO Q12HR 7 Days #14 capsule 08/11/19 Unk nown Rx CAP] Prednisone [predniSONE 10 mg 10 mg PO .TAPER #1 tab.ds.pk 08/11/19 Unknown Rx (6-Day Pack, 21 Tabs)] Allergies Allergy/AdvReac Type Severity Reaction Status Date / Time levofloxacin [From Levaquin] Allergy Rash Verified 01/27/19 21:36 morphine Allergy Rash Verified 01/27/19 21:36 ED Review of Systems ROS: Stated complaint: DIFFICULTY BREATHING Other details as noted in HPI Comment: All other systems reviewed and negative Constitutional: denies: fever, malaise Respiratory: cough, shortness of breath, wheezing Cardiovascular: denies: chest pain Gastrointestinal: denies: abdominal pain ED Past Medical Hx - Past Medical History Previous Medical History?: Yes Hx Hypertension: Yes Hx Heart Attack/AMI: No Hx Congestive Heart Failure: Yes Hx Diabetes: Yes Hx Deep Vein Thrombosis: No Hx Pulmonary Embolism: No Hx Liver Disease: No Hx Renal Disease: Yes Hx Arthritis: Yes Hx Headaches / Migraines: Yes Hx Kidney Stones: No Hx Asthma: No Hx COPD: Yes Hx Tuberculosis: No Additional medical history: Acute and chronic resp failure, A-flutter, thracheomalacia, hypoxia, pulmonary edema, volume overload, trach, a-fib, chronic type I aortic dissection - Surgical History Past Surgical History?: Yes Hx Coronary Stent: No Hx Open Heart Surgery: Yes Hx Pacemaker: No Hx Internal Defibrillator: No Additional Surgical History: trach from open heart surgery - Social History Smoking Status: Never Smoker Substance Use Type: Cocaine - Medications Home Medications: Home Medications Medication Instructions Recorded Confirmed Last Taken Type Acetaminophen [Acetaminophen TAB] 1 tab PO Q6H PRN #15 tablet 04/26/19 07/12/19 Unknown Rx Lisinopril [Zestril TAB] 2.5 mg PO QDAY #30 tab 04/26/19 07/12/19 07/12/19 19:37 Rx Escitalopram [Lexapro] 20 mg PO DAILY tablet 07/02/19 07/12/19 Unknown Rx Fluticasone [Flonase] 50 mcg IN BID 30 Days bottle 07/02/19 07/12/19 07/12/19 19:37 Rx Magnesium Hydroxide [Milk of 30 ml PO QDAY PRN 30 Days 07/02/19 07/12/19 Unknown Rx Magnesia] oral.liqd guaiFENesin [Robitussin] 200 mg PO Q4H PRN #1 bottle 07/02/19 07/12/19 07/12/19 19:36 Rx Apixaban [Eliquis] 5 mg PO Q12HR #60 tablet 07/18/19 Unknown Rx Apixaban [Eliquis] 5 mg PO Q12HRT #60 tablet 07/18/19 Unknown Rx Arformoterol Nebu [Brovana Nebu] 15 mcg IH Q12HRT #20 ml 07/18/19 Unknown Rx Budesonide [Pulmicort Respules] 0.5 mg IH Q12HRT #60 nebu 07/18/19 Unknown Rx Cefuroxime Axetil [Ceftin] 500 mg PO Q12H #14 ml 07/18/19 Unknown Rx Escitalopram 20 mg PO DAILY #30 1000units 07/18/19 Unknown Rx Famotidine [Pepcid] 20 mg PO DAILY #30 tablet 07/18/19 Unknown Rx Fluticasone [Flonase] 200 mcg NS QDAY #1 bottle 07/18/19 Unknown Rx Furosemide [Lasix TAB] 40 mg PO QDAY #30 tablet 07/18/19 Unknown Rx Gabapentin 300 mg PO BID #60 capsule 07/18/19 Unknown Rx Insulin Glargine [Lantus VIAL] 12 unit SUB-Q QAM #300 pen 07/18/19 Unknown Rx Insulin Lispro [Admelog] 5 unit SQ TID #5 pen 07/18/19 Unknown Rx Ipratropium/Albuterol Sulfate 1 ampul IH Q8HRT #100 ampul.neb 07/18/19 Unknown Rx [DUONEB *Not for PRN Use*] Levothyroxine [Synthroid] 125 mcg PO DAILY@0600 #30 tablet 07/18/19 Unknown Rx Pantoprazole [Protonix TAB] 40 mg PO QDAY #30 tablet 07/18/19 Unknown Rx Prednisone [predniSONE 5 mg (6-Day 10 mg PO .TAPER #60 tab.ds.pk 07/18/19 Unknown Rx Pack, 21 Tabs)] allopurinoL [Zyloprim] 300 mg PO QDAY #30 tablet 07/18/19 Unknown Rx dilTIAZem CD [Cardizem CD] 240 mg PO QDAY #30 capsule 07/18/19 Unknown Rx hydrALAZINE [Apresoline TAB] 25 mg PO TID #90 tablet 07/18/19 Unknown Rx lisinopriL [Zestril TAB] 2.5 mg PO QDAY 320 Days #30 tablet 07/18/19 Unknown Rx oxyCODONE /ACETAMINOPHEN [Percocet 2 tab PO Q6H PRN #12 tablet 07/18/19 Unknown Rx 5/325 mg] DOXYCYCLINE Hyclate [Vibramycin 100 mg PO Q12HR 7 Days #14 capsule 08/11/19 Unknown Rx CAP] Prednisone [predniSONE 10 mg 10 mg PO .TAPER #1 tab.ds.pk 08/11/19 Unknown Rx (6-Day Pack, 21 Tabs)] ED Physical Exam - General Limitations: Physical Limitation General appearance: alert, in no apparent distress - Head Head exam: Present: atraumatic, normocephalic - Eye Eye exam: Present: normal appearance, scleral icterus - ENT ENT exam: Present: mucous membranes moist - Neck Neck exam: Present: normal inspection, other (Tracheostomy in place without dr zurita) - Respiratory Respiratory exam: Present: decreased breath sounds, prolonged expiratory. Absent: respiratory distress, wheezes, rales, rhonchi, stridor - Cardiovascular Cardiovascular Exam: Present: regular rate, normal rhythm, normal heart sounds. Absent: rubs, gallop - GI/Abdominal GI/Abdominal exam: Present: soft, normal bowel sounds. Absent: distended, tenderness, guarding, rebound - Extremities Exam Extremities exam: Present: normal inspection, pedal edema - Back Exam Back exam: Present: normal inspection - Neurological Exam Neurological exam: Present: alert, oriented X3 - Psychiatric Psychiatric exam: Present: normal affect, normal mood - Skin Skin exam: Present: warm, dry, intact, normal color. Absent: rash ED Course Vital Signs 08/11/19 08/11/19 16:13 16:58 Temperature 99 F Pulse Rate 83 77 Respiratory 20 20 Rate Blood Pressure 150/74 Blood Pressure 163/89 [Left] O2 Sat by Pulse 96 92 Oximetry ED Medical Decision Making - Lab Data Result diagrams: 08/11/19 16:33 08/11/19 16:33 Laboratory Results - last 24 hr 08/11/19 08/11/19 08/11/19 16:33 16:33 16:33 WBC 4.6 RBC 3.47 L Hgb 9.3 L Hct 29.6 L MCV 85 MCH 27 L MCHC 32 RDW 20.7 H Plt Count 227 Lymph % (Auto) 38.0 H [place] % (Auto) 13.6 H Eos % (Auto) 1.1 Baso % (Auto) 0.9 Lymph # 1.8 [place] # 0.6 Eos # 0.1 Baso # 0.0 Seg Neutrophils % 46.4 Seg Neutrophils # 2.1 Sodium 146 H Potassium 3.0 L Chloride 97.6 L Carbon Dioxide 39 H Anion Gap 12 BUN 13 Creatinine 0.8 Estimated GFR > 60 BUN/Creatinine Ratio 16 Glucose 267 H Calcium 9.0 Total Bilirubin 0.60 AST 16 ALT 19 Alkaline Phosphatase 129 Troponin T 0.011 NT-Pro-B Natriuret Pep 1134 H Total Protein 6.3 Albumin 3.7 L Albumin/Globulin Ratio 1.4 - Radiology Data Radiology results: report reviewed Mild central vascular congestion without overt edema or pleural effusion stable cardiomegaly with sternotomy change - Medical Decision Making Ms. Land is a 64-year-old female who presents with shortness of breath cough. No pneumonia evident. No fever present. X-ray reveals acute on chronic congestive heart failure. Patient is speaking full word sentences with ease after treatment in the emergency department. Considering her current COVID 19 pandemic, it would be harmful for patient to be admitted. Patient does not appear acutely ill. She appears to be at her baseline. I have prescribed doxycycline prednisone for possible COPD exacerbation. She will continue home heart failure medication regimen. Critical care attestation.: If time is entered above; I have spent that time in minutes in the direct care of this critically ill patient, excluding procedure time. ED Disposition Clinical Impression: Chronic systolic (congestive) heart failure, Chronic respiratory failure, Obesity hypoventilation syndrome Disposition: DC-01 TO HOME OR SELFCARE Is pt being admited?: No Does the pt Need Aspirin: No Condition: Stable Prescriptions: Prednisone [predniSONE 10 mg (6-Day Pack, 21 Tabs)] 10 mg PO .TAPER #1 tab.ds.pk DOXYCYCLINE Hyclate [Vibramycin CAP] 100 mg PO Q12HR 7 Days #14 capsule
[2019-08-11] MEDS ORDERED: predniSONE 20 MG TAB PO ONE (16:23)
[2019-08-11] MEDS ORDERED: DOXYCYCLINE 100 MG TAB PO ONE (16:23)
[2019-08-11] MEDS ORDERED: HYDROcodone/ACETAMINOPHEN 5-325 MG TAB PO ONE (16:23)
[2019-08-11] MEDS: IPRATROPIUM/ALBUTEROL SULFATE 3 ML AMPUL.NEB IH ONE ×2 (16:31→18:10)
[2019-08-11 16:55] LABS: Basophils % (Auto) 0.9 % (0.0-1.8); Eosinophils # (Auto) 0.1 K/mm3 (0.0-0.4); Eosinophils % (Auto) 1.1 % (0.0-4.3); Hematocrit 29.6 % (30.3-42.9); Hemoglobin 9.3 gm/dl (10.1-14.3); Lymphocytes # (Auto) 1.8 K/mm3 (1.2-5.4); Mean Corpuscular HGB Conc 32 % (30-34); Mean Corpuscular Volume 85 fl (79-97); Monocytes # (Auto) 0.6 K/mm3 (0.0-0.8); Monocytes % (Auto) 13.6 % (0.0-7.3); Platelet Count 227 K/mm3 (140-440); Red Blood Count 3.47 M/mm3 (3.65-5.03)
[2019-08-11 17:01] LABS: Red Cell Distribution Width 20.7 % (13.2-15.2)
[2019-08-11 17:13] LABS: Alanine Aminotransferase 19 units/L (7-56); Albumin 3.7 g/dL (3.9-5); BUN/Creatinine Ratio 16; Blood Urea Nitrogen 13 mg/dL (7-17); Hemolysis Index 0
--- NOTE | 2019-08-11 17:17 | XRay Report ---
CHEST 1 VIEW INDICATION: Dyspnea history of COPD CHF. COMPARISON: 07/11/2019 FINDINGS: Support devices: Stable satisfactory device positioning. Heart: Stable cardiomegaly with sternotomy change. Lungs/Pleura: Mild central vascular congestion without overt edema or pleural effusion. Additional findings: None. IMPRESSION: 1. Pulmonary findings as above. Signer Name: Ihsan Arita MD Signed: 08/11/2019 5:13 PM Workstation Name: [id number]
[2019-08-11 17:58] VITALS: BP 152/95
== END 2019-08-11 21:30 | disposition home or self-care (01) ==
LOC: ED 15:38
DX: I50.22 Chronic systolic (congestive) heart failure (principal); J96.90 Respiratory failure, unspecified, unspecified whether with hypoxia or hypercapnia; E66.2 Morbid (severe) obesity with alveolar hypoventilation; I11.0 Hypertensive heart disease with heart failure; E11.9 Type 2 diabetes mellitus without complications; M19.90 Unspecified osteoarthritis, unspecified site; F14.10 Cocaine abuse, uncomplicated; Z98.890 Other specified postprocedural states; Z88.5 Allergy status to narcotic agent; Z88.8 Allergy status to other drugs, medicaments and biological substances
CPT/HCPCS: 36415; 71045; 80053; 83880; 84484; 85025; 87040; 94640; 99285; J7512; 94644

== ENCOUNTER 2020-01-01 17:44 | Inpatient (IN) | payer MEDICARE ==
--- NOTE | 2020-01-01 18:53 | Emergency Department Report ---
HPI - General Chief Complaint: Dyspnea/Respdistress Time Seen by Provider: 01/01/20 18:15 - HPI HPI: This is a 64-year-old -[place] female presents to the emergency department via EMS from home with complaint of shortness of breath that has been going on since this morning, as well as a few days of progressively worsening lower extremity swelling. She denies any fever, nausea, vomiting, back pain, diaphoresis, chest pain. She is 3 L oxygen dependent at home. She tried some breathing treatments without any relief. She has a past medical history of CHF, diabetes, migraine headaches, hypertension, atrial flutter on anticoagulation, previous aortic dissection and the patient has a tracheostomy. 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 Her primary care physician is Dr. Cass Redmond. No recent travel or sick contacts at home. No known exposure to anyone with Covid 19. ED Past Medical Hx - Past Medical History Hx Hypertension: Yes Hx Heart Attack/AMI: No Hx Congestive Heart Failure: Yes Hx Diabetes: Yes Hx Deep Vein Thrombosis: No Hx Pulmonary Embolism: No Hx Liver Disease: No Hx Renal Disease: Yes Hx Arthritis: Yes Hx Headaches / Migraines: Yes Hx Kidney Stones: No Hx Asthma: No Hx COPD: Yes Hx Tuberculosis: No Additional medical history: Acute and chronic resp failure, A-flutter, thracheomalacia, hypoxia, pulmonary edema, volume overload, trach, a-fib, chronic type I aortic dissection - Surgical History Hx Coronary Stent: No Hx Open Heart Surgery: Yes Hx Pacemaker: No Hx Internal Defibrillator: No Additional Surgical History: trach from open heart surgery - Social History Smoking Status: Never Smoker - Medications Home Medications: Home Medications Medication Instructions Recorded Confirmed Last Taken Type Acetaminophen [Acetaminophen TAB] 1 tab PO Q6H PRN #15 tablet 04/26/19 07/12/19 Unknown Rx Lisinopril [Zestril TAB] 2.5 mg PO QDAY #30 tab 04/26/19 07/12/19 07/12/19 19:37 Rx Escitalopram [Lexapro] 20 mg PO DAILY tablet 07/02/19 07/12/19 Unknown Rx Fluticasone [Flonase] 50 mcg IN BID 30 Days bottle 07/02/19 07/12/19 07/12/19 19:37 Rx Magnesium Hydroxide [Milk of 30 ml PO QDAY PRN 30 Days 07/02/19 07/12/19 Unknown Rx Magnesia] oral.liqd Apixaban [Eliquis] 5 mg PO Q12HR #60 tablet 07/18/19 Unknown Rx Apixaban [Eliquis] 5 mg PO Q12HRT #60 tablet 07/18/19 Unknown Rx Arformoterol Nebu [Brovana Nebu] 15 mcg IH Q12HRT #20 ml 07/18/19 Unknown Rx Budesonide [Pulmicort Respules] 0.5 mg IH Q12HRT #60 nebu 07/18/19 Unknown Rx Escitalopram 20 mg PO DAILY #30 1000units 07/18/19 Unknown Rx Famotidine [Pepcid] 20 mg PO DAILY #30 tablet 07/18/19 Unknown Rx Fluticasone [Flonase] 200 mcg NS QDAY #1 bottle 07/18/19 Unknown Rx Furosemide [Lasix TAB] 40 mg PO QDAY #30 tablet 07/18/19 Unknown Rx Gabapentin 300 mg PO BID #60 capsule 07/18/19 Unknown Rx Insulin Glargine [Lantus VIAL] 12 unit SUB-Q QAM #300 pen 07/18/19 Unknown Rx Insulin Lispro [Admelog] 5 unit SQ TID #5 pen 07/18/19 Unknown Rx Ipratropium/Albuterol Sulfate 1 ampul IH Q8HRT #100 ampul.neb 07/18/19 Unknown Rx [DUONEB *Not for PRN Use*] Levothyroxine [Synthroid] 125 mcg PO DAILY@0600 #30 tablet 07/18/19 Unknown Rx Pantoprazole [Protonix TAB] 40 mg PO QDAY #30 tablet 07/18/19 Unknown Rx allopurinoL [Zyloprim] 300 mg PO QDAY #30 tablet 07/18/19 Unknown Rx dilTIAZem CD [Cardizem CD] 240 mg PO QDAY #30 capsule 07/18/19 Unknown Rx hydrALAZINE [Apresoline TAB] 25 mg PO TID #90 tablet 07/18/19 Unknown Rx lisinopriL [Zestril TAB] 2.5 mg PO QDAY 320 Days #30 tablet 07/18/19 Unknown Rx oxyCODONE /ACETAMINOPHEN [Percocet 2 tab PO Q6H PRN #12 tablet 07/18/19 Unknown Rx 5/325 mg] Potassium Chloride [K-Dur] 10 meq PO QDAY #30 tablet 08/11/19 Unknown Rx Prednisone [predniSONE 5 mg (6-Day 5 mg PO .TAPER #1 tab.ds.pk 08/20/19 Unknown Rx Pack, 21 Tabs)] guaiFENesin [Robitussin] 200 mg PO Q4H PRN #1 bottle 08/20/19 Unknown Rx ED Review of Systems ROS: Stated complaint: MARÍA Other details as noted in HPI Comment: All other systems reviewed and negative Constitutional: denies: chills, fever Eyes: denies: eye pain, vision change ENT: denies: ear pain, throat pain Respiratory: shortness of breath. denies: cough Cardiovascular: edema. denies: chest pain Gastrointestinal: denies: abdominal pain, vomiting Genitourinary: denies: dysuria, discharge Musculoskeletal: denies: back pain, arthralgia Skin: denies: rash, lesions Neurological: denies: headache, weakness Physical Exam - Physical Exam Vital Signs: Vital Signs 01/01/20 18:00 Temperature 98.1 F Pulse Rate 76 Respiratory 18 Rate Blood Pressure 141/94 [Right] O2 Sat by Pulse 98 Oximetry Physical Exam: GENERAL: The patient is well-developed well-nourished. HENT: Normocephalic. Atraumatic. Patient has moist mucous membranes. EYES: Extraocular motions are intact. NECK: Supple. Trachea is midline. CHEST/LUNGS: Coarse breath sounds. Mild rhonchi heard bilaterally. No tachypnea or accessory muscle use. There is no respiratory distress noted. HEART/CARDIOVASCULAR: Regular. There is no tachycardia. There is no murmur. ABDOMEN: Abdomen is soft, nontender. Patient has normal bowel sounds. SKIN: Skin is warm and dry. There is moderate swelling of the bilateral lower extremities. NEURO: The patient is awake, alert, and oriented. The patient is cooperative. The patient has no focal neurologic deficits. Normal speech. MUSCULOSKELETAL: There is no tenderness or deformity. ED Course Vital Signs 01/01/20 18:00 Temperature 98.1 F Pulse Rate 76 Respiratory 18 Rate Blood Pressure 141/94 [Right] O2 Sat by Pulse 98 Oximetry ED Medical Decision Making - Lab Data Result diagrams: 01/01/20 18:42 01/01/20 18:42 - EKG Data -: EKG Interpreted by Me - EKG Data When compared to previous EKG there are: no significant change Interpretation: unchanged when compared t (08/18/19), other (Atrial flutter at 89 bpm, normal axis, no ST elevation [place]) - Radiology Data Radiology results: report reviewed CHEST 1 VIEW INDICATION: SOB. COMPARISON: 08/17/2019 FINDINGS: Support devices: None. Heart: Enlarged. Lungs/Pleura: There is a small left pleural effusion. Bibasilar opacities are noted, greater on the left. IMPRESSION: 1. Pleuroparenchymal disease left lower hemithorax. There are also airspace opacities in the right lung base. Pneumonia could have this appearance. - Medical Decision Making This patient presents to the emergency department with a few days of pr ogressively worsening lower extremity swelling and 1 day of shortness of breath. She is afebrile. There is no hypoxia. Chest x-ray shows some pulmonary vascular congestion and some patchy areas of airspace disease that could be early pneumonia. No leukocytosis. First troponin is negative. proBNP is about 1400 without any renal insufficiency. This, along with her lower extremity swelling and chest x-ray appearance shows a CHF exacerbation. She was given some Lasix to start diuresis. Radiology read as concern for pneumonia as well so blood cultures were sent and the patient was started on antibiotics. She will be admitted to the hospital for further evaluation and treatment and was a ccepted for admission by the hospitalist, Dr. Carlson. Critical care attestation.: If time is entered above; I have spent that time in minutes in the direct care of this critically ill patient, excluding procedure time. ED Disposition Clinical Impression: SOB (shortness of breath) CHF exacerbation Qualifiers: Heart failure type: unspecified Qualified Code(s): I50.9 - Heart failure, unspecified Chest pain Qualifiers: Chest pain type: unspecified Qualified Code(s): R07.9 - Chest pain, unspecified Disposition: OP ADMIT IP TO THIS HOSP Is pt being admited?: Yes Condition: Stable Time of Disposition: 21:42
[2020-01-01 19:10] LABS: Basophils # (Auto) 0.1 K/mm3 (0.0-0.1); Basophils % (Auto) 1.2 % (0.0-1.8); Eosinophils # (Auto) 0.1 K/mm3 (0.0-0.4); Eosinophils % (Auto) 1.3 % (0.0-4.3); Hematocrit 32.7 % (30.3-42.9); Hemoglobin 10.6 gm/dl (10.1-14.3); Lymphocytes # (Auto) 1.5 K/mm3 (1.2-5.4); Lymphocytes % (Auto) 28.6 % (13.4-35.0); Mean Corpuscular HGB Conc 32 % (30-34); Mean Corpuscular Volume 85 fl (79-97); Monocytes # (Auto) 0.7 K/mm3 (0.0-0.8); Monocytes % (Auto) 12.8 % (0.0-7.3); Platelet Count 193 K/mm3 (140-440); Red Blood Count 3.86 M/mm3 (3.65-5.03)
--- NOTE | 2020-01-01 19:19 | XRay Report ---
CHEST 1 VIEW INDICATION: SOB. COMPARISON: 08/17/2019 FINDINGS: Support devices: None. Heart: Enlarged. Lungs/Pleura: There is a small left pleural effusion. Bibasilar opacities are noted, greater on the l eft. IMPRESSION: 1. Pleuroparenchymal disease left lower hemithorax. There are also airspace opacities in the right gary ng base. Pneumonia could have this appearance. Signer Name: Romie Riggs MD Signed: 01/01/2020 7:15 PM Workstation Name: [id number]
[2020-01-01 19:22] LABS: INR 1.18 (0.87-1.13)
[2020-01-01 19:23] LABS: Partial Thromboplastin Time 30.2 Sec. (24.2-36.6)
[2020-01-01 19:34] LABS: Alanine Aminotransferase 14 units/L (7-56); Albumin 3.9 g/dL (3.9-5); BUN/Creatinine Ratio 12; Blood Urea Nitrogen 11 mg/dL (7-17); Calcium 9.5 mg/dL (8.4-10.2); Hemolysis Index 7
[2020-01-01] MEDS ORDERED: FUROSEMIDE 40 MG/4 ML INJ IV ONE (19:44)
[2020-01-01] MEDS ORDERED: cefTRIAXone/NS 1 GM/50 ML 1 GM/50 ML BAG IV ONE (19:44)
[2020-01-01] MEDS ORDERED: IPRATROPIUM/ALBUTEROL SULFATE 3 ML AMPUL.NEB IH ONE (19:45)
[2020-01-01] MEDS ORDERED: AZITHROMYCIN 500 MG in SODIUM CHLORIDE 0.9% 250ML 250 ML IV ONE (20:00)
[2020-01-01] MEDS ORDERED: HYDROmorphone 1 MG/1 ML INJ IV ONE (20:21)
[2020-01-01] MEDS ORDERED: DEXTROSE 50% IN WATER (25GM) 50 ML SYRINGE IV PRN (21:59)
[2020-01-01] MEDS ORDERED: ONDANSETRON 4 MG/2 ML INJ IV PRN (21:59)
[2020-01-01] MEDS ORDERED: MAGNESIUM HYDROXIDE (MOM) ORAL LIQD UDC PO PRN (21:59)
[2020-01-01] MEDS ORDERED: MORPHINE 2 MG/1 ML INJ IV PRN (21:59)
[2020-01-01] MEDS ORDERED: ACETAMINOPHEN 325 MG TAB PO PRN (21:59)
--- NOTE | 2020-01-01 22:10 | History and Physical Report ---
History of Present Illness Date of examination: 01/01/20 Date of admission: 01/01/2020 Chief complaint: Shortness of Breath Lower Extremity Swelling History of present illness: 64-year-old -Swiss female with significant history of COPD, hypertension, diabetes mellitus, atrial flutter, CHF-(EF 30-35%), history of trach in place presented to the emergency room today via EMS with a complaint of shortness of breath which started earlier this morning. Patient indicates she has had progressive lower extremity swelling over the past few days. She denies any fever or chills, no nausea vomiting, no diarrhea, no abdominal pain, no chest pain, no diaphoresis, no headache or dizziness. Patient is oxygen dependent with 3 L by nasal cannula at home. She indicates she had to do some breathing treatments at home without any significant improvement. Patient denies any sick contacts and no recent travel. She denies any contact with anyone with COVID-19. Work-up in the emergency room today reveals pulmonary vascular congestion with opacities in the right lung base which could represent underlying pneumonia. Past History Past Medical History: arrhythmia (Atrial Flutter), COPD, diabetes, heart failure, hypertension, hyperlipidemia, other (H/O Aportic Dissection,tracheomalacia) Past Surgical History: Other (Trach Placement,Open heart surgery) Social history: no significant social history Family history: no significant family history Medications and Allergies Allergies Allergy/AdvReac Type Severity Reaction Status Date / Time levofloxacin [From Levaquin] Allergy Rash Verified 01/27/19 21:36 morphine Allergy Rash Verified 01/27/19 21:36 Home Medications Medication Instructions Recorded Confirmed Last Taken Type Acetaminophen [Acetaminophen TAB] 1 tab PO Q6H PRN #15 tablet 04/26/19 07/12/19 Unknown Rx Lisinopril [Zestril TAB] 2.5 mg PO QDAY #30 tab 04/26/19 07/12/19 07/12/19 19:37 Rx Escitalopram [Lexapro] 20 mg PO DAILY tablet 07/02/19 07/12/19 Unknown Rx Fluticasone [Flonase] 50 mcg IN BID 30 Days bottle 07/02/19 07/12/19 07/12/19 19:37 Rx Magnesium Hydroxide [Milk of 30 ml PO QDAY PRN 30 Days 07/02/19 07/12/19 Unknown Rx Magnesia] oral.liqd Apixaban [Eliquis] 5 mg PO Q12HR #60 tablet 07/18/19 Unknown Rx Apixaban [Eliquis] 5 mg PO Q12HRT #60 tablet 07/18/19 Unknown Rx Arformoterol Nebu [Brovana Nebu] 15 mcg IH Q12HRT #20 ml 07/18/19 Unknown Rx Budesonide [Pulmicort Respules] 0.5 mg IH Q12HRT #60 nebu 07/18/19 Unknown Rx Escitalopram 20 mg PO DAILY #30 1000units 07/18/19 Unknown Rx Famotidine [Pepcid] 20 mg PO DAILY #30 tablet 07/18/19 Unknown Rx Fluticasone [Flonase] 200 mcg NS QDAY #1 bottle 07/18/19 Unknown Rx Furosemide [Lasix TAB] 40 mg PO QDAY #30 tablet 07/18/19 Unknown Rx Gabapentin 300 mg PO BID #60 capsule 07/18/19 Unknown Rx Insulin Glargine [Lantus VIAL] 12 unit SUB-Q QAM #300 pen 07/18/19 Unknown Rx Insulin Lispro [Admelog] 5 unit SQ TID #5 pen 07/18/19 Unknown Rx Ipratropium/Albuterol Sulfate 1 ampul IH Q8HRT #100 ampul.neb 07/18/19 Unknown Rx [DUONEB *Not for PRN Use*] Levothyroxine [Synthroid] 125 mcg PO DAILY@0600 #30 tablet 07/18/19 Unknown Rx Pantoprazole [Protonix TAB] 40 mg PO QDAY #30 tablet 07/18/19 Unknown Rx allopurinoL [Zyloprim] 300 mg PO QDAY #30 tablet 07/18/19 Unknown Rx dilTIAZem CD [Cardizem CD] 240 mg PO QDAY #30 capsule 07/18/19 Unknown Rx hydrALAZINE [Apresoline TAB] 25 mg PO TID #90 tablet 07/18/19 Unknown Rx lisinopriL [Zestril TAB] 2.5 mg PO QDAY 320 Days #30 tablet 07/18/19 Unknown Rx oxyCODONE /ACETAMINOPHEN [Percocet 2 tab PO Q6H PRN #12 tablet 07/18/19 Unknown Rx 5/325 mg] Potassium Chloride [K-Dur] 10 meq PO QDAY #30 tablet 08/11/19 Unknown Rx Prednisone [predniSONE 5 mg (6-Day 5 mg PO .TAPER #1 tab.ds.pk 08/20/19 Unknown Rx Pack, 21 Tabs)] guaiFENesin [Robitussin] 200 mg PO Q4H PRN #1 bottle 08/20/19 Unknown Rx Active Meds: Active Medications Acetaminophen (Tylenol) 650 mg PO Q4H PRN PRN Reason: Pain MILD(1-3)/Fever >100.5/ARMENDARIZ Dextrose (D50w (25gm) Syringe) 50 ml IV Q30MIN PRN; Protocol PRN Reason: Hypoglycemia Furosemide (Lasix) 40 mg IV BID@0600,1800 [facility] Ceftriaxone Sodium (Rocephin/Ns 2 Gm/100 Ml) 2 gm in 100 mls @ 200 mls/hr IV Q24HR [facility]; Protocol Azithromycin 500 mg/ Sodium (Chloride) 250 mls @ 250 mls/hr IV Q24HR [facility]; Protocol Insulin Human Lispro (Humalog) 0 unit SUB-Q ACHS [facility]; Protocol Magnesium Hydroxide (Milk Of Magnesia) 30 ml PO Q4H PRN PRN Reason: Constipation Morphine Sulfate (Morphine) 2 mg IV Q4H PRN PRN Reason: Pain, Moderate (4-6) Ondansetron HCl (Zofran) 4 mg IV Q8H PRN PRN Reason: Nausea And Vomiting Sodium Chloride (Sodium Chloride Flush Syringe 10 Ml) 10 ml IV BID [facility] Sodium Chloride (Sodium Chloride Flush Syringe 10 Ml) 10 ml IV PRN PRN PRN Reason: LINE FLUSH Review of Systems Constitutional: no fever, no chills Ears, nose, mouth and throat: no nasal congestion, no sore throat Cardiovascular: no chest pain, no palpitations Respiratory: shortness of breath, no cough Gastrointestinal: no abdominal pain, no nausea, no vomiting, no diarrhea Genitourinary Female: no flank pain, no dysuria, no hematuria Musculoskeletal: no neck pain, no low back pain Integumentary: no rash, no pruritis Neurological: no headaches, no confusion Psychiatric: no anxiety, no depression Exam - Constitutional Vitals: Temp Pulse Resp BP Pulse Ox 98.1 F 91 H 24 127/90 98 01/01/20 18:00 01/01/20 21:31 01/01/20 21:31 01/01/20 21:31 01/01/20 21:31 General appearance: Present: no acute distress, well-nourished, obese - EENT Eyes: Present: PERRL, EOM intact. Absent: scleral icterus ENT: hearing intact, clear oral mucosa, dentition normal, other (Trach) - Neck Neck: Present: supple, normal ROM - Respiratory Respiratory effort: normal Respiratory: bilateral: rales - Cardiovascular Rhythm: regular Heart Sounds: Present: S1 & S2. Absent: gallop, systolic murmur, diastolic m urmur, rub - Extremities Extremities: no ischemia, pulses intact, pulses symmetrical, No edema (Trace bilateral lower extremity edema), Full ROM Peripheral Pulses: within normal limits - Abdominal General gastrointestinal: Present: soft, non-tender, non-distended, normal bowel sounds. Absent: mass - Integumentary Integumentary: Absent: clear, warm, dry - Musculoskeletal Musculoskeletal: strength equal bilaterally - Psychiatric Psychiatric: appropriate mood/affect, intact judgment & insight, memory intact, cooperative - Neurologic Neurologic: CNII-XII intact, no focal deficits, moves all extremities HEART Score - HEART Score Troponin: Troponin T < 0.010 ng/mL (0.00-0.029) 01/01/20 18:42 Results - Labs CBC & Chem 7: 01/01/20 18:42 01/01/20 18:42 Labs: Abnormal lab results 01/01/20 01/01/20 01/01/20 Range/Units 18:42 18:42 18:42 MCH 27 L (28-32) pg RDW 21.0 H (13.2-15.2) % [place] % (Auto) 12.8 H (0.0-7.3) % PT 15.3 H (12.2-14.9) Sec. INR 1.18 H (0.87-1.13) Carbon Dioxide 33 H (22-30) mmol/L Glucose 193 H (65-100) mg/dL NT-Pro-B Natriuret Pep 1438 H (0-900) pg/mL Assessment and Plan - Patient Problems (1) CHF exacerbation Current Visit: Yes Status: Acute Plan to address problem: Patient admitted and placed on diuretics. We will monitor inputs and outputs and also monitor daily weights. Patient will be scheduled for echocardiogram. (2) Diabetes mellitus Current Visit: Yes Status: Acute Plan to address problem: We will monitor Accu-Cheks and continue routine home medications once reconciled. (3) SOB (shortness of breath) Current Visit: Yes Status: Acute Plan to address problem: Possibly secondary to the CHF exacerbation versus underlying pneumonia. Patient placed on diuretics and also placed on empiric IV antibiotics for possible pneumonia. We will keep oxygen saturation greater or equal to 92%. (4) Atrial flutter Current Visit: No Status: Acute Qualifiers: Atrial flutter type: unspecified Qualified Code(s): I48.92 - Unspecified atrial flutter Plan to address problem: We will continue patient on her routine home medications. Patient is also on anticoagulation. (5) Obesity Current Visit: No Status: Acute Qualifiers: Obesity type: with alveolar hypoventilation Obesity classification: unspecified obesity classification Serious obesity comorbidity presence: with serious comorbidity Qualified Code(s): E66.2 - Morbid (severe) obesity with alveolar hypoventilation Plan to address problem: We will place dietary consult for evaluation. (6) DVT prophylaxis Current Visit: Yes Status: Acute Plan to address problem: Patient currently on anticoagulation. (7) Full code status Current Visit: No Status: Acute
[2020-01-01] MEDS: INSULIN LISPRO 100 UNIT/ML VIAL 3 mL SUB-Q SCH (22:27)
[2020-01-01] MEDS ORDERED: INSULIN LISPRO 100 UNIT/ML VIAL 3 mL SUB-Q ONE (22:30)
[2020-01-01] MEDS ORDERED: diphenhydrAMINE 50 MG/ML VIAL IV ONE (22:32)
[2020-01-01] MEDS ORDERED: diphenhydrAMINE 50 MG/ML VIAL ONE (22:36)
[2020-01-01] MEDS: HYDROmorphone 1 MG/1 ML INJ IV PRN (23:59)
[2020-01-02] MEDS ORDERED: diphenhydrAMINE 50 MG/ML VIAL IV ONE (03:29)
[2020-01-02 05:51] LABS: Basophils % (Auto) 0.6 % (0.0-1.8); Eosinophils # (Auto) 0.1 K/mm3 (0.0-0.4); Eosinophils % (Auto) 1.6 % (0.0-4.3); Hematocrit 32.9 % (30.3-42.9); Hemoglobin 10.4 gm/dl (10.1-14.3); Lymphocytes # (Auto) 1.4 K/mm3 (1.2-5.4); Lymphocytes % (Auto) 28.2 % (13.4-35.0); Mean Corpuscular HGB Conc 32 % (30-34); Mean Corpuscular Volume 85 fl (79-97); Monocytes # (Auto) 0.7 K/mm3 (0.0-0.8); Monocytes % (Auto) 13.8 % (0.0-7.3); Platelet Count 190 K/mm3 (140-440); Red Blood Count 3.87 M/mm3 (3.65-5.03)
[2020-01-02 05:56] LABS: Red Cell Distribution Width 20.5 % (13.2-15.2)
[2020-01-02] MEDS: FUROSEMIDE 40 MG/4 ML INJ IV SCH ×2 (05:56→17:18)
[2020-01-02] MEDS: HYDROmorphone 1 MG/1 ML INJ IV PRN ×3 (05:57→20:30)
[2020-01-02 06:01] LABS: INR 1.12 (0.87-1.13)
[2020-01-02 06:09] LABS: BUN/Creatinine Ratio 13; Blood Urea Nitrogen 13 mg/dL (7-17); Calcium 9.4 mg/dL (8.4-10.2); Hemolysis Index 4
[2020-01-02] MEDS: INSULIN LISPRO 100 UNIT/ML VIAL 3 mL SUB-Q SCH ×4 (09:42→22:44)
[2020-01-02] MEDS ORDERED: AZITHROMYCIN 500 MG in SODIUM CHLORIDE 0.9% 250ML 250 ML IV SCH (10:00)
--- NOTE | 2020-01-02 10:04 | Progress Note ---
Assessment and Plan Assessment and plan: Acute systolic heart failure. Echocardiogram 04/2019 reveals moderate global hypokinesis of left ventricle with systolic function moderately decreased. EF is 30 to 35%. Right ventricular global systolic function is mildly reduced as well. RVSP is 48 mmHg illustrating moderate pulmonary hypertension. Continue GDMT per cardiology recommendations. Follow-up echocardiogram. Cardiology consulted. Lasix 40 mg IV twice daily Dilated cardiomyopathy. Patient also with four-chamber dilated cardiomyopathy per echo. Right lower lobe pneumonia. Continue IV antibiotics. Obesity hypoventilation syndrome/YOHANNES. Acute on chronic hypoxic respiratory failure. Patient on home O2 of 3 L. Etiology secondary to above Chronic atrial fibrillation. Continue rate control with diltiazem and anticoagulation with Eliquis Acute COPD exacerbation. Continue bronchodilators/nebulizers Chronic pulmonary disease with indwelling tracheostomy. Hx of thoracotomy in 2013 for repair of a thoracic aortic dissection. Continue trach care, secretion control and airway management. Consult pulmonary. Morbidly obese. Diabetes mellitus type 2. Continue Accu-Cheks and sliding scale insulin. Hypertension. Resume antihypertensive medications. Hospitalist Physical - Constitutional Vitals: Temp Pulse Resp BP Pulse Ox 98.4 F 112 H 17 173/97 96 01/02/20 07:19 01/02/20 07:19 01/02/20 07:19 01/02/20 07:19 01/02/20 09:15 General appearance: Present: no acute distress, well-nourished, obese HEART Score - HEART Score Troponin: Troponin T < 0.010 ng/mL (0.00-0.029) 01/01/20 18:42 Results - Labs CBC & Chem 7: 01/02/20 05:11 01/02/20 05:11 Labs: Laboratory Last Values WBC 5.1 K/mm3 (4.5-11.0) 01/02/20 05:11 RBC 3.87 M/mm3 (3.65-5.03) 01/02/20 05:11 Hgb 10.4 gm/dl (10.1-14.3) 01/02/20 05:11 Hct 32.9 % (30.3-42.9) 01/02/20 05:11 MCV 85 fl (79-97) 01/02/20 05:11 MCH 27 pg (28-32) L 01/02/20 05:11 MCHC 32 % (30-34) 01/02/20 05:11 RDW 20.5 % (13.2-15.2) H 01/02/20 05:11 Plt Count 190 K/mm3 (140-440) 01/02/20 05:11 Lymph % (Auto) 28.2 % (13.4-35.0) 01/02/20 05:11 [place] % (Auto) 13.8 % (0.0-7.3) H 01/02/20 05:11 Eos % (Auto) 1.6 % (0.0-4.3) 01/02/20 05:11 Baso % (Auto) 0.6 % (0.0-1.8) 01/02/20 05:11 Lymph # 1.4 K/mm3 (1.2-5.4) 01/02/20 05:11 [place] # 0.7 K/mm3 (0.0-0.8) 01/02/20 05:11 Eos # 0.1 K/mm3 (0.0-0.4) 01/02/20 05:11 Baso # 0.0 K/mm3 (0.0-0.1) 01/02/20 05:11 Seg Neutrophils % 55.8 % (40.0-70.0) 01/02/20 05:11 Seg Neutrophils # 2.9 K/mm3 (1.8-7.7) 01/02/20 05:11 PT 14.6 Sec. (12.2-14.9) 01/02/20 05:11 INR 1.12 (0.87-1.13) 01/02/20 05:11 APTT 30.2 Sec. (24.2-36.6) 01/01/20 18:42 Sodium 145 mmol/L (137-145) 01/02/20 05:11 Potassium 3.7 mmol/L (3.6-5.0) 01/02/20 05:11 Chloride 97.5 mmol/L (98-107) L 01/02/20 05:11 Carbon Dioxide 35 mmol/L (22-30) H 01/02/20 05:11 Anion Gap 16 mmol/L 01/02/20 05:11 BUN 13 mg/dL (7-17) 01/02/20 05:11 Creatinine 1.0 mg/dL (0.6-1.2) 01/02/20 05:11 Estimated GFR > 60 ml/min 01/02/20 05:11 BUN/Creatinine Ratio 13 % 01/02/20 05:11 Glucose 243 mg/dL (65-100) H 01/02/20 05:11 POC Glucose 211 (70-105) H 01/02/20 08:10 Calcium 9.4 mg/dL (8.4-10.2) 01/02/20 05:11 Total Bilirubin 0.50 mg/dL (0.1-1.2) 01/01/20 18:42 AST 17 units/L (5-40) 01/01/20 18:42 ALT 14 units/L (7-56) 01/01/20 18:42 Alkaline Phosphatase 127 units/L (35-129) 01/01/20 18:42 Troponin T < 0.010 ng/mL (0.00-0.029) 01/01/20 18:42 NT-Pro-B Natriuret Pep 1438 pg/mL (0-900) H 01/01/20 18:42 Total Protein 7.8 g/dL (6.3-8.2) 01/01/20 18:42 Albumin 3.9 g/dL (3.9-5) 01/01/20 18:42 Albumin/Globulin Ratio 1.0 % 01/01/20 18:42 Microbiology: Microbiology 01/01/20 19:55 Peripheral/Venous Blood Culture - Preliminary Culture in Progress 01/01/20 19:50 Peripheral/Venous Blood Culture - Preliminary Culture in Progress Membreno/IV: Voiding Method External Female Catheter IV Catheter Type [Left Wrist] INT / Saline Lock Active Medications - Current Medications Current Medications: Generic Name Dose Route Start Last Admin Trade Name Freq PRN Reason Stop Dose Admin Acetaminophen 650 mg 01/01/20 21:59 Tylenol PO Q4H PRN Pain MILD(1-3)/Fever >100.5/ARMENDARIZ Dextrose 0 ml 01/01/20 21:59 D50w (25gm) Syringe IV Q30MIN PRN Hypoglycemia Protocol Furosemide 40 mg 01/02/20 06:00 01/02/20 05:56 Lasix IV 40 mg BID@0600,1800 KAMARI Administration Hydromorphone HCl 1 mg 01/01/20 22:32 01/02/20 09:41 Dilaudid IV 1 mg Q4H PRN Administration Pain , Severe (7-10) Ceftriaxone Sodium 2 gm in 100 mls @ 200 mls/hr 01/02/20 10:00 Rocephin/Ns 2 Gm/100 Ml IV Q24HR [facility] Protocol Azithromycin 500 mg/ Sodium 250 mls @ 250 mls/hr 01/02/20 10:00 01/02/20 09:40 Chloride IV 250 mls/hr Q24HR KAMARI Administration Protocol Insulin Human Lispro 0 unit 01/01/20 22:00 01/02/20 09:42 Humalog SUB-Q 3 unit ACHS [facility] Administration Protocol Magnesium Hydroxide 30 ml 01/01/20 21:59 Milk Of Magnesia PO Q4H PRN Constipation Ondansetron HCl 4 mg 01/01/20 21:59 Zofran IV Q8H PRN Nausea And Vomiting Sodium Chloride 10 ml 01/01/20 22:00 01/02/20 09:42 Sodium Chloride Flush Syringe 10 Ml IV 10 ml BID KAMARI Administration Sodium Chloride 10 ml 01/01/20 21:59 Sodium Chloride Flush Syringe 10 Ml IV PRN PRN LINE FLUSH
--- NOTE | 2020-01-02 12:33 | Consultation ---
History of Present Illness Consult date: 01/02/20 Consult reason: congestive heart failure History of present illness: This is a 64-year old woman whom is morbidly obesity and has sleep apnea, ch ronic lung disease, COPD with indwelling tracheostomy. She has dilated cardiomyopathy, ejection fraction 30-35% by an echocardiogram done 8 months ago. She has chronic atrial fibrillation, on oral anticoagulation with Eliquis. In 2013 she underwent a thoracotomy for repair of a thoracic aortic dissection. At that time, there was no coronary disease. Patient was brought in with shortness of breath and coughs. A cardiac consultation has been requested for CHF. Chest x-ray reports cardiomegaly with right lung infiltrate. An ECG is atrial flutter with a well controlled ventricular rate. Past History Past Medical History: arrhythmia (Atrial Flutter), COPD, diabetes, heart failure, hypertension, hyperlipidemia, other (H/O Aportic Dissection,tracheomalacia) Past Surgical History: Other (Trach Placement,Open heart surgery) Social history: no significant social history Family history: no significant family history Medications and Allergies Allergies Allergy/AdvReac Type Severity Reaction Status Date / Time levofloxacin [From Levaquin] Allergy Rash Verified 01/27/19 21:36 morphine Allergy Rash Verified 01/27/19 21:36 Home Medications Medication Instructions Recorded Confirmed Last Taken Type Acetaminophen [Acetaminophen TAB] 1 tab PO Q6H PRN #15 tablet 04/26/19 01/02/20 Unknown Rx Lisinopril [Zestril TAB] 2.5 mg PO QDAY #30 tab 04/26/19 01/02/20 07/12/19 19:37 Rx Escitalopram [Lexapro] 20 mg PO DAILY tablet 07/02/19 01/02/20 Unknown Rx Fluticasone [Flonase] 50 mcg IN BID 30 Days bottle 07/02/19 01/02/20 07/12/19 19:37 Rx Magnesium Hydroxide [Milk of 30 ml PO QDAY PRN 30 Days 07/02/19 01/02/20 Unknown Rx Magnesia] oral.liqd Apixaban [Eliquis] 5 mg PO Q12HR #60 tablet 07/18/19 01/02/20 Unknown Rx Apixaban [Eliquis] 5 mg PO Q12HRT #60 tablet 07/18/19 01/02/20 Unknown Rx Arformoterol Nebu [Brovana Nebu] 15 mcg IH Q12HRT #20 ml 07/18/19 01/02/20 Unknown Rx Budesonide [Pulmicort Respules] 0.5 mg IH Q12HRT #60 nebu 07/18/19 01/02/20 Unknown Rx Escitalopram 20 mg PO DAILY #30 1000units 07/18/19 01/02/20 Unknown Rx Famotidine [Pepcid] 20 mg PO DAILY #30 tablet 07/18/19 01/02/20 Unknown Rx Fluticasone [Flonase] 200 mcg NS QDAY #1 bottle 07/18/19 01/02/20 Unknown Rx Furosemide [Lasix TAB] 40 mg PO QDAY #30 tablet 07/18/19 01/02/20 Unknown Rx Gabapentin 300 mg PO BID #60 capsule 07/18/19 01/02/20 Unknown Rx Insulin Glargine [Lantus VIAL] 12 unit SUB-Q QAM #300 pen 07/18/19 01/02/20 Unknown Rx Insulin Lispro [Admelog] 5 unit SQ TID #5 pen 07/18/19 01/02/20 Unknown Rx Ipratropium/Albuterol Sulfate 1 ampul IH Q8HRT #100 ampul.neb 07/18/19 01/02/20 Unknown Rx [DUONEB *Not for PRN Use*] Levothyroxine [Synthroid] 125 mcg PO DAILY@0600 #30 tablet 07/18/19 01/02/20 Unknown Rx Pantoprazole [Protonix TAB] 40 mg PO QDAY #30 tablet 07/18/19 01/02/20 Unknown Rx allopurinoL [Zyloprim] 300 mg PO QDAY #30 tablet 07/18/19 01/02/20 Unknown Rx dilTIAZem CD [Cardizem CD] 240 mg PO QDAY #30 capsule 07/18/19 01/02/20 Unknown Rx hydrALAZINE [Apresoline TAB] 25 mg PO TID #90 tablet 07/18/19 01/02/20 Unknown Rx lisinopriL [Zestril TAB] 2.5 mg PO QDAY 320 Days #30 tablet 07/18/19 01/02/20 Unknown Rx oxyCODONE /ACETAMINOPHEN [Percocet 2 tab PO Q6H PRN #12 tablet 07/18/19 01/02/20 Unknown Rx 5/325 mg] Potassium Chloride [K-Dur] 10 meq PO QDAY #30 tablet 08/11/19 01/02/20 Unknown Rx Prednisone [predniSONE 5 mg (6-Day 5 mg PO .TAPER #1 tab.ds.pk 08/20/19 01/02/20 Unknown Rx Pack, 21 Tabs)] guaiFENesin [Robitussin] 200 mg PO Q4H PRN #1 bottle 08/20/19 01/02/20 Unknown Rx Active Meds: Active Medications Acetaminophen (Tylenol) 650 mg PO Q4H PRN PRN Reason: Pain MILD(1-3)/Fever >100.5/ARMENDARIZ Azithromycin (Zithromax) 500 mg PO QDAY [facility] Stop: 01/06/20 10:01 Dextrose (D50w (25gm) Syringe) 0 ml IV Q30MIN PRN; Protocol PRN Reason: Hypoglycemia Furosemide (Lasix) 40 mg IV BID@0600,1800 [facility] Last Admin: 01/02/20 05:56 Dose: 40 mg Documented by: Hydromorphone HCl (Dilaudid) 1 mg IV Q4H PRN PRN Reason: Pain , Severe (7-10) Last Admin: 01/02/20 09:41 Dose: 1 mg Documented by: Ceftriaxone Sodium (Rocephin/Ns 2 Gm/100 Ml) 2 gm in 100 mls @ 200 mls/hr IV Q24HR [facility]; Protocol Stop: 01/06/20 10:29 Insulin Human Lispro (Humalog) 0 unit SUB-Q ACHS [facility]; Protocol Last Admin: 01/02/20 09:42 Dose: 3 unit Documented by: Magnesium Hydroxide (Milk Of Magnesia) 30 ml PO Q4H PRN PRN Reason: Constipation Ondansetron HCl (Zofran) 4 mg IV Q8H PRN PRN Reason: Nausea And Vomiting Sodium Chloride (Sodium Chloride Flush Syringe 10 Ml) 10 ml IV BID [facility] Last Admin: 01/02/20 09:42 Dose: 10 ml Documented by: Sodium Chloride (Sodium Chloride Flush Syringe 10 Ml) 10 ml IV PRN PRN PRN Reason: LINE FLUSH Physical Examination Vital Signs Temp Pulse Resp BP Pulse Ox 98.1 F 76 18 141/94 98 01/01/20 18:00 01/01/20 18:00 01/01/20 18:00 01/01/20 18:00 01/01/20 18:00 General appearance: no acute distress, obese, other (indwelling trach) Cardiac: Positive: irregularly irregular Results 01/02/20 05:11 01/02/20 05:11 Cardiac Enzymes 01/01/20 Range/Units 18:42 AST 17 (5-40) units/L Coagulation 01/01/20 01/02/20 Range/Units 18:42 05:11 PT 15.3 H 14.6 (12.2-14.9) Sec. INR 1.18 H 1.12 (0.87-1.13) APTT 30.2 (24.2-36.6) Sec. CBC 01/01/20 01/02/20 Range/Units 18:42 05:11 WBC 5.3 5.1 (4.5-11.0) K/mm3 RBC 3.86 3.87 (3.65-5.03) M/mm3 Hgb 10.6 10.4 (10.1-14.3) gm/dl Hct 32.7 32.9 (30.3-42.9) % Plt Count 193 190 (140-440) K/mm3 Lymph # 1.5 1.4 (1.2-5.4) K/mm3 [place] # 0.7 0.7 (0.0-0.8) K/mm3 Eos # 0.1 0.1 (0.0-0.4) K/mm3 Baso # 0.1 0.0 (0.0-0.1) K/mm3 Comprehensive Metabolic Panel 01/01/20 01/02/20 Range/Units 18:42 05:11 Sodium 142 145 (137-145) mmol/L Potassium 3.7 3.7 (3.6-5.0) mmol/L Chloride 98.0 97.5 L (98-107) mmol/L Carbon Dioxide 33 H 35 H (22-30) mmol/L BUN 11 13 (7-17) mg/dL Creatinine 0.9 1.0 (0.6-1.2) mg/dL Glucose 193 H 243 H (65-100) mg/dL Calcium 9.5 9.4 (8.4-10.2) mg/dL AST 17 (5-40) units/L ALT 14 (7-56) units/L Alkaline Phosphatase 127 (35-129) units/L Total Protein 7.8 (6.3-8.2) g/dL Albumin 3.9 (3.9-5) g/dL Assessment and Plan Dilated cardiomyopathy an echocardiogram 04/2019 reports a 4 chamber dilated cardiomyopathy with moderate pulmonary hypertension, RVSP 48 mmHg. There was decreased left ventricular systolic function EF 30-35%. Chronic atrial fibrillation rate controlled on oral anticoagulation with Eliquis Pneumonia COPD exacerbation Chronic pulmonary disease with indwelling tracheostomy Hx of thoracotomy in 2013 for repair of a thoracic aortic dissection. no documented coronary artery disease Morbidly obese Recommendations: Sodium/fluid restriction. Continue medical therapy for chronic atrial fibrillation and for left ventricular systolic dysfunction as tolerated. The patient should be tested to COVID-19 pneumonia as primary etiology.
[2020-01-02] MEDS: cefTRIAXone/NS 2 GM/100 ML 2 GM/100 ML BAG IV SCH (12:40)
--- NOTE | 2020-01-02 14:05 | Consultation ---
History of Present Illness Consult date: 01/02/20 Reason for consult: dyspnea, COPD, obstructive sleep apnea History of present illness: 64-year-old -[place] female with significant history of COPD, hypertension, diabetes mellitus, atrial flutter, CHF-(EF 30-35%), history of trach in place presented to the emergency room today via EMS with a complaint of shortness of breath which started earlier this morning. Patient indicates she has had progressive lower extremity swelling over the past few days. She denies any fever or chills, no nausea vomiting, no diarrhea, no abdominal pain, no chest pain, no diaphoresis, no headache or dizziness. Patient is oxygen dependent with 3 L by nasal cannula at home. She indicates she had to do some breathing treatments at home without any significant improvement. Patient denies any sick contacts and no recent travel. She denies any contact with anyone with COVID-19. Work-up in the emergency room today reveals pulmonary vascular congestion with opacities in the right lung base which could represent underlying pneumonia. Past Medical History: arrhythmia (Atrial Flutter), COPD, diabetes, heart failure, hypertension, hyperlipidemia, other (H/O Aportic Dissection,tracheomalacia) Past Surgical History: Other (Trach Placement,Open heart surgery) Patient is morbidly Obese, Presently sleeping on trach collar.Fio2 90% and o2 saturation running 95%. No acute respiratory distress. Patient afebrile and has no leukocytosis. Chest xray done 01/02/20 Pleuroparenchymal disease left lower hemithorax. There are also airspace opacities in the right lung base. Pneumonia could have this appearance. Patient is on ceftrioxana and zithromax. Past History Past Medical History: arrhythmia (Atrial Flutter), COPD, diabetes, heart failure, hypertension, hyperlipidemia, other (H/O Aportic Dissection,tracheomalacia) Past Surgical History: Other (Trach Placement,Open heart surgery) Social history: no significant social history Family history: no significant family history Medications and Allergies Allergies Allergy/AdvReac Type Severity Reaction Status Date / Time levofloxacin [From Levaquin] Allergy Rash Verified 01/27/19 21:36 morphine Allergy Rash Verified 01/27/19 21:36 Home Medications Medication Instructions Recorded Confirmed Last Taken Type Acetaminophen [Acetaminophen TAB] 1 tab PO Q6H PRN #15 tablet 04/26/19 01/02/20 Unknown Rx Lisinopril [Zestril TAB] 2.5 mg PO QDAY #30 tab 04/26/19 01/02/20 07/12/19 19:37 Rx Escitalopram [Lexapro] 20 mg PO DAILY tablet 07/02/19 01/02/20 Unknown Rx Fluticasone [Flonase] 50 mcg IN BID 30 Days bottle 07/02/19 01/02/20 07/12/19 19:37 Rx Magnesium Hydroxide [Milk of 30 ml PO QDAY PRN 30 Days 07/02/19 01/02/20 Unknown Rx Magnesia] oral.liqd Apixaban [Eliquis] 5 mg PO Q12HR #60 tablet 07/18/19 01/02/20 Unknown Rx Apixaban [Eliquis] 5 mg PO Q12HRT #60 tablet 07/18/19 01/02/20 Unknown Rx Arformoterol Nebu [Brovana Nebu] 15 mcg IH Q12HRT #20 ml 07/18/19 01/02/20 Unknown Rx Budesonide [Pulmicort Respules] 0.5 mg IH Q12HRT #60 nebu 07/18/19 01/02/20 Unknown Rx Escitalopram 20 mg PO DAILY #30 1000units 07/18/19 01/02/20 Unknown Rx Famotidine [Pepcid] 20 mg PO DAILY #30 tablet 07/18/19 01/02/20 Unknown Rx Fluticasone [Flonase] 200 mcg NS QDAY #1 bottle 07/18/19 01/02/20 Unknown Rx Furosemide [Lasix TAB] 40 mg PO QDAY #30 tablet 07/18/19 01/02/20 Unknown Rx Gabapentin 300 mg PO BID #60 capsule 07/18/19 01/02/20 Unknown Rx Insulin Glargine [Lantus VIAL] 12 unit SUB-Q QAM #300 pen 07/18/19 01/02/20 Unknown Rx Insulin Lispro [Admelog] 5 unit SQ TID #5 pen 07/18/19 01/02/20 Unknown Rx Ipratropium/Albuterol Sulfate 1 ampul IH Q8HRT #100 ampul.neb 07/18/19 01/02/20 Unknown Rx [DUONEB *Not for PRN Use*] Levothyroxine [Synthroid] 125 mcg PO DAILY@0600 #30 tablet 07/18/19 01/02/20 Unknown Rx Pantoprazole [Protonix TAB] 40 mg PO QDAY #30 tablet 07/18/19 01/02/20 Unknown Rx allopurinoL [Zyloprim] 300 mg PO QDAY #30 tablet 07/18/19 01/02/20 Unknown Rx dilTIAZem CD [Cardizem CD] 240 mg PO QDAY #30 capsule 07/18/19 01/02/20 Unknown Rx hydrALAZINE [Apresoline TAB] 25 mg PO TID #90 tablet 07/18/19 01/02/20 Unknown Rx lisinopriL [Zestril TAB] 2.5 mg PO QDAY 320 Days #30 tablet 07/18/19 01/02/20 Unknown Rx oxyCODONE /ACETAMINOPHEN [Percocet 2 tab PO Q6H PRN #12 tablet 07/18/19 01/02/20 Unknown Rx 5/325 mg] Potassium Chloride [K-Dur] 10 meq PO QDAY #30 tablet 08/11/19 01/02/20 Unknown Rx Prednisone [predniSONE 5 mg (6-Day 5 mg PO .TAPER #1 tab.ds.pk 08/20/19 01/02/20 Unknown Rx Pack, 21 Tabs)] guaiFENesin [Robitussin] 200 mg PO Q4H PRN #1 bottle 08/20/19 01/02/20 Unknown Rx Active Meds: Active Medications Acetaminophen (Tylenol) 650 mg PO Q4H PRN PRN Reason: Pain MILD(1-3)/Fever >100.5/ARMENDARIZ Azithromycin (Zithromax) 500 mg PO QDAY [facility] Stop: 01/06/20 10:01 Dextrose (D50w (25gm) Syringe) 0 ml IV Q30MIN PRN; Protocol PRN Reason: Hypoglycemia Furosemide (Lasix) 40 mg IV BID@0600,1800 [facility] Last Admin: 01/02/20 05:56 Dose: 40 mg Documented by: Hydromorphone HCl (Dilaudid) 1 mg IV Q4H PRN PRN Reason: Pain , Severe (7-10) Last Admin: 01/02/20 09:41 Dose: 1 mg Documented by: Ceftriaxone Sodium (Rocephin/Ns 2 Gm/100 Ml) 2 gm in 100 mls @ 200 mls/hr IV Q24HR [facility]; Protocol Stop: 01/06/20 10:29 Last Admin: 01/02/20 12:40 Dose: 200 mls/hr Documented by: Insulin Human Lispro (Humalog) 0 unit SUB-Q ACHS [facility]; Protocol Last Admin: 01/02/20 12:39 Dose: 2 unit Documented by: Magnesium Hydroxide (Milk Of Magnesia) 30 ml PO Q4H PRN PRN Reason: Constipation Ondansetron HCl (Zofran) 4 mg IV Q8H PRN PRN Reason: Nausea And Vomiting Sodium Chloride (Sodium Chloride Flush Syringe 10 Ml) 10 ml IV BID [facility] Last Admin: 01/02/20 09:42 Dose: 10 ml Documented by: Sodium Chloride (Sodium Chloride Flush Syringe 10 Ml) 10 ml IV PRN PRN PRN Reason: LINE FLUSH Review of Systems ROS unobtainable: due to endotracheal tube Physical Examination Vital signs: Vital Signs Temp Pulse Resp BP Pulse Ox 98.1 F 76 18 141/94 98 01/01/20 18:00 01/01/20 18:00 01/01/20 18:00 01/01/20 18:00 01/01/20 18:00 General appearance: no acute distress, asleep Eyes: non-icteric ENT: oropharynx moist, oropharynx erythematous Neck: supple, no lymphadenopathy Ascultation: Bilateral: diminished breath sounds, rhonchi Cardiovascular: regular rate and rhythm Gastrointestinal: normoactive bowel sounds, soft, non-tender Integumentary: normal Extremities: no cyanosis, edema Musculoskeletal: no deformities Gait: other (Patient resting in bed at this time.) other (Can not assess. Patient sleeping at this time.) other (Can not assess. Patient sleeping.) Results - Laboratory Findings CBC and BMP: 01/02/20 05:11 01/02/20 05:11 PT/INR, D-dimer PT 14.6 Sec. (12.2-14.9) 01/02/20 05:11 INR 1.12 (0.87-1.13) 01/02/20 05:11 Abnormal lab findings: Abnormal Labs 01/01/20 01/01/20 01/01/20 18:42 18:42 18:42 MCH 27 L RDW 21.0 H [place] % (Auto) 12.8 H PT 15.3 H INR 1.18 H Chloride Carbon Dioxide 33 H Glucose 193 H POC Glucose NT-Pro-B Natriuret Pep 1438 H 01/01/20 01/02/20 01/02/20 22:41 05:11 05:11 MCH 27 L RDW 20.5 H [place] % (Auto) 13.8 H PT INR Chloride 97.5 L Carbon Dioxide 35 H Glucose 243 H POC Glucose 158 H NT-Pro-B Natriuret Pep 01/02/20 01/02/20 08:10 11:54 MCH RDW [place] % (Auto) PT INR Chloride Carbon Dioxide Glucose POC Glucose 211 H 166 H NT-Pro-B Natriuret Pep - Diagnostic Findings Chest x-ray: report reviewed, image reviewed Additional studies: CHEST 1 VIEW 01/02/20 INDICATION: SOB. COMPARISON: 08/17/2019 FINDINGS: Support devices: None. Heart: Enlarged. Lungs/Pleura: There is a small left pleural effusion. Bibasilar opacities are n oted, greater on the left. IMPRESSION: 1. Pleuroparenchymal disease left lower hemithorax. There are also airspace opacities in the right lung base. Pneumonia could have this appearance. Assessment and Plan 64-year-old -[place] female with significant history of COPD, hypertension, diabetes mellitus, atrial flutter, CHF-(EF 30-35%), history of trach in place presented to the emergency room today via EMS with a complaint of shortness of breath which started earlier this morning. Patient indicates she has had progressive lower extremity swelling over the past few days. She denies any fever or chills, no nausea vomiting, no diarrhea, no abdominal pa in, no chest pain, no diaphoresis, no headache or dizziness. Patient is oxygen dependent with 3 L by nasal cannula at home. She indicates she had to do some breathing treatments at home without any significant improvement. Patient denies any sick contacts and no recent travel. She denies any contact with anyone with COVID-19. Work-up in the emergency room today reveals pulmonary vascular congestion with opacities in the right lung base which could represent underlying pneumonia. Past Medical History: arrhythmia (Atrial Flutter), COPD, diabetes, heart failure, hypertension, hyperlipidemia, other (H/O Aportic Dissection,tracheomalacia) Past Surgical History: Other (Trach Placement,Open heart surgery) Patient is morbidly Obese, Presently sleeping on trach collar.Fio2 90% and o2 saturation running 95%. No acute respiratory distress. Patient afebrile and has no leukocytosis. Chest xray done 01/02/20 Pleuroparenchymal disease left lower hemithorax. There are also airspace opacities in the right lung base. Pneumonia could have this appearance. Patient is on ceftrioxana and zithromax. - Patient Problems (1) Acute and chronic respiratory failure Current Visit: No Status: Acute Qualifiers: Respiratory failure complication: hypoxia Qualified Code(s): J96.21 - Acute and chronic respiratory failure with hypoxia Plan to address problem: Continue Trach collar., FIO2 90%. ABGs on O2. Albuterol/atrovent aerosol treatments q 6 hours. Respiratory suctioning. Trach care. Recommend DVT prophylaxis. (2) CHF exacerbation Current Visit: Yes Status: Acute Qualifiers: Heart failure type: unspecified Qualified Code(s): I50.9 - Heart failure, u nspecified Plan to address problem: Patient is on lasix and Milrinone. Management as per cardiology. (3) Atrial fibrillation with RVR Current Visit: No Status: Acute Plan to address problem: Management as per cardiology. (4) Obesity Current Visit: No Status: Acute Qualifiers: Obesity type: with alveolar hypoventilation Obesity classification: uns pecified obesity classification Serious obesity comorbidity presence: with serious comorbidity Qualified Code(s): E66.2 - Morbid (severe) obesity with alveolar hypoventilation Plan to address problem: Weight reduction diet. Recommend DVT prophylaxis. (5) Obesity hypoventilation syndrome Current Visit: No Status: Acute Plan to address problem: Patient has tracheostomy. Obtaining ABGs. (6) Pneumonia Current Visit: Yes Status: Acute Plan to address problem: Airspace Opacities in right lung. Patient is on ceftrioxane and Zithromax.
[2020-01-02] MEDS: diphenhydrAMINE 25 MG CAP PO PRN (17:23)
[2020-01-02] MEDS ORDERED: ALBUTEROL 2.5 MG/3 ML NEBU IH ONE (18:15)
[2020-01-02] MEDS: MILRINONE-D5W 20 MG/100 ML 20 MG/100 ML BAG IV SCH (20:32)
[2020-01-02] MEDS ORDERED: cloNIDine 0.1 MG TAB PO PRN (21:04)
[2020-01-03] MEDS: MILRINONE-D5W 20 MG/100 ML 20 MG/100 ML BAG IV SCH (05:14)
[2020-01-03] MEDS: HYDROmorphone 1 MG/1 ML INJ IV PRN ×4 (05:14→23:22)
[2020-01-03] MEDS: FUROSEMIDE 40 MG/4 ML INJ IV SCH ×2 (06:59→18:39)
[2020-01-03] MEDS: INSULIN LISPRO 100 UNIT/ML VIAL 3 mL SUB-Q SCH ×4 (08:59→21:30)
[2020-01-03] MEDS: AZITHROMYCIN 250 MG TAB PO SCH (09:00)
[2020-01-03] MEDS: diphenhydrAMINE 25 MG CAP PO PRN (09:01)
[2020-01-03 09:28] LABS: Basophils % (Auto) 0.5 % (0.0-1.8); Eosinophils # (Auto) 0.1 K/mm3 (0.0-0.4); Eosinophils % (Auto) 1.6 % (0.0-4.3); Hematocrit 32.1 % (30.3-42.9); Hemoglobin 10.2 gm/dl (10.1-14.3); Lymphocytes # (Auto) 1.5 K/mm3 (1.2-5.4); Lymphocytes % (Auto) 28.3 % (13.4-35.0); Mean Corpuscular HGB Conc 32 % (30-34); Mean Corpuscular Volume 85 fl (79-97); Monocytes # (Auto) 0.7 K/mm3 (0.0-0.8); Monocytes % (Auto) 12.8 % (0.0-7.3); Platelet Count 193 K/mm3 (140-440)
[2020-01-03 09:33] LABS: Red Cell Distribution Width 20.7 % (13.2-15.2)
--- NOTE | 2020-01-03 09:50 | Progress Note ---
Assessment and Plan Assessment and plan: --Acute systolic heart failure. Echocardiogram 04/2019 reveals moderate global hypokinesis of left ventricle with systolic function moderately decreased. EF is 30 to 35%. Right ventricular global systolic function is mildly reduced as well. RVSP is 48 mmHg illustrating moderate pulmonary hypertension. Continue GDMT per cardiology recommendations. Follow-up echocardiogram. Cardiology consulte janet Lasix 40 mg IV twice daily --Dilated cardiomyopathy. Patient also with four-chamber dilated cardiomyopathy per echo. --Right lower lobe pneumonia. Continue IV antibiotics. --Obesity hypoventilation syndrome/YOHANNES. --Acute on chronic hypoxic respiratory failure. Patient on home O2 of 3 L. E tiology secondary to above --Chronic atrial fibrillation. Continue rate control with diltiazem and anticoagulation with Eliquis --Acute COPD exacerbation. Continue bronchodilators/nebulizers --Chronic pulmonary disease with indwelling tracheostomy. Hx of thoracotomy in 2013 for repair of a thoracic aortic dissection. Continue trach care, secretion control and airway management. Consult lilliam aguirre. --Morbidly obese. BMI 42.8 Patient needs weight reduction when medically stable --Possible YOHANNES; patient needs outpatient sleep study to rule out obstructive sleep apnea And the need for CPAP BiPAP at night --Type II diabetes mellitus type 2. Continue Accu-Cheks and sliding scale insulin. Long-acting insulin as needed --Hypertension. Resume antihypertensive medications. --DVT prophylaxis Monitor closely and adjust management as needed History Interval history: I have seen and examined the patient at the bedside Patient is receiving milrinone drip Patient feels better denies chest pain or shortness of breath Vital signs reviewed Morbidly obese Hospitalist Physical - Constitutional Vitals: Temp Pulse Resp BP Pulse Ox 100.0 F H 131 H 20 130/65 96 01/03/20 07:38 01/03/20 07:38 01/03/20 07:38 01/03/20 07:38 01/03/20 08:13 General appearance: Present: no acute distress, obese, other (indwelling trach) - EENT Eyes: Present: PERRL, EOM intact - Neck Neck: Present: supple, normal ROM - Respiratory Respiratory effort: normal Respiratory: bilateral: diminished, negative: rales, rhonchi, wheezing - Cardiovascular Rhythm: regular Heart Sounds: Present: S1 & S2 - Extremities Extremities: no ischemia, No edema - Abdominal General gastrointestinal: soft, non-tender, non-distended, normal bowel sounds - Integumentary Integumentary: Present: clear, warm - Psychiatric Psychiatric: appropriate mood/affect, agitated - Neurologic Neurologic: moves all extremities HEART Score - HEART Score Troponin: Troponin T < 0.010 ng/mL (0.00-0.029) 01/01/20 18:42 Results - Labs CBC & Chem 7: 01/03/20 08:43 01/03/20 08:43 Labs: Laboratory Last Values WBC 5.3 K/mm3 (4.5-11.0) 01/03/20 08:43 RBC 3.80 M/mm3 (3.65-5.03) 01/03/20 08:43 Hgb 10.2 gm/dl (10.1-14.3) 01/03/20 08:43 Hct 32.1 % (30.3-42.9) 01/03/20 08:43 MCV 85 fl (79-97) 01/03/20 08:43 MCH 27 pg (28-32) L 01/03/20 08:43 MCHC 32 % (30-34) 01/03/20 08:43 RDW 20.7 % (13.2-15.2) H 01/03/20 08:43 Plt Count 193 K/mm3 (140-440) 01/03/20 08:43 Lymph % (Auto) 28.3 % (13.4-35.0) 01/03/20 08:43 [place] % (Auto) 12.8 % (0.0-7.3) H 01/03/20 08:43 Eos % (Auto) 1.6 % (0.0-4.3) 01/03/20 08:43 Baso % (Auto) 0.5 % (0.0-1.8) 01/03/20 08:43 Lymph # 1.5 K/mm3 (1.2-5.4) 01/03/20 08:43 [place] # 0.7 K/mm3 (0.0-0.8) 01/03/20 08:43 Eos # 0.1 K/mm3 (0.0-0.4) 01/03/20 08:43 Baso # 0.0 K/mm3 (0.0-0.1) 01/03/20 08:43 Seg Neutrophils % 56.8 % (40.0-70.0) 01/03/20 08:43 Seg Neutrophils # 3.0 K/mm3 (1.8-7.7) 01/03/20 08:43 PT 14.6 Sec. (12.2-14.9) 01/02/20 05:11 INR 1.12 (0.87-1.13) 01/02/20 05:11 APTT 30.2 Sec. (24.2-36.6) 01/01/20 18:42 Sodium 145 mmol/L (137-145) 01/02/20 05:11 Potassium 3.7 mmol/L (3.6-5.0) 01/02/20 05:11 Chloride 97.5 mmol/L (98-107) L 01/02/20 05:11 Carbon Dioxide 35 mmol/L (22-30) H 01/02/20 05:11 Anion Gap 16 mmol/L 01/02/20 05:11 BUN 13 mg/dL (7-17) 01/02/20 05:11 Creatinine 1.0 mg/dL (0.6-1.2) 01/02/20 05:11 Estimated GFR > 60 ml/min 01/02/20 05:11 BUN/Creatinine Ratio 13 % 01/02/20 05:11 Glucose 243 mg/dL (65-100) H 01/02/20 05:11 POC Glucose 166 (70-105) H 01/03/20 07:36 Calcium 9.4 mg/dL (8.4-10.2) 01/02/20 05:11 Total Bilirubin 0.50 mg/dL (0.1-1.2) 01/01/20 18:42 AST 17 units/L (5-40) 01/01/20 18:42 ALT 14 units/L (7-56) 01/01/20 18:42 Alkaline Phosphatase 127 units/L (35-129) 01/01/20 18:42 Troponin T < 0.010 ng/mL (0.00-0.029) 01/01/20 18:42 NT-Pro-B Natriuret Pep 1438 pg/mL (0-900) H 01/01/20 18:42 Total Protein 7.8 g/dL (6.3-8.2) 01/01/20 18:42 Albumin 3.9 g/dL (3.9-5) 01/01/20 18:42 Albumin/Globulin Ratio 1.0 % 01/01/20 18:42 Microbiology: Microbiology 01/01/20 19:55 Peripheral/Venous Blood Culture - Preliminary NO GROWTH AFTER 24 HOURS 01/01/20 19:50 Peripheral/Venous Blood Culture - Preliminary NO GROWTH AFTER 24 HOURS Membreno/IV: Voiding Method Bedside Commode IV Catheter Type [Right INT / Saline Lock Forearm] IV Catheter Type [Left Wrist] INT / Saline Lock Active Medications - Current Medications Current Medications: Generic Name Dose Route Start Last Admin Trade Name Freq PRN Reason Stop Dose Admin Acetaminophen 650 mg 01/01/20 21:59 Tylenol PO Q4H PRN Pain MILD(1-3)/Fever >100.5/ARMENDARIZ Azithromycin 500 mg 01/03/20 10:00 01/03/20 09:00 Zithromax PO 01/06/20 10:01 500 mg QDAY KAMARI Administration Clonidine HCl 0.1 mg 01/02/20 21:04 01/02/20 22:44 Catapres PO 0.1 mg Q6HR PRN Administration Hypertension Dextrose 0 ml 01/01/20 21:59 D50w (25gm) Syringe IV Q30MIN PRN Hypoglycemia Protocol Diphenhydramine HCl 25 mg 01/02/20 16:47 01/03/20 09:01 Benadryl PO 25 mg Q6H PRN Administration Itching Furosemide 40 mg 01/02/20 06:00 01/03/20 06:59 Lasix IV 40 mg BID@0600,1800 KAMARI Administration Hydromorphone HCl 1 mg 01/01/20 22:32 01/03/20 05:14 Dilaudid IV 1 mg Q4H PRN Administration Pain , Severe (7-10) Ceftriaxone Sodium 2 gm in 100 mls @ 200 mls/hr 01/02/20 10:00 01/02/20 12:40 Rocephin/Ns 2 Gm/100 Ml IV 01/06/20 10:29 200 mls/hr Q24HR KAMARI Administration Protocol Milrinone Lactate/Dextrose 20 mg in 100 mls @ 9.098 mls/hr 01/02/20 19:00 01/03/20 05:14 Milrinone-D5w 20 Mg/100 Ml IV 01/05/20 18:59 0.25 mcg/kg/min TITR KAMARI 9.098 mls/hr Administration 0.25 MCG/KG/MIN Insulin Human Lispro 0 unit 01/01/20 22:00 01/03/20 08:59 Humalog SUB-Q 2 unit ACHS KAMARI Administration Protocol Magnesium Hydroxide 30 ml 01/01/20 21:59 Milk Of Magnesia PO Q4H PRN Constipation Ondansetron HCl 4 mg 01/01/20 21:59 Zofran IV Q8H PRN Nausea And Vomiting Sodium Chloride 10 ml 01/01/20 22:00 01/03/20 09:01 Sodium Chloride Flush Syringe 10 Ml IV 10 ml BID KAMARI Administration Sodium Chloride 10 ml 01/01/20 21:59 Sodium Chloride Flush Syringe 10 Ml IV PRN PRN LINE FLUSH Nutrition/Malnutrition Assess - Dietary Evaluation Nutrition/Malnutrition Findings: Nutrition Notes Start: 01/02/20 11:41 Freq: Status: Active Protocol: Document 01/02/20 11:41 OPAL (Rec: 01/02/20 11:43 OPAL [email or web address]) Nutrition Notes Need for Assessment generated from: MD Order,Education Initial or Follow up Brief Note Current Diagnosis COPD,Diabetes,Hypertension, Heart Failure Other Pertinent Diagnosis CHF exacerbation Current Diet Cardiac/Consistent CHO Subjective/Other Information RD consulted for diet education. Minimum of two criteria No Nutrition Intervention Follow-Up By: 01/05/20 Additional Comments F/U: diet education needs
[2020-01-03 09:54] LABS: BUN/Creatinine Ratio 17; Blood Urea Nitrogen 17 mg/dL (7-17); Calcium 9.6 mg/dL (8.4-10.2); Hemolysis Index 2
--- NOTE | 2020-01-03 10:08 | Progress Note ---
Assessment and Plan 64-year-old -[place] female with significant history of COPD, hypertension, diabetes mellitus, atrial flutter, CHF-(EF 30-35%), history of trach in place presented to the emergency room today via EMS with a complaint of shortness of breath which started earlier this morning. Patient indicates she has had progressive lower extremity swelling over the past few days. She denies any fever or chills, no nausea vomiting, no diarrhea, no abdominal pain, no chest pain, no diaphoresis, no headache or dizziness. Patient is oxygen dependent with 3 L by nasal cannula at home. She indicates she had to do some breathing treatments at home without any significant improvement. Patient denies any sick contacts and no recent travel. She denies any contact with anyone with COVID-19. Work-up in the emergency room today reveals pulmonary vascular congestion with opacities in the right lung base which could represent underlying pneumonia. Past Medical History: arrhythmia (Atrial Flutter), COPD, diabetes, heart failure, hypertension, hyperlipidemia, other (H/O Aportic Dissection,tracheomalacia) Past Surgical History: Other (Trach Placement,Open heart surgery) Patient is morbidly Obese, Presently sleeping on trach collar.Fio2 90% and o2 saturation running 95%. No acute respiratory distress. Patient afebrile and has no leukocytosis. Chest xray done 01/02/20 Pleuroparenchymal disease left lower hemithorax. There are also airspace opacities in the right lung base. Pneumonia could have this appearance. Patient is on ceftrioxana and zithromax. 01/03/20 Patient alert, awake. Resting on trach collar, FIO2 40%. O2 saturation 96%. Complaining slight shortness of breath. Patient morbidly Obese. Patient afebrile and has no leukocytosis. Chest xray done 01/02/20 Pleuroparenchymal disease left lower hemithorax. There are also airspace opacities in the right lung base. Pneumonia could have this appearance. Patient is on ceftrioxana and zithromax. Recommend to start on albuterol/atrovent aerosol treatments. - Patient Problems (1) Acute and chronic respiratory failure Current Visit: No Status: Acute Qualifiers: Respiratory failure complication: hypoxia Qualified Code(s): J96.21 - Acute and chronic respiratory failure with hypoxia Plan to address problem: Continue Trach collar., FIO2 90%. ABGs on O2. Albuterol/atrovent aerosol treatments q 6 hours. Respiratory suctioning. Trach care. Recommend DVT prophylaxis. (2) CHF exacerbation Current Visit: Yes Status: Acute Qualifiers: Heart failure type: unspecified Qualified Code(s): I50.9 - Heart failure, unspecified Plan to address problem: Patient is on lasix and Milrinone. Management as per cardiology. (3) Atrial fibrillation with RVR Current Visit: No Status: Acute Plan to address problem: Management as per cardiology. (4) Obesity Current Visit: No Status: Acute Qualifiers: Obesity type: with alveolar hypoventilation Obesity classification: unspecified obesity classification Serious obesity comorbidity presence: with serious comorbidity Qualified Code(s): E66.2 - Morbid (severe) obesity with alveolar hypoventilation Plan to address problem: Weight reduction diet. Recommend DVT prophylaxis. (5) Obesity hypoventilation syndrome Current Visit: No Status: Acute Plan to address problem: Patient has tracheostomy. Obtaining ABGs. (6) Pneumonia Current Visit: Yes Status: Acute Plan to address problem: Airspace Opacities in right lung. Patient is on ceftrioxane and Zithromax. Subjective Date of service: 01/03/20 Interval history: Patient alert, awake. Resting on trach collar, FIO2 40%. O2 saturation 96%. Complaining slight shortness of breath. Patient morbidly Obese. Patient afebrile and has no leukocytosis. Chest xray done 01/02/20 Pleuroparenchymal disease left lower hemithorax. There are also airspace opacities in the right lung base. Pneumonia could have this appearance. Patient is on ceftrioxana and zithromax. Recommend to start on albuterol/atrovent aerosol treatments. Objective Vital Signs - 12hr 01/02/20 01/02/20 01/02/20 22:07 22:14 22:24 Temperature Pulse Rate Pulse Rate [ 104 H Apical] Respiratory 22 Rate Blood Pressure Blood Pressure [Right] O2 Sat by Pulse 98 95 Oximetry O2 Sat by Pulse 94 Oximetry [ Assessment] 01/02/20 01/02/20 01/02/20 22:43 22:44 23:55 Temperature 97.8 F Pulse Rate 100 H 118 H Pulse Rate [ Apical] Respiratory 22 Rate Blood Pressure 180/111 180/111 155/82 Blood Pressure [Right] O2 Sat by Pulse 91 Oximetry O2 Sat by Pulse Oximetry [ Assessment] 01/03/20 01/03/20 01/03/20 05:14 05:44 06:40 Temperature 98.6 F Pulse Rate 90 Pulse Rate [ Apical] Respiratory 18 18 20 Rate Blood Pressure Blood Pressure 111/81 [Right] O2 Sat by Pulse 90 Oximetry O2 Sat by Pulse Oximetry [ Assessment] 01/03/20 01/03/20 07:38 08:13 Temperature 100.0 F H Pulse Rate 131 H Pulse Rate [ Apical] Respiratory 20 Rate Blood Pressure 130/65 Blood Pressure [Right] O2 Sat by Pulse 96 Oximetry O2 Sat by Pulse 96 Oximetry [ Assessment] Constitutional: no acute distress, alert Eyes: non-icteric ENT: oropharynx moist, oropharynx erythematous Neck: supple, no lymphadenopathy Effort: mildly labored Ascultation: Bilateral: diminished breath sounds, rhonchi Cardiovascular: regular rate and rhythm Gastrointestinal: normoactive bowel sounds, soft, non-tender Integumentary: normal Extremities: no cyanosis, edema Neurologic: other (Can not assess. Patient sleeping at this time.) Psychiatric: other (Can not assess. Patient sleeping.) CBC and BMP: 01/03/20 08:43 01/03/20 08:43 ABG, PT/INR, D-dimer: PT/INR, D-dimer PT 14.6 Sec. (12.2-14.9) 01/02/20 05:11 INR 1.12 (0.87-1.13) 01/02/20 05:11 Abnormal lab findings: Abnormal Labs 01/01/20 01/01/20 01/01/20 18:42 18:42 18:42 MCH 27 L RDW 21.0 H [place] % (Auto) 12.8 H PT 15.3 H INR 1.18 H Potassium Chloride Carbon Dioxide 33 H Glucose 193 H POC Glucose NT-Pro-B Natriuret Pep 1438 H 01/01/20 01/02/20 01/02/20 22:41 05:11 05:11 MCH 27 L RDW 20.5 H [place] % (Auto) 13.8 H PT INR Potassium Chloride 97.5 L Carbon Dioxide 35 H Glucose 243 H POC Glucose 158 H NT-Pro-B Natriuret Pep 01/02/20 01/02/20 01/02/20 08:10 11:54 16:04 MCH RDW [place] % (Auto) PT INR Potassium Chloride Carbon Dioxide Glucose POC Glucose 211 H 166 H 123 H NT-Pro-B Natriuret Pep 01/02/20 01/03/20 01/03/20 22:07 07:36 08:43 MCH 27 L RDW 20.7 H [place] % (Auto) 12.8 H PT INR Potassium Chloride Carbon Dioxide Glucose POC Glucose 130 H 166 H NT-Pro-B Natriuret Pep 01/03/20 08:43 MCH RDW [place] % (Auto) PT INR Potassium 3.5 L Chloride 94.9 L Carbon Dioxide 34 H Glucose 233 H POC Glucose NT-Pro-B Natriuret Pep
--- NOTE | 2020-01-03 11:52 | Progress Note ---
Assessment and Plan Acute on chronic systolic heart failure exacerbation Dilated cardiomyopathy an echocardiogram 04/2019 reports a 4 chamber dilated cardiomyopathy with moderate pulmonary hypertension, RVSP 48 mmHg. There was decreased left ventricular systolic function EF 30-35%. Chronic atrial fibrillation rate controlled; on diltiazem on oral anticoagulation with Eliquis Pneumonia COPD exacerbation Chronic pulmonary disease with indwelling tracheostomy Hx of thoracotomy in 2013 for repair of a thoracic aortic dissection. no documented coronary artery disease Morbidly obese Recommendations: Sodium/fluid restriction. Continue medical therapy for chronic atrial fibrillation. Continue aggressive medical management for acute on chronic systolic heart failure including a trial of intravenous milrinone. Patient now has fever, consider testing for COVID-19. Subjective Date of service: 01/03/20 Interval history: Noted febrile this morning, temperature 100.0. IV milrinone continues. Rapid atrial fibrillation on telemetry. Objective Vital Signs Temp Pulse Pulse Resp Resp BP BP 01/03/20 08:13 01/03/20 07:38 100.0 F H 131 H 20 130/65 01/03/20 06:40 98.6 F 90 20 111/81 01/03/20 05:44 18 01/03/20 05:14 18 01/02/20 23:55 97.8 F 118 H 22 155/82 01/02/20 22:44 100 H 180/111 01/02/20 22:43 180/111 01/02/20 22:24 104 H 22 01/02/20 22:14 01/02/20 22:07 01/02/20 21:07 18 01/02/20 21:00 18 01/02/20 20:30 18 01/02/20 19:12 98.3 F 104 H 18 170/119 01/02/20 19:05 117 H 01/02/20 18:43 01/02/20 16:00 107 H 01/02/20 15:53 98.6 F 139 H 17 128/85 01/02/20 12:00 22 Pulse Ox Pulse Ox 01/03/20 08:13 96 01/03/20 07:38 96 01/03/20 06:40 90 01/03/20 05:44 01/03/20 05:14 01/02/20 23:55 91 01/02/20 22:44 01/02/20 22:43 01/02/20 22:24 95 01/02/20 22:14 94 01/02/20 22:07 98 01/02/20 21:07 01/02/20 21:00 01/02/20 20:30 01/02/20 19:12 95 01/02/20 19:05 01/02/20 18:43 95 01/02/20 16:00 01/02/20 15:53 90 01/02/20 12:00 - Labs and Meds CBC 01/03/20 Range/Units 08:43 WBC 5.3 (4.5-11.0) K/mm3 RBC 3.80 (3.65-5.03) M/mm3 Hgb 10.2 (10.1-14.3) gm/dl Hct 32.1 (30.3-42.9) % Plt Count 193 (140-440) K/mm3 Lymph # 1.5 (1.2-5.4) K/mm3 Saline # 0.7 (0.0-0.8) K/mm3 Eos # 0.1 (0.0-0.4) K/mm3 Baso # 0.0 (0.0-0.1) K/mm3 Comprehensive Metabolic Panel 01/03/20 Range/Units 08:43 Sodium 142 (137-145) mmol/L Potassium 3.5 L (3.6-5.0) mmol/L Chloride 94.9 L (98-107) mmol/L Carbon Dioxide 34 H (22-30) mmol/L BUN 17 (7-17) mg/dL Creatinine 1.0 (0.6-1.2) mg/dL Glucose 233 H (65-100) mg/dL Calcium 9.6 (8.4-10.2) mg/dL
[2020-01-03] MEDS ORDERED: ALBUTEROL 2.5 MG/3 ML NEBU IH SCH (14:00)
[2020-01-03] MEDS ORDERED: IPRATROPIUM 0.02% NEBU 2.5 ML IH SCH (14:00)
[2020-01-03] MEDS: dilTIAZem 60 MG TAB PO SCH ×2 (14:53→18:41)
[2020-01-03] MEDS: APIXABAN 5 MG TAB PO SCH ×2 (14:54→21:30)
[2020-01-03] MEDS: cefTRIAXone/NS 2 GM/100 ML 2 GM/100 ML BAG IV SCH (14:54)
[2020-01-03] MEDS ORDERED: ALBUTEROL 2.5 MG/3 ML NEBU IH PRN (18:09)
[2020-01-03] MEDS: IPRATROPIUM/ALBUTEROL SULFATE 3 ML AMPUL.NEB IH SCH (20:08)
[2020-01-04] MEDS: dilTIAZem 60 MG TAB PO SCH ×4 (01:32→17:29)
[2020-01-04] MEDS: IPRATROPIUM/ALBUTEROL SULFATE 3 ML AMPUL.NEB IH SCH ×4 (03:22→22:06)
[2020-01-04] MEDS: MILRINONE-D5W 20 MG/100 ML 20 MG/100 ML BAG IV SCH ×2 (03:48→15:56)
[2020-01-04] MEDS: FUROSEMIDE 40 MG/4 ML INJ IV SCH ×2 (05:31→17:29)
[2020-01-04] MEDS: AZITHROMYCIN 250 MG TAB PO SCH (09:13)
[2020-01-04] MEDS: APIXABAN 5 MG TAB PO SCH ×2 (09:16→21:20)
[2020-01-04] MEDS: cefTRIAXone/NS 2 GM/100 ML 2 GM/100 ML BAG IV SCH (09:17)
[2020-01-04] MEDS: INSULIN LISPRO 100 UNIT/ML VIAL 3 mL SUB-Q SCH ×4 (09:54→21:20)
--- NOTE | 2020-01-04 10:29 | Progress Note ---
Assessment and Plan Acute on chronic systolic heart failure exacerbation Dilated cardiomyopathy an echocardiogram 04/2019 reports a 4 chamber dilated cardiomyopathy with moderate pulmonary hypertension, RVSP 48 mmHg. There was decreased left ventricular systolic function EF 30-35%. Chronic atrial fibrillation rate controlled; on diltiazem on oral anticoagulation with Eliquis Pneumonia Hx of COPD Chronic pulmonary disease with indwelling tracheostomy Hx of thoracotomy in 2013 for repair of a thoracic aortic dissection. no documented coronary artery disease Morbidly obese Recommendations: Sodium/fluid restriction. Continue medical therapy for chronic atrial fibrillation. Continue aggressive medical management for acute on chronic systolic heart failure including a trial of intravenous milrinone. Subjective Date of service: 01/04/20 Interval history: No cardiac events overnight. Objective Vital Signs Temp Pulse Pulse Pulse Resp Resp Resp 01/04/20 07:42 97.7 F 70 20 01/04/20 07:36 98.4 F 96 H 22 01/04/20 05:31 102 H 01/04/20 05:06 01/04/20 03:27 98 H 18 01/04/20 03:12 98.7 F 99 H 22 01/04/20 01:32 126 H 01/04/20 00:45 01/04/20 00:00 18 01/03/20 23:52 18 01/03/20 23:22 18 01/03/20 23:03 99.0 F 133 H 20 01/03/20 20:40 60 22 01/03/20 20:14 91 H 22 01/03/20 20:12 01/03/20 19:50 132 H 01/03/20 19:32 99.1 F 60 20 01/03/20 19:24 18 01/03/20 18:41 111 H 01/03/20 18:08 96 H 18 01/03/20 16:27 99.1 F 136 H 20 01/03/20 14:53 121 H 01/03/20 13:30 96 H 18 01/03/20 12:04 99.2 F 68 20 01/03/20 12:00 104 H 22 BP Pulse Ox Pulse Ox 01/04/20 07:42 118/63 96 01/04/20 07:36 85/63 91 01/04/20 05:31 97/51 01/04/20 05:06 97/51 01/04/20 03:27 01/04/20 03:12 92/52 92 08/26/20 01:32 112/65 01/04/20 00:45 97 01/04/20 00:00 01/03/20 23:52 01/03/20 23:22 01/03/20 23:03 112/65 92 01/03/20 20:40 92 01/03/20 20:14 01/03/20 20:12 98 01/03/20 19:50 01/03/20 19:32 119/84 91 01/03/20 19:24 01/03/20 18:41 01/03/20 18:08 01/03/20 16:27 124/62 90 01/03/20 14:53 01/03/20 13:30 01/03/20 12:04 121/82 89 01/03/20 12:00 95 - Physical Examination General: No Apparent Distress HEENT: Positive: PERRL, Other (chronic tracheostomy) Cardiac: Positive: irregularly irregular Neuro: Positive: Grossly Intact
[2020-01-04] MEDS: HYDROmorphone 1 MG/1 ML INJ IV PRN ×3 (10:52→21:19)
--- NOTE | 2020-01-04 13:25 | Progress Note ---
Assessment and Plan Assessment and plan: Patient on milrinone drip --Acute on chronic systolic heart failure; Echo; 04/2019 reveals mod global hypokinesis of left ventricle with systolic function EF is 30 to 35%. Right ventricular global systolic function is mildly reduced RVSP is 48 mmHg illustrating moderate pulmonary hypertension. Continue GDMT per cardiology recommendations. Follow-up echocardiogram. Cardiology consulted. Lasix 40 mg IV twice daily --Dilated cardiomyopathy. Patient also with four-chamber dilated cardiomyopathy per echo. --Right lower lobe pneumonia. Continue IV antibiotics. --Obesity hypoventilation syndrome/YOHANNES. --Acute on chronic hypoxic respiratory failure. Patient on home O2 of 3 L. Etiology secondary to above --Chronic atrial fibrillation. Continue rate control with diltiazem and anticoagulation with Eliquis --Acute COPD exacerbation. Continue bronchodilators/nebulizers --Chronic pulmonary disease with indwelling tracheostomy. Hx of thoracotomy in 2013 for repair of a thoracic aortic dissection. Continue trach care, secretion control and airway management. Consult pulmonary. --Morbidly obese. BMI 42.8, weight reduction when medically stable --Possible YOHANNES; patient needs outpatient sleep study to rule out obstructive sleep apnea And the need for CPAP BiPAP at night --Type II diabetes mellitus type 2. Accu-Cheks and sliding scale insulin. Long-acting insulin as needed --Hypertension. Resume antihypertensive medications. --DVT prophylaxis; on Eliquis Monitor closely and adjust management as needed, possible discharge after milrinone infusion is completed if stable 01/03; patient is on milrinone drip per cardiology, symptoms slightly improved History Interval history: I have seen and examined the patient at the bedside Patient's chart and medications reviewed Patient is on milrinone drip Patient feels slightly better no new complaints Denies chest pain or shortness of breath Vital signs reviewed Hospitalist Physical - Constitutional Vitals: Temp Pulse Resp BP Pulse Ox 97.7 F 94 H 22 118/63 94 01/04/20 07:42 01/04/20 12:25 01/04/20 09:28 01/04/20 12:25 01/04/20 10:00 General appearance: Present: no acute distress, obese, other (indwelling trach) - EENT Eyes: Present: PERRL, EOM intact - Neck Neck: Present: supple, normal ROM - Respiratory Respiratory effort: normal Respiratory: bilateral: diminished, rales, negative: rhonchi, wheezing - Cardiovascular Rhythm: regular Heart Sounds: Present: S1 & S2 - Extremities Extremities: no ischemia, No edema - Abdominal General gastrointestinal: soft, non-tender, non-distended, normal bowel sounds - Integumentary Integumentary: Present: clear, warm - Psychiatric Psychiatric: appropriate mood/affect, intact judgment & insight - Neurologic Neurologic: moves all extremities HEART Score - HEART Score Troponin: Troponin T < 0.010 ng/mL (0.00-0.029) 01/01/20 18:42 Results - Labs CBC & Chem 7: 01/03/20 08:43 01/03/20 08:43 Labs: Laboratory Last Values WBC 5.3 K/mm3 (4.5-11.0) 01/03/20 08:43 RBC 3.80 M/mm3 (3.65-5.03) 01/03/20 08:43 Hgb 10.2 gm/dl (10.1-14.3) 01/03/20 08:43 Hct 32.1 % (30.3-42.9) 01/03/20 08:43 MCV 85 fl (79-97) 01/03/20 08:43 MCH 27 pg (28-32) L 01/03/20 08:43 MCHC 32 % (30-34) 01/03/20 08:43 RDW 20.7 % (13.2-15.2) H 01/03/20 08:43 Plt Count 193 K/mm3 (140-440) 01/03/20 08:43 Lymph % (Auto) 28.3 % (13.4-35.0) 01/03/20 08:43 [place] % (Auto) 12.8 % (0.0-7.3) H 01/03/20 08:43 Eos % (Auto) 1.6 % (0.0-4.3) 01/03/20 08:43 Baso % (Auto) 0.5 % (0.0-1.8) 01/03/20 08:43 Lymph # 1.5 K/mm3 (1.2-5.4) 01/03/20 08:43 [place] # 0.7 K/mm3 (0.0-0.8) 01/03/20 08:43 Eos # 0.1 K/mm3 (0.0-0.4) 01/03/20 08:43 Baso # 0.0 K/mm3 (0.0-0.1) 01/03/20 08:43 Seg Neutrophils % 56.8 % (40.0-70.0) 01/03/20 08:43 Seg Neutrophils # 3.0 K/mm3 (1.8-7.7) 01/03/20 08:43 PT 14.6 Sec. (12.2-14.9) 01/02/20 05:11 INR 1.12 (0.87-1.13) 01/02/20 05:11 APTT 30.2 Sec. (24.2-36.6) 01/01/20 18:42 ABG pH 7.375 (7.320-7.450) 01/03/20 10:16 POC ABG pCO2 67.4 mmHg (32.0-48.0) H 01/03/20 10:16 POC ABG pO2 55.0 mmHg (83-108) L 01/03/20 10:16 ABG Hemoglobin 11.0 (12.0-17.5) L 01/03/20 10:16 ABG Oxyhemoglobin 85.7 (94-98) L 01/03/20 10:16 ABG Methemoglobin 0.3 (0.0-1.5) 01/03/20 10:16 Carboxyhemoglobin 1.2 (0.5-1.5) 01/03/20 10:16 FiO2 35.0 01/03/20 10:16 Sodium 142 mmol/L (137-145) 01/03/20 08:43 Potassium 3.5 mmol/L (3.6-5.0) L 01/03/20 08:43 Chloride 94.9 mmol/L (98-107) L 01/03/20 08:43 Carbon Dioxide 34 mmol/L (22-30) H 01/03/20 08:43 Anion Gap 17 mmol/L 01/03/20 08:43 BUN 17 mg/dL (7-17) 01/03/20 08:43 Creatinine 1.0 mg/dL (0.6-1.2) 01/03/20 08:43 Estimated GFR > 60 ml/min 01/03/20 08:43 BUN/Creatinine Ratio 17 % 01/03/20 08:43 Glucose 233 mg/dL (65-100) H 01/03/20 08:43 POC Glucose 206 (70-105) H 01/04/20 12:09 Calcium 9.6 mg/dL (8.4-10.2) 01/03/20 08:43 Total Bilirubin 0.50 mg/dL (0.1-1.2) 01/01/20 18:42 AST 17 units/L (5-40) 01/01/20 18:42 ALT 14 units/L (7-56) 01/01/20 18:42 Alkaline Phosphatase 127 units/L (35-129) 01/01/20 18:42 Troponin T < 0.010 ng/mL (0.00-0.029) 01/01/20 18:42 NT-Pro-B Natriuret Pep 1438 pg/mL (0-900) H 01/01/20 18:42 Total Protein 7.8 g/dL (6.3-8.2) 01/01/20 18:42 Albumin 3.9 g/dL (3.9-5) 01/01/20 18:42 Albumin/Globulin Ratio 1.0 % 01/01/20 18:42 Microbiology: Microbiology 01/01/20 19:55 Peripheral/Venous Blood Culture - Preliminary NO GROWTH AFTER 48 HOURS 01/01/20 19:50 Peripheral/Venous Blood Culture - Preliminary NO GROWTH AFTER 48 HOURS Membreno/IV: Voiding Method External Female Catheter IV Catheter Type [Right INT / Saline Lock Forearm] IV Catheter Type [Left Wrist] INT / Saline Lock Active Medications - Current Medications Current Medications: Generic Name Dose Route Start Last Admin Trade Name Freq PRN Reason Stop Dose Admin Acetaminophen 650 mg 01/01/20 21:59 Tylenol PO Q4H PRN Pain MILD(1-3)/Fever >100.5/ARMENDARIZ Albuterol 2.5 mg 01/03/20 18:09 Proventil IH Q6HRT PRN Dyspnea Albuterol/Ipratropium 1 ampul 01/03/20 20:00 01/04/20 09:28 Duoneb *Not For Prn Use* IH 1 ampul Q6HRT KAMARI Administration Apixaban 5 mg 01/03/20 12:00 01/04/20 09:16 Eliquis PO 5 mg Q12HR KAMARI Administration Protocol Azithromycin 500 mg 01/03/20 10:00 01/04/20 09:13 Zithromax PO 01/06/20 10:01 500 mg QDAY KAMARI Administration Clonidine HCl 0.1 mg 01/02/20 21:04 01/02/20 22:44 Catapres PO 0.1 mg Q6HR PRN Administration Hypertension Dextrose 0 ml 01/01/20 21:59 D50w (25gm) Syringe IV Q30MIN PRN Hypoglycemia Protocol Diltiazem HCl 60 mg 01/03/20 12:00 01/04/20 12:25 Cardizem PO 60 mg Q6HR KAMARI Administration Diphenhydramine HCl 25 mg 01/02/20 16:47 01/03/20 09:01 Benadryl PO 25 mg Q6H PRN Administration Itching Furosemide 40 mg 01/02/20 06:00 01/04/20 05:31 Lasix IV Not Given BID@0600,1800 KAMARI Hydromorphone HCl 1 mg 01/01/20 22:32 01/04/20 10:52 Dilaudid IV 1 mg Q4H PRN Administration Pain , Severe (7-10) Ceftriaxone Sodium 2 gm in 100 mls @ 200 mls/hr 01/02/20 10:00 01/04/20 09:47 Rocephin/Ns 2 Gm/100 Ml IV 01/06/20 10:29 Infused Q24HR KAMARI Infusion Protocol Milrinone Lactate/Dextrose 20 mg in 100 mls @ 9.098 mls/hr 01/02/20 19:00 01/04/20 03:48 Milrinone-D5w 20 Mg/100 Ml IV 01/05/20 18:59 0.25 mcg/kg/min TITR KAMARI 9.098 mls/hr Administration 0.25 MCG/KG/MIN Insulin Human Lispro 0 unit 01/01/20 22:00 01/04/20 12:21 Humalog SUB-Q 3 unit ACHS KAMARI Administration Protocol Magnesium Hydroxide 30 ml 01/01/20 21:59 Milk Of Magnesia PO Q4H PRN Constipation Ondansetron HCl 4 mg 01/01/20 21:59 Zofran IV Q8H PRN Nausea And Vomiting Sodium Chloride 10 ml 01/01/20 22:00 01/04/20 09:16 Sodium Chloride Flush Syringe 10 Ml IV 10 ml BID KAMARI Administration Sodium Chloride 10 ml 01/01/20 21:59 Sodium Chloride Flush Syringe 10 Ml IV PRN PRN LINE FLUSH Nutrition/Malnutrition Assess - Dietary Evaluation Nutrition/Malnutrition Findings: Nutrition Notes Start: 01/02/20 11:41 Freq: Status: Active Protocol: Document 01/02/20 11:41 OPAL (Rec: 01/02/20 11:43 [id number]) Nutrition Notes Need for Assessment generated from: MD Order,Education Initial or Follow up Brief Note Current Diagnosis COPD,Diabetes,Hypertension, Heart Failure Other Pertinent Diagnosis CHF exacerbation Current Diet Cardiac/Consistent CHO Subjective/Other Information RD consulted for diet education. Minimum of two criteria No Nutrition Intervention Follow-Up By: 01/05/20 Additional Comments F/U: diet education needs
--- NOTE | 2020-01-04 14:13 | Progress Note ---
Assessment and Plan 64-year-old -[place] female with significant history of COPD, hypertension, diabetes mellitus, atrial flutter, CHF-(EF 30-35%), history of trach in place presented to the emergency room today via EMS with a complaint of shortness of breath which started earlier this morning. Patient indicates she has had progressive lower extremity swelling over the past few days. She denies any fever or chills, no nausea vomiting, no diarrhea, no abdominal pain, no chest pain, no diaphoresis, no headache or dizziness. Patient is oxygen dependent with 3 L by nasal cannula at home. She indicates she had to do some breathing treatments at home without any significant improvement. Patient denies any sick contacts and no recent travel. She denies any contact with anyone with COVID-19. Work-up in the emergency room today reveals pulmonary vascular congestion with opacities in the right lung base which could represent underlying pneumonia. Past Medical History: arrhythmia (Atrial Flutter), COPD, diabetes, heart failure, hypertension, hyperlipidemia, other (H/O Aportic Dissection,tracheomalacia) Past Surgical History: Other (Trach Placement,Open heart surgery) Patient is morbidly Obese, Presently sleeping on trach collar.Fio2 90% and o2 saturation running 95%. No acute respiratory distress. Patient afebrile and has no leukocytosis. Chest xray done 01/02/20 Pleuroparenchymal disease left lower hemithorax. There are also airspace opacities in the right lung base. Pneumonia could have this appearance. Patient is on ceftrioxana and zithromax. 01/03/20 Patient alert, awake. Resting on trach collar, FIO2 40%. O2 saturation 96%. Complaining slight shortness of breath. Patient morbidly Obese. Patient afebrile and has no leukocytosis. Chest xray done 01/02/20 Pleuroparenchymal disease left lower hemithorax. There are also airspace opacities in the right lung base. Pneumonia could have this appearance. Patient is on ceftrioxana and zithromax. Recommend to start on albuterol/atrovent aerosol treatments. - Patient Problems (1) Acute and chronic respiratory failure Current Visit: No Status: Acute Qualifiers: Respiratory failure complication: hypoxia Qualified Code(s): J96.21 - Acute and chronic respiratory failure with hypoxia Plan to address problem: Continue Trach collar., FIO2 90%. ABGs on O2. Albuterol/atrovent aerosol treatments q 6 hours. Respiratory suctioning. Trach care. Recommend DVT prophylaxis. (2) CHF exacerbation Current Visit: Yes Status: Acute Qualifiers: Heart failure type: unspecified Qualified Code(s): I50.9 - Heart failure, unspecified Plan to address problem: Patient is on lasix and Milrinone. Management as per cardiology. (3) Atrial fibrillation with RVR Current Visit: No Status: Acute Plan to address problem: Management as per cardiology. (4) Obesity Current Visit: No Status: Acute Qualifiers: Obesity type: with alveolar hypoventilation Obesity classification: unspecified obesity classification Serious obesity comorbidity presence: with serious comorbidity Qualified Code(s): E66.2 - Morbid (severe) obesity with alveolar hypoventilation Plan to address problem: Weight reduction diet. Recommend DVT prophylaxis. (5) Obesity hypoventilation syndrome Current Visit: No Status: Acute Plan to address problem: Patient has tracheostomy. Obtaining ABGs. (6) Pneumonia Current Visit: Yes Status: Acute Plan to address problem: Airspace Opacities in right lung. Patient is on ceftrioxane and Zithromax. Subjective Date of service: 01/04/20 Interval history: Patient alert, awake. Resting on trach collar, FIO2 40%. O2 saturation 96%. Complaining slight shortness of breath. Patient morbidly Obese. Patient afebrile and has no leukocytosis. Chest xray done 01/02/20 Pleuroparenchymal disease left lower hemithorax. There are also airspace opacities in the right lung base. Pneumonia could have this appearance. Patient is on ceftrioxana and zithromax. Recommend to start on albuterol/atrovent aerosol treatments. Objective Vital Signs - 12hr 01/04/20 01/04/20 01/04/20 03:12 03:27 05:06 Temperature 98.7 F Pulse Rate 99 H Pulse Rate [ 98 H Bilateral Throughout] Respiratory 22 Rate Respiratory 18 Rate [Bilateral Throughout] Blood Pressure 92/52 97/51 O2 Sat by Pulse 92 Oximetry O2 Sat by Pulse Oximetry [ Assessment] 01/04/20 01/04/20 01/04/20 05:31 07:36 07:42 Temperature 98.4 F 97.7 F Pulse Rate 102 H 96 H 70 Pulse Rate [ Bilateral Throughout] Respiratory 22 20 Rate Respiratory Rate [Bilateral Throughout] Blood Pressure 97/51 85/63 118/63 O2 Sat by Pulse 91 96 Oximetry O2 Sat by Pulse Oximetry [ Assessment] 01/04/20 01/04/20 01/04/20 09:28 10:00 12:25 Temperature Pulse Rate 94 H Pulse Rate [ 111 H Bilateral Throughout] Respiratory Rate Respiratory 22 Rate [Bilateral Throughout] Blood Pressure 118/63 O2 Sat by Pulse 94 Oximetry O2 Sat by Pulse 96 Oximetry [ Assessment] Constitutional: no acute distress, alert Eyes: non-icteric ENT: oropharynx moist, oropharynx erythematous Neck: supple, no lymphadenopathy Effort: mildly labored Ascultation: Bilateral: diminished breath sounds, rhonchi Cardiovascular: regular rate and rhythm Gastrointestinal: normoactive bowel sounds, soft, non-tender Integumentary: normal Extremities: no cyanosis, edema Neurologic: other (Can not assess. Patient sleeping at this time.) Psychiatric: other (Can not assess. Patient sleeping.) CBC and BMP: 01/03/20 08:43 01/03/20 08:43 ABG, PT/INR, D-dimer: ABG ABG pH 7.375 (7.320-7.450) 01/03/20 10:16 POC ABG pCO2 67.4 mmHg (32.0-48.0) H 01/03/20 10:16 POC ABG pO2 55.0 mmHg (83-108) L 01/03/20 10:16 PT/INR, D-dimer PT 14.6 Sec. (12.2-14.9) 01/02/20 05:11 INR 1.12 (0.87-1.13) 01/02/20 05:11 Abnormal lab findings: Abnormal Labs 01/01/20 01/01/20 01/01/20 18:42 18:42 18:42 MCH 27 L RDW 21.0 H [place] % (Auto) 12.8 H PT 15.3 H INR 1.18 H POC ABG pCO2 POC ABG pO2 ABG Hemoglobin ABG Oxyhemoglobin Potassium Chloride Carbon Dioxide 33 H Glucose 193 H POC Glucose NT-Pro-B Natriuret Pep 1438 H 01/01/20 01/02/20 01/02/20 22:41 05:11 05:11 MCH 27 L RDW 20.5 H [place] % (Auto) 13.8 H PT INR POC ABG pCO2 POC ABG pO2 ABG Hemoglobin ABG Oxyhemoglobin Potassium Chloride 97.5 L Carbon Dioxide 35 H Glucose 243 H POC Glucose 158 H NT-Pro-B Natriuret Pep 01/02/20 01/02/20 01/02/20 08:10 11:54 16:04 MCH RDW [place] % (Auto) PT INR POC ABG pCO2 POC ABG pO2 ABG Hemoglobin ABG Oxyhemoglobin Potassium Chloride Carbon Dioxide Glucose POC Glucose 211 H 166 H 123 H NT-Pro-B Natriuret Pep 01/02/20 01/03/20 01/03/20 22:07 07:36 08:43 MCH 27 L RDW 20.7 H [place] % (Auto) 12.8 H PT INR POC ABG pCO2 POC ABG pO2 ABG Hemoglobin ABG Oxyhemoglobin Potassium Chloride Carbon Dioxide Glucose POC Glucose 130 H 166 H NT-Pro-B Natriuret Pep 01/03/20 01/03/20 01/03/20 08:43 10:16 12:14 MCH RDW [place] % (Auto) PT INR POC ABG pCO2 67.4 H POC ABG pO2 55.0 L ABG Hemoglobin 11.0 L ABG Oxyhemoglobin 85.7 L Potassium 3.5 L Chloride 94.9 L Carbon Dioxide 34 H Glucose 233 H POC Glucose 166 H NT-Pro-B Natriuret Pep 01/03/20 01/03/20 01/04/20 16:50 20:33 07:56 MCH RDW [place] % (Auto) PT INR POC ABG pCO2 POC ABG pO2 ABG Hemoglobin ABG Oxyhemoglobin Potassium Chloride Carbon Dioxide Glucose POC Glucose 186 H 193 H 171 H NT-Pro-B Natriuret Pep 01/04/20 12:09 MCH RDW [place] % (Auto) PT INR POC ABG pCO2 POC ABG pO2 ABG Hemoglobin ABG Oxyhemoglobin Potassium Chloride Carbon Dioxide Glucose POC Glucose 206 H NT-Pro-B Natriuret Pep
[2020-01-04] MEDS: TRIAMCINOLONE 0.1% CREAM 15 GM TP SCH (23:00)
[2020-01-05] MEDS: dilTIAZem 60 MG TAB PO SCH ×5 (00:11→23:00)
[2020-01-05] MEDS: MILRINONE-D5W 20 MG/100 ML 20 MG/100 ML BAG IV SCH (01:56)
[2020-01-05] MEDS: IPRATROPIUM/ALBUTEROL SULFATE 3 ML AMPUL.NEB IH SCH ×4 (02:32→22:26)
[2020-01-05] MEDS: HYDROmorphone 1 MG/1 ML INJ IV PRN ×5 (04:00→22:57)
[2020-01-05] MEDS: FUROSEMIDE 40 MG/4 ML INJ IV SCH ×2 (06:07→18:43)
--- NOTE | 2020-01-05 09:26 | Progress Note ---
Assessment and Plan Acute on chronic systolic heart failure exacerbation Dilated cardiomyopathy an echocardiogram 04/2019 reports a 4 chamber dilated cardiomyopathy with moderate pulmonary hypertension, RVSP 48 mmHg. There was decreased left ventricular systolic function EF 30-35%. Chronic atrial fibrillation rate controlled; on diltiazem on oral anticoagulation with Eliquis Pneumonia Hx of COPD Chronic pulmonary disease with indwelling tracheostomy Hx of thoracotomy in 2013 for repair of a thoracic aortic dissection. no documented coronary artery disease Morbidly obese Recommendations: Sodium/fluid restriction. Continue medical therapy for chronic atrial fibrillation and aggressive management for acute on chronic systolic heart failure. Subjective Date of service: 01/05/20 Interval history: No cardiac events overnight. Pt reports persistent coughs. Objective Vital Signs Temp Pulse Pulse Pulse Resp Resp Resp 01/05/20 07:38 97.7 F 124 H 18 01/05/20 06:06 109 H 01/05/20 04:38 98.7 F 125 H 18 01/05/20 04:00 18 01/05/20 02:35 96 H 18 01/05/20 00:11 110 H 01/05/20 00:00 01/04/20 23:26 99.1 F 101 H 22 01/04/20 22:25 01/04/20 22:11 96 H 22 01/04/20 22:00 85 22 01/04/20 21:49 18 01/04/20 21:30 18 01/04/20 21:19 18 01/04/20 19:58 85 01/04/20 19:38 98.1 F 64 20 01/04/20 17:29 71 01/04/20 16:30 118 H 01/04/20 15:17 98.2 F 71 20 01/04/20 14:52 01/04/20 14:42 97 H 20 01/04/20 12:25 94 H 01/04/20 10:00 01/04/20 09:28 111 H 22 BP Pulse Ox Pulse Ox 01/05/20 07:38 111/84 100 01/05/20 06:06 95/59 01/05/20 04:38 95/59 92 01/05/20 04:00 01/05/20 02:35 01/05/20 00:11 119/68 01/05/20 00:00 96 01/04/20 23:26 119/68 93 01/04/20 22:25 95 01/04/20 22:11 01/04/20 22:00 94 01/04/20 21:49 01/04/20 21:30 01/04/20 21:19 01/04/20 19:58 01/04/20 19:38 128/66 94 01/04/20 17:29 118/82 01/04/20 16:30 01/04/20 15:17 118/82 93 01/04/20 14:52 94 01/04/20 14:42 01/04/20 12:25 118/63 01/04/20 10:00 94 01/04/20 09:28 96 - Physical Examination General: No Apparent Distress HEENT: Positive: PERRL, Other (chronic tracheostomy) Cardiac: Positive: irregularly irregular
[2020-01-05] MEDS: cefTRIAXone/NS 2 GM/100 ML 2 GM/100 ML BAG IV SCH (09:31)
[2020-01-05] MEDS: INSULIN LISPRO 100 UNIT/ML VIAL 3 mL SUB-Q SCH ×4 (09:31→22:59)
[2020-01-05] MEDS: AZITHROMYCIN 250 MG TAB PO SCH (09:32)
[2020-01-05] MEDS: APIXABAN 5 MG TAB PO SCH ×2 (09:32→22:59)
[2020-01-05] MEDS: TRIAMCINOLONE 0.1% CREAM 15 GM TP SCH ×2 (09:32→22:57)
[2020-01-05] MEDS: HYPROMELLOSE 0.5% OPHTH SOLN 15 ML OU PRN (09:32)
--- NOTE | 2020-01-05 12:20 | Progress Note ---
Assessment and Plan Acute on chronic hypoxemic respiratory failure (Tracheostomy dependent) Acute on chronic systolic heart failure (Apr 2019 EF noted to be 30 to 35%) AE-COPD YOHANNES/OHS Chronic atrial fibrillation Chronic cor pulmonale with severe pulmonary hypertension. Morbid obesity. - repeat CXR in am - continue bronchodilators with pulmonary hygiene and routine trach care per RT & per protocol - wean supplemental oxygen to keep O2 sats >90% - continue bronchodilators with routine trach care and pulmonary hygiene per RT - continue chronic COPD medications - gentle diuresis while monitoring renal function & electrolytes - VTE prophylaxis (currently anticoagulated with Apixaban) - Aspiration precautions - Heart failure measures - Complete 5 day empiric CAP antibiotics for AE-COPD - continue pertinent Chronic home medications per attending - Pain management per pain score - Continue with Accuchecks with glycemic control with SSI for target blood glucose of < 180 mg/dL; avoid hypoglycemia - Continue to monitor hemodynamics closely - Continue to monitor electrolyte profile closely and replete as indicated - Chronic home medications, resume as clinically indicated - PT/OT as tolerated - Weight loss and life style modifications on discharge. - Continue mobility protocol, off loading for pressure ulcer prevention - Continue stress ulcer prophylaxis - continue other care per attending / other consultants .... re-evaluate in am & prn Subjective Date of service: 01/05/20 Principal diagnosis: Ac hypoxemic resp failure; Acute on ch HFrEF; COPD; Obes ity; Cor pulmonale Interval history: Patient is seen today for: Ac on ch hypoxic resp failure; Acute on chronic HFrEF; A-fib; COPD; Obesity; Cor pulmonale with severe pulmonary HTN; Morbid obesity. Seen and examined at bedside; 24hour events reviewed; nursing and respiratory care staff consulted; no adverse overnight events reported to me; resting peacefully in bed; remains on T-Collar; overall less SOB but on 60% FiO2 with 100% O2 sat's and room to wean Objective Vital Signs - 12hr 01/05/20 01/05/20 01/05/20 02:35 04:00 04:38 Temperature 98.7 F Pulse Rate 125 H Pulse Rate [ 96 H Bilateral Throughout] Respiratory 18 18 Rate Respiratory 18 Rate [Bilateral Throughout] Blood Pressure 95/59 O2 Sat by Pulse 92 Oximetry 01/05/20 01/05/20 01/05/20 06:06 07:38 11:23 Temperature 97.7 F Pulse Rate 109 H 124 H Pulse Rate [ 92 H Bilateral Throughout] Respiratory 18 Rate Respiratory 20 Rate [Bilateral Throughout] Blood Pressure 95/59 111/84 O2 Sat by Pulse 100 Oximetry 01/05/20 11:27 Temperature Pulse Rate Pulse Rate [ Bilateral Throughout] Respiratory Rate Respiratory Rate [Bilateral Throughout] Blood Pressure O2 Sat by Pulse 98 Oximetry Constitutional: no acute distress, alert, other (elderly looking obese female with mildly increased respiratory effort at rest) Eyes: non-icteric ENT: oropharynx moist, oropharynx erythematous Neck: supple, no lymphadenopathy Effort: mildly labored Ascultation: Bilateral: diminished breath sounds, rhonchi Percussion: Bilateral: not dull Cardiovascular: regular rate and rhythm Gastrointestinal: normoactive bowel sounds, soft, non-tender, non-distended Integumentary: normal Extremities: no cyanosis, pulses normal, edema (trace) Neurologic: normal mental status, non-focal exam (grossly), pupils equal and round, CN II-XII normal Psychiatric: mood appropriate, affect normal CBC and BMP: 01/03/20 08:43 01/03/20 08:43 ABG, PT/INR, D-dimer: ABG ABG pH 7.375 (7.320-7.450) 01/03/20 10:16 POC ABG pCO2 67.4 mmHg (32.0-48.0) H 01/03/20 10:16 POC ABG pO2 55.0 mmHg (83-108) L 01/03/20 10:16 PT/INR, D-dimer PT 14.6 Sec. (12.2-14.9) 01/02/20 05:11 INR 1.12 (0.87-1.13) 01/02/20 05:11 Abnormal lab findings: Abnormal Labs 01/01/20 01/01/20 01/01/20 18:42 18:42 18:42 MCH 27 L RDW 21.0 H [place] % (Auto) 12.8 H PT 15.3 H INR 1.18 H POC ABG pCO2 POC ABG pO2 ABG Hemoglobin ABG Oxyhemoglobin Potassium Chloride Carbon Dioxide 33 H Glucose 193 H POC Glucose NT-Pro-B Natriuret Pep 1438 H 01/01/20 01/02/20 01/02/20 22:41 05:11 05:11 MCH 27 L RDW 20.5 H [place] % (Auto) 13.8 H PT INR POC ABG pCO2 POC ABG pO2 ABG Hemoglobin ABG Oxyhemoglobin Potassium Chloride 97.5 L Carbon Dioxide 35 H Glucose 243 H POC Glucose 158 H NT-Pro-B Natriuret Pep 01/02/20 01/02/20 01/02/20 08:10 11:54 16:04 MCH RDW [place] % (Auto) PT INR POC ABG pCO2 POC ABG pO2 ABG Hemoglobin ABG Oxyhemoglobin Potassium Chloride Carbon Dioxide Glucose POC Glucose 211 H 166 H 123 H NT-Pro-B Natriuret Pep 01/02/20 01/03/20 01/03/20 22:07 07:36 08:43 MCH 27 L RDW 20.7 H [place] % (Auto) 12.8 H PT INR POC ABG pCO2 POC ABG pO2 ABG Hemoglobin ABG Oxyhemoglobin Potassium Chloride Carbon Dioxide Glucose POC Glucose 130 H 166 H NT-Pro-B Natriuret Pep 01/03/20 01/03/20 01/03/20 08:43 10:16 12:14 MCH RDW [place] % (Auto) PT INR POC ABG pCO2 67.4 H POC ABG pO2 55.0 L ABG Hemoglobin 11.0 L ABG Oxyhemoglobin 85.7 L Potassium 3.5 L Chloride 94.9 L Carbon Dioxide 34 H Glucose 233 H POC Glucose 166 H NT-Pro-B Natriuret Pep 01/03/20 01/03/20 01/04/20 16:50 20:33 07:56 MCH RDW [place] % (Auto) PT INR POC ABG pCO2 POC ABG pO2 ABG Hemoglobin ABG Oxyhemoglobin Potassium Chloride Carbon Dioxide Glucose POC Glucose 186 H 193 H 171 H NT-Pro-B Natriuret Pep 01/04/20 01/04/20 01/04/20 12:09 15:46 20:42 MCH RDW [place] % (Auto) PT INR POC ABG pCO2 POC ABG pO2 ABG Hemoglobin ABG Oxyhemoglobin Potassium Chloride Carbon Dioxide Glucose POC Glucose 206 H 222 H 195 H NT-Pro-B Natriuret Pep 01/05/20 07:58 MCH RDW [place] % (Auto) PT INR POC ABG pCO2 POC ABG pO2 ABG Hemoglobin ABG Oxyhemoglobin Potassium Chloride Carbon Dioxide Glucose POC Glucose 194 H NT-Pro-B Natriuret Pep Chest x-ray: image reviewed (left pleural effusion / atelectasis) Allied health notes reviewed: nursing
--- NOTE | 2020-01-05 20:20 | Progress Note ---
Assessment and Plan Assessment and plan: --Acute on chronic respiratory failure with indwelling tracheostomy. Hx of thoracotomy in 2013 for repair of a thoracic aortic dissection. Continue trach care, secretion control and airway management. Nebulizers and supportive care, pulmonary following RVSP is 48 mmHg illustrating moderate pulmonary hypertension. Continue GDMT per cardiology recommendations. Follow-up echocardiogram. Cardiology consulted. Lasix 40 mg IV twice daily --Acute on chronic systolic heart failure; EF is 30 to 35%. Echo; 04/2019 reveals mod global hypokinesis of left ventricle with systolic function --Dilated cardiomyopathy. Patient also with four-chamber dilated cardiomyopathy per echo. --Right lower lobe pneumonia. Continue IV antibiotics. --Obesity hypoventilation syndrome/YOHANNES. --Acute on chronic hypoxic respiratory failure. Patient on home O2 of 3 L. Etiology secondary to above --Chronic atrial fibrillation. Continue rate control with diltiazem and anticoagulation with Eliquis --Acute COPD exacerbation. Continue bronchodilators/nebulizers --Morbidly obese. BMI 42.8, weight reduction when medically stable --Possible YOHANNES; patient needs outpatient sleep study to rule out obstructive sleep apnea And the need for CPAP BiPAP at night --Type II diabetes mellitus type 2. Accu-Cheks and sliding scale insulin. Long-acting insulin as needed --Hypertension. Resume antihypertensive medications. --DVT prophylaxis; on Eliquis Monitor closely and adjust management as needed, possible discharge after milrinone infusion is completed if stable 01/03; patient is on milrinone drip per cardiology, symptoms slightly improved 01/04; patient is last day of milrinone drip which will finish by night DC planning per case management Possible discharge home tomorrow if stable History Interval history: I have seen and examined the patient at the bedside patient's chart and medications reviewed Patient feels slightly better mild secretions via tracheostomy tube Intermittent suction No new complaints vital signs noted Hospitalist Physical - Constitutional Vitals: Temp Pulse Resp BP Pulse Ox 98.2 F 57 L 18 117/84 90 01/05/20 19:20 01/05/20 19:20 01/05/20 19:20 01/05/20 19:20 01/05/20 19:20 General appearance: Present: no acute distress, obese, other (indwelling trach) - EENT Eyes: Present: PERRL, EOM intact - Neck Neck: Present: supple, normal ROM - Respiratory Respiratory effort: labored Respiratory: bilateral: diminished, rhonchi, negative: rales, wheezing - Cardiovascular Rhythm: regular Heart Sounds: Present: S1 & S2 - Extremities Extremities: no ischemia, No edema - Abdominal General gastrointestinal: soft, non-tender, non-distended, normal bowel sounds - Integumentary Integumentary: Present: clear, warm - Psychiatric Psychiatric: appropriate mood/affect, cooperative - Neurologic Neurologic: CNII-XII intact, moves all extremities HEART Score - HEART Score Troponin: Troponin T < 0.010 ng/mL (0.00-0.029) 01/01/20 18:42 Results - Labs CBC & Chem 7: 01/03/20 08:43 01/03/20 08:43 Labs: Laboratory Last Values WBC 5.3 K/mm3 (4.5-11.0) 01/03/20 08:43 RBC 3.80 M/mm3 (3.65-5.03) 01/03/20 08:43 Hgb 10.2 gm/dl (10.1-14.3) 01/03/20 08:43 Hct 32.1 % (30.3-42.9) 01/03/20 08:43 MCV 85 fl (79-97) 01/03/20 08:43 MCH 27 pg (28-32) L 01/03/20 08:43 MCHC 32 % (30-34) 01/03/20 08:43 RDW 20.7 % (13.2-15.2) H 01/03/20 08:43 Plt Count 193 K/mm3 (140-440) 01/03/20 08:43 Lymph % (Auto) 28.3 % (13.4-35.0) 01/03/20 08:43 [place] % (Auto) 12.8 % (0.0-7.3) H 01/03/20 08:43 Eos % (Auto) 1.6 % (0.0-4.3) 01/03/20 08:43 Baso % (Auto) 0.5 % (0.0-1.8) 01/03/20 08:43 Lymph # 1.5 K/mm3 (1.2-5.4) 01/03/20 08:43 [place] # 0.7 K/mm3 (0.0-0.8) 01/03/20 08:43 Eos # 0.1 K/mm3 (0.0-0.4) 01/03/20 08:43 Baso # 0.0 K/mm3 (0.0-0.1) 01/03/20 08:43 Seg Neutrophils % 56.8 % (40.0-70.0) 01/03/20 08:43 Seg Neutrophils # 3.0 K/mm3 (1.8-7.7) 01/03/20 08:43 PT 14.6 Sec. (12.2-14.9) 01/02/20 05:11 INR 1.12 (0.87-1.13) 01/02/20 05:11 APTT 30.2 Sec. (24.2-36.6) 01/01/20 18:42 ABG pH 7.375 (7.320-7.450) 01/03/20 10:16 POC ABG pCO2 67.4 mmHg (32.0-48.0) H 01/03/20 10:16 POC ABG pO2 55.0 mmHg (83-108) L 01/03/20 10:16 ABG Hemoglobin 11.0 (12.0-17.5) L 01/03/20 10:16 ABG Oxyhemoglobin 85.7 (94-98) L 01/03/20 10:16 ABG Methemoglobin 0.3 (0.0-1.5) 01/03/20 10:16 Carboxyhemoglobin 1.2 (0.5-1.5) 01/03/20 10:16 FiO2 35.0 01/03/20 10:16 Sodium 142 mmol/L (137-145) 01/03/20 08:43 Potassium 3.5 mmol/L (3.6-5.0) L 01/03/20 08:43 Chloride 94.9 mmol/L (98-107) L 01/03/20 08:43 Carbon Dioxide 34 mmol/L (22-30) H 01/03/20 08:43 Anion Gap 17 mmol/L 01/03/20 08:43 BUN 17 mg/dL (7-17) 01/03/20 08:43 Creatinine 1.0 mg/dL (0.6-1.2) 01/03/20 08:43 Estimated GFR > 60 ml/min 08/25/20 08:43 BUN/Creatinine Ratio 17 % 01/03/20 08:43 Glucose 233 mg/dL (65-100) H 01/03/20 08:43 POC Glucose 237 (70-105) H 01/05/20 16:08 Calcium 9.6 mg/dL (8.4-10.2) 01/03/20 08:43 Total Bilirubin 0.50 mg/dL (0.1-1.2) 01/01/20 18:42 AST 17 units/L (5-40) 01/01/20 18:42 ALT 14 units/L (7-56) 01/01/20 18:42 Alkaline Phosphatase 127 units/L (35-129) 01/01/20 18:42 Troponin T < 0.010 ng/mL (0.00-0.029) 01/01/20 18:42 NT-Pro-B Natriuret Pep 1438 pg/mL (0-900) H 01/01/20 18:42 Total Protein 7.8 g/dL (6.3-8.2) 01/01/20 18:42 Albumin 3.9 g/dL (3.9-5) 01/01/20 18:42 Albumin/Globulin Ratio 1.0 % 01/01/20 18:42 Microbiology: Microbiology 01/01/20 19:55 Peripheral/Venous Blood Culture - Preliminary NO GROWTH AFTER 72 HOURS 01/01/20 19:50 Peripheral/Venous Blood Culture - Preliminary NO GROWTH AFTER 72 HOURS Membreno/IV: Voiding Method External Female Catheter IV Catheter Type [Right Hand] INT / Saline Lock IV Catheter Type [Left INT / Saline Lock Antecubital] IV Catheter Type [Left Upper INT / Saline Lock arm] IV Catheter Type [Right INT / Saline Lock Forearm] IV Catheter Type [Left Wrist] INT / Saline Lock Active Medications - Current Medications Current Medications: Generic Name Dose Route Start Last Admin Trade Name Freq PRN Reason Stop Dose Admin Acetaminophen 650 mg 01/01/20 21:59 Tylenol PO Q4H PRN Pain MILD(1-3)/Fever >100.5/ARMENDARIZ Albuterol 2.5 mg 01/03/20 18:09 Proventil IH Q6HRT PRN Dyspnea Albuterol/Ipratropium 1 ampul 01/03/20 20:00 01/05/20 14:16 Duoneb *Not For Prn Use* IH 1 ampul Q6HRT KAMARI Administration Apixaban 5 mg 01/03/20 12:00 01/05/20 09:32 Eliquis PO 5 mg Q12HR KAMARI Administration Protocol Artificial Tears 2 drops 01/04/20 17:40 01/05/20 09:32 Isopto Tears 0.5% OU 2 drops Q4H PRN Administration Dry Eye(s) Azithromycin 500 mg 01/03/20 10:00 01/05/20 09:32 Zithromax PO 01/06/20 10:01 500 mg QDAY KAMARI Administration Clonidine HCl 0.1 mg 01/02/20 21:04 01/02/20 22:44 Catapres PO 0.1 mg Q6HR PRN Administration Hypertension Dextrose 0 ml 01/01/20 21:59 D50w (25gm) Syringe IV Q30MIN PRN Hypoglycemia Protocol Diltiazem HCl 60 mg 01/03/20 12:00 01/05/20 18:43 Cardizem PO 60 mg Q6HR KAMARI Administration Diphenhydramine HCl 25 mg 01/02/20 16:47 01/03/20 09:01 Benadryl PO 25 mg Q6H PRN Administration Itching Furosemide 40 mg 01/02/20 06:00 01/05/20 18:43 Lasix IV 40 mg BID@0600,1800 KAMARI Administration Hydromorphone HCl 1 mg 01/01/20 22:32 01/05/20 18:31 Dilaudid IV 1 mg Q4H PRN Administration Pain , Severe (7-10) Ceftriaxone Sodium 2 gm in 100 mls @ 200 mls/hr 01/02/20 10:00 01/05/20 09:31 Rocephin/Ns 2 Gm/100 Ml IV 01/06/20 10:29 200 mls/hr Q24HR KAMARI Administration Protocol Insulin Human Lispro 0 unit 01/01/20 22:00 01/05/20 18:30 Humalog SUB-Q 3 unit ACHS KAMARI Administration Protocol Magnesium Hydroxide 30 ml 01/01/20 21:59 Milk Of Magnesia PO Q4H PRN Constipation Ondansetron HCl 4 mg 01/01/20 21:59 Zofran IV Q8H PRN Nausea And Vomiting Sodium Chloride 10 ml 01/01/20 22:00 01/05/20 09:33 Sodium Chloride Flush Syringe 10 Ml IV 10 ml BID KAMARI Administration Sodium Chloride 10 ml 01/01/20 21:59 Sodium Chloride Flush Syringe 10 Ml IV PRN PRN LINE FLUSH Triamcinolone Acetonide 1 applic 01/04/20 22:00 01/05/20 09:32 Kenalog TP 1 applic BID KAMARI Administration Nutrition/Malnutrition Assess - Dietary Evaluation Nutrition/Malnutrition Findings: Nutrition Notes Start: 01/02/20 11:41 Freq: Status: Active Protocol: Document 01/04/20 14:04 LM (Rec: 01/04/20 14:12 LM [id number]) Nutrition Notes Need for Assessment generated from: MD Order Initial or Follow up Assessment Current Diagnosis COPD,Diabetes,Hypertension, Heart Failure Other Pertinent Diagnosis CHF exacerbation Current Diet Cardiac/Consistent CHO Labs/Tests POC glu 206 Pertinent Medications Humalog Height 5 ft 6 in Weight 122.9 kg [place] Body Weight (kg) 59.09 BMI 43.7 Weight Status Morbidly Obese Subjective/Other Information MD consult for ONS. Pt was not in room at time of visit. Pt has edema and weak oil separator strength. No intakes in chart. Burn Absent Trauma Absent Minimum of two criteria Yes Fluid Accumulation Mild (non-severe) Reduced Department Manager Strength Measurably Reduced (severe) #1 Nutrition Diagnosis Malnutrition Etiology chronic illness As Evidenced by Signs and Symptoms Pt with edema and weak oil separator strength Is patient on ventilator? No Is Patient Ambulatory and/or Out of Bed Yes REE-([facility]-ambulatory/OOB) [ 8497.975 [id number]] Kcal/Kg value to use for calculation 15 Approximate Energy Requirements Using 1844 kcal/Kg Calculation Used for Recommendations Kcal/kg Additional Notes Protein: 91-109g (1-1.2g/kg using AdjBW 91kg) Fluid: 1ml/kcal Nutrition Intervention Change Diet Order: continue Add Supplement/Snack (indicate name/kcal Glucerna daily /protein ) Provides kCal: 220 Provides Protein (gm) 10 Goal #1 Meet at least 75% of energy and protein needs Anticipated Discharge Needs: cardiac/consistent CHO Follow-Up By: 01/06/20 Additional Comments F/U for intakes, full assessment, diet ed needs
[2020-01-05] MEDS: diphenhydrAMINE 25 MG CAP PO PRN (22:59)
[2020-01-06] MEDS: IPRATROPIUM/ALBUTEROL SULFATE 3 ML AMPUL.NEB IH SCH ×4 (02:59→21:55)
[2020-01-06] MEDS: dilTIAZem 60 MG TAB PO SCH ×4 (05:36→23:26)
[2020-01-06] MEDS: FUROSEMIDE 40 MG/4 ML INJ IV SCH ×2 (05:36→17:35)
[2020-01-06] MEDS: HYDROmorphone 1 MG/1 ML INJ IV PRN ×3 (05:47→22:37)
[2020-01-06] MEDS: INSULIN LISPRO 100 UNIT/ML VIAL 3 mL SUB-Q SCH ×4 (08:00→23:24)
[2020-01-06] MEDS: TRIAMCINOLONE 0.1% CREAM 15 GM TP SCH ×2 (09:14→22:36)
[2020-01-06] MEDS: AZITHROMYCIN 250 MG TAB PO SCH (09:42)
[2020-01-06] MEDS: APIXABAN 5 MG TAB PO SCH ×2 (09:42→22:37)
[2020-01-06] MEDS: cefTRIAXone/NS 2 GM/100 ML 2 GM/100 ML BAG IV SCH (09:43)
--- NOTE | 2020-01-06 10:20 | Progress Note ---
Assessment and Plan - Patient Problems (1) Cor pulmonale Current Visit: Yes Status: Acute Plan to address problem: The patient presented with respiratory failure due to obesity, sleep apnea, chronic lung disease, right heart failure, pulmonary hypertension and cor pulmonale. Continue supportive management. (2) Systolic heart failure Current Visit: Yes Status: Acute Plan to address problem: There is an underlying moderate severity left ventricular dysfunction with ejection fraction 35 to 40%. We will continue guideline directed optimal medical therapy. (3) Chronic atrial fibrillation Current Visit: Yes Status: Acute Plan to address problem: Patient has chronic atrial fibrillation on a rate control strategy, and oral anticoagulation with Eliquis. We will continue current management. Subjective Date of service: 01/06/20 Principal diagnosis: Ac hypoxemic resp failure; Acute on ch HFrEF; COPD; Obesity; Cor pulmonale Interval history: Patient looks and feels comfortable, no new cardiac complaints. She has a trach and is currently on a T-piece. Atrial fibrillation rate is better controlled, in the low 100s. Objective Vital Signs Temp Pulse Pulse Resp Resp BP BP 01/06/20 08:48 66 129/68 01/06/20 08:35 01/06/20 08:00 88 18 01/06/20 05:36 92 H 140/103 01/06/20 03:17 98.5 F 92 H 18 140/103 01/06/20 03:01 88 20 01/05/20 23:00 96 H 126/67 01/05/20 22:56 98.7 F 96 H 18 128/67 01/05/20 22:26 89 20 01/05/20 22:00 108 H 01/05/20 19:20 98.2 F 57 L 18 117/84 01/05/20 18:43 115 H 01/05/20 18:38 98.9 F 20 115/67 01/05/20 14:16 90 20 01/05/20 13:35 126 H 01/05/20 13:12 01/05/20 13:10 01/05/20 11:27 01/05/20 11:23 92 H 20 Pulse Ox Pulse Ox 01/06/20 08:48 95 01/06/20 08:35 95 01/06/20 08:00 01/06/20 05:36 01/06/20 03:17 92 01/06/20 03:01 01/05/20 23:00 96 01/05/20 22:56 92 01/05/20 22:26 01/05/20 22:00 01/05/20 19:20 90 01/05/20 18:43 01/05/20 18:38 01/05/20 14:16 01/05/20 13:35 01/05/20 13:12 94 01/05/20 13:10 94 01/05/20 11:27 98 01/05/20 11:23 - Physical Examination General: No Apparent Distress HEENT: Positive: PERRL, Other (chronic tracheostomy) Neck: Positive: Other (Trach with T-piece) Cardiac: Positive: irregularly irregular Lungs: Positive: Decreased Breath Sounds Neuro: Positive: Grossly Intact Abdomen: Positive: Soft Skin: Positive: Clear Extremities: Absent: edema - Allied health notes Allied health notes reviewed: nursing
--- NOTE | 2020-01-06 11:58 | Progress Note ---
Assessment and Plan Acute on chronic hypoxemic respiratory failure (Tracheostomy dependent) Acute on chronic systolic heart failure (Apr 2019 EF noted to be 30 to 35%) AE-COPD YOHANNES/OHS Chronic atrial fibrillation Chronic cor-pulmonale with severe pulmonary hypertension. Morbid obesity. - repeat CXR in am - continue bronchodilators with pulmonary hygiene and routine trach care per RT & per protocol - wean supplemental oxygen to keep O2 sats > 90% - continue bronchodilators with routine trach care and pulmonary hygiene per RT - continue chronic COPD medications - gentle diuresis while monitoring renal function & electrolytes - VTE prophylaxis (currently anti-coagulated with Apixaban) - Aspiration precautions - Heart failure measures - Complete 5 day empiric CAP antibiotics for AE-COPD - continue pertinent Chronic home medications per attending - Pain management per pain score - Continue with Accuchecks with glycemic control with SSI for target blood glucose of < 180 mg/dL; avoid hypoglycemia - Continue to monitor hemodynamics closely - Continue to monitor electrolyte profile closely and replete as indicated - Chronic home medications, resume as clinically indicated - PT/OT as tolerated - Weight loss and life style modifications on discharge. - Continue mobility protocol, off loading for pressure ulcer prevention - Continue stress ulcer prophylaxis - continue other care per attending / other consultants .... re-evaluate in am & prn Subjective Date of service: 01/06/20 Principal diagnosis: Ac hypoxemic resp failure; Acute on ch HFrEF; COPD; Obesity; Cor pulmonale Interval history: Patient is seen today for: Ac on ch hypoxic resp failure; Acute on chronic HFrEF; A-fib; COPD; Obesity; Cor pulmonale with severe pulmonary HTN; Morbid obesity. Seen and examined at bedside; 24hour events reviewed; nursing and respiratory care staff consulted; no adverse overnight events reported to me; resting peacefully in bed; remains on supplemental oxygen via T-Collar; Objective Vital Signs - 12hr 01/06/20 01/06/20 01/06/20 03:01 03:17 05:36 Temperature 98.5 F Pulse Rate 92 H 92 H Pulse Rate [ Apical] Pulse Rate [ 88 Bilateral Throughout] Respiratory 18 Rate Respiratory 20 Rate [Bilateral Throughout] Blood Pressure 140/103 140/103 Blood Pressure [Right] O2 Sat by Pulse 92 Oximetry 01/06/20 01/06/20 01/06/20 08:00 08:35 08:48 Temperature Pulse Rate 66 Pulse Rate [ Apical] Pulse Rate [ 88 Bilateral Throughout] Respiratory Rate Respiratory 18 Rate [Bilateral Throughout] Blood Pressure Blood Pressure 129/68 [Right] O2 Sat by Pulse 95 95 Oximetry 01/06/20 10:17 Temperature Pulse Rate Pulse Rate [ 76 Apical] Pulse Rate [ Bilateral Throughout] Respiratory Rate Respiratory Rate [Bilateral Throughout] Blood Pressure Blood Pressure [Right] O2 Sat by Pulse 95 Oximetry Constitutional: no acute distress, alert, other (elderly looking obese female with mildly increased respiratory effort at rest) Eyes: non-icteric ENT: oropharynx moist, oropharynx erythematous Neck: supple, no lymphadenopathy Effort: mildly labored Ascultation: Bilateral: diminished breath sounds, rhonchi Percussion: Bilateral: not dull Cardiovascular: regular rate and rhythm Gastrointestinal: normoactive bowel sounds, soft, non-tender, non-distended Integumentary: normal Extremities: no cyanosis, pulses normal, edema (trace) Neurologic: normal mental status, non-focal exam (grossly), pupils equal and round, CN II-XII normal Psychiatric: mood appropriate, affect normal CBC and BMP: 01/03/20 08:43 01/03/20 08:43 ABG, PT/INR, D-dimer: ABG ABG pH 7.375 (7.320-7.450) 01/03/20 10:16 POC ABG pCO2 67.4 mmHg (32.0-48.0) H 01/03/20 10:16 POC ABG pO2 55.0 mmHg (83-108) L 01/03/20 10:16 PT/INR, D-dimer PT 14.6 Sec. (12.2-14.9) 01/02/20 05:11 INR 1.12 (0.87-1.13) 01/02/20 05:11 Abnormal lab findings: Abnormal Labs 01/01/20 01/01/20 01/01/20 18:42 18:42 18:42 MCH 27 L RDW 21.0 H [place] % (Auto) 12.8 H PT 15.3 H INR 1.18 H POC ABG pCO2 POC ABG pO2 ABG Hemoglobin ABG Oxyhemoglobin Potassium Chloride Carbon Dioxide 33 H Glucose 193 H POC Glucose NT-Pro-B Natriuret Pep 1438 H 01/01/20 01/02/20 01/02/20 22:41 05:11 05:11 MCH 27 L RDW 20.5 H [place] % (Auto) 13.8 H PT INR POC ABG pCO2 POC ABG pO2 ABG Hemoglobin ABG Oxyhemoglobin Potassium Chloride 97.5 L Carbon Dioxide 35 H Glucose 243 H POC Glucose 158 H NT-Pro-B Natriuret Pep 01/02/20 01/02/20 01/02/20 08:10 11:54 16:04 MCH RDW [place] % (Auto) PT INR POC ABG pCO2 POC ABG pO2 ABG Hemoglobin ABG Oxyhemoglobin Potassium Chloride Carbon Dioxide Glucose POC Glucose 211 H 166 H 123 H NT-Pro-B Natriuret Pep 01/02/20 01/03/20 01/03/20 22:07 07:36 08:43 MCH 27 L RDW 20.7 H [place] % (Auto) 12.8 H PT INR POC ABG pCO2 POC ABG pO2 ABG Hemoglobin ABG Oxyhemoglobin Potassium Chloride Carbon Dioxide Glucose POC Glucose 130 H 166 H NT-Pro-B Natriuret Pep 01/03/20 01/03/20 01/03/20 08:43 10:16 12:14 MCH RDW [place] % (Auto) PT INR POC ABG pCO2 67.4 H POC ABG pO2 55.0 L ABG Hemoglobin 11.0 L ABG Oxyhemoglobin 85.7 L Potassium 3.5 L Chloride 94.9 L Carbon Dioxide 34 H Glucose 233 H POC Glucose 166 H NT-Pro-B Natriuret Pep 01/03/20 01/03/20 01/04/20 16:50 20:33 07:56 MCH RDW [place] % (Auto) PT INR POC ABG pCO2 POC ABG pO2 ABG Hemoglobin ABG Oxyhemoglobin Potassium Chloride Carbon Dioxide Glucose POC Glucose 186 H 193 H 171 H NT-Pro-B Natriuret Pep 01/04/20 01/04/20 01/04/20 12:09 15:46 20:42 MCH RDW [place] % (Auto) PT INR POC ABG pCO2 POC ABG pO2 ABG Hemoglobin ABG Oxyhemoglobin Potassium Chloride Carbon Dioxide Glucose POC Glucose 206 H 222 H 195 H NT-Pro-B Natriuret Pep 01/05/20 01/05/20 01/05/20 07:58 12:19 16:08 MCH RDW [place] % (Auto) PT INR POC ABG pCO2 POC ABG pO2 ABG Hemoglobin ABG Oxyhemoglobin Potassium Chloride Carbon Dioxide Glucose POC Glucose 194 H 148 H 237 H NT-Pro-B Natriuret Pep 01/05/20 01/06/20 20:59 09:01 MCH RDW [place] % (Auto) PT INR POC ABG pCO2 POC ABG pO2 ABG Hemoglobin ABG Oxyhemoglobin Potassium Chloride Carbon Dioxide Glucose POC Glucose 187 H 159 H NT-Pro-B Natriuret Pep Allied health notes reviewed: nursing
--- NOTE | 2020-01-06 18:03 | Progress Note ---
Assessment and Plan Assessment and plan: --Acute on chronic systolic heart failure; EF is 30 to 35%. Echo; 04/2019 reveals mod global hypokinesis of left ventricle with systolic function --Dilated cardiomyopathy. Patient also with four-chamber dilated cardiomyopathy per echo. --Acute on chronic respiratory failure with indwelling tracheostomy. Hx of thoracotomy in 2013 for repair of a thoracic aortic dissection. Continue trach care, secretion control and airway management. Nebulizers and supportive care, pulmonary following RVSP is 48 mmHg illustrating moderate pulmonary hypertension. Continue GDMT per cardiology recommendations. Follow-up echocardiogram. Cardiology consulted. Lasix 40 mg IV twice daily --Right lower lobe pneumonia. Continue IV antibiotics. --Obesity hypoventilation syndrome/YOHANNES. --Acute on chronic hypoxic respiratory failure. Patient on home O2 of 3 L. Etiology secondary to above --Chronic atrial fibrillation. Continue rate control with diltiazem and anticoagulation with Eliquis --Acute COPD exacerbation. Continue bronchodilators/nebulizers --Morbidly obese. BMI 42.8, weight reduction when medically stable --Possible YOHANNES; patient needs outpatient sleep study to rule out obstructive sleep apnea And the need for CPAP BiPAP at night --Type II diabetes mellitus type 2. Accu-Cheks and sliding scale insulin. Long-acting insulin as needed --Hypertension. Resume antihypertensive medications. --DVT prophylaxis; on Eliquis Monitor closely and adjust management as needed, possible discharge after milrinone infusion is completed if stable 01/03; patient is on milrinone drip per cardiology, symptoms slightly improved 01/04; patient is last day of milrinone drip which will finish by night DC planning per case management Possible discharge home tomorrow if stable 01/05; patient has some intermittent shortness of breath and congestion Suction tracheostomy, and continue nebulizers oxygen titrate O2 sats more than 90% Possible discharge tomorrow if cleared by pulmonary History Interval history: Patient seen and examined Patient's chart and medications reviewed Complains of some shortness of breath and chest congestion Tracheostomy in place Patient is in mild distress Vital signs reviewed Hospitalist Physical - Constitutional Vitals: Temp Pulse Resp BP Pulse Ox 98.0 F 69 18 134/71 94 01/06/20 17:17 01/06/20 17:35 01/06/20 17:17 01/06/20 17:35 08/28/20 17:17 General appearance: Present: no acute distress, obese, other (indwelling trach) - EENT Eyes: Present: PERRL, EOM intact - Neck Neck: Present: supple, normal ROM - Respiratory Respiratory effort: normal Respiratory: bilateral: diminished, rhonchi, negative: rales, wheezing - Cardiovascular Rhythm: regular Heart Sounds: Present: S1 & S2 - Extremities Extremities: no ischemia, No edema - Abdominal General gastrointestinal: soft, non-tender, non-distended, normal bowel sounds - Integumentary Integumentary: Present: clear, warm - Psychiatric Psychiatric: appropriate mood/affect, cooperative - Neurologic Neurologic: moves all extremities HEART Score - HEART Score Troponin: Troponin T < 0.010 ng/mL (0.00-0.029) 01/01/20 18:42 Results - Labs CBC & Chem 7: 01/03/20 08:43 01/03/20 08:43 Labs: Laboratory Last Values WBC 5.3 K/mm3 (4.5-11.0) 01/03/20 08:43 RBC 3.80 M/mm3 (3.65-5.03) 01/03/20 08:43 Hgb 10.2 gm/dl (10.1-14.3) 01/03/20 08:43 Hct 32.1 % (30.3-42.9) 01/03/20 08:43 MCV 85 fl (79-97) 01/03/20 08:43 MCH 27 pg (28-32) L 01/03/20 08:43 MCHC 32 % (30-34) 01/03/20 08:43 RDW 20.7 % (13.2-15.2) H 01/03/20 08:43 Plt Count 193 K/mm3 (140-440) 01/03/20 08:43 Lymph % (Auto) 28.3 % (13.4-35.0) 01/03/20 08:43 [place] % (Auto) 12.8 % (0.0-7.3) H 01/03/20 08:43 Eos % (Auto) 1.6 % (0.0-4.3) 01/03/20 08:43 Baso % (Auto) 0.5 % (0.0-1.8) 01/03/20 08:43 Lymph # 1.5 K/mm3 (1.2-5.4) 01/03/20 08:43 [place] # 0.7 K/mm3 (0.0-0.8) 01/03/20 08:43 Eos # 0.1 K/mm3 (0.0-0.4) 01/03/20 08:43 Baso # 0.0 K/mm3 (0.0-0.1) 01/03/20 08:43 Seg Neutrophils % 56.8 % (40.0-70.0) 01/03/20 08:43 Seg Neutrophils # 3.0 K/mm3 (1.8-7.7) 01/03/20 08:43 PT 14.6 Sec. (12.2-14.9) 01/02/20 05:11 INR 1.12 (0.87-1.13) 01/02/20 05:11 APTT 30.2 Sec. (24.2-36.6) 01/01/20 18:42 ABG pH 7.375 (7.320-7.450) 01/03/20 10:16 POC ABG pCO2 67.4 mmHg (32.0-48.0) H 01/03/20 10:16 POC ABG pO2 55.0 mmHg (83-108) L 01/03/20 10:16 ABG Hemoglobin 11.0 (12.0-17.5) L 01/03/20 10:16 ABG Oxyhemoglobin 85.7 (94-98) L 01/03/20 10:16 ABG Methemoglobin 0.3 (0.0-1.5) 01/03/20 10:16 Carboxyhemoglobin 1.2 (0.5-1.5) 01/03/20 10:16 FiO2 35.0 01/03/20 10:16 Sodium 142 mmol/L (137-145) 01/03/20 08:43 Potassium 3.5 mmol/L (3.6-5.0) L 01/03/20 08:43 Chloride 94.9 mmol/L (98-107) L 01/03/20 08:43 Carbon Dioxide 34 mmol/L (22-30) H 01/03/20 08:43 Anion Gap 17 mmol/L 01/03/20 08:43 BUN 17 mg/dL (7-17) 01/03/20 08:43 Creatinine 1.0 mg/dL (0.6-1.2) 01/03/20 08:43 Estimated GFR > 60 ml/min 01/03/20 08:43 BUN/Creatinine Ratio 17 % 01/03/20 08:43 Glucose 233 mg/dL (65-100) H 01/03/20 08:43 POC Glucose 199 (70-105) H 01/06/20 17:37 Calcium 9.6 mg/dL (8.4-10.2) 01/03/20 08:43 Total Bilirubin 0.50 mg/dL (0.1-1.2) 01/01/20 18:42 AST 17 units/L (5-40) 01/01/20 18:42 ALT 14 units/L (7-56) 01/01/20 18:42 Alkaline Phosphatase 127 units/L (35-129) 01/01/20 18:42 Troponin T < 0.010 ng/mL (0.00-0.029) 01/01/20 18:42 NT-Pro-B Natriuret Pep 1438 pg/mL (0-900) H 01/01/20 18:42 Total Protein 7.8 g/dL (6.3-8.2) 01/01/20 18:42 Albumin 3.9 g/dL (3.9-5) 01/01/20 18:42 Albumin/Globulin Ratio 1.0 % 01/01/20 18:42 Microbiology: Microbiology 01/01/20 19:55 Peripheral/Venous Blood Culture - Preliminary NO GROWTH AFTER 4 DAYS 01/01/20 19:50 Peripheral/Venous Blood Culture - Preliminary NO GROWTH AFTER 4 DAYS Membreno/IV: Voiding Method Incontinent IV Catheter Type [Right Hand] INT / Saline Lock IV Catheter Type [Left INT / Saline Lock Antecubital] IV Catheter Type [Left Upper INT / Saline Lock arm] IV Catheter Type [Right INT / Saline Lock Forearm] IV Catheter Type [Left Wrist] INT / Saline Lock Active Medications - Current Medications Current Medications: Generic Name Dose Route Start Last Admin Trade Name Freq PRN Reason Stop Dose Admin Acetaminophen 650 mg 01/01/20 21:59 Tylenol PO Q4H PRN Pain MILD(1-3)/Fever >100.5/ARMENDARIZ Albuterol 2.5 mg 01/03/20 18:09 Proventil IH Q6HRT PRN Dyspnea Albuterol/Ipratropium 1 ampul 01/03/20 20:00 01/06/20 13:50 Duoneb *Not For Prn Use* IH 1 ampul Q6HRT KAMARI Administration Apixaban 5 mg 01/03/20 12:00 01/06/20 09:42 Eliquis PO 5 mg Q12HR KAMARI Administration Protocol Artificial Tears 2 drops 01/04/20 17:40 01/05/20 09:32 Isopto Tears 0.5% OU 2 drops Q4H PRN Administration Dry Eye(s) Clonidine HCl 0.1 mg 01/02/20 21:04 01/02/20 22:44 Catapres PO 0.1 mg Q6HR PRN Administration Hypertension Dextrose 0 ml 01/01/20 21:59 D50w (25gm) Syringe IV Q30MIN PRN Hypoglycemia Protocol Diltiazem HCl 60 mg 01/03/20 12:00 01/06/20 17:35 Cardizem PO 60 mg Q6HR KAMARI Administration Diphenhydramine HCl 25 mg 01/02/20 16:47 01/05/20 22:59 Benadryl PO 25 mg Q6H PRN Administration Itching Furosemide 40 mg 01/02/20 06:00 01/06/20 17:35 Lasix IV 40 mg BID@0600,1800 KAMARI Administration Hydromorphone HCl 1 mg 01/01/20 22:32 01/06/20 10:57 Dilaudid IV 1 mg Q4H PRN Administration Pain , Severe (7-10) Insulin Human Lispro 0 unit 01/01/20 22:00 01/06/20 17:33 Humalog SUB-Q 2 unit ACHS KAMARI Administration Protocol Magnesium Hydroxide 30 ml 01/01/20 21:59 Milk Of Magnesia PO Q4H PRN Constipation Ondansetron HCl 4 mg 01/01/20 21:59 Zofran IV Q8H PRN Nausea And Vomiting Sodium Chloride 10 ml 01/01/20 22:00 01/06/20 12:45 Sodium Chloride Flush Syringe 10 Ml IV 10 ml BID KAMARI Administration Sodium Chloride 10 ml 01/01/20 21:59 Sodium Chloride Flush Syringe 10 Ml IV PRN PRN LINE FLUSH Triamcinolone Acetonide 1 applic 01/04/20 22:00 01/06/20 09:14 Sue TP 1 applic BID KAMARI Administration Nutrition/Malnutrition Assess - Dietary Evaluation Nutrition/Malnutrition Findings: Nutrition Notes Start: 01/02/20 11:41 Freq: Status: Active Protocol: Document 01/06/20 12:51 LM (Rec: 01/06/20 12:55 LM [id number]) Nutrition Notes Initial or Follow up Reassessment Current Diagnosis COPD,Diabetes,Hypertension, Heart Failure Other Pertinent Diagnosis CHF exacerbation Current Diet Cardiac/Consistent CHO Labs/Tests Reviewed Pertinent Medications Robertaalog Brianix Height 5 ft 6 in Weight 122.1 kg Ono Body Weight (kg) 59.09 BMI 43.4 Weight Status Morbidly Obese Subjective/Other Information Unable to speak to pt at time of visit. Per RN pt is eating very well. 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 No Is Patient Ambulatory and/or Out of Bed Yes REE-([place]-St. Jeor-ambulatory/OOB) [ 2317.575 [id number]] Kcal/Kg value to use for calculation 15 Approximate Energy Requirements Using 1832 kcal/Kg Calculation Used for Recommendations Kcal/kg Additional Notes Protein: 91-109g (1-1.2g/kg using AdjBW 91kg) Fluid: 1ml/kcal Nutrition Intervention Change Diet Order: continue Add Supplement/Snack (indicate name/kcal D/C /protein ) Goal #1 Meet at least 75% of energy and protein needs Anticipated Discharge Needs: cardiac/consistent CHO Follow-Up By: 01/12/20 Additional Comments F/U for stable intakes
[2020-01-06] MEDS: diphenhydrAMINE 25 MG CAP PO PRN (22:37)
[2020-01-07] MEDS: IPRATROPIUM/ALBUTEROL SULFATE 3 ML AMPUL.NEB IH SCH ×4 (02:45→20:32)
[2020-01-07] MEDS: FUROSEMIDE 40 MG/4 ML INJ IV SCH ×2 (06:11→18:14)
[2020-01-07] MEDS: dilTIAZem 60 MG TAB PO SCH ×3 (06:12→18:09)
--- NOTE | 2020-01-07 08:31 | Progress Note ---
Assessment and Plan Acute on chronic hypoxemic respiratory failure (Tracheostomy dependent) Acute on chronic systolic heart failure (Apr 2019 EF noted to be 30 to 35%) AE-COPD YOHANNES/OHS Chronic atrial fibrillation Chronic cor pulmonale with severe pulmonary hypertension. Morbid obesity. - repeat CXR in am- not done today, will order - continue bronchodilators with pulmonary hygiene and routine trach care per RT & per protocol - wean supplemental oxygen to keep O2 sats >90% - continue bronchodilators with routine trach care and pulmonary hygiene per RT - continue chronic COPD medications - gentle diuresis while monitoring renal function & electrolytes - VTE prophylaxis (currently anticoagulated with Apixaban) - Aspiration precautions - Heart failure measures - Complete 5 day empiric CAP antibiotics for AE-COPD - continue pertinent Chronic home medications per attending - Pain management per pain score - Continue with Accuchecks with glycemic control with SSI for target blood glucose of < 180 mg/dL; avoid hypoglycemia - Continue to monitor hemodynamics closely - Continue to monitor electrolyte profile closely and replete as indicated - Chronic home medications, resume as clinically indicated - PT/OT as tolerated - Weight loss and life style modifications on discharge. - Continue mobility protocol, off loading for pressure ulcer prevention - Continue stress ulcer prophylaxis - continue other care per attending / other consultants Subjective Date of service: 01/07/20 Principal diagnosis: Ac hypoxemic resp failure; Acute on ch HFrEF; COPD; Obesity; Cor pulmonale Interval history: Patient is seen today for: Ac on ch hypoxic resp failure; Acute on chronic HFrEF; A-fib; COPD; Obesity; Cor pulmonale with moderate pulmonary HTN; Morbid obesity. Seen and examined at bedside; 24hour events reviewed; nursing and respiratory care staff consulted; no adverse overnight events reported to me; resting peacefully in bed, sleeping but rousable ; remains on supplemental oxygen via T- Collar; Objective Vital Signs - 12hr 01/06/20 01/06/20 01/06/20 21:55 22:00 23:19 Temperature 98.8 F Pulse Rate 79 58 L Pulse Rate [ 82 Bilateral Throughout] Respiratory 16 Rate Respiratory 22 Rate [Bilateral Throughout] Blood Pressure 144/76 O2 Sat by Pulse 88 94 Oximetry O2 Sat by Pulse Oximetry [ Assessment] 01/06/20 01/07/20 01/07/20 23:26 02:30 03:55 Temperature 99.0 F Pulse Rate 58 L 69 Pulse Rate [ Bilateral Throughout] Respiratory 16 Rate Respiratory Rate [Bilateral Throughout] Blood Pressure 144/76 150/72 O2 Sat by Pulse 99 Oximetry O2 Sat by Pulse 95 Oximetry [ Assessment] 01/07/20 06:12 Temperature Pulse Rate 69 Pulse Rate [ Bilateral Throughout] Respiratory Rate Respiratory Rate [Bilateral Throughout] Blood Pressure 150/72 O2 Sat by Pulse Oximetry O2 Sat by Pulse Oximetry [ Assessment] Constitutional: no acute distress, alert, other (elderly looking obese female with mildly increased respiratory effort at rest) Eyes: non-icteric ENT: oropharynx moist, oropharynx erythematous Neck: supple, no lymphadenopathy Effort: mildly labored Ascultation: Bilateral: diminished breath sounds, rhonchi Percussion: Bilateral: not dull Cardiovascular: regular rate and rhythm Gastrointestinal: normoactive bowel sounds, soft, non-tender, non-distended Integumentary: normal Extremities: no cyanosis, pulses normal, edema (trace) Neurologic: normal mental status, non-focal exam (grossly), pupils equal and round, CN II-XII normal Psychiatric: mood appropriate, affect normal CBC and BMP: 01/03/20 08:43 01/03/20 08:43 ABG, PT/INR, D-dimer: ABG ABG pH 7.375 (7.320-7.450) 01/03/20 10:16 POC ABG pCO2 67.4 mmHg (32.0-48.0) H 01/03/20 10:16 POC ABG pO2 55.0 mmHg (83-108) L 01/03/20 10:16 PT/INR, D-dimer PT 14.6 Sec. (12.2-14.9) 01/02/20 05:11 INR 1.12 (0.87-1.13) 01/02/20 05:11 Abnormal lab findings: Abnormal Labs 01/01/20 01/01/20 01/01/20 18:42 18:42 18:42 MCH 27 L RDW 21.0 H [place] % (Auto) 12.8 H PT 15.3 H INR 1.18 H POC ABG pCO2 POC ABG pO2 ABG Hemoglobin ABG Oxyhemoglobin Potassium Chloride Carbon Dioxide 33 H Glucose 193 H POC Glucose NT-Pro-B Natriuret Pep 1438 H 08/23/20 08/24/20 08/24/20 22:41 05:11 05:11 MCH 27 L RDW 20.5 H [place] % (Auto) 13.8 H PT INR POC ABG pCO2 POC ABG pO2 ABG Hemoglobin ABG Oxyhemoglobin Potassium Chloride 97.5 L Carbon Dioxide 35 H Glucose 243 H POC Glucose 158 H NT-Pro-B Natriuret Pep 01/02/20 01/02/20 01/02/20 08:10 11:54 16:04 MCH RDW [place] % (Auto) PT INR POC ABG pCO2 POC ABG pO2 ABG Hemoglobin ABG Oxyhemoglobin Potassium Chloride Carbon Dioxide Glucose POC Glucose 211 H 166 H 123 H NT-Pro-B Natriuret Pep 01/02/20 01/03/20 01/03/20 22:07 07:36 08:43 MCH 27 L RDW 20.7 H [place] % (Auto) 12.8 H PT INR POC ABG pCO2 POC ABG pO2 ABG Hemoglobin ABG Oxyhemoglobin Potassium Chloride Carbon Dioxide Glucose POC Glucose 130 H 166 H NT-Pro-B Natriuret Pep 01/03/20 01/03/20 01/03/20 08:43 10:16 12:14 MCH RDW [place] % (Auto) PT INR POC ABG pCO2 67.4 H POC ABG pO2 55.0 L ABG Hemoglobin 11.0 L ABG Oxyhemoglobin 85.7 L Potassium 3.5 L Chloride 94.9 L Carbon Dioxide 34 H Glucose 233 H POC Glucose 166 H NT-Pro-B Natriuret Pep 01/03/20 01/03/20 01/04/20 16:50 20:33 07:56 MCH RDW [place] % (Auto) PT INR POC ABG pCO2 POC ABG pO2 ABG Hemoglobin ABG Oxyhemoglobin Potassium Chloride Carbon Dioxide Glucose POC Glucose 186 H 193 H 171 H NT-Pro-B Natriuret Pep 01/04/20 01/04/20 01/04/20 12:09 15:46 20:42 MCH RDW [place] % (Auto) PT INR POC ABG pCO2 POC ABG pO2 ABG Hemoglobin ABG Oxyhemoglobin Potassium Chloride Carbon Dioxide Glucose POC Glucose 206 H 222 H 195 H NT-Pro-B Natriuret Pep 01/05/20 01/05/20 01/05/20 07:58 12:19 16:08 MCH RDW [place] % (Auto) PT INR POC ABG pCO2 POC ABG pO2 ABG Hemoglobin ABG Oxyhemoglobin Potassium Chloride Carbon Dioxide Glucose POC Glucose 194 H 148 H 237 H NT-Pro-B Natriuret Pep 01/05/20 01/06/20 01/06/20 20:59 09:01 12:11 MCH RDW [place] % (Auto) PT INR POC ABG pCO2 POC ABG pO2 ABG Hemoglobin ABG Oxyhemoglobin Potassium Chloride Carbon Dioxide Glucose POC Glucose 187 H 159 H 180 H NT-Pro-B Natriuret Pep 01/06/20 01/06/20 17:37 21:43 MCH RDW [place] % (Auto) PT INR POC ABG pCO2 POC ABG pO2 ABG Hemoglobin ABG Oxyhemoglobin Potassium Chloride Carbon Dioxide Glucose POC Glucose 199 H 227 H NT-Pro-B Natriuret Pep Chest x-ray: image reviewed Allied health notes reviewed: RT
[2020-01-07] MEDS: APIXABAN 5 MG TAB PO SCH ×2 (09:27→22:08)
[2020-01-07] MEDS: TRIAMCINOLONE 0.1% CREAM 15 GM TP SCH ×2 (09:27→22:07)
[2020-01-07] MEDS: INSULIN LISPRO 100 UNIT/ML VIAL 3 mL SUB-Q SCH ×4 (09:27→22:34)
--- NOTE | 2020-01-07 09:55 | Progress Note ---
Subjective Date of service: 01/07/20 Principal diagnosis: Ac hypoxemic resp failure; Acute on ch HFrEF; COPD; Obesity; Cor pulmonale Interval history: Assessment and Plan - Patient Problems (1) Cor pulmonale Current Visit: Yes Status: Acute Plan to address problem: The patient presented with respiratory failure due to obesity, sleep apnea, chronic lung disease, right heart failure, pulmonary hypertension and cor pulmonale. Continue supportive management. (2) Systolic heart failure Current Visit: Yes Status: Acute Plan to address problem: There is an underlying moderate severity left ventricular dysfunction with ejection fraction 35 to 40%. We will continue guideline directed optimal medical therapy. (3) Chronic atrial fibrillation Current Visit: Yes Status: Acute Plan to address problem: Patient has chronic atrial fibrillation on a rate control strategy, and oral anticoagulation with Eliquis. We will continue current management. Subjective Date of service: 01/06/20 Principal diagnosis: Ac hypoxemic resp failure; Acute on ch HFrEF; COPD; Obesity; Cor pulmonale Interval history: Remains comfortable in bed, HR well controlled at present No changes today Objective Vital Signs Temp Pulse Pulse Pulse Resp Resp BP 01/07/20 08:46 98.4 F 56 L 18 134/71 01/07/20 06:12 69 150/72 01/07/20 03:55 99.0 F 69 16 150/72 01/07/20 02:30 01/06/20 23:26 58 L 144/76 01/06/20 23:19 98.8 F 58 L 16 144/76 01/06/20 22:00 79 01/06/20 21:55 82 22 01/06/20 20:19 98.7 F 70 16 133/64 01/06/20 17:35 69 134/71 01/06/20 17:17 98.0 F 69 18 134/71 01/06/20 16:30 81 01/06/20 14:10 01/06/20 13:58 77 18 01/06/20 13:55 01/06/20 12:46 78 129/68 01/06/20 12:43 99.1 F 78 20 01/06/20 10:17 76 BP Pulse Ox Pulse Ox 01/07/20 08:46 94 01/07/20 06:12 01/07/20 03:55 99 01/07/20 02:30 95 01/06/20 23:26 01/06/20 23:19 94 01/06/20 22:00 01/06/20 21:55 88 01/06/20 20:19 89 01/06/20 17:35 01/06/20 17:17 94 01/06/20 16:30 01/06/20 14:10 95 01/06/20 13:58 01/06/20 13:55 95 01/06/20 12:46 01/06/20 12:43 129/68 60 L 01/06/20 10:17 95 - Physical Examination General: No Apparent Distress HEENT: Positive: PERRL, Other (chronic tracheostomy) Neck: Positive: Other (Trach with T-piece) Cardiac: Positive: irregularly irregular Lungs: Positive: clear to auscultation Neuro: Positive: Grossly Intact Abdomen: Positive: Soft Skin: Positive: Clear Extremities: Absent: edema - Allied health notes Allied health notes reviewed: nursing
[2020-01-07] MEDS: HYDROmorphone 1 MG/1 ML INJ IV PRN ×3 (11:01→19:40)
--- NOTE | 2020-01-07 19:32 | Progress Note ---
Assessment and Plan Assessment and plan: --Acute on chronic systolic heart failure; EF is 30 to 35%. Echo; 04/2019 reveals mod global hypokinesis of left ventricle with systolic function --Dilated cardiomyopathy. Patient also with four-chamber dilated cardiomyopathy per echo. --Acute on chronic respiratory failure with indwelling tracheostomy. Hx of thoracotomy in 2013 for repair of a thoracic aortic dissection. Continue trach care, secretion control and airway management. Nebulizers and supportive care, pulmonary following RVSP is 48 mmHg illustrating moderate pulmonary hypertension. Continue GDMT per cardiology recommendations. Follow-up echocardiogram. Cardiology consulted. Lasix 40 mg IV twice daily --Sepsis secondary to right lower lobe pneumonia. Tachycardia, tachypnea, right lower lobe pneumonia --Obesity hypoventilation syndrome/YOHANNES. --Acute on chronic hypoxic respiratory failure. Patient on home O2 of 3 L. Etiology secondary to above --Chronic atrial fibrillation. Continue rate control with diltiazem and anticoagulation with Eliquis --Acute COPD exacerbation. Continue bronchodilators/nebulizers --Morbidly obese. BMI 42.8, weight reduction when medically stable --Possible YOHANNES; patient needs outpatient sleep study to rule out obstructive sleep apnea And the need for CPAP BiPAP at night --Type II diabetes mellitus type 2. Accu-Cheks and sliding scale insulin. Long-acting insulin as needed --Hypertension. Resume antihypertensive medications. --DVT prophylaxis; on Eliquis Monitor closely and adjust management as needed, possible discharge after milrinone infusion is completed if stable 01/03; patient is on milrinone drip per cardiology, symptoms slightly improved 01/04; patient is last day of milrinone drip which will finish by night DC planning per case management Possible discharge home tomorrow if stable 01/05; patient has some intermittent shortness of breath and congestion Suction tracheostomy, and continue nebulizers oxygen titrate O2 sats more than 90% Possible discharge tomorrow if cleared by pulmonary 01/06; patient feels slightly better, discussed with respiratory therapist Intermittently using more oxygen, wean oxygen as tolerated Possible discharge in 1 to 2 days if stable History Interval history: I have seen and examined the patient at the bedside Patient's chart and medications reviewed Patient complains of mild shortness of breath Tracheostomy on T-piece Mild distress Vital signs noted Hospitalist Physical - Constitutional Vitals: Temp Pulse Resp BP Pulse Ox 98.2 F 103 H 18 144/71 90 01/07/20 17:09 01/07/20 18:09 01/07/20 17:09 01/07/20 18:09 01/07/20 17:09 General appearance: Present: mild distress, obese (Morbidly obese), other (indwelling trach) - EENT Eyes: Present: PERRL, EOM intact - Neck Neck: Present: supple, normal ROM - Respiratory Respiratory effort: normal Respiratory: bilateral: diminished, rhonchi, negative: rales, wheezing - Cardiovascular Rhythm: regular Heart Sounds: Present: S1 & S2 - Extremities Extremities: no ischemia, No edema - Abdominal General gastrointestinal: soft, non-tender, non-distended, normal bowel sounds - Integumentary Integumentary: Present: clear, warm - Psychiatric Psychiatric: appropriate mood/affect - Neurologic Neurologic: CNII-XII intact, moves all extremities HEART Score - HEART Score Troponin: Troponin T < 0.010 ng/mL (0.00-0.029) 01/01/20 18:42 Results - Labs CBC & Chem 7: 01/03/20 08:43 01/03/20 08:43 Labs: Laboratory Last Values WBC 5.3 K/mm3 (4.5-11.0) 01/03/20 08:43 RBC 3.80 M/mm3 (3.65-5.03) 01/03/20 08:43 Hgb 10.2 gm/dl (10.1-14.3) 01/03/20 08:43 Hct 32.1 % (30.3-42.9) 01/03/20 08:43 MCV 85 fl (79-97) 01/03/20 08:43 MCH 27 pg (28-32) L 01/03/20 08:43 MCHC 32 % (30-34) 01/03/20 08:43 RDW 20.7 % (13.2-15.2) H 01/03/20 08:43 Plt Count 193 K/mm3 (140-440) 01/03/20 08:43 Lymph % (Auto) 28.3 % (13.4-35.0) 01/03/20 08:43 [place] % (Auto) 12.8 % (0.0-7.3) H 01/03/20 08:43 Eos % (Auto) 1.6 % (0.0-4.3) 01/03/20 08:43 Baso % (Auto) 0.5 % (0.0-1.8) 01/03/20 08:43 Lymph # 1.5 K/mm3 (1.2-5.4) 01/03/20 08:43 [place] # 0.7 K/mm3 (0.0-0.8) 01/03/20 08:43 Eos # 0.1 K/mm3 (0.0-0.4) 01/03/20 08:43 Baso # 0.0 K/mm3 (0.0-0.1) 01/03/20 08:43 Seg Neutrophils % 56.8 % (40.0-70.0) 01/03/20 08:43 Seg Neutrophils # 3.0 K/mm3 (1.8-7.7) 01/03/20 08:43 PT 14.6 Sec. (12.2-14.9) 01/02/20 05:11 INR 1.12 (0.87-1.13) 01/02/20 05:11 APTT 30.2 Sec. (24.2-36.6) 01/01/20 18:42 ABG pH 7.375 (7.320-7.450) 01/03/20 10:16 POC ABG pCO2 67.4 mmHg (32.0-48.0) H 01/03/20 10:16 POC ABG pO2 55.0 mmHg (83-108) L 01/03/20 10:16 ABG Hemoglobin 11.0 (12.0-17.5) L 01/03/20 10:16 ABG Oxyhemoglobin 85.7 (94-98) L 01/03/20 10:16 ABG Methemoglobin 0.3 (0.0-1.5) 01/03/20 10:16 Carboxyhemoglobin 1.2 (0.5-1.5) 01/03/20 10:16 FiO2 35.0 01/03/20 10:16 Sodium 142 mmol/L (137-145) 01/03/20 08:43 Potassium 3.5 mmol/L (3.6-5.0) L 01/03/20 08:43 Chloride 94.9 mmol/L (98-107) L 01/03/20 08:43 Carbon Dioxide 34 mmol/L (22-30) H 01/03/20 08:43 Anion Gap 17 mmol/L 01/03/20 08:43 BUN 17 mg/dL (7-17) 01/03/20 08:43 Creatinine 1.0 mg/dL (0.6-1.2) 01/03/20 08:43 Estimated GFR > 60 ml/min 01/03/20 08:43 BUN/Creatinine Ratio 17 % 01/03/20 08:43 Glucose 233 mg/dL (65-100) H 01/03/20 08:43 POC Glucose 149 (70-105) H 01/07/20 17:04 Calcium 9.6 mg/dL (8.4-10.2) 01/03/20 08:43 Total Bilirubin 0.50 mg/dL (0.1-1.2) 01/01/20 18:42 AST 17 units/L (5-40) 01/01/20 18:42 ALT 14 units/L (7-56) 01/01/20 18:42 Alkaline Phosphatase 127 units/L (35-129) 01/01/20 18:42 Troponin T < 0.010 ng/mL (0.00-0.029) 01/01/20 18:42 NT-Pro-B Natriuret Pep 1438 pg/mL (0-900) H 01/01/20 18:42 Total Protein 7.8 g/dL (6.3-8.2) 01/01/20 18:42 Albumin 3.9 g/dL (3.9-5) 01/01/20 18:42 Albumin/Globulin Ratio 1.0 % 01/01/20 18:42 Microbiology: Microbiology 01/01/20 19:55 Peripheral/Venous Blood Culture - Final NO GROWTH AFTER 5 DAYS 01/01/20 19:50 Peripheral/Venous Blood Culture - Final NO GROWTH AFTER 5 DAYS Membreno/IV: Voiding Method External Female Catheter IV Catheter Type [Right Hand] INT / Saline Lock IV Catheter Type [Left INT / Saline Lock Antecubital] IV Catheter Type [Left Upper INT / Saline Lock arm] IV Catheter Type [Right INT / Saline Lock Forearm] IV Catheter Type [Left Wrist] INT / Saline Lock Active Medications - Current Medications Current Medications: Generic Name Dose Route Start Last Admin Trade Name Freq PRN Reason Stop Dose Admin Acetaminophen 650 mg 01/01/20 21:59 Tylenol PO Q4H PRN Pain MILD(1-3)/Fever >100.5/ARMENDARIZ Albuterol 2.5 mg 01/03/20 18:09 Proventil IH Q6HRT PRN Dyspnea Albuterol/Ipratropium 1 ampul 01/03/20 20:00 01/07/20 13:43 Duoneb *Not For Prn Use* IH 1 ampul Q6HRT KAMARI Administration Apixaban 5 mg 01/03/20 12:00 01/07/20 09:27 Eliquis PO 5 mg Q12HR KAMARI Administration Protocol Artificial Tears 2 drops 01/04/20 17:40 01/05/20 09:32 Isopto Tears 0.5% OU 2 drops Q4H PRN Administration Dry Eye(s) Clonidine HCl 0.1 mg 01/02/20 21:04 01/02/20 22:44 Catapres PO 0.1 mg Q6HR PRN Administration Hypertension Dextrose 0 ml 01/01/20 21:59 D50w (25gm) Syringe IV Q30MIN PRN Hypoglycemia Protocol Diltiazem HCl 60 mg 01/03/20 12:00 01/07/20 18:09 Cardizem PO 60 mg Q6HR KAMARI Administration Diphenhydramine HCl 25 mg 01/02/20 16:47 01/06/20 22:37 Benadryl PO 25 mg Q6H PRN Administration Itching Furosemide 40 mg 01/02/20 06:00 01/07/20 18:14 Lasix IV 40 mg BID@0600,1800 [facility] Administration Hydromorphone HCl 1 mg 01/01/20 22:32 01/07/20 15:23 Dilaudid IV 1 mg Q4H PRN Administration Pain , Severe (7-10) Insulin Human Lispro 0 unit 01/01/20 22:00 01/07/20 18:06 Humalog SUB-Q Not Given ACHS [facility] Protocol Magnesium Hydroxide 30 ml 01/01/20 21:59 Milk Of Magnesia PO Q4H PRN Constipation Ondansetron HCl 4 mg 01/01/20 21:59 Zofran IV Q8H PRN Nausea And Vomiting Sodium Chloride 10 ml 01/01/20 22:00 01/07/20 09:28 Sodium Chloride Flush Syringe 10 Ml IV 10 ml BID KAMARI Administration Sodium Chloride 10 ml 01/01/20 21:59 Sodium Chloride Flush Syringe 10 Ml IV PRN PRN LINE FLUSH Triamcinolone Acetonide 1 applic 01/04/20 22:00 01/07/20 09:27 Kenalog TP 1 applic BID KAMARI Administration Nutrition/Malnutrition Assess - Dietary Evaluation Nutrition/Malnutrition Findings: Nutrition Notes Start: 01/02/20 11: 41 Freq: Status: Active Protocol: Document 01/06/20 12:51 LM (Rec: 01/06/20 12:55 LM [id number]) Nutrition Notes Initial or Follow up Reassessment Current Diagnosis COPD,Diabetes,Hypertension, Heart Failure Other Pertinent Diagnosis CHF exacerbation Current Diet Cardiac/Consistent CHO Labs/Tests Reviewed Pertinent Medications Humalog Lasix Height 5 ft 6 in Weight 122.1 kg [place] Body Weight (kg) 59.09 BMI 43.4 Weight Status Morbidly Obese Subjective/Other Information Unable to speak to pt at time of visit. Per RN pt is eating very well. 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 No Is Patient Ambulatory and/or Out of Bed Yes REE-([place]-ambulatory/OOB) [ 2317.575 NUTR.MSJOOB] Kcal/Kg value to use for calculation 15 Approximate Energy Requirements Using 1832 kcal/Kg Calculation Used for Recommendations Kcal/kg Additional Notes Protein: 91-109g (1-1.2g/kg using AdjBW 91kg) Fluid: 1ml/kcal Nutrition Intervention Change Diet Order: continue Add Supplement/Snack (indicate name/kcal D/C /protein ) Goal #1 Meet at least 75% of energy and protein needs Anticipated Discharge Needs: cardiac/consistent CHO Follow-Up By: 01/12/20 Additional Comments F/U for stable intakes
[2020-01-07] MEDS: HYPROMELLOSE 0.5% OPHTH SOLN 15 ML OU PRN (22:07)
[2020-01-07] MEDS: diphenhydrAMINE 25 MG CAP PO PRN (22:08)
[2020-01-08] MEDS: dilTIAZem 60 MG TAB PO SCH ×4 (00:18→18:17)
[2020-01-08] MEDS: HYDROmorphone 1 MG/1 ML INJ IV PRN ×4 (00:20→22:18)
[2020-01-08] MEDS: IPRATROPIUM/ALBUTEROL SULFATE 3 ML AMPUL.NEB IH SCH ×4 (02:31→20:37)
[2020-01-08] MEDS: FUROSEMIDE 40 MG/4 ML INJ IV SCH ×2 (05:37→18:11)
[2020-01-08] MEDS: INSULIN LISPRO 100 UNIT/ML VIAL 3 mL SUB-Q SCH ×4 (08:26→22:16)
[2020-01-08] MEDS: HYPROMELLOSE 0.5% OPHTH SOLN 15 ML OU PRN ×3 (08:31→22:15)
[2020-01-08] MEDS: diphenhydrAMINE 25 MG CAP PO PRN (08:51)
[2020-01-08] MEDS: APIXABAN 5 MG TAB PO SCH ×2 (10:19→22:15)
[2020-01-08] MEDS: TRIAMCINOLONE 0.1% CREAM 15 GM TP SCH ×2 (10:19→22:14)
--- NOTE | 2020-01-08 10:28 | XRay Report ---
CHEST 1 VIEW INDICATION / CLINICAL INFORMATION: respiratory failure. COMPARISON: 01/01/2020. FINDINGS: SUPPORT DEVICES: Tracheostomy tube in stable position. HEART / MEDIASTINUM: Stable since prior exam. Prior sternotomy. LUNGS / PLEURA: Interval improvement of previously noted left-sided pleural effusion. Persistent biba silar opacities are relatively unchanged since prior exam. A new linear opacity is noted in the right midlung field. No pneumothorax. ADDITIONAL FINDINGS: Surgical clips the right axilla. IMPRESSION: 1. Improved left-sided pleural effusion. 2. Previously noted bibasilar pulmonary opacities are stable since prior exam. 3. There has been interval development of a linear opacity in the right midlung field which may repre sent atelectasis. 4. Additional findings able since prior exam. Signer Name: Rakan Ambriz MD Signed: 01/08/2020 10:24 AM Workstation Name: [id number]
--- NOTE | 2020-01-08 11:26 | Progress Note ---
Subjective Date of service: 01/08/20 Principal diagnosis: Ac hypoxemic resp failure; Acute on ch HFrEF; COPD; Obesity; Cor pulmonale Interval history: Assessment and Plan - Patient Problems (1) Cor pulmonale Current Visit: Yes Status: Acute Plan to address problem: The patient presented with respiratory failure due to obesity, sleep apnea, chronic lung disease, right heart failure, pulmonary hypertension and cor pulmonale. Continue supportive management. (2) Systolic heart failure Current Visit: Yes Status: Acute Plan to address problem: There is an underlying moderate severity left ventricular dysfunction with ejection fraction 35 to 40%. We will continue guideline directed optimal medical therapy. (3) Chronic atrial fibrillation Current Visit: Yes Status: Acute Plan to address problem: Patient has chronic atrial fibrillation on a rate control strategy, and oral anticoagulation with Eliquis. We will continue current management. Subjective Date of service: 01/06/20 Principal diagnosis: Ac hypoxemic resp failure; Acute on ch HFrEF; COPD; Obesity; Cor pulmonale Interval history: Noncardiac right sided chest pain HR remains well controlled at present No changes today Objective Vital Signs Temp Pulse Pulse Resp Resp BP BP 01/08/20 08:02 98.5 F 61 18 119/66 01/08/20 07:23 55 L 20 01/08/20 05:36 60 147/77 01/08/20 05:28 98.7 F 60 20 147/77 01/08/20 02:39 95 H 18 01/08/20 00:30 98.9 F 114 H 18 151/90 01/08/20 00:18 114 H 151/90 01/07/20 22:00 102 H 01/07/20 20:33 102 H 18 01/07/20 20:11 98.3 F 86 18 144/97 01/07/20 18:09 103 H 144/71 01/07/20 17:09 98.2 F 103 H 18 144/71 01/07/20 16:00 01/07/20 13:43 58 L 20 01/07/20 13:02 53 L 134/85 01/07/20 11:29 98.2 F 53 L 18 134/85 Pulse Ox Pulse Ox 01/08/20 08:02 96 01/08/20 07:23 95 01/08/20 05:36 01/08/20 05:28 93 01/08/20 02:39 95 97 01/08/20 00:30 96 01/08/20 00:18 01/07/20 22:00 01/07/20 20:33 100 97 01/07/20 20:11 90 01/07/20 18:09 01/07/20 17:09 90 01/07/20 16:00 97 01/07/20 13:43 01/07/20 13:02 01/07/20 11:29 92 - Physical Examination General: No Apparent Distress HEENT: Positive: PERRL, Other (chronic tracheostomy) Neck: Positive: Other (Trach with T-piece) Cardiac: Positive: irregularly irregular, S1/S2 Lungs: Positive: Normal Exam Neuro: Positive: Grossly Intact Abdomen: Positive: Soft Skin: Positive: Clear Extremities: Absent: edema - Allied health notes Allied health notes reviewed: RT
--- NOTE | 2020-01-08 20:50 | Progress Note ---
Assessment and Plan Assessment and plan: --Acute on chronic respiratory failure with indwelling tracheostomy. Hx of thoracotomy in 2013 for repair of a thoracic aortic dissection. Continue trach care, secretion control and airway management. Nebulizers and supportive care, pulmonary following RVSP is 48 mmHg illustrating moderate pulmonary hypertension. Continue GDMT per cardiology recommendations. Follow-up echocardiogram. Cardiology consulted. Lasix 40 mg IV twice daily --Sepsis secondary to right lower lobe pneumonia. Continue IV antibiotics. --Obesity hypoventilation syndrome/YOHANNES. --Acute on chronic hypoxic respiratory failure. Patient on home O2 of 3 L. Etiology secondary to above --Acute on chronic systolic heart failure; EF is 30 to 35%. Echo; 04/2019 reveals mod global hypokinesis of left ventricle with systolic function --Dilated cardiomyopathy. Patient also with four-chamber dilated cardiomyopathy per echo. --Chronic atrial fibrillation. Continue rate control with diltiazem and anticoagulation with Eliquis --Acute COPD exacerbation. Continue bronchodilators/nebulizers --Morbidly obese. BMI 42.8, weight reduction when medically stable --Possible YOHANNES; patient needs outpatient sleep study to rule out obstructive sleep apnea And the need for CPAP BiPAP at night --Type II diabetes mellitus type 2. Accu-Cheks and sliding scale insulin. Long-acting insulin as needed --Hypertension. Resume antihypertensive medications. --DVT prophylaxis; on Eliquis Monitor closely and adjust management as needed, possible discharge after milrinone infusion is completed if stable 01/03; patient is on milrinone drip per cardiology, symptoms slightly improved 01/04; patient is last day of milrinone drip which will finish by night DC planning per case management Possible discharge home tomorrow if stable 01/05; patient has some intermittent shortness of breath and congestion Suction tracheostomy, and continue nebulizers oxygen titrate O2 sats more than 90% Possible discharge tomorrow if cleared by pulmonary 01/06; patient feels slightly better, discussed with respiratory therapist Intermittently using more oxygen, wean oxygen as tolerated Possible discharge in 1 to 2 days if stable 01/07; patient in mild respiratory distress today, she has to adjust trach tube, check with respiratory therapist History Interval history: I seen and examined the patient at the bedside Patient's tests and medications reviewed Patient complains of mild shortness of breath and irritation at the tracheostomy site Denies chest pain mild shortness of breath Vital signs reviewed Hospitalist Physical - Constitutional Vitals: Temp Pulse Resp BP Pulse Ox 98.4 F 91 H 20 130/76 94 01/08/20 19:28 01/08/20 20:45 01/08/20 20:45 01/08/20 19:28 01/08/20 19:28 General appearance: Present: mild distress, obese (Morbidly obese), other (indwelling trach) - EENT Eyes: Present: PERRL, EOM intact - Neck Neck: Present: supple, normal ROM - Respiratory Respiratory effort: normal Respiratory: bilateral: diminished, rhonchi, negative: rales, wheezing - Cardiovascular Rhythm: regular Heart Sounds: Present: S1 & S2 - Extremities Extremities: no ischemia Extremity abnormal: edema - Abdominal General gastrointestinal: soft, non-tender, non-distended, normal bowel sounds - Integumentary Integumentary: Present: clear, warm - Psychiatric Psychiatric: appropriate mood/affect, cooperative - Neurologic Neurologic: moves all extremities HEART Score - HEART Score Troponin: Troponin T < 0.010 ng/mL (0.00-0.029) 01/01/20 18:42 Results - Labs CBC & Chem 7: 01/03/20 08:43 01/03/20 08:43 Labs: Laboratory Last Values WBC 5.3 K/mm3 (4.5-11.0) 01/03/20 08:43 RBC 3.80 M/mm3 (3.65-5.03) 01/03/20 08:43 Hgb 10.2 gm/dl (10.1-14.3) 01/03/20 08:43 Hct 32.1 % (30.3-42.9) 01/03/20 08:43 MCV 85 fl (79-97) 01/03/20 08:43 MCH 27 pg (28-32) L 01/03/20 08:43 MCHC 32 % (30-34) 01/03/20 08:43 RDW 20.7 % (13.2-15.2) H 01/03/20 08:43 Plt Count 193 K/mm3 (140-440) 01/03/20 08:43 Lymph % (Auto) 28.3 % (13.4-35.0) 01/03/20 08:43 [place] % (Auto) 12.8 % (0.0-7.3) H 08/25/20 08:43 Eos % (Auto) 1.6 % (0.0-4.3) 01/03/20 08:43 Baso % (Auto) 0.5 % (0.0-1.8) 01/03/20 08:43 Lymph # 1.5 K/mm3 (1.2-5.4) 01/03/20 08:43 [place] # 0.7 K/mm3 (0.0-0.8) 01/03/20 08:43 Eos # 0.1 K/mm3 (0.0-0.4) 01/03/20 08:43 Baso # 0.0 K/mm3 (0.0-0.1) 01/03/20 08:43 Seg Neutrophils % 56.8 % (40.0-70.0) 01/03/20 08:43 Seg Neutrophils # 3.0 K/mm3 (1.8-7.7) 01/03/20 08:43 PT 14.6 Sec. (12.2-14.9) 01/02/20 05:11 INR 1.12 (0.87-1.13) 01/02/20 05:11 APTT 30.2 Sec. (24.2-36.6) 01/01/20 18:42 ABG pH 7.375 (7.320-7.450) 01/03/20 10:16 POC ABG pCO2 67.4 mmHg (32.0-48.0) H 01/03/20 10:16 POC ABG pO2 55.0 mmHg (83-108) L 01/03/20 10:16 ABG Hemoglobin 11.0 (12.0-17.5) L 01/03/20 10:16 ABG Oxyhemoglobin 85.7 (94-98) L 01/03/20 10:16 ABG Methemoglobin 0.3 (0.0-1.5) 01/03/20 10:16 Carboxyhemoglobin 1.2 (0.5-1.5) 01/03/20 10:16 FiO2 35.0 01/03/20 10:16 Sodium 142 mmol/L (137-145) 01/03/20 08:43 Potassium 3.5 mmol/L (3.6-5.0) L 01/03/20 08:43 Chloride 94.9 mmol/L (98-107) L 01/03/20 08:43 Carbon Dioxide 34 mmol/L (22-30) H 01/03/20 08:43 Anion Gap 17 mmol/L 01/03/20 08:43 BUN 17 mg/dL (7-17) 01/03/20 08:43 Creatinine 1.0 mg/dL (0.6-1.2) 01/03/20 08:43 Estimated GFR > 60 ml/min 01/03/20 08:43 BUN/Creatinine Ratio 17 % 01/03/20 08:43 Glucose 233 mg/dL (65-100) H 01/03/20 08:43 POC Glucose 218 (70-105) H 01/08/20 16:34 Calcium 9.6 mg/dL (8.4-10.2) 01/03/20 08:43 Total Bilirubin 0.50 mg/dL (0.1-1.2) 01/01/20 18:42 AST 17 units/L (5-40) 01/01/20 18:42 ALT 14 units/L (7-56) 01/01/20 18:42 Alkaline Phosphatase 127 units/L (35-129) 01/01/20 18:42 Troponin T < 0.010 ng/mL (0.00-0.029) 01/01/20 18:42 NT-Pro-B Natriuret Pep 1438 pg/mL (0-900) H 01/01/20 18:42 Total Protein 7.8 g/dL (6.3-8.2) 01/01/20 18:42 Albumin 3.9 g/dL (3.9-5) 01/01/20 18:42 Albumin/Globulin Ratio 1.0 % 01/01/20 18:42 Membreno/IV: Voiding Method External Female Catheter IV Catheter Type [Right Hand] INT / Saline Lock IV Catheter Type [Left INT / Saline Lock Antecubital] IV Catheter Type [Left Upper INT / Saline Lock arm] IV Catheter Type [Right INT / Saline Lock Forearm] IV Catheter Type [Left Wrist] INT / Saline Lock Active Medications - Current Medications Current Medications: Generic Name Dose Route Start Last Admin Trade Name Freq PRN Reason Stop Dose Admin Acetaminophen 650 mg 01/01/20 21:59 Tylenol PO Q4H PRN Pain MILD(1-3)/Fever >100.5/ARMENDARIZ Albuterol 2.5 mg 01/03/20 18:09 Proventil IH Q6HRT PRN Dyspnea Albuterol/Ipratropium 1 ampul 01/03/20 20:00 01/08/20 20:37 Duoneb *Not For Prn Use* IH 1 ampul Q6HRT KAMARI Administration Apixaban 5 mg 01/03/20 12:00 01/08/20 10:19 Eliquis PO 5 mg Q12HR KAMARI Administration Protocol Artificial Tears 2 drops 01/04/20 17:40 01/08/20 18:09 Isopto Tears 0.5% OU 2 drops Q4H PRN Administration Dry Eye(s) Clonidine HCl 0.1 mg 01/02/20 21:04 01/02/20 22:44 Catapres PO 0.1 mg Q6HR PRN Administration Hypertension Dextrose 0 ml 01/01/20 21:59 D50w (25gm) Syringe IV Q30MIN PRN Hypoglycemia Protocol Diltiazem HCl 60 mg 01/03/20 12:00 01/08/20 18:17 Cardizem PO 60 mg Q6HR KAMARI Administration Diphenhydramine HCl 25 mg 01/02/20 16:47 01/08/20 08:51 Benadryl PO 25 mg Q6H PRN Administration Itching Furosemide 40 mg 01/02/20 06:00 01/08/20 18:11 Lasix IV 40 mg BID@0600,1800 KAMARI Administration Hydromorphone HCl 1 mg 01/01/20 22:32 01/08/20 15:40 Dilaudid IV 1 mg Q4H PRN Administration Pain , Severe (7-10) Insulin Human Lispro 0 unit 01/01/20 22:00 01/08/20 18:06 Humalog SUB-Q 3 unit ACHS KAMARI Administration Protocol Magnesium Hydroxide 30 ml 01/01/20 21:59 Milk Of Magnesia PO Q4H PRN Constipation Ondansetron HCl 4 mg 01/01/20 21:59 Zofran IV Q8H PRN Nausea And Vomiting Sodium Chloride 10 ml 01/01/20 22:00 01/08/20 10:19 Sodium Chloride Flush Syringe 10 Ml IV 10 ml BID KAMARI Administration Sodium Chloride 10 ml 01/01/20 21:59 Sodium Chloride Flush Syringe 10 Ml IV PRN PRN LINE FLUSH Triamcinolone Acetonide 1 applic 01/04/20 22:00 01/08/20 10:19 Kenalog TP 1 applic BID KAMARI Administration Nutrition/Malnutrition Assess - Dietary Evaluation Nutrition/Malnutrition Findings: Nutrition Notes Start: 01/02/20 1 1:41 Freq: Status: Active Protocol: Document 01/06/20 12:51 LM (Rec: 01/06/20 12:55 LM [id number]) Nutrition Notes Initial or Follow up Reassessment Current Diagnosis COPD,Diabetes,Hypertension, Heart Failure Other Pertinent Diagnosis CHF exacerbation Current Diet Cardiac/Consistent CHO Labs/Tests Reviewed Pertinent Medications Humalog Lasix Height 5 ft 6 in Weight 122.1 kg [place] Body Weight (kg) 59.09 BMI 43.4 Weight Status Morbidly Obese Subjective/Other Information Unable to speak to pt at time of visit. Per RN pt is eating very well. 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 No Is Patient Ambulatory and/or Out of Bed Yes REE-([place]-ambulatory/OOB) [ 2317.575 NUTR.MSJOOB] Kcal/Kg value to use for calculation 15 Approximate Energy Requirements Using 1832 kcal/Kg Calculation Used for Recommendations Kcal/kg Additional Notes Protein: 91-109g (1-1.2g/kg using AdjBW 91kg) Fluid: 1ml/kcal Nutrition Intervention Change Diet Order: continue Add Supplement/Snack (indicate name/kcal D/C /protein ) Goal #1 Meet at least 75% of energy and protein needs Anticipated Discharge Needs: cardiac/consistent CHO Follow-Up By: 01/12/20 Additional Comments F/U for stable intakes
[2020-01-09] MEDS: dilTIAZem 60 MG TAB PO SCH ×4 (00:21→17:27)
[2020-01-09] MEDS: IPRATROPIUM/ALBUTEROL SULFATE 3 ML AMPUL.NEB IH SCH ×4 (02:30→20:54)
[2020-01-09] MEDS: HYDROmorphone 1 MG/1 ML INJ IV PRN ×5 (03:39→22:49)
[2020-01-09] MEDS: FUROSEMIDE 40 MG/4 ML INJ IV SCH ×2 (06:01→17:27)
[2020-01-09] MEDS: INSULIN LISPRO 100 UNIT/ML VIAL 3 mL SUB-Q SCH ×4 (08:15→21:36)
[2020-01-09] MEDS: HYPROMELLOSE 0.5% OPHTH SOLN 15 ML OU PRN (08:16)
[2020-01-09] MEDS: TRIAMCINOLONE 0.1% CREAM 15 GM TP SCH ×2 (09:05→21:34)
[2020-01-09] MEDS: APIXABAN 5 MG TAB PO SCH ×2 (09:05→21:34)
--- NOTE | 2020-01-09 10:23 | Progress Note ---
Assessment and Plan Patient alert, awake. Resting on trach collar, FIO2 28%. O2 saturation 93%. Complaining slight shortness of breath. Patient morbidly Obese. Patient afebrile and has no leukocytosis. Chest xray done 01/08/20 Reported Improved left-sided pleural effusion. Previously noted bibasilar pulmonary opacities are stable since prior exam. There has been interval development of a linear opacity in the right midlung field which may represent atelectasis. Patient was treated with ceftrioxana and zithromax. Recommend receiving albuterol/atrovent aerosol treatments. Patient is on Apixaban - Patient Problems (1) Acute and chronic respiratory failure Current Visit: No Status: Acute Qualifiers: Respiratory failure complication: hypoxia Qualified Code(s): J96.21 - Acute and chronic respiratory failure with hypoxia Plan to address problem: Continue Trach collar., FIO2 28%. Albuterol/atrovent aerosol treatments q 6 hours. Respiratory suctioning. Trach care. Patient is on Apixaban. (2) CHF exacerbation Current Visit: Yes Status: Acute Qualifiers: Heart failure type: unspecified Qualified Code(s): I50.9 - Heart failure, unspecified Plan to address problem: Patient is on lasix and Cardiazem. Management as per cardiology. (3) Atrial fibrillation with RVR Current Visit: No Status: Acute Plan to address problem: Management as per cardiology. Patient is on Apixaban. (4) Obesity Current Visit: No Status: Acute Qualifiers: Obesity type: with alveolar hypoventilation Obesity classification: unspecified obesity classification Serious obesity comorbidity presence: with serious comorbidity Qualified Code(s): E66.2 - Morbid (severe) obesity with alveolar hypoventilation Plan to address problem: Weight reduction diet. Recommend DVT prophylaxis. (5) Obesity hypoventilation syndrome Current Visit: No Status: Acute Plan to address problem: Patient has tracheostomy. (6) Pneumonia Current Visit: Yes Status: Acute Plan to address problem: Airspace Opacities in right lung. Patient was treated with ceftrioxane and Zithromax. Subjective Date of service: 01/09/20 Principal diagnosis: Ac hypoxemic resp failure; Acute on ch HFrEF; COPD; Obesity; Cor pulmonale Interval history: Patient alert, awake. Resting on trach collar, FIO2 28%. O2 saturation 93%. Complaining slight shortness of breath. Patient morbidly Obese. Patient afebrile and has no leukocytosis. Chest xray done 01/08/20 Reported Improved left-sided pleural effusion. Previously noted bibasilar pulmonary opacities are stable since prior exam. There has been interval development of a linear opacity in the right midlung field which may represent atelectasis. Patient was treated with ceftrioxana and zithromax. Recommend receiving albuterol/atrovent aerosol treatments. Patient is on Apixaban. Objective Vital Signs - 12hr 01/09/20 01/09/20 01/09/20 00:13 00:21 02:30 Temperature 98.0 F Pulse Rate 90 90 Pulse Rate [ 88 Bilateral Throughout] Respiratory 18 Rate Respiratory 18 Rate [Bilateral Throughout] Blood Pressure 138/83 138/83 O2 Sat by Pulse 95 Oximetry 01/09/20 01/09/20 01/09/20 04:15 06:01 07:17 Temperature 98.0 F Pulse Rate 89 89 Pulse Rate [ Bilateral Throughout] Respiratory 18 Rate Respiratory Rate [Bilateral Throughout] Blood Pressure 135/85 135/85 O2 Sat by Pulse 86 97 Oximetry 01/09/20 01/09/20 01/09/20 08:00 09:59 10:03 Temperature 98.1 F Pulse Rate 65 Pulse Rate [ 85 Bilateral Throughout] Respiratory 20 Rate Respiratory 20 Rate [Bilateral Throughout] Blood Pressure 128/100 O2 Sat by Pulse 93 97 Oximetry Constitutional: no acute distress, alert, other (elderly looking obese female , S/P tracheostomy.) Eyes: non-icteric ENT: oropharynx moist, oropharynx erythematous Neck: supple, no lymphadenopathy Effort: mildly labored Ascultation: Bilateral: diminished breath sounds, rhonchi Percussion: Bilateral: not dull Cardiovascular: regular rate and rhythm Gastrointestinal: normoactive bowel sounds, soft, non-tender, non-distended Integumentary: normal Extremities: no cyanosis, pulses normal, edema (trace) Neurologic: normal mental status, non-focal exam (grossly), pupils equal and round, CN II-XII normal Psychiatric: mood appropriate, affect normal CBC and BMP: 01/03/20 08:43 01/03/20 08:43 ABG, PT/INR, D-dimer: ABG ABG pH 7.375 (7.320-7.450) 01/03/20 10:16 POC ABG pCO2 67.4 mmHg (32.0-48.0) H 01/03/20 10:16 POC ABG pO2 55.0 mmHg (83-108) L 01/03/20 10:16 PT/INR, D-dimer PT 14.6 Sec. (12.2-14.9) 01/02/20 05:11 INR 1.12 (0.87-1.13) 01/02/20 05:11 Abnormal lab findings: Abnormal Labs 01/01/20 01/01/20 01/01/20 18:42 18:42 18:42 MCH 27 L RDW 21.0 H [place] % (Auto) 12.8 H PT 15.3 H INR 1.18 H POC ABG pCO2 POC ABG pO2 ABG Hemoglobin ABG Oxyhemoglobin Potassium Chloride Carbon Dioxide 33 H Glucose 193 H POC Glucose NT-Pro-B Natriuret Pep 1438 H 01/01/20 01/02/20 01/02/20 22:41 05:11 05:11 MCH 27 L RDW 20.5 H [place] % (Auto) 13.8 H PT INR POC ABG pCO2 POC ABG pO2 ABG Hemoglobin ABG Oxyhemoglobin Potassium Chloride 97.5 L Carbon Dioxide 35 H Glucose 243 H POC Glucose 158 H NT-Pro-B Natriuret Pep 01/02/20 01/02/20 01/02/20 08:10 11:54 16:04 MCH RDW [place] % (Auto) PT INR POC ABG pCO2 POC ABG pO2 ABG Hemoglobin ABG Oxyhemoglobin Potassium Chloride Carbon Dioxide Glucose POC Glucose 211 H 166 H 123 H NT-Pro-B Natriuret Pep 01/02/20 01/03/20 01/03/20 22:07 07:36 08:43 MCH 27 L RDW 20.7 H [place] % (Auto) 12.8 H PT INR POC ABG pCO2 POC ABG pO2 ABG Hemoglobin ABG Oxyhemoglobin Potassium Chloride Carbon Dioxide Glucose POC Glucose 130 H 166 H NT-Pro-B Natriuret Pep 01/03/20 01/03/20 01/03/20 08:43 10:16 12:14 MCH RDW [place] % (Auto) PT INR POC ABG pCO2 67.4 H POC ABG pO2 55.0 L ABG Hemoglobin 11.0 L ABG Oxyhemoglobin 85.7 L Potassium 3.5 L Chloride 94.9 L Carbon Dioxide 34 H Glucose 233 H POC Glucose 166 H NT-Pro-B Natriuret Pep 01/03/20 01/03/20 01/04/20 16:50 20:33 07:56 MCH RDW [place] % (Auto) PT INR POC ABG pCO2 POC ABG pO2 ABG Hemoglobin ABG Oxyhemoglobin Potassium Chloride Carbon Dioxide Glucose POC Glucose 186 H 193 H 171 H NT-Pro-B Natriuret Pep 01/04/20 01/04/20 01/04/20 12:09 15:46 20:42 MCH RDW [place] % (Auto) PT INR POC ABG pCO2 POC ABG pO2 ABG Hemoglobin ABG Oxyhemoglobin Potassium Chloride Carbon Dioxide Glucose POC Glucose 206 H 222 H 195 H NT-Pro-B Natriuret Pep 01/05/20 01/05/20 01/05/20 07:58 12:19 16:08 MCH RDW [place] % (Auto) PT INR POC ABG pCO2 POC ABG pO2 ABG Hemoglobin ABG Oxyhemoglobin Potassium Chloride Carbon Dioxide Glucose POC Glucose 194 H 148 H 237 H NT-Pro-B Natriuret Pep 01/05/20 01/06/20 01/06/20 20:59 09:01 12:11 MCH RDW [place] % (Auto) PT INR POC ABG pCO2 POC ABG pO2 ABG Hemoglobin ABG Oxyhemoglobin Potassium Chloride Carbon Dioxide Glucose POC Glucose 187 H 159 H 180 H NT-Pro-B Natriuret Pep 01/06/20 01/06/20 01/07/20 17:37 21:43 08:53 MCH RDW [place] % (Auto) PT INR POC ABG pCO2 POC ABG pO2 ABG Hemoglobin ABG Oxyhemoglobin Potassium Chloride Carbon Dioxide Glucose POC Glucose 199 H 227 H 170 H NT-Pro-B Natriuret Pep 01/07/20 01/07/20 01/07/20 11:47 17:04 22:07 MCH RDW [place] % (Auto) PT INR POC ABG pCO2 POC ABG pO2 ABG Hemoglobin ABG Oxyhemoglobin Potassium Chloride Carbon Dioxide Glucose POC Glucose 182 H 149 H 181 H NT-Pro-B Natriuret Pep 01/08/20 01/08/20 01/08/20 08:19 11:41 16:34 MCH RDW [place] % (Auto) PT INR POC ABG pCO2 POC ABG pO2 ABG Hemoglobin ABG Oxyhemoglobin Potassium Chloride Carbon Dioxide Glucose POC Glucose 149 H 217 H 218 H NT-Pro-B Natriuret Pep 01/08/20 01/09/20 21:02 08:19 MCH RDW [place] % (Auto) PT INR POC ABG pCO2 POC ABG pO2 ABG Hemoglobin ABG Oxyhemoglobin Potassium Chloride Carbon Dioxide Glucose POC Glucose 188 H 168 H NT-Pro-B Natriuret Pep Chest x-ray: report reviewed, image reviewed Additional Studies: CHEST 1 VIEW 12/3019 INDICATION / CLINICAL INFORMATION: respiratory failure. COMPARISON: 01/01/2020. FINDINGS: SUPPORT DEVICES: Tracheostomy tube in stable position. HEART / MEDIASTINUM: Stable since prior exam. Prior sternotomy. LUNGS / PLEURA: Interval improvement of previously noted left-sided pleural effusion. Persistent bibasilar opacities are relatively unchanged since prior exam. A new linear opacity is noted in the right midlung field. No pneumothorax. ADDITIONAL FINDINGS: Surgical clips the right axilla. IMPRESSION: 1. Improved left-sided pleural effusion. 2. Previously noted bibasilar pulmonary opacities are stable since prior exam. 3. There has been interval development of a linear opacity in the right midlung field which may represent atelectasis. 4. Additional findings able since prior exam. Allied health notes reviewed: RT
--- NOTE | 2020-01-09 12:16 | Progress Note ---
Assessment and Plan - Patient Problems (1) Cor pulmonale Current Visit: Yes Status: Acute Plan to address problem: The patient presented with respiratory failure due to obesity, sleep apnea, chronic lung disease, right heart failure, pulmonary hypertension and cor pulmonale. Continue supportive management. (2) Systolic heart failure Current Visit: Yes Status: Acute Plan to address problem: There is an underlying moderate severity left ventricular dysfunction with ejection fraction 35 to 40%. We will continue guideline directed optimal medical therapy. (3) Chronic atrial fibrillation Current Visit: Yes Status: Acute Plan to address problem: Patient has chronic atrial fibrillation on a rate control strategy, and oral anticoagulation with Eliquis. We will continue current management. Subjective Date of service: 01/09/20 Principal diagnosis: Ac hypoxemic resp failure; Acute on ch HFrEF; COPD; Obesity; Cor pulmonale Interval history: Patient looks and feels comfortable, no new cardiac complaints. She has a trach and is currently on a T-piece. Atrial fibrillation rate is better controlled, in the 90s. Objective Vital Signs Temp Pulse Pulse Pulse Pulse Resp Resp 01/09/20 12:08 62 01/09/20 11:30 98 F 84 20 01/09/20 10:03 01/09/20 10:00 65 94 H 22 01/09/20 09:59 85 20 01/09/20 08:00 98.1 F 65 20 01/09/20 07:17 01/09/20 06:01 89 01/09/20 04:15 98.0 F 89 18 01/09/20 02:30 88 18 01/09/20 00:21 90 01/09/20 00:13 98.0 F 90 18 01/08/20 22:00 102 H 94 H 94 H 22 01/08/20 20:45 91 H 20 01/08/20 19:28 98.4 F 94 H 18 01/08/20 18:17 93 H 01/08/20 17:00 01/08/20 13:29 63 20 01/08/20 12:57 53 L BP BP Pulse Ox Pulse Ox 01/09/20 12:08 136/72 01/09/20 11:30 136/72 93 01/09/20 10:03 97 01/09/20 10:00 01/09/20 09:59 01/09/20 08:00 128/100 93 01/09/20 07:17 97 01/09/20 06:01 135/85 01/09/20 04:15 135/85 86 01/09/20 02:30 01/09/20 00:21 138/83 01/09/20 00:13 138/83 95 01/08/20 22:00 01/08/20 20:45 01/08/20 19:28 130/76 94 01/08/20 18:17 01/08/20 17:00 95 01/08/20 13:29 01/08/20 12:57 - Physical Examination General: No Apparent Distress HEENT: Positive: PERRL, Other (chronic tracheostomy) Neck: Positive: neck supple, Other (Trach with T-piece) Cardiac: Positive: irregularly irregular Lungs: Positive: Decreased Breath Sounds Neuro: Positive: Grossly Intact Abdomen: Positive: Soft Skin: Positive: Clear Extremities: Absent: edema - Allied health notes Allied health notes reviewed: RT
[2020-01-09] MEDS: diphenhydrAMINE 25 MG CAP PO PRN (18:06)
[2020-01-10] MEDS: dilTIAZem 60 MG TAB PO SCH ×3 (00:06→11:47)
[2020-01-10] MEDS: HYDROmorphone 1 MG/1 ML INJ IV PRN ×2 (05:45→11:46)
[2020-01-10] MEDS: FUROSEMIDE 40 MG/4 ML INJ IV SCH (05:46)
[2020-01-10] MEDS: IPRATROPIUM/ALBUTEROL SULFATE 3 ML AMPUL.NEB IH SCH ×2 (09:01→14:48)
[2020-01-10] MEDS: INSULIN LISPRO 100 UNIT/ML VIAL 3 mL SUB-Q SCH ×2 (09:09→11:50)
[2020-01-10] MEDS: APIXABAN 5 MG TAB PO SCH (09:10)
[2020-01-10] MEDS: TRIAMCINOLONE 0.1% CREAM 15 GM TP SCH (09:11)
[2020-01-10] MEDS: HYPROMELLOSE 0.5% OPHTH SOLN 15 ML OU PRN (09:11)
--- NOTE | 2020-01-10 09:34 | Progress Note ---
Assessment and Plan Patient alert, awake. Resting on trach collar, FIO2 28%. O2 saturation 93%. Patient morbidly Obese. Patient afebrile and has no leukocytosis. Chest xray done 01/08/20 Reported Improved left-sided pleural effusion. Previously noted bibasilar pulmonary opacities are stable since prior exam. There has been interval development of a linear opacity in the right midlung field which may represent atelectasis. Patient was treated with ceftrioxana and zithromax. Recommend receiving albuterol/atrovent aerosol treatments. Patient is on Apixaban - Patient Problems (1) Acute and chronic respiratory failure Current Visit: No Status: Acute Qualifiers: Respiratory failure complication: hypoxia Qualified Code(s): J96.21 - Acute and chronic respiratory failure with hypoxia Plan to address problem: Continue Trach collar., FIO2 28%. Albuterol/atrovent aerosol treatments q 6 hours. Respiratory suctioning. Trach care. Patient is on Apixaban. (2) CHF exacerbation Current Visit: Yes Status: Acute Qualifiers: Heart failure type: unspecified Qualified Code(s): I50.9 - Heart failure, unspecified Plan to address problem: Patient is on lasix and Cardiazem. Management as per cardiology. (3) Atrial fibrillation with RVR Current Visit: No Status: Acute Plan to address problem: Management as per cardiology. Patient is on Apixaban. (4) Obesity Current Visit: No Status: Acute Qualifiers: Obesity type: with alveolar hypoventilation Obesity classification: unspecified obesity classification Serious obesity comorbidity presence: with serious comorbidity Qualified Code(s): E66.2 - Morbid (severe) obesity with alveolar hypoventilation Plan to address problem: Weight reduction diet. Recommend DVT prophylaxis. (5) Obesity hypoventilation syndrome Current Visit: No Status: Acute Plan to address problem: Patient has tracheostomy. (6) Pneumonia Current Visit: Yes Status: Acute Plan to address problem: Airspace Opacities in right lung. Patient was treated with ceftrioxane and Zithromax. Subjective Date of service: 01/10/20 Principal diagnosis: Ac hypoxemic resp failure; Acute on ch HFrEF; COPD; Obesity; Cor pulmonale Interval history: Patient alert, awake. Resting on trach collar, FIO2 28%. O2 saturation 93%. Patient morbidly Obese. Patient afebrile and has no leukocytosis. Chest xray done 01/08/20 Reported Improved left-sided pleural effusion. Previously noted bibasilar pulmonary opacities are stable since prior exam. There has been interval development of a linear opacity in the right midlung field which may represent atelectasis. Patient was treated with ceftrioxana and zithromax. Recommend receiving albuterol/atrovent aerosol treatments. Patient is on Apixaban. Objective Vital Signs - 12hr 01/09/20 01/09/20 01/10/20 22:49 23:20 00:00 Temperature 98.7 F Pulse Rate 56 L Pulse Rate [ Bilateral Throughout] Respiratory 20 20 Rate Respiratory Rate [Bilateral Throughout] Blood Pressure 134/82 O2 Sat by Pulse 92 Oximetry O2 Sat by Pulse 98 Oximetry [ Assessment] 01/10/20 01/10/20 01/10/20 00:06 03:44 05:45 Temperature 98.2 F Pulse Rate 54 L 86 Pulse Rate [ Bilateral Throughout] Respiratory 20 18 Rate Respiratory Rate [Bilateral Throughout] Blood Pressure 130/96 O2 Sat by Pulse 89 Oximetry O2 Sat by Pulse Oximetry [ Assessment] 01/10/20 01/10/20 01/10/20 07:52 09:01 09:06 Temperature 98.1 F Pulse Rate 73 Pulse Rate [ 78 Bilateral Throughout] Respiratory 18 Rate Respiratory 20 Rate [Bilateral Throughout] Blood Pressure 150/74 O2 Sat by Pulse 90 93 Oximetry O2 Sat by Pulse Oximetry [ Assessment] Constitutional: no acute distress, alert, other (elderly looking obese female , S/P tracheostomy.) Eyes: non-icteric ENT: oropharynx moist, oropharynx erythematous Neck: supple, no lymphadenopathy Effort: mildly labored Ascultation: Bilateral: diminished breath sounds, rhonchi Percussion: Bilateral: not dull Cardiovascular: regular rate and rhythm Gastrointestinal: normoactive bowel sounds, soft, non-tender, non-distended Integumentary: normal Extremities: no cyanosis, pulses normal, edema (trace) Neurologic: normal mental status, non-focal exam (grossly), pupils equal and round, CN II-XII normal Psychiatric: mood appropriate, affect normal CBC and BMP: 01/03/20 08:43 01/03/20 08:43 ABG, PT/INR, D-dimer: ABG ABG pH 7.375 (7.320-7.450) 01/03/20 10:16 POC ABG pCO2 67.4 mmHg (32.0-48.0) H 01/03/20 10:16 POC ABG pO2 55.0 mmHg (83-108) L 01/03/20 10:16 PT/INR, D-dimer PT 14.6 Sec. (12.2-14.9) 01/02/20 05:11 INR 1.12 (0.87-1.13) 01/02/20 05:11 Abnormal lab findings: Abnormal Labs 01/01/20 01/01/20 01/01/20 18:42 18:42 18:42 MCH 27 L RDW 21.0 H [place] % (Auto) 12.8 H PT 15.3 H INR 1.18 H POC ABG pCO2 POC ABG pO2 ABG Hemoglobin ABG Oxyhemoglobin Potassium Chloride Carbon Dioxide 33 H Glucose 193 H POC Glucose NT-Pro-B Natriuret Pep 1438 H 01/01/20 01/02/20 01/02/20 22:41 05:11 05:11 MCH 27 L RDW 20.5 H [place] % (Auto) 13.8 H PT INR POC ABG pCO2 POC ABG pO2 ABG Hemoglobin ABG Oxyhemoglobin Potassium Chloride 97.5 L Carbon Dioxide 35 H Glucose 243 H POC Glucose 158 H NT-Pro-B Natriuret Pep 01/02/20 01/02/20 01/02/20 08:10 11:54 16:04 MCH RDW [place] % (Auto) PT INR POC ABG pCO2 POC ABG pO2 ABG Hemoglobin ABG Oxyhemoglobin Potassium Chloride Carbon Dioxide Glucose POC Glucose 211 H 166 H 123 H NT-Pro-B Natriuret Pep 01/02/20 01/03/20 01/03/20 22:07 07:36 08:43 MCH 27 L RDW 20.7 H [place] % (Auto) 12.8 H PT INR POC ABG pCO2 POC ABG pO2 ABG Hemoglobin ABG Oxyhemoglobin Potassium Chloride Carbon Dioxide Glucose POC Glucose 130 H 166 H NT-Pro-B Natriuret Pep 01/03/20 01/03/20 01/03/20 08:43 10:16 12:14 MCH RDW [place] % (Auto) PT INR POC ABG pCO2 67.4 H POC ABG pO2 55.0 L ABG Hemoglobin 11.0 L ABG Oxyhemoglobin 85.7 L Potassium 3.5 L Chloride 94.9 L Carbon Dioxide 34 H Glucose 233 H POC Glucose 166 H NT-Pro-B Natriuret Pep 01/03/20 01/03/20 01/04/20 16:50 20:33 07:56 MCH RDW [place] % (Auto) PT INR POC ABG pCO2 POC ABG pO2 ABG Hemoglobin ABG Oxyhemoglobin Potassium Chloride Carbon Dioxide Glucose POC Glucose 186 H 193 H 171 H NT-Pro-B Natriuret Pep 01/04/20 01/04/20 01/04/20 12:09 15:46 20:42 MCH RDW [place] % (Auto) PT INR POC ABG pCO2 POC ABG pO2 ABG Hemoglobin ABG Oxyhemoglobin Potassium Chloride Carbon Dioxide Glucose POC Glucose 206 H 222 H 195 H NT-Pro-B Natriuret Pep 01/05/20 01/05/20 01/05/20 07:58 12:19 16:08 MCH RDW [place] % (Auto) PT INR POC ABG pCO2 POC ABG pO2 ABG Hemoglobin ABG Oxyhemoglobin Potassium Chloride Carbon Dioxide Glucose POC Glucose 194 H 148 H 237 H NT-Pro-B Natriuret Pep 01/05/20 01/06/20 01/06/20 20:59 09:01 12:11 MCH RDW [place] % (Auto) PT INR POC ABG pCO2 POC ABG pO2 ABG Hemoglobin ABG Oxyhemoglobin Potassium Chloride Carbon Dioxide Glucose POC Glucose 187 H 159 H 180 H NT-Pro-B Natriuret Pep 01/06/20 01/06/20 01/07/20 17:37 21:43 08:53 MCH RDW [place] % (Auto) PT INR POC ABG pCO2 POC ABG pO2 ABG Hemoglobin ABG Oxyhemoglobin Potassium Chloride Carbon Dioxide Glucose POC Glucose 199 H 227 H 170 H NT-Pro-B Natriuret Pep 01/07/20 01/07/20 01/07/20 11:47 17:04 22:07 MCH RDW [place] % (Auto) PT INR POC ABG pCO2 POC ABG pO2 ABG Hemoglobin ABG Oxyhemoglobin Potassium Chloride Carbon Dioxide Glucose POC Glucose 182 H 149 H 181 H NT-Pro-B Natriuret Pep 01/08/20 01/08/20 01/08/20 08:19 11:41 16:34 MCH RDW [place] % (Auto) PT INR POC ABG pCO2 POC ABG pO2 ABG Hemoglobin ABG Oxyhemoglobin Potassium Chloride Carbon Dioxide Glucose POC Glucose 149 H 217 H 218 H NT-Pro-B Natriuret Pep 01/08/20 01/09/20 01/09/20 21:02 08:19 12:01 MCH RDW [place] % (Auto) PT INR POC ABG pCO2 POC ABG pO2 ABG Hemoglobin ABG Oxyhemoglobin Potassium Chloride Carbon Dioxide Glucose POC Glucose 188 H 168 H 169 H NT-Pro-B Natriuret Pep 01/09/20 01/09/20 01/10/20 17:35 20:24 08:09 MCH RDW [place] % (Auto) PT INR POC ABG pCO2 POC ABG pO2 ABG Hemoglobin ABG Oxyhemoglobin Potassium Chloride Carbon Dioxide Glucose POC Glucose 185 H 191 H 169 H NT-Pro-B Natriuret Pep Allied health notes reviewed: RT
--- NOTE | 2020-01-10 09:59 | Discharge Summary ---
Providers - Providers Date of Admission: 01/02/20 12:34 Date of discharge: 01/10/20 Attending physician: DAVID QUIROZ 01/01/20 22:00 Consult to Dietitian/Nutrition [CONS] Routine Physician Instructions: Reason For Exam: Reason for Consult: Diet education 01/02/20 10:01 Consult to Physician [CONS] Routine Comment: Consulting Provider: DONYA OCASIO Physician Instructions: Reason For Exam: CHF exac 01/02/20 10:06 Consult to Physician [CONS] Routine Comment: Consulting Provider: MAIRA SAUCEDO Physician Instructions: Reason For Exam: resp failure Primary care physician: HOTEL FRONT DESK CLERK Hospitalization Reason for admission: Acute on chronic respiratory failure/acute on chronic systolic CHF Condition: Stable Hospital course: 64-year-old -[place] female with significant history of COPD, hypertension, diabetes mellitus, atrial flutter, CHF-(EF 30-35%), history of trach in place presented to the emergency room today via EMS with a complaint of shortness of breath which started earlier this morning. Patient indicates she has had progressive lower extremity swelling over the past few days. She denies any fever or chills, no nausea vomiting, no diarrhea, no abdominal pain, no chest pain, no diaphoresis, no headache or dizziness. Patient is oxygen dependent with 3 L by nasal cannula at home. She indicates she had to do some breathing treatments at home without any significant improvement.Patient denies any sick contacts and no recent travel. She denies any contact with anyone with COVID-19. Work-up in the emergency room today reveals pulmonary vascular congestion with opacities in the right lung base which could represent underlying pneumonia. -Acute on chronic respiratory failure with indwelling tracheostomy. Hx of thoracotomy in 2013 for repair of a thoracic aortic dissection. Continue trach care, secretion control and airway management. Nebulizers and supportive care, pulmonary following RVSP is 48 mmHg illustrating moderate pulmonary hypertension. Continue GDMT per cardiology recommendations. Follow-up echocardiogram. Cardiology con sulted. Lasix 40 mg IV twice daily --Sepsis secondary to right lower lobe pneumonia. Continue IV antibiotics. --Obesity hypoventilation syndrome/YOHANNES. --Acute on chronic hypoxic respiratory failure. Patient on home O2 of 3 L. Etiology secondary to above --Acute on chronic systolic heart failure; EF is 30 to 35%. Echo; 04/2019 reveals mod global hypokinesis of left ventricle with systolic function --Dilated cardiomyopathy. Patient also with four-chamber dilated cardiomyopathy per echo. --Chronic atrial fibrillation. Continue rate control with diltiazem and anticoagulation with Eliquis --Acute COPD exacerbation. Continue bronchodilators/nebulizers --Morbidly obese. BMI 42.8, weight reduction when medically stable --Possible YOHANNES; patient needs outpatient sleep study to rule out obstructive sleep apnea And the need for CPAP BiPAP at night --Type II diabetes mellitus type 2. Accu-Cheks and sliding scale insulin. Long-acting insulin as needed --Hypertension. Resume antihypertensive medications. --DVT prophylaxis; on Eliquis Patient is stable at discharge Disposition: DC/TX-06 HOME UNDER HOME [facility] Time spent for discharge: 32 min Core Measure Documentation - Palliative Care Palliative Care/ Comfort Measures: Not Applicable - Core Measures Any of the following diagnoses?: heart failure - Heart Failure Discharge Requirements BASSAM/ARB for LVSD if EF <40%: Yes Beta mansoor at discharge: No Reason for no beta mansoor on DC: Medical contraindication (Patient is on Cardizem) Exam - Constitutional Vitals: Temp Pulse Resp BP Pulse Ox 98.1 F 78 20 150/74 93 01/10/20 07:52 01/10/20 09:01 01/10/20 09:01 01/10/20 07:52 01/10/20 09:06 General appearance: Present: mild distress, well-nourished - EENT Eyes: Present: PERRL, EOM intact - Neck Neck: Present: supple, normal ROM - Respiratory Respiratory effort: normal Respiratory: bilateral: diminished, negative: rales, rhonchi, wheezing - Cardiovascular Rhythm: regular Heart Sounds: Present: S1 & S2 - Extremities Extremities: no ischemia, No edema - Abdominal General gastrointestinal: Present: soft, non-tender, non-distended, normal bowel sounds - Integumentary Integumentary: Present: clear, warm - Musculoskeletal Musculoskeletal: strength equal bilaterally, generalized weakness - Psychiatric Psychiatric: appropriate mood/affect, cooperative - Neurologic Neurologic: moves all extremities Plan Activity: advance as tolerated, fall precautions Diet: diabetic Additional Instructions: If you have worsening symptoms contact MD or go to emergency room. Tracheostomy care. Home with home health services Follow up with: PRIMARY CARE, [Primary Care Provider] - 3-5 Days RILEY GALVEZ MD [Staff Physician] - 7 Days DONYA OCASIO MD [Staff Physician] - 7 Days Prescriptions: diphenhydrAMINE [Benadryl CAP] 25 mg PO Q6H PRN #20 capsule PRN Reason: Itching dilTIAZem CD [Cardizem CD] 240 mg PO QDAY #30 capsule Triamcinolone 0.1% [Kenalog 0.1% CREAM] 1 applic TP BID 30 Days #2 tube Prednisone [predniSONE 5 mg (6-Day Pack, 21 Tabs)] 5 mg PO .TAPER #1 tab.ds.pk
[2020-01-10] MEDS ORDERED: LISINOPRIL 5 MG TAB PO SCH (10:00)
--- NOTE | 2020-01-10 10:47 | Progress Note ---
Assessment and Plan Acute on chronic systolic heart failure exacerbation Dilated cardiomyopathy an echocardiogram 04/2019 reports a 4 chamber dilated cardiomyopathy with moderate pulmonary hypertension, RVSP 48 mmHg. There was decreased left ventricular systolic function EF 30-35%. Chronic atrial fibrillation rate controlled; on diltiazem on oral anticoagulation with Eliquis Pneumonia Hx of COPD Chronic pulmonary disease with indwelling tracheostomy Hx of thoracotomy in 2013 for repair of a thoracic aortic dissection. no documented coronary artery disease Morbidly obese Continue medical therapy for chronic atrial fibrillation and acute on chronic systolic heart failure. Subjective Date of service: 01/10/20 Principal diagnosis: Ac hypoxemic resp failure; Acute on ch HFrEF; COPD; Obesity; Cor pulmonale Interval history: No interval cardiac changes. Afib with a well controlled ventricular rate on telemetry. Objective Vital Signs Temp Pulse Pulse Pulse Resp Resp BP 01/10/20 10:00 96 H 96 H 20 01/10/20 09:06 01/10/20 09:01 78 20 01/10/20 07:52 98.1 F 73 18 150/74 01/10/20 05:45 18 01/10/20 03:44 98.2 F 86 20 130/96 01/10/20 00:06 54 L 01/10/20 00:00 01/09/20 23:20 98.7 F 56 L 20 134/82 01/09/20 22:49 20 01/09/20 20:58 01/09/20 20:57 57 L 20 01/09/20 19:57 96 H 01/09/20 19:23 98.0 F 96 H 19 158/101 01/09/20 17:27 83 01/09/20 15:51 98.2 F 57 L 20 121/74 01/09/20 14:06 82 20 01/09/20 14:00 01/09/20 12:08 62 136/72 01/09/20 11:44 98.0 F 62 20 136/72 01/09/20 11:30 98 F 84 20 BP Pulse Ox Pulse Ox 01/10/20 10:00 98 01/10/20 09:06 93 01/10/20 09:01 01/10/20 07:52 90 01/10/20 05:45 01/10/20 03:44 89 01/10/20 00:06 01/10/20 00:00 98 01/09/20 23:20 92 01/09/20 22:49 01/09/20 20:58 98 01/09/20 20:57 01/09/20 19:57 01/09/20 19:23 89 01/09/20 17:27 01/09/20 15:51 91 01/09/20 14:06 01/09/20 14:00 97 01/09/20 12:08 01/09/20 11:44 93 01/09/20 11:30 136/72 93 - Physical Examination General: No Apparent Distress HEENT: Positive: PERRL, Other (chronic tracheostomy) Neck: Positive: Other (Trach with T-piece) Cardiac: Positive: irregularly irregular Extremities: Absent: edema - Allied health notes Allied health notes reviewed: RT
[2020-01-10 11:46] VITALS: BP 129/88
== END 2020-01-10 16:46 | disposition home health service (06) | DRG 871 ==
LOC: ED 17:44 → 4A 21:42 → OBSVTOIN 01-02 12:34 → 4A 01-04 11:06
PROVIDERS: ADMIT Internal Medicine Geriatric Medicine; ATTEND Internal Medicine
PROC: 4A033R1 Measurement of Arterial Saturation, Peripheral, Percutaneous Approach (ICD-10-PCS; principal; 2020-01-03)
DX: A41.9 Sepsis, unspecified organism (principal); J96.21 Acute and chronic respiratory failure with hypoxia; J18.9 Pneumonia, unspecified organism; I50.23 Acute on chronic systolic (congestive) heart failure; I48.92 Unspecified atrial flutter; J44.1 Chronic obstructive pulmonary disease with (acute) exacerbation; Z68.41 Body mass index [BMI] 40.0-44.9, adult; I48.20 Chronic atrial fibrillation, unspecified; I42.0 Dilated cardiomyopathy; E66.2 Morbid (severe) obesity with alveolar hypoventilation; J44.0 Chronic obstructive pulmonary disease with (acute) lower respiratory infection; I27.20 Pulmonary hypertension, unspecified; M19.90 Unspecified osteoarthritis, unspecified site; G43.909 Migraine, unspecified, not intractable, without status migrainosus; E11.9 Type 2 diabetes mellitus without complications; Z88.5 Allergy status to narcotic agent; Z88.1 Allergy status to other antibiotic agents; Z79.899 Other long term (current) drug therapy; Z79.4 Long term (current) use of insulin; Z93.0 Tracheostomy status
CPT/HCPCS: 36415; 36600; 71045; 80048; 80053; 82805; 82962; 83880; 84484; 85025; 85610; 85730; 87040; 93005; 94640; 94644; 94760; 96365; 96367; 96375; G0378; J0456; J0696; J1170; J1200; J1940; J2260; J7050

== ENCOUNTER 2020-02-16 19:41 | Observation (INO) | payer MEDICARE ==
--- NOTE | 2020-02-16 20:02 | Emergency Department Report ---
Blank Doc - Documentation Documentation: 64-year-old female that presents with chest pain and SOB. This initial assessment/diagnostic orders/clinical plan/treatment(s) is/are subject to change based on patient's health status, clinical progression and re- assessment by fellow clinical providers in the ED. Further treatment and workup at subsequent clinical providers discretion. Patient/guardians urged not to elope from the ED as their condition may be serious if not clinically assessed and managed. Initial orders include: 1- Patient sent to MAIN ED for further evaluation and treatment 2- cardiac workup
--- NOTE | 2020-02-16 20:28 | Emergency Department Report ---
ED Chest Pain HPI - General Chief Complaint: Chest Pain Stated Complaint: CHEST PAIN Time Seen by Provider: 02/16/20 20:01 Source: patient, EMS Mode of arrival: Stretcher Limitations: Physical Limitation - History of Present Illness Initial Comments: 64-year-old female the past medical history of thoracotomy in 2013 for repair of a thoracic aortic dissection, atrial fibrillation on Eliquis COPD, CHF with EF 30-35%, and tracheostomy presents to the hospital complaining of chest pain and shortness of breath since yesterday. Chest pain is described as sharp, across her entire anterior chest, intermittent and worse with palpation and movement. Positive cough reported. She complains of pain to both arms and shoulders. She was recently admitted to [facility] February 11 until the . As per her discharge paperwork it states her admission was COPD exacerbation. She was discharged on cough medicine, antibiotics, and steroids. Patient states she had the same pain during this previous admission. She is only taken Tylenol. She also states that she was told that she had too much fluid but yet was dehydrated. She feels like the fluid is once again increasing her lower extremities. She is compliant with her meds including Eliquis. Initial EKG in the ED was abnormal with mild ST elevation and Q waves in 1 and aVL which are new compared to previous EKG and also EKG from EMS. Case discussed with power distribution engineer and I interview patient in triage. Pain sounds atypical and I requested a repeat EKG. Repeat EKG shows resolution of ST elevation and Q waves in 1 and aVL therefore I suspect lead misplacement on initial EKG. Repeat EKG in triage is similar to previous EKG on record. Protocol is initiated in triage and I re-discussed case with pigskin trimmer Dr. Pickett who is in agreement that there are no acute EKG findings at this time (8:25pm) - Related Data Previous Rx's Medication Instructions Recorded Last Taken Type Acetaminophen [Acetaminophen TAB] 1 tab PO Q6H PRN #15 tablet 04/26/19 Unknown Rx Lisinopril [Zestril TAB] 2.5 mg PO QDAY #30 tab 04/26/19 07/12/19 19:37 Rx Fluticasone [Flonase] 50 mcg IN BID 30 Days bottle 07/02/19 07/12/19 19:37 Rx Magnesium Hydroxide [Milk of 30 ml PO QDAY PRN 30 Days 07/02/19 Unknown Rx Magnesia] oral.liqd Apixaban [Eliquis] 5 mg PO Q12HRT #60 tablet 07/18/19 Unknown Rx Arformoterol Nebu [Brovana Nebu] 15 mcg IH Q12HRT #20 ml 07/18/19 Unknown Rx Budesonide [Pulmicort Respules] 0.5 mg IH Q12HRT #60 nebu 07/18/19 Unknown Rx Escitalopram 20 mg PO DAILY #30 1000units 07/18/19 Unknown Rx Famotidine [Pepcid] 20 mg PO DAILY #30 tablet 07/18/19 Unknown Rx Furosemide [Lasix TAB] 40 mg PO QDAY #30 tablet 07/18/19 Unknown Rx Gabapentin 300 mg PO BID #60 capsule 07/18/19 Unknown Rx Insulin Glargine [Lantus VIAL] 12 unit SUB-Q QAM #300 pen 07/18/19 Unknown Rx Insulin Lispro [Admelog] 5 unit SQ TID #5 pen 07/18/19 Unknown Rx Ipratropium/Albuterol Sulfate 1 ampul IH Q8HRT #100 ampul.neb 07/18/19 Unknown Rx [DUONEB *Not for PRN Use*] Levothyroxine [Synthroid] 125 mcg PO DAILY@0600 #30 tablet 07/18/19 Unknown Rx Pantoprazole [Protonix TAB] 40 mg PO QDAY #30 tablet 07/18/19 Unknown Rx allopurinoL [Zyloprim] 300 mg PO QDAY #30 tablet 07/18/19 Unknown Rx hydrALAZINE [Apresoline TAB] 25 mg PO TID #90 tablet 07/18/19 Unknown Rx oxyCODONE /ACETAMINOPHEN [Percocet 2 tab PO Q6H PRN #12 tablet 07/18/19 Unknown Rx 5/325 mg] Potassium Chloride [K-Dur] 10 meq PO QDAY #30 tablet 08/11/19 Unknown Rx guaiFENesin [Robitussin] 200 mg PO Q4H PRN #1 bottle 08/20/19 Unknown Rx Prednisone [predniSONE 5 mg (6-Day 5 mg PO .TAPER #1 tab.ds.pk 01/10/20 Unknown Rx Pack, 21 Tabs)] Triamcinolone 0.1% [Kenalog 0.1% 1 applic TP BID 30 Days #2 tube 01/10/20 Unknown Rx CREAM] dilTIAZem CD [Cardizem CD] 240 mg PO QDAY #30 capsule 01/10/20 Unknown Rx diphenhydrAMINE [Benadryl CAP] 25 mg PO Q6H PRN #20 capsule 01/10/20 Unknown Rx Allergies Allergy/AdvReac Type Severity Reaction Status Date / Time levofloxacin [From Levaquin] Allergy Rash Verified 01/27/19 21:36 morphine Allergy Rash Verified 01/27/19 21:36 Heart Score - HEART Score History: Slightly suspicious EKG: Non-specific Age: > 65 Risk factors: > 3 risk factors or hx of atherosclerotic disease Troponin: < normal limit HEART Score: 5 ED Review of Systems ROS: Stated complaint: CHEST PAIN Other details as noted in HPI Comment: All other systems reviewed and negative ED Past Medical Hx - Past Medical History Previous Medical History?: Yes Hx Hypertension: Yes Hx Heart Attack/AMI: No Hx Congestive Heart Failure: Yes Hx Diabetes: Yes Hx Deep Vein Thrombosis: No Hx Pulmonary Embolism: No Hx Liver Disease: No Hx Renal Disease: Yes Hx Arthritis: Yes Hx Headaches / Migraines: Yes Hx Kidney Stones: No Hx Asthma: No Hx COPD: Yes Hx Tuberculosis: No Additional medical history: Acute and chronic resp failure, A-flutter, thracheomalacia, hypoxia, pulmonary edema, volume overload, trach, a-fib, chronic type I aortic dissection - Surgical History Past Surgical History?: Yes Hx Coronary Stent: No Hx Open Heart Surgery: Yes (Hx of thoracotomy in 2013 for repair of a thoracic aortic dissection. ) Hx Pacemaker: No Hx Internal Defibrillator: No Additional Surgical History: trach from open heart surgery - Social History Smoking Status: Former Smoker Substance Use Type: None - Medications Home Medications: Home Medications Medication Instructions Recorded Confirmed Last Taken Type Acetaminophen [Acetaminophen TAB] 1 tab PO Q6H PRN #15 tablet 04/26/19 01/02/20 Unknown Rx Lisinopril [Zestril TAB] 2.5 mg PO QDAY #30 tab 04/26/19 01/02/20 07/12/19 19:37 Rx Fluticasone [Flonase] 50 mcg IN BID 30 Days bottle 07/02/19 01/02/20 07/12/19 19:37 Rx Magnesium Hydroxide [Milk of 30 ml PO QDAY PRN 30 Days 07/02/19 01/02/20 Unknown Rx Magnesia] oral.liqd Apixaban [Eliquis] 5 mg PO Q12HRT #60 tablet 07/18/19 01/02/20 Unknown Rx Arformoterol Nebu [Brovana Nebu] 15 mcg IH Q12HRT #20 ml 07/18/19 01/02/20 Unknown Rx Budesonide [Pulmicort Respules] 0.5 mg IH Q12HRT #60 nebu 07/18/19 01/02/20 Unknown Rx Escitalopram 20 mg PO DAILY #30 1000units 07/18/19 01/02/20 Unknown Rx Famotidine [Pepcid] 20 mg PO DAILY #30 tablet 07/18/19 01/02/20 Unknown Rx Furosemide [Lasix TAB] 40 mg PO QDAY #30 tablet 07/18/19 01/02/20 Unknown Rx Gabapentin 300 mg PO BID #60 capsule 07/18/19 01/02/20 Unknown Rx Insulin Glargine [Lantus VIAL] 12 unit SUB-Q QAM #300 pen 07/18/19 01/02/20 U nknown Rx Insulin Lispro [Admelog] 5 unit SQ TID #5 pen 07/18/19 01/02/20 Unknown Rx Ipratropium/Albuterol Sulfate 1 ampul IH Q8HRT #100 ampul.neb 07/18/19 01/02/20 Unknown Rx [DUONEB *Not for PRN Use*] Levothyroxine [Synthroid] 125 mcg PO DAILY@0600 #30 tablet 07/18/19 01/02/20 Unknown Rx Pantoprazole [Protonix TAB] 40 mg PO QDAY #30 tablet 07/18/19 01/02/20 Unknown Rx allopurinoL [Zyloprim] 300 mg PO QDAY #30 tablet 07/18/19 01/02/20 Unknown Rx hydrALAZINE [Apresoline TAB] 25 mg PO TID #90 tablet 07/18/19 01/02/20 Unknown Rx oxyCODONE /ACETAMINOPHEN [Percocet 2 tab PO Q6H PRN #12 tablet 07/18/19 01/02/20 Unknown Rx 5/325 mg] Potassium Chloride [K-Dur] 10 meq PO QDAY #30 tablet 08/11/19 01/02/20 Unknown Rx guaiFENesin [Robitussin] 200 mg PO Q4H PRN #1 bottle 08/20/19 01/02/20 Unknown Rx Prednisone [predniSONE 5 mg (6-Day 5 mg PO .TAPER #1 tab.ds.pk 01/10/20 Unknown Rx Pack, 21 Tabs)] Triamcinolone 0.1% [Kenalog 0.1% 1 applic TP BID 30 Days #2 tube 01/10/20 Unknown Rx CREAM] dilTIAZem CD [Cardizem CD] 240 mg PO QDAY #30 capsule 01/10/20 Unknown Rx diphenhydrAMINE [Benadryl CAP] 25 mg PO Q6H PRN #20 capsule 01/10/20 Unknown Rx ED Physical Exam - General Limitations: Physical Limitation - Other Other exam information: General: No acute distress Head: Atraumatic Eyes: normal appearance ENT: Moist mucous membranes Neck: Normal appearance, no midline tenderness, tracheostomy Chest: Diminished bibasilar breath sounds, no wheezes, rales, or crackles CV: Regular rate and rhythm Abdomen: Soft, normal bowel sounds, nontender, nondistended, no rebound or guarding Back: Normal inspection Extremity: Bilateral lower extremity edema nonpitting Neuro: Alert O x 3, no facial asymmetry, speech clear, no gross motor sensory d eficit Psych: Appropriate behavior Skin: No rash ED Course Vital Signs 02/16/20 02/16/20 02/16/20 20:12 22:54 23:01 Temperature 98.6 F Pulse Rate 80 77 86 Pulse Rate [ Bilateral] Respiratory 20 19 19 Rate Respiratory Rate [Bilateral ] Blood Pressure 153/94 150/118 O2 Sat by Pulse 100 100 99 Oximetry 02/16/20 23:04 Temperature Pulse Rate Pulse Rate [ 88 Bilateral] Respiratory Rate Respiratory 20 Rate [Bilateral ] Blood Pressure O2 Sat by Pulse Oximetry ED Medical Decision Making - Lab Data Result diagrams: 02/16/20 20:03 02/16/20 20:03 Lab Results 02/16/20 02/16/20 02/16/20 Range/Units 20:03 20:03 20:03 WBC 5.2 (4.5-11.0) K/mm3 RBC 3.58 L (3.65-5.03) M/mm3 Hgb 10.0 L (10.1-14.3) gm/dl Hct 30.6 (30.3-42.9) % MCV 86 (79-97) fl MCH 28 (28-32) pg MCHC 33 (30-34) % RDW 19.3 H (13.2-15.2) % Plt Count 181 (140-440) K/mm3 Lymph % (Auto) 20.0 (13.4-35.0) % [place] % (Auto) 5.8 (0.0-7.3) % Eos % (Auto) 0.1 (0.0-4.3) % Baso % (Auto) 0.7 (0.0-1.8) % Lymph # (Auto) 1.0 L (1.2-5.4) K/mm3 [place] # (Auto) 0.3 (0.0-0.8) K/mm3 Eos # (Auto) 0.0 (0.0-0.4) K/mm3 Baso # (Auto) 0.0 (0.0-0.1) K/mm3 Seg Neutrophils % 73.4 H (40.0-70.0) % Seg Neutrophils # 3.8 (1.8-7.7) K/mm3 PT 13.4 (12.2-14.9) Sec. INR 1.01 (0.87-1.13) APTT 27.1 (24.2-36.6) Sec. Sodium 137 (137-145) mmol/L Potassium 3.7 (3.6-5.0) mmol/L Chloride 91.1 L (98-107) mmol/L Carbon Dioxide 32 H (22-30) mmol/L Anion Gap 18 mmol/L BUN 40 H (7-17) mg/dL Creatinine 1.0 (0.6-1.2) mg/dL Estimated GFR > 60 ml/min BUN/Creatinine Ratio 40 % Glucose 366 H (65-100) mg/dL Calcium 9.7 (8.4-10.2) mg/dL Total Bilirubin 0.30 (0.1-1.2) mg/dL AST 11 (5-40) units/L ALT 12 (7-56) units/L Alkaline Phosphatase 153 H (35-129) units/L Troponin T < 0.010 (0.00-0.029) ng/mL NT-Pro-B Natriuret Pep 1619 H (0-900) pg/mL Total Protein 7.2 (6.3-8.2) g/dL Albumin 4.1 (3.9-5) g/dL Albumin/Globulin Ratio 1.3 % 02/16/20 Range/Units 23:00 WBC (4.5-11.0) K/mm3 RBC (3.65-5.03) M/mm3 Hgb (10.1-14.3) gm/dl Hct (30.3-42.9) % MCV (79-97) fl MCH (28-32) pg MCHC (30-34) % RDW (13.2-15.2) % Plt Count (140-440) K/mm3 Lymph % (Auto) (13.4-35.0) % [place] % (Auto) (0.0-7.3) % Eos % (Auto) (0.0-4.3) % Baso % (Auto) (0.0-1.8) % Lymph # (Auto) (1.2-5.4) K/mm3 [place] # (Auto) (0.0-0.8) K/mm3 Eos # (Auto) (0.0-0.4) K/mm3 Baso # (Auto) (0.0-0.1) K/mm3 Seg Neutrophils % (40.0-70.0) % Seg Neutrophils # (1.8-7.7) K/mm3 PT (12.2-14.9) Sec. INR (0.87-1.13) APTT (24.2-36.6) Sec. Sodium (137-145) mmol/L Potassium (3.6-5.0) mmol/L Chloride (98-107) mmol/L Carbon Dioxide (22-30) mmol/L Anion Gap mmol/L BUN (7-17) mg/dL Creatinine (0.6-1.2) mg/dL Estimated GFR ml/min BUN/Creatinine Ratio % Glucose (65-100) mg/dL Calcium (8.4-10.2) mg/dL Total Bilirubin (0.1-1.2) mg/dL AST (5-40) units/L ALT (7-56) units/L Alkaline Phosphatase (35-129) units/L Troponin T < 0.010 (0.00-0.029) ng/mL NT-Pro-B Natriuret Pep (0-900) pg/mL Total Protein (6.3-8.2) g/dL Albumin (3.9-5) g/dL Albumin/Globulin Ratio % - EKG Data -: EKG Interpreted by Me (Atrial flutter) EKG shows normal: ST-T waves (Lateral T wave inversion) Rate: normal (Rate 80) - EKG Data When compared to previous EKG there are: no significant change - Radiology Data Radiology results: report reviewed CHEST 2 VIEWS INDICATION / CLINICAL INFORMATION: Chest pain, shortness of breath COMPARISON: 01/08/2020. FINDINGS: SUPPORT DEVICES: None. HEART / MEDIASTINUM: Stable cardiomegaly. LUNGS / PLEURA: Mild bilateral interstitial prominence and central vascular congestion. No focal airspace consolidation. Stable linear opacity in the right midlung. No pneumothorax. ADDITIONAL FINDINGS: No significant additional findings. IMPRESSION: 1. Cardiomegaly and features of mild pulmonary edema. CT angio chest INDICATION: cp, sob, aortic disection repair. TECHNIQUE: All CT scans at this location are performed using CT dose reduction for ALARA by means of automated exposure control. 3 plane MIP and/or 3-D reconstructions were produced. COMPARISON: 04/22/2019 FINDINGS: Type I aortic dissection extends well into the abdominal aorta. It appears unchanged from the previous exam. No mediastinal, hilar or axillary adenopathy. Mild cardiac enlargement, unchanged. Persistent atelectasis in the lung bases is actually improved since April. No acute pulmonary disease. No evidence of pulmonary embolus. IMPRESSION: 1. Type I aortic dissection, unchanged from previous exam. 2. No pulmonary embolus, acute pulmonary disease or other acute findings. - Medical Decision Making Patient presents to the ED complaining of persistent and worsening left lower extremity edema, anterior chest pain which seems to be reproducible on examination, shortness of breath with mild signs of respiratory distress on exam. Patient recently discharged from [facility] several days ago after a 1 day admission for COPD exacerbation. Patient treated in the ED with Dilaudid, Zofran, duo nebs and is comfortable during ED evaluation. CT angiogram with unchanged type I dissection and no signs of pulmonary embolism. EKG with A. fib without acute changes. Troponin negative x2. I suspect that patient's chest pain is reproducible musculoskeletal in nature, however shortness of breath is likely related to COPD says no signs of pulmonary edema. Previous atelectasis on CT persistent but improved. And I suspect the patient's lower extremity edema is chronic. Patient has elevated to BUN/creatinine ratio with normal creatinine function at this time. Patient will be admitted to the hospitalist service for further treatment. Critical Care Time: No Critical care attestation.: If time is entered above; I have spent that time in minutes in the direct care of this critically ill patient, excluding procedure time. ED Disposition Clinical Impression: Chest pain, Chronic thoracic aortic dissection, Atrial flutter, SOB (shortness of breath), Chest wall pain Disposition: OP ADMIT IP TO THIS HOSP Is pt being admited?: Yes Condition: Stable Time of Disposition: 01:13
[2020-02-16 20:45] LABS: Basophils % (Auto) 0.7 % (0.0-1.8); Eosinophils % (Auto) 0.1 % (0.0-4.3); Hematocrit 30.6 % (30.3-42.9); Mean Corpuscular HGB Conc 33 % (30-34); Mean Corpuscular Volume 86 fl (79-97); Monocytes # (Auto) 0.3 K/mm3 (0.0-0.8); Monocytes % (Auto) 5.8 % (0.0-7.3); Platelet Count 181 K/mm3 (140-440); Red Blood Count 3.58 M/mm3 (3.65-5.03); Red Cell Distribution Width 19.3 % (13.2-15.2)
[2020-02-16 20:58] LABS: Alanine Aminotransferase 12 units/L (7-56); Albumin 4.1 g/dL (3.9-5); BUN/Creatinine Ratio 40; Blood Urea Nitrogen 40 mg/dL (7-17); Calcium 9.7 mg/dL (8.4-10.2); Hemolysis Index 2; INR 1.01 (0.87-1.13)
[2020-02-16 20:59] LABS: Partial Thromboplastin Time 27.1 Sec. (24.2-36.6)
--- NOTE | 2020-02-16 21:26 | XRay Report ---
CHEST 2 VIEWS INDICATION / CLINICAL INFORMATION: Chest pain, shortness of breath COMPARISON: 01/08/2020. FINDINGS: SUPPORT DEVICES: None. HEART / MEDIASTINUM: Stable cardiomegaly. LUNGS / PLEURA: Mild bilateral interstitial prominence and central vascular congestion. No focal airs pace consolidation. Stable linear opacity in the right midlung. No pneumothorax. ADDITIONAL FINDINGS: No significant additional findings. IMPRESSION: 1. Cardiomegaly and features of mild pulmonary edema. Signer Name: Deshawn Ch MD Signed: 02/16/2020 9:21 PM Workstation Name: [id number]
[2020-02-16] MEDS ORDERED: ONDANSETRON 4 MG/2 ML INJ IV ONE (22:39)
[2020-02-16] MEDS ORDERED: HYDROmorphone 1 MG/1 ML INJ IV ONE (22:39)
[2020-02-16] MEDS ORDERED: IPRATROPIUM/ALBUTEROL SULFATE 3 ML AMPUL.NEB IH ONE (22:40)
--- NOTE | 2020-02-17 00:43 | Cat Scan Report ---
CT angio chest INDICATION: cp, sob, aortic disection repair. TECHNIQUE: All CT scans at this location are performed using CT dose reduction for ALARA by means of automated e xposure control. 3 plane MIP and/or 3-D reconstructions were produced. COMPARISON: 04/22/2019 FINDINGS: Type I aortic dissection extends well into the abdominal aorta. It appears unchanged from the previou s exam. No mediastinal, hilar or axillary adenopathy. Mild cardiac enlargement, unchanged. Persistent atelect asis in the lung bases is actually improved since April. No acute pulmonary disease. No evidence of pulmonary embolus. IMPRESSION: 1. Type I aortic dissection, unchanged from previous exam. 2. No pulmonary embolus, acute pulmonary disease or other acute findings. Signer Name: Nathan Presley MD Signed: 02/17/2020 12:38 AM Workstation Name: [id number]
[2020-02-17] MEDS ORDERED: HYDROmorphone 1 MG/1 ML INJ IV ONE (01:55)
[2020-02-17] MEDS ORDERED: HYDROmorphone 1 MG/1 ML INJ ONE (01:58)
[2020-02-17] MEDS ORDERED: HEPARIN 5,000 UNIT/1 ML VIAL SUB-Q SCH (03:45)
[2020-02-17] MEDS ORDERED: ONDANSETRON 4 MG/2 ML INJ IV PRN (03:50)
--- NOTE | 2020-02-17 05:16 | History and Physical Report ---
History of Present Illness Date of examination: 02/17/20 Date of admission: 02/17/20 01:44 Chief complaint: Chief complaint is chest pain History of present illness: History of presenting illness, patient is a 64-year-old female who says she has been having intermittent sharp chest pain involving the precordial area and going on for about 3 days, pain radiates to the left upper extremity and was associated with shortness of breath but no diaphoresis and no nausea or vomiting. Patient also reported history of ankle edema, nonproductive cough but denied history of fever or chills and denied history of nausea vomiting Past History Past Medical History: atrial fib, COPD, diabetes, heart failure, hypertension, migraines, renal failure, other (AORTIC DISECTION, ) Past Surgical History: Other (THOROCOTOMY, TRACHEAOSTOMY) Social history: no significant social history Family history: no significant family history Medications and Allergies Allergies Allergy/AdvReac Type Severity Reaction Status Date / Time levofloxacin [From Levaquin] Allergy Rash Verified 01/27/19 21:36 morphine Allergy Rash Verified 01/27/19 21:36 Home Medications Medication Instructions Recorded Confirmed Last Taken Type Apixaban [Eliquis] 5 mg PO BID 02/17/20 02/17/20 Unknown History Aspirin 325 mg PO DAILY 02/17/20 02/17/20 Unknown History AtorvaSTATin [Lipitor] 40 mg PO QHS 02/17/20 02/17/20 Unknown History Escitalopram [Lexapro] 10 mg PO DAILY 02/17/20 02/17/20 Unknown History Gabapentin 300 mg PO TID 02/17/20 02/17/20 Unknown History Insulin Glargine [Lantus VIAL] 30 units SUB-Q DAILY 02/17/20 02/17/20 Unknown History Insulin Lispro [Admelog] 0 units SUB-Q DAILY 02/17/20 02/17/20 Unknown History Levothyroxine [Synthroid] 125 mcg PO QAM 02/17/20 02/17/20 Unknown History Lisinopril [Zestril TAB] 2.5 mg PO BID 02/17/20 02/17/20 Unknown History Montelukast [Singulair] 10 mg PO QPM 02/17/20 02/17/20 Unknown History Pantoprazole [Protonix] 40 mg PO QDAY 02/17/20 02/17/20 Unknown History Tiotropium [place] [Spiriva 2.5 mcg IH DAILY 02/17/20 02/17/20 Unknown History Respimat] Torsemide 40 mg PO DAILY 02/17/20 02/17/20 Unknown History carvediloL [Coreg] 12.5 mg PO BID 02/17/20 02/17/20 Unknown History Active Meds: Active Medications Acetaminophen (Tylenol) 650 mg PO Q4H PRN PRN Reason: Pain, Mild (1-3) Aspirin (Aspirin) 325 mg PO QDAY [facility] Furosemide (Lasix) 40 mg IV QDAY [facility] Heparin Sodium (Porcine) (Heparin) 5,000 unit SUB-Q Q12HR [facility] Nitroglycerin (Nitro-Bid 2%) 0.5 inch TP QIDNTG [facility]; Protocol Ondansetron HCl (Zofran) 4 mg IV Q8H PRN PRN Reason: Nausea And Vomiting Review of Systems Constitutional: no weight loss, no weight gain, no fever, no chills, no sweats, no night sweats, no anorexia, no fatigue, no weakness, no malaise Eyes: bilateral: other (NO BILATERAL EYE SYMPTOM) Ears, nose, mouth and throat: no ear pain, no ear discharge, no nasal congestion Breasts: deferred, no normal Cardiovascular: chest pain, rapid/irregular heart beat, shortness of breath, claudication, no orthopnea, no palpitations Respiratory: shortness of breath, dyspnea on exertion, no cough, no cough with sputum, no excessive sputum, no hemoptysis, no congestion, no wheezing, no pleurisy, no pain Gastrointestinal: no abdominal pain, no nausea, no vomiting, no diarrhea, no constipation, no change in bowel habits, no coffee ground emesis, no hematochezia Genitourinary Female: no dyspareunia, no pelvic pain, no flank pain, no menorrhagia, no dysuria, no urinary frequency, no urgency, no stress incontinence, no post void dribbling, no incomplete emptying, no urge incontinence, no mixed incontinence, no difficulty voiding Menstruation: no currently menstrual, no period heavy, no period spotting Rectal: no pain Musculoskeletal: no neck stiffness, no neck pain, no shooting arm pain, no low back pain, no shooting leg pain, no leg numbness/tingling, no morning stiffness, no muscle weakness, no muscle cramps, no myalgias, no atrophy, no frequent falls Integumentary: no rash, no pruritis, no redness, no sores, no wounds, no jaundice, no boils, no acne Neurological: no paralysis, no weakness, no parathesias, no numbness, no tingling, no seizures, no syncope, no tremors, no ataxia, no vertigo, no headaches, no migraines, no convulsions, no change in speech, no change in mentation, no confusion Psychiatric: no anxiety, no memory loss, no change in sleep habits, no sleep disturbances, no insomnia, no hypersomnia, no change in appetite Endocrine: no cold intolerance, no heat intolerance, no polyphagia, no polydipsia, no polyuria, no nocturia, no excessive sweating, no flushing, no palpatations Hematologic/Lymphatic: no easy bruising, no lymphadenopathy Allergic/Immunologic: no urticaria Exam - Constitutional Vitals: Temp Pulse Resp BP Pulse Ox 98.6 F 93 H 24 146/102 100 02/16/20 20:12 02/17/20 04:51 02/17/20 04:51 02/17/20 04:51 02/17/20 04:51 General appearance: Present: mild distress - EENT Eyes: Present: PERRL, EOM intact ENT: hearing intact, clear oral mucosa, dentition normal - Neck Neck: Present: supple, normal ROM - Respiratory Respiratory effort: normal - Cardiovascular Rhythm: regular Heart Sounds: Present: S1 & S2. Absent: gallop, systolic murmur, diastolic murmur - Extremities Extremities: no ischemia, No edema Peripheral Pulses: within normal limits - Abdominal General gastrointestinal: Present: soft, non-tender, non-distended. Absent: tender, distended, rigid, hepatomegaly, splenomegaly Female genitourinary: Present: deferred - Rectal Rectal Exam: deferred - Integumentary Integumentary: Present: clear, warm, dry - Musculoskeletal Musculoskeletal: strength equal bilaterally - Psychiatric Psychiatric: appropriate mood/affect - Neurologic Neurologic: CNII-XII intact HEART Score - HEART Score EKG: Non-specific Age: > 65 Risk factors: > 3 risk factors or hx of atherosclerotic disease Troponin: Troponin T < 0.010 ng/mL (0.00-0.029) 02/16/20 23:00 Troponin: < normal limit - Critical Actions Critical Actions: 0-3 pts:0.9-1.7%risk of adverse cardiac event.Candidate for discharge (PATIENT UNDERGOING CHEST PAIN WORK UP) Results - Labs CBC & Chem 7: 02/16/20 20:03 02/16/20 20:03 Labs: Laboratory Last Values WBC 5.2 K/mm3 (4.5-11.0) 02/16/20 20: RBC 3.58 M/mm3 (3.65-5.03) L 02/16/20 20: Hgb 10.0 gm/dl (10.1-14.3) L 02/16/20 20: Hct 30.6 % (30.3-42.9) 02/16/20 20: MCV 86 fl (79-97) 02/16/20 20: MCH 28 pg (28-32) 02/16/20 20: MCHC 33 % (30-34) 02/16/20 20: RDW 19.3 % (13.2-15.2) H 02/16/20 20: Plt Count 181 K/mm3 (140-440) 02/16/20 20: Lymph % (Auto) 20.0 % (13.4-35.0) 02/16/20 20: [place] % (Auto) 5.8 % (0.0-7.3) 02/16/20 20: Eos % (Auto) 0.1 % (0.0-4.3) 02/16/20 20: Baso % (Auto) 0.7 % (0.0-1.8) 02/16/20 20: Lymph # (Auto) 1.0 K/mm3 (1.2-5.4) L 02/16/20 20: [place] # (Auto) 0.3 K/mm3 (0.0-0.8) 02/16/20 20: Eos # (Auto) 0.0 K/mm3 (0.0-0.4) 02/16/20 20: Baso # (Auto) 0.0 K/mm3 (0.0-0.1) 02/16/20 20: Seg Neutrophils % 73.4 % (40.0-70.0) H 02/16/20 20:03 Seg Neutrophils # 3.8 K/mm3 (1.8-7.7) 02/16/20 20:03 PT 13.4 Sec. (12.2-14.9) 02/16/20 20:03 INR 1.01 (0.87-1.13) 02/16/20 20:03 APTT 27.1 Sec. (24.2-36.6) 02/16/20 20:03 Sodium 137 mmol/L (137-145) 02/16/20 20:03 Potassium 3.7 mmol/L (3.6-5.0) 02/16/20 20:03 Chloride 91.1 mmol/L (98-107) L 02/16/20 20:03 Carbon Dioxide 32 mmol/L (22-30) H 02/16/20 20:03 Anion Gap 18 mmol/L 02/16/20 20:03 BUN 40 mg/dL (7-17) H 02/16/20 20:03 Creatinine 1.0 mg/dL (0.6-1.2) 02/16/20 20:03 Estimated GFR > 60 ml/min 02/16/20 20:03 BUN/Creatinine Ratio 40 % 02/16/20 20: Glucose 366 mg/dL (65-100) H 02/16/20 20:03 Calcium 9.7 mg/dL (8.4-10.2) 02/16/20 20:03 Total Bilirubin 0.30 mg/dL (0.1-1.2) 02/16/20 20:03 AST 11 units/L (5-40) 02/16/20 20:03 ALT 12 units/L (7-56) 02/16/20 20:03 Alkaline Phosphatase 153 units/L (35-129) H 02/16/20 20:03 Troponin T < 0.010 ng/mL (0.00-0.029) 02/16/20 23:00 NT-Pro-B Natriuret Pep 1619 pg/mL (0-900) H 02/16/20 20:03 Total Protein 7.2 g/dL (6.3-8.2) 02/16/20 20:03 Albumin 4.1 g/dL (3.9-5) 02/16/20 20:03 Albumin/Globulin Ratio 1.3 % 02/16/20 20:03 Mebmreno/IV: IV Catheter Type [Right INT / Saline Lock Antecubital] Assessment and Plan - Patient Problems (1) Chest pain Current Visit: Yes Status: Acute Plan to address problem: 1.TELEMETRY OBSERVATION 2. SERIAL CARDIAC ENZYMES 3. NPO 4. CARDIOLOGY CONSULT 5. NITROPASTE 6. ASPIRIN PO (2) Acute on chronic heart failure Current Visit: No Status: Acute Plan to address problem: 1. I.V LASIX 2. NITROPASTE 3. CARDIOLOGY CONSULT 4. 2 D ECHOCARDIOGRAM (3) Diabetes Current Visit: No Status: Acute Plan to address problem: 1. ACCUCHECKS. 2. SLIDING SCALE INSULIN COVERAGE
[2020-02-17] MEDS ORDERED: DEXTROSE 50% IN WATER (25GM) 50 ML SYRINGE IV PRN (05:39)
[2020-02-17] MEDS: NITROGLYCERIN 2% OINT 1 GM TP SCH ×4 (06:09→17:51)
[2020-02-17] MEDS: ACETAMINOPHEN 325 MG TAB PO PRN ×4 (06:17→23:54)
[2020-02-17] MEDS: INSULIN LISPRO 100 UNIT/ML VIAL 3 mL SUB-Q SCH ×5 (06:17→23:16)
[2020-02-17 08:44] LABS: Creatine Kinase MB 1.9 ng/mL (0.0-4.0)
--- NOTE | 2020-02-17 08:51 | Consultation ---
History of Present Illness Consult date: 02/17/20 Consult reason: congestive heart failure History of present illness: Patient is a 64-year old morbidly obese woman with sleep apnea, chronic lung disease, COPD with indwelling tracheostomy. She has dilated cardiomyopathy, ejection fraction 30-35%. She has chronic atrial fibrillation, on oral anticoagulation with Eliquis. In 2013 she underwent a thoracotomy for repair of a thoracic aortic dissection. At that time, there was no coronary disease. She presents with shortness of breath, admitted with COPD exacerbation and acute on chronic systolic heart failure exacerbation. No evidence of PE by chest CTA scan. An ECG is atrial flutter with a well controlled ventricular rate. Past History Past Medical History: atrial fib, COPD, diabetes, heart failure, hypertension, migraines, renal failure, other (AORTIC DISECTION, ) Past Surgical History: Other (THOROCOTOMY, TRACHEAOSTOMY) Social history: no significant social history Family history: no significant family history Medications and Allergies Allergies Allergy/AdvReac Type Severity Reaction Status Date / Time levofloxacin [From Levaquin] Allergy Rash Verified 01/27/19 21:36 morphine Allergy Rash Verified 01/27/19 21:36 Home Medications Medication Instructions Recorded Confirmed Last Taken Type Apixaban [Eliquis] 5 mg PO BID 02/17/20 02/17/20 Unknown History Aspirin 325 mg PO DAILY 02/17/20 02/17/20 Unknown History AtorvaSTATin [Lipitor] 40 mg PO QHS 02/17/20 02/17/20 Unknown History Escitalopram [Lexapro] 10 mg PO DAILY 02/17/20 02/17/20 Unknown History Gabapentin 300 mg PO TID 02/17/20 02/17/20 Unknown History Insulin Glargine [Lantus VIAL] 30 units SUB-Q DAILY 02/17/20 02/17/20 Unknown History Insulin Lispro [Admelog] 0 units SUB-Q DAILY 02/17/20 02/17/20 Unknown History Levothyroxine [Synthroid] 125 mcg PO QAM 02/17/20 02/17/20 Unknown History Lisinopril [Zestril TAB] 2.5 mg PO BID 02/17/20 02/17/20 Unknown History Montelukast [Singulair] 10 mg PO QPM 02/17/20 02/17/20 Unknown History Pantoprazole [Protonix] 40 mg PO QDAY 02/17/20 02/17/20 Unknown History Tiotropium [place] [Spiriva 2.5 mcg IH DAILY 02/17/20 02/17/20 Unknown History Respimat] Torsemide 40 mg PO DAILY 02/17/20 02/17/20 Unknown History carvediloL [Coreg] 12.5 mg PO BID 02/17/20 02/17/20 Unknown History Active Meds: Active Medications Acetaminophen (Tylenol) 650 mg PO Q4H PRN PRN Reason: Pain, Mild (1-3) Last Admin: 02/17/20 06:17 Dose: 650 mg Documented by: Aspirin (Aspirin) 325 mg PO QDAY [facility] Atorvastatin Calcium (Lipitor) 40 mg PO QHS [facility] Carvedilol (Coreg) 12.5 mg PO BID [facility] Dextrose (D50w (25gm) Syringe) 50 ml IV Q30MIN PRN; Protocol PRN Reason: Hypoglycemia Escitalopram Oxalate (Lexapro) 10 mg PO DAILY [facility] Furosemide (Lasix) 40 mg IV QDAY [facility] Gabapentin (Gabapentin) 300 mg PO TID [facility] Heparin Sodium (Porcine) (Heparin) 5,000 unit SUB-Q Q12HR [facility] Insulin Human Lispro (Humalog) 0 unit SUB-Q Q4HR [facility]; Protocol Last Admin: 02/17/20 06:17 Dose: 2 unit Documented by: Levothyroxine Sodium (Synthroid) 125 mcg PO QAM [facility] Lisinopril (Zestril) 2.5 mg PO BID [facility] Montelukast Sodium (Singulair) 10 mg PO QPM [facility] Nitroglycerin (Nitro-Bid 2%) 0.5 inch TP QIDNTG [facility]; Protocol Last Admin: 02/17/20 06:09 Dose: 0.5 inch Documented by: Ondansetron HCl (Zofran) 4 mg IV Q8H PRN PRN Reason: Nausea And Vomiting Pantoprazole Sodium (Protonix) 40 mg PO QDAY [facility] Pneumococcal Polyvalent Vaccine (Pneumovax 23) 0.5 ml IM .ONCE ONE Stop: 02/17/20 12:01 Sodium Chloride (Sodium Chloride Flush Syringe 10 Ml) 10 ml IV PRN PRN PRN Reason: LINE FLUSH Tiotropium [place] (Spiriva) 2.5 puff IH DAILY [facility] Physical Examination Vital Signs Temp Pulse Resp BP Pulse Ox 98.6 F 80 20 153/94 100 02/16/20 20:12 02/16/20 20:12 02/16/20 20:12 02/16/20 20:12 02/16/20 20:12 General appearance: no acute distress HEENT: Positive: PERRL Cardiac: Positive: irregularly irregular Results 02/16/20 20:03 02/16/20 20:03 Cardiac Enzymes 02/16/20 02/17/20 Range/Units 20:03 06:12 AST 11 (5-40) units/L CK-MB (CK-2) 1.9 (0.0-4.0) ng/mL Coagulation 02/16/20 Range/Units 20:03 PT 13.4 (12.2-14.9) Sec. INR 1.01 (0.87-1.13) APTT 27.1 (24.2-36.6) Sec. CBC 02/16/20 Range/Units 20:03 WBC 5.2 (4.5-11.0) K/mm3 RBC 3.58 L (3.65-5.03) M/mm3 Hgb 10.0 L (10.1-14.3) gm/dl Hct 30.6 (30.3-42.9) % Plt Count 181 (140-440) K/mm3 Lymph # (Auto) 1.0 L (1.2-5.4) K/mm3 [place] # (Auto) 0.3 (0.0-0.8) K/mm3 Eos # (Auto) 0.0 (0.0-0.4) K/mm3 Baso # (Auto) 0.0 (0.0-0.1) K/mm3 Comprehensive Metabolic Panel 02/16/20 Range/Units 20:03 Sodium 137 (137-145) mmol/L Potassium 3.7 (3.6-5.0) mmol/L Chloride 91.1 L (98-107) mmol/L Carbon Dioxide 32 H (22-30) mmol/L BUN 40 H (7-17) mg/dL Creatinine 1.0 (0.6-1.2) mg/dL Glucose 366 H (65-100) mg/dL Calcium 9.7 (8.4-10.2) mg/dL AST 11 (5-40) units/L ALT 12 (7-56) units/L Alkaline Phosphatase 153 H (35-129) units/L Total Protein 7.2 (6.3-8.2) g/dL Albumin 4.1 (3.9-5) g/dL Assessment and Plan Chronic systolic heart failure Dilated cardiomyopathy an echocardiogram 04/2019 reports a 4 chamber dilated cardiomyopathy with moderate pulmonary hypertension, RVSP 48 mmHg. There was decreased left ventricular systolic function EF 30-35%. Chronic atrial fibrillation rate controlled; on diltiazem on oral anticoagulation with Eliquis Pneumonia Hx of COPD Chronic pulmonary disease with indwelling tracheostomy Hx of thoracotomy in 2013 for repair of a thoracic aortic dissection. no documented coronary artery disease Morbidly obese Continue medical therapy for chronic atrial fibrillation and acute on chronic systolic heart failure.
[2020-02-17] MEDS: ASPIRIN 81 MG TAB CHEW PO SCH (09:59)
[2020-02-17] MEDS: LEVOTHYROXINE 125 MCG TAB PO SCH (09:59)
[2020-02-17] MEDS: LISINOPRIL 5 MG TAB PO SCH ×2 (09:59→22:07)
[2020-02-17] MEDS: PANTOPRAZOLE 40 MG TAB PO SCH (09:59)
[2020-02-17] MEDS: TIOTROPIUM 18 MCG CAP INHALATION IH SCH ×2 (10:00→11:28)
[2020-02-17] MEDS: APIXABAN 5 MG TAB PO SCH ×2 (10:00→22:06)
[2020-02-17] MEDS ORDERED: ASPIRIN 325 MG TAB PO SCH (10:00)
[2020-02-17] MEDS: FUROSEMIDE 40 MG/4 ML INJ IV SCH (10:00)
[2020-02-17] MEDS: carvediloL 12.5 MG TAB PO SCH ×2 (10:00→22:06)
[2020-02-17] MEDS: ESCITALOPRAM 10 MG TAB PO SCH (10:01)
[2020-02-17] MEDS: dilTIAZem 60 MG TAB PO SCH ×3 (11:31→23:18)
[2020-02-17] MEDS ORDERED: PNEUMOCOCCAL 23 Valent 0.5 ML VIAL IM ONE (12:00)
[2020-02-17] MEDS: GABAPENTIN 300 MG CAP PO SCH ×2 (14:03→22:06)
[2020-02-17] MEDS ORDERED: ALBUTEROL 2.5 MG/3 ML NEBU IH PRN (17:54)
--- NOTE | 2020-02-17 17:55 | Event Note ---
Date: 02/17/20 This is a 64-year-old patient with morbid obesity, sleep apnea, COPD s/p tracheostomy on 4 L home oxygen, HFrEF (30 to 35%), atrial fibrillation who is s/p thoracic aortic dissection who presented to the emergency department on 02/16 with complaints of intermittent sharp precordial chest pain for about 3 days with radiation to the left upper extremity and associated with shortness of breath. She also reports ankle edema and a nonproductive cough. She was admitted to the hospitalist service with acute COPD exacerbation and an acute on chronic systolic heart failure exacerbation. Cardiology was consulted. Her home medications have been reconciled. Patient had echocardiogram on 04/2019 which showed four-chamber dilated cardiomyopathy with moderate pulmonary hypertension with RSVP of 48 mmHg with an estimated EF of 30 to 35%. Patient was started on diltiazem and anticoagulation with Eliquis. VSS. At the time of my examination patient complains of right-sided intermittent chest pain associated with cough. She is on her home O2 of 4 L. Patient requests ensures to be ordered with her meals. We will continue to monitor.
[2020-02-17] MEDS ORDERED: MONTELUKAST 10 MG TAB PO SCH (18:00)
[2020-02-17] MEDS: guaiFENesin/CODEINE 100-10MG ORAL LIQD 5 ML PO PRN (22:07)
[2020-02-18] MEDS: INSULIN LISPRO 100 UNIT/ML VIAL 3 mL SUB-Q SCH ×4 (02:55→12:37)
[2020-02-18 05:40] LABS: BUN/Creatinine Ratio 34; Blood Urea Nitrogen 34 mg/dL (7-17); Calcium 9.1 mg/dL (8.4-10.2); Hemolysis Index 3
[2020-02-18] MEDS: NITROGLYCERIN 2% OINT 1 GM TP SCH ×2 (06:14→09:07)
[2020-02-18] MEDS: dilTIAZem 60 MG TAB PO SCH ×2 (06:14→12:36)
[2020-02-18] MEDS: ACETAMINOPHEN 325 MG TAB PO PRN (07:57)
[2020-02-18] MEDS: GABAPENTIN 300 MG CAP PO SCH ×3 (07:58→13:50)
[2020-02-18 09:06] VITALS: BP 148/82
[2020-02-18] MEDS: APIXABAN 5 MG TAB PO SCH (10:18)
[2020-02-18] MEDS: PANTOPRAZOLE 40 MG TAB PO SCH (10:18)
[2020-02-18] MEDS: ASPIRIN 81 MG TAB CHEW PO SCH (10:18)
[2020-02-18] MEDS: LEVOTHYROXINE 125 MCG TAB PO SCH (10:18)
[2020-02-18] MEDS: ESCITALOPRAM 10 MG TAB PO SCH (10:18)
[2020-02-18] MEDS: LISINOPRIL 5 MG TAB PO SCH (10:19)
[2020-02-18] MEDS: FUROSEMIDE 40 MG/4 ML INJ IV SCH (10:19)
[2020-02-18] MEDS: carvediloL 12.5 MG TAB PO SCH (10:19)
--- NOTE | 2020-02-18 10:19 | Progress Note ---
Assessment and Plan - Patient Problems (1) Chest wall pain Current Visit: Yes Status: Acute (2) Acute and chronic respiratory failure Current Visit: No Status: Acute Qualifiers: Respiratory failure complication: hypoxia Qualified Code(s): J96.21 - Acute and chronic respiratory failure with hypoxia (3) Chronic atrial fibrillation Current Visit: No Status: Acute (4) Obesity Current Visit: No Status: Acute Qualifiers: Obesity type: with alveolar hypoventilation Obesity classification: unspecified obesity classification Serious obesity comorbidity presence: with serious comorbidity Qualified Code(s): E66.2 - Morbid (severe) obesity with alveolar hypoventilation Subjective Date of service: 02/18/20 Interval history: STILL HAS CHEST TENDERNESS,,SOB,,COUGH Objective Vital Signs Temp Pulse Pulse Resp BP Pulse Ox Pulse Ox 02/18/20 09:43 96 02/18/20 08:03 78 18 95 02/18/20 08:02 75 02/18/20 07:28 98.0 F 79 18 148/82 95 02/18/20 04:22 97.6 F 69 20 120/74 98 02/18/20 02:42 108/61 02/18/20 02:00 78 02/18/20 01:19 98.0 F 63 20 80/49 83 L 02/18/20 00:15 20 95 02/17/20 22:41 94 02/17/20 22:36 93 02/17/20 19:44 99.1 F 71 22 114/72 96 02/17/20 18:25 96 02/17/20 18:20 96 02/17/20 17:56 73 111/56 97 02/17/20 17:51 89 102/87 02/17/20 17:48 89 102/87 02/17/20 17:00 72 02/17/20 15:42 98.4 F 71 22 102/74 98 02/17/20 14:03 78 112/86 02/17/20 12:31 72 95/43 96 02/17/20 12:00 62 02/17/20 11:31 76 135/76 - Physical Examination General: Other (OBESE) HEENT: Positive: PERRL Neck: Positive: neck supple Lungs: Positive: Rhonchi Abdomen: Positive: Soft Extremities: Present: normal - Labs and Meds Cardiac Enzymes 02/17/20 Range/Units 13:55 CK-MB (CK-2) 2.0 (0.0-4.0) ng/mL Comprehensive Metabolic Panel 02/18/20 Range/Units 04:29 Sodium 147 H D (137-145) mmol/L Potassium 3.8 (3.6-5.0) mmol/L Chloride 98.9 (98-107) mmol/L Carbon Dioxide 36 H (22-30) mmol/L BUN 34 H (7-17) mg/dL Creatinine 1.0 (0.6-1.2) mg/dL Glucose 140 H (65-100) mg/dL Calcium 9.1 (8.4-10.2) mg/dL
[2020-02-18] MEDS: guaiFENesin/CODEINE 100-10MG ORAL LIQD 5 ML PO PRN (10:25)
--- NOTE | 2020-02-18 12:48 | Discharge Summary ---
Providers - Providers Date of Admission: 02/17/20 01:44 Date of discharge: 02/18/20 Attending physician: DARÍO PRUITT 02/17/20 03:44 Consult to Physician [CONS] Routine Comment: Consulting Provider: STEPAN HOUSE Physician Instructions: Reason For Exam: CHEST PAIN AND CHF EXACERBATION Primary care physician: CROP ADJUSTER Hospitalization Condition: Stable Hospital course: This is a 64-year-old patient with morbid obesity, sleep apnea, COPD s/p tracheostomy on 4 L home oxygen, HFrEF (30 to 35%), atrial fibrillation who is s/p thoracic aortic dissection who presented to the emergency department on 02/16 with complaints of intermittent sharp precordial chest pain for about 3 days with radiation to the left upper extremity and associated with shortness of breath. She also reports ankle edema and a nonproductive cough. She was admitted to the hospitalist service with acute COPD exacerbation and an acute on chronic systolic heart failure exacerbation. Cardiology was consulted. Her home medications have been reconciled. Patient had echocardiogram on 04/2019 which showed four-chamber dilated cardiomyopathy with moderate pulmonary hypertension with RSVP of 48 mmHg with an estimated EF of 30 to 35%. Patient was started on diltiazem and anticoagulation with Eliquis. Right-sided chest pain resolved shortness of breath resolved. Patient stable for discharge. Disposition: TO HOME OR SELFCARE - Discharge Diagnoses (1) Hypertension Status: Acute Comment: Patient continues to have optimal control with diltiazem. (2) Atrial flutter Status: Acute Comment: Calcium channel mansoor for atrial fibrillation rapid ventricular rate. Rates well controlled. Continue anticoagulation with Eliquis. (3) Chest wall pain Status: Acute Comment: Right-sided chest wall pain possibly secondary to COPD has resolved now. (4) Acute on chronic heart failure Status: Acute Comment: Acute on chronic systolic heart failure improved after IV diuresis. Patient symptom-free still has dyspnea on exertion but orthopnea resolve lower extremity edema resolved. (5) Atrial fibrillation with RVR Status: Acute Comment: Rate controlled diltiazem Eliquis. (6) Diabetes Status: Acute Comment: Diet controlled sliding scale insulin. Accu-Cheks remained stable. (7) Obesity Status: Acute Qualifiers: Obesity type: with alveolar hypoventilation Obesity classification: unspecified obesity classification Serious obesity comorbidity presence: with serious comorbidity Qualified Code(s): E66.2 - Morbid (severe) obesity with alveolar hypoventilation Comment: Decrease caloric intake increase exercise. (8) Obesity hypoventilation syndrome Status: Acute Comment: Chronic respiratory failure with tracheostomy home O2 continue present home oxygen management. Core Measure Documentation - Palliative Care Palliative Care/ Comfort Measures: Not Applicable - Core Measures Any of the following diagnoses?: none Exam - Constitutional Vitals: Temp Pulse Resp BP Pulse Ox 98.0 F 80 20 148/82 96 02/18/20 07:28 02/18/20 10:39 02/18/20 10:39 02/18/20 07:28 02/18/20 09:43 General appearance: Present: no acute distress, well-nourished - EENT Eyes: Present: PERRL ENT: hearing intact, clear oral mucosa - Neck Neck: Present: supple, normal ROM - Respiratory Respiratory effort: normal Respiratory: bilateral: CTA - Cardiovascular Heart Sounds: Present: S1 & S2. Absent: rub, click - Extremities Extremities: pulses symmetrical, No edema Peripheral Pulses: within normal limits - Abdominal General gastrointestinal: Present: soft, non-tender, non-distended, normal bowel sounds Female genitourinary: Present: normal - Integumentary Integumentary: Present: clear, warm, dry - Musculoskeletal Musculoskeletal: strength equal bilaterally, generalized weakness, other (Obese lower extremities no fluid.) - Psychiatric Psychiatric: appropriate mood/affect, intact judgment & insight - Neurologic Neurologic: CNII-XII intact, moves all extremities Plan Activity: fall precautions Care Plan Goals: Patient is being discharged with [facility] [phone] Follow up with: PRIMARY CAREMD [Primary Care Provider] - 7 Days Prescriptions: dilTIAZem [Cardizem] 60 mg PO Q6HR #60 tablet Pantoprazole [Protonix TAB] 40 mg PO QDAY #30 Torsemide 40 mg PO DAILY #30
--- NOTE | 2020-02-18 13:20 | Event Note ---
Date: 02/18/20 Discharge was held September yesterday secondary to episode of chest pain which is resolved now appear to be secondary to gastritis.
--- NOTE | 2020-02-18 13:21 | Discharge Summary ---
Providers - Providers Date of Admission: 02/17/20 01:44 Date of discharge: 02/18/20 Attending physician: DARÍO PRUITT 02/17/20 03:44 Consult to Physician [CONS] Routine Comment: Consulting Provider: STEPAN HOUSE Physician Instructions: Reason For Exam: CHEST PAIN AND CHF EXACERBATION Primary care physician: PIPELINE OPERATOR Hospitalization Condition: Stable Disposition: DC-01 TO HOME OR SELFCARE - Discharge Diagnoses (1) Hypertension Status: Acute Comment: Patient continues to have optimal control with diltiazem. (2) Atrial flutter Status: Acute Comment: Calcium channel mansoor for atrial fibrillation rapid ventricular rate. Rates well controlled. Continue anticoagulation with Eliquis. (3) Chest wall pain Status: Acute Comment: Right-sided chest wall pain possibly secondary to COPD has resolved now. (4) Acute on chronic heart failure Status: Acute Comment: Acute on chronic systolic heart failure improved after IV diuresis. Patient symptom-free still has dyspnea on exertion but orthopnea resolve lower extremity edema resolved. (5) Atrial fibrillation with RVR Status: Acute Comment: Rate controlled diltiazem Eliquis. (6) Diabetes Status: Acute Comment: Diet controlled sliding scale insulin. Accu-Cheks remained stable. (7) Obesity Status: Acute Qualifiers: Obesity type: with alveolar hypoventilation Obesity classification: unspecified obesity classification Serious obesity comorbidity presence: with serious comorbidity Qualified Code(s): E66.2 - Morbid (severe) obesity with alveolar hypoventilation Comment: Decrease caloric intake increase exercise. (8) Obesity hypoventilation syndrome Status: Acute Comment: Chronic respiratory failure with tracheostomy home O2 continue present home oxygen management. Core Measure Documentation - Palliative Care Palliative Care/ Comfort Measures: Not Applicable - Core Measures Any of the following diagnoses?: none Exam - Constitutional Vitals: Temp Pulse Resp BP Pulse Ox 98.0 F 80 20 148/82 96 02/18/20 07:28 02/18/20 10:39 02/18/20 10:39 02/18/20 07:28 02/18/20 09:43 Plan Care Plan Goals: [phone] Follow up with: PRIMARY CARE, [Primary Care Provider] - 7 Days Prescriptions: dilTIAZem [Cardizem] 60 mg PO Q6HR #60 tablet Pantoprazole [Protonix TAB] 40 mg PO QDAY #30 Torsemide 40 mg PO DAILY #30
== END 2020-02-18 17:52 | disposition home or self-care (01) ==
LOC: ED 19:41 → 4A 02-17 01:44
PROVIDERS: ADMIT Internal Medicine; ATTEND Internal Medicine
DX: J96.20 Acute and chronic respiratory failure, unspecified whether with hypoxia or hypercapnia (principal); R07.89 Other chest pain; I13.0 Hypertensive heart and chronic kidney disease with heart failure and stage 1 through stage 4 chronic kidney disease, or unspecified chronic kidney disease; I50.9 Heart failure, unspecified; N18.9 Chronic kidney disease, unspecified; E11.22 Type 2 diabetes mellitus with diabetic chronic kidney disease; I48.92 Unspecified atrial flutter; I42.0 Dilated cardiomyopathy; I48.20 Chronic atrial fibrillation, unspecified; I71.01 Dissection of thoracic aorta; J44.9 Chronic obstructive pulmonary disease, unspecified; J18.9 Pneumonia, unspecified organism; E66.2 Morbid (severe) obesity with alveolar hypoventilation; G43.909 Migraine, unspecified, not intractable, without status migrainosus; M19.90 Unspecified osteoarthritis, unspecified site; Z79.82 Long term (current) use of aspirin; Z98.890 Other specified postprocedural states; Z79.4 Long term (current) use of insulin; Z68.38 Body mass index [BMI] 38.0-38.9, adult; Z23 Encounter for immunization
CPT/HCPCS: 36415; 71046; 71275; 80048; 80053; 82550; 82553; 82962; 83036; 83880; 84484; 85025; 85610; 85730; 87641; 90732; 93005; 94640; 94644; 94760; 96374; 96375; 96376; 99285; A9270; G0009; G0378; J1170; J1940; J2405; Q9967; 90471

== ENCOUNTER 2020-02-23 12:01 | Emergency (ER) | payer MEDICARE ==
--- NOTE | 2020-02-23 12:40 | Emergency Department Report ---
<SHON ABDI - Last Filed: 02/23/20 16:02> ED Shortness of Breath HPI - General Chief Complaint: Dyspnea/Respdistress Stated Complaint: CHEST PAIN Time Seen by Provider: 02/23/20 12:08 Source: EMS Mode of arrival: Stretcher Limitations: No Limitations - History of Present Illness Initial Comments: 64-year-old female with history of sleep apnea, COPD, chronic indwelling tracheostomy on 4 L home oxygen, dilated cardiomyopathy with EF of 30 to 35%, A. fib on Eliquis, thoracic aortic dissection status post repair in 2013, presents the ED with complaints of chest pain or shortness of breath x1 week. Discharged from this hospital 5 days ago for similar complaints of chest pain and difficulty breathing. Patient states her chest pain is the same as it was when she was here for her last admission. She states her pain is the mid chest radiating to the back. Patient underwent chest CT at that time, 1 week ago, that showed unchanged chronic aortic dissection. Patient is requesting Dilaudid for pain. MD Complaint: shortness of breath, chest pain -: week(s) (1) Radiation: back Quality: sharp Consistency: constant Improves With: nothing Worsens With: nothing Known History Of: COPD - Related Data Home Oxygen Therapy: Yes Home Oxygen Amount: 3 Liters Home Medications Medication Instructions Recorded Confirmed Last Taken Apixaban [Eliquis] 5 mg PO BID 02/17/20 02/17/20 Unknown AtorvaSTATin [Lipitor] 40 mg PO QHS 02/17/20 02/17/20 Unknown Escitalopram [Lexapro] 10 mg PO DAILY 02/17/20 02/17/20 Unknown Insulin Glargine [Lantus VIAL] 30 units SUB-Q DAILY 02/17/20 02/17/20 Unknown Insulin Lispro [Admelog] 0 units SUB-Q DAILY 02/17/20 02/17/20 Unknown Levothyroxine [Synthroid] 125 mcg PO QAM 02/17/20 02/17/20 Unknown Lisinopril [Zestril TAB] 2.5 mg PO BID 02/17/20 02/17/20 Unknown Montelukast [Singulair] 10 mg PO QPM 02/17/20 02/17/20 Unknown Tiotropium [place] [Spiriva 2.5 mcg IH DAILY 02/17/20 02/17/20 Unknown Respimat] carvediloL [Coreg] 12.5 mg PO BID 02/17/20 02/17/20 Unknown Previous Rx's Medication Instructions Recorded Last Taken Type ALBUTEROL NEB's [Proventil 0.083% 2.5 mg IH Q4HRT PRN nebu 02/18/20 Unknown Rx NEBS] Acetaminophen [Acetaminophen TAB] 650 mg PO Q4H PRN tablet 02/18/20 Unknown Rx Apixaban [Eliquis] 5 mg PO Q12HR tablet 02/18/20 Unknown Rx Aspirin [Aspirin BABY CHEW TAB] 81 mg PO QDAY tab.chew 02/18/20 Unknown Rx Insulin Lispro [Humalog] 0 unit SUB-Q Q4HR vial 02/18/20 Unknown Rx Pantoprazole [Protonix TAB] 40 mg PO QDAY #30 02/18/20 Unknown Rx Tiotropium [Spiriva] 2.5 puff IH DAILY cap 02/18/20 Unknown Rx Torsemide 40 mg PO DAILY #30 02/18/20 Unknown Rx dilTIAZem [Cardizem] 60 mg PO Q6HR #60 tablet 02/18/20 Unknown Rx guaiFENesin/CODEINE [Robitussin AC] 10 ml PO QID PRN oral.liqd 02/18/20 Unknown Rx lisinopriL [Zestril TAB] 2.5 mg PO BID tablet 02/18/20 Unknown Rx HYDROcodone/APAP 5-325 [Hilton 1 each PO Q6HR PRN #7 tablet 02/23/20 Unknown Rx 5/325] Allergies Allergy/AdvReac Type Severity Reaction Status Date / Time levofloxacin [From Levaquin] Allergy Rash Verified 01/27/19 21:36 morphine Allergy Rash Verified 01/27/19 21:36 ED Review of Systems Comment: All other systems reviewed and negative Constitutional: denies: fever Respiratory: shortness of breath Cardiovascular: chest pain Musculoskeletal: other (Reports chronic lower extremity edema) ED Past Medical Hx - Past Medical History Hx Hypertension: Yes Hx Heart Attack/AMI: No Hx Congestive Heart Failure: Yes Hx Diabetes: Yes Hx Deep Vein Thrombosis: No Hx Pulmonary Embolism: No Hx Liver Disease: No Hx Renal Disease: Yes Hx Arthritis: Yes Hx Headaches / Migraines: Yes Hx Kidney Stones: No Hx Asthma: No Hx COPD: Yes Hx Tuberculosis: No Additional medical history: Acute and chronic resp failure, A-flutter, thracheomalacia, hypoxia, pulmonary edema, volume overload, trach, a-fib, chronic type I aortic dissection - Surgical History Hx Coronary Stent: No Hx Open Heart Surgery: Yes (Hx of thoracotomy in 2014 for repair of a thoracic aortic dissection. ) Hx Pacemaker: No Hx Internal Defibrillator: No Additional Surgical History: trach from open heart surgery - Social History Smoking Status: Former Smoker Substance Use Type: None, Cocaine - Medications Home Medications: Home Medications Medication Instructions Recorded Confirmed Last Taken Type Apixaban [Eliquis] 5 mg PO BID 02/17/20 02/17/20 Unknown History AtorvaSTATin [Lipitor] 40 mg PO QHS 02/17/20 02/17/20 Unknown History Escitalopram [Lexapro] 10 mg PO DAILY 02/17/20 02/17/20 Unknown History Insulin Glargine [Lantus VIAL] 30 units SUB-Q DAILY 02/17/20 02/17/20 Unknown History Insulin Lispro [Admelog] 0 units SUB-Q DAILY 02/17/20 02/17/20 Unknown History Levothyroxine [Synthroid] 125 mcg PO QAM 02/17/20 02/17/20 Unknown History Lisinopril [Zestril TAB] 2.5 mg PO BID 02/17/20 02/17/20 Unknown History Montelukast [Singulair] 10 mg PO QPM 02/17/20 02/17/20 Unknown History Tiotropium [place] [Spiriva 2.5 mcg IH DAILY 02/17/20 02/17/20 Unknown History Respimat] carvediloL [Coreg] 12.5 mg PO BID 02/17/20 02/17/20 Unknown History ALBUTEROL NEB's [Proventil 0.083% 2.5 mg IH Q4HRT PRN nebu 02/18/20 Unknown Rx NEBS] Acetaminophen [Acetaminophen TAB] 650 mg PO Q4H PRN tablet 02/18/20 Unknown Rx Apixaban [Eliquis] 5 mg PO Q12HR tablet 02/18/20 Unknown Rx Aspirin [Aspirin BABY CHEW TAB] 81 mg PO QDAY tab.chew 02/18/20 Unknown Rx Insulin Lispro [Humalog] 0 unit SUB-Q Q4HR vial 02/18/20 Unknown Rx Pantoprazole [Protonix TAB] 40 mg PO QDAY #30 02/18/20 Unknown Rx Tiotropium [Spiriva] 2.5 puff IH DAILY cap 02/18/20 Unknown Rx Torsemide 40 mg PO DAILY #30 02/18/20 Unknown Rx dilTIAZem [Cardizem] 60 mg PO Q6HR #60 tablet 02/18/20 Unknown Rx guaiFENesin/CODEINE [Robitussin AC] 10 ml PO QID PRN oral.liqd 02/18/20 Unknown Rx lisinopriL [Zestril TAB] 2.5 mg PO BID tablet 02/18/20 Unknown Rx HYDROcodone/APAP 5-325 [[place] 1 each PO Q6HR PRN #7 tablet 02/23/20 Unknown Rx 5/325] ED Physical Exam - General Limitations: No Limitations General appearance: alert, in no apparent distress - Head Head exam: Present: atraumatic, normocephalic - Eye Eye exam: Present: normal appearance, EOMI - ENT ENT exam: Present: mucous membranes moist - Neck Neck exam: Present: other (Tracheostomy in place) - Respiratory Respiratory exam: Present: normal lung sounds bilaterally, chest wall tenderness. Absent: respiratory distress - Cardiovascular Cardiovascular Exam: Present: normal rhythm, bradycardia - GI/Abdominal GI/Abdominal exam: Present: soft. Absent: distended, tenderness - Extremities Exam Extremities exam: Present: other (Edema to bilateral lower legs, chronic appearing) - Neurological Exam Neurological exam: Present: alert, oriented X3 - Psychiatric Psychiatric exam: Present: normal affect, normal mood - Skin Skin exam: Present: warm, dry, intact, normal color ED Medical Decision Making - Lab Data Result diagrams: 02/23/20 12:52 02/23/20 12:52 - EKG Data -: EKG Interpreted by Mi EKG shows normal: QRS complexes, ST-T waves Rate: normal - EKG Data Interpretation: other (atrial flutter) - Radiology Data Radiology results: report reviewed, image reviewed - Medical Decision Making 64-year-old female presents to ED with chest pain and shortness of breath. Patient was recently discharged 5 days ago following an admission for same complaints. Patient has history of COPD and CHF with tracheostomy. Patient normally on 3 L O2 at home. Upon arrival trach care was initiated by respiratory therapist, with suctioning of small mucous plug. O2 sats are normal, lungs are clear, patient does not appear to be in any respiratory di stress. Patient does complain of chest pain radiates to the back. She has history of running aortic dissection. This was visualized as stable on CT from 1 week ago. Patient reports her pain is different from her last admission because it is radiating to the back. Patient does have some chest wall tenderness on exam. Patient requested Dilaudid for pain which she has received. EKG shows stable atrial flutter, with no ST changes. Troponin is within normal range. BNP is normal. Chest x-ray appears improved compared to last week. We will repeat chest CT to make sure there is no acute aortic dissection. Patient signed out to Dr. Gibbons to follow-up on chest CT. if CT is normal, I believe patient can be discharged home with outpatient follow-up. - Differential Diagnosis PE, aortic dissection, pneumonia, costochondritis ED Disposition Clinical Impression: Chest pain, Chronic thoracic aortic dissection Disposition: - TO HOME OR SELFCARE Condition: Stable Instructions: Chest Pain (ED) Prescriptions: HYDROcodone/APAP 5-325 [Hilton 5/325] 1 each PO Q6HR PRN #7 tablet PRN Reason: Pain Referrals: PRIMARY CARE, [Primary Care Provider] - 3-5 Days <ANA GIBBONS - Last Filed: 02/23/20 17:09> ED Review of Systems ROS: Stated complaint: CHEST PAIN Other details as noted in HPI ED Course Vital Signs 02/23/20 02/23/20 02/23/20 12:27 12:30 12:45 Temperature 98.6 F Pulse Rate 53 L 59 L Respiratory 18 17 Rate Blood Pressure 100/72 Blood Pressure 100/72 [Right] O2 Sat by Pulse 93 95 Oximetry O2 Sat by Pulse 96 Oximetry [ Assessment] 02/23/20 02/23/20 02/23/20 13:31 15:01 15:19 Temperature Pulse Rate 56 L 70 Respiratory 20 22 23 Rate Blood Pressure 107/80 107/80 Blood Pressure 106/79 [Right] O2 Sat by Pulse 97 96 97 Oximetry O2 Sat by Pulse Oximetry [ Assessment] ED Medical Decision Making - Lab Data Result diagrams: 02/23/20 12:52 02/23/20 12:52 - Medical Decision Making CT angiogram chest abdomen pelvis reviewed. No acute changes. Findings of chronic unchanged aortic dissection. Patient will be discharged home with meds provided by Dr. Howell Critical care attestation.: If time is entered above; I have spent that time in minutes in the direct care of this critically ill patient, excluding procedure time. ED Disposition Is pt being admited?: No Does the pt Need Aspirin: No Time of Disposition: 17:09
--- NOTE | 2020-02-23 13:13 | XRay Report ---
CHEST 1 VIEW 02/23/2020 12:05 PM INDICATION / CLINICAL INFORMATION: Shortness of breath, chest pain. COMPARISON: 02/16/2020 FINDINGS: SUPPORT DEVICES: Stable, satisfactory device positioning. HEART / MEDIASTINUM: Stable. LUNGS / PLEURA: Mildly improved patchy bilateral pulmonary opacities. No pneumothorax. ADDITIONAL FINDINGS: No significant additional findings. IMPRESSION: 1. Mildly improved patchy bilateral pulmonary opacities since the prior study. Signer Name: Marck Palacios MD Signed: 02/23/2020 1:09 PM Workstation Name: [id number]
[2020-02-23 13:49] LABS: Basophils # (Auto) 0.1 K/mm3 (0.0-0.1); Basophils % (Auto) 1.2 % (0.0-1.8); Eosinophils % (Auto) 0.9 % (0.0-4.3); Hematocrit 33.3 % (30.3-42.9); Hemoglobin 10.8 gm/dl (10.1-14.3); Lymphocytes # (Auto) 1.4 K/mm3 (1.2-5.4); Mean Corpuscular HGB Conc 33 % (30-34); Mean Corpuscular Volume 85 fl (79-97); Monocytes # (Auto) 0.6 K/mm3 (0.0-0.8); Monocytes % (Auto) 12.2 % (0.0-7.3); Platelet Count 168 K/mm3 (140-440); Red Cell Distribution Width 18.9 % (13.2-15.2)
[2020-02-23 13:59] LABS: INR 1.21 (0.87-1.13); Partial Thromboplastin Time 28.5 Sec. (24.2-36.6)
[2020-02-23] MEDS ORDERED: HYDROmorphone 1 MG/1 ML INJ IV ONE ×2 (14:46→15:50)
[2020-02-23 14:52] LABS: BUN/Creatinine Ratio 27; Blood Urea Nitrogen 24 mg/dL (7-17); Calcium 9.8 mg/dL (8.4-10.2); Hemolysis Index 3
[2020-02-23] MEDS ORDERED: POTASSIUM CHLORIDE ER 20 MEQ TAB PO ONE (14:54)
--- NOTE | 2020-02-23 16:48 | Cat Scan Report ---
CT angio chest, CT angio abdomen pelvis INDICATION / CLINICAL INFORMATION: chest pain, sob; hx chronic aortic dissection. TECHNIQUE: Axial CT images were obtained after injection of Omnipaque 350, 100 cc IV contrast using CTA protocol . 3 plane MIP / 3D reconstructions were produced. All CT scans at this location are performed using C T dose reduction for ALARA by means of automated exposure control. COMPARISON: CTA chest 02/17/2020 CTA CHEST: Chronic type a aortic dissection has not flap originating at the distal descending aorta. The true lumen is seen anteriorly. The dissection extends into the base of the right brachiocephalic artery. The left carotid and subclavian arteries arise from the true lumen. The overall appearance is unchanged. No pulmonary embolus identified. No mediastinal mass, adenopathy or inflammation. The lungs demonstrate no pleural fluid or new infilt rate. Mild scarring, atelectasis and opacity is present which likely represents edema. Cardiomegaly and coronary artery calcification. CTA ABDOMEN: The dissection extends into the abdomen. The true lumen is noted along the left lateral aspect and rotates anteriorly. The mesenteric vessels and right renal artery arise from the true lume n. The left kidney is absent. The remaining parenchymal organs are unremarkable. Negative for abdominal mass, adenopathy or inflammation. The bowel is not dilated or thickened. CTA PELVIS: The distal extent of the dissection is into the very proximal portion of the common iliac arteries. The iliac vessels are tortuous but demonstrate no stenosis. No pelvic inflammatory process. Fibroid disease of the uterus. IMPRESSION: 1. Chronic type A dissection originating at the distal descending thoracic aorta and extending inferi francois to the level of the proximal common iliac arteries. 2. The dissection flap involves the right brachiocephalic artery. The remaining great vessels, mesent sixto vessels and renal arteries arise from the true lumen. 3. Left kidney surgically absent. Signer Name: Miguelito Gonzalez MD Signed: 02/23/2020 4:44 PM Workstation Name: [id number]
[2020-02-23 19:12] VITALS: BP 104/84
== END 2020-02-23 19:05 | disposition home or self-care (01) ==
LOC: ED 12:01
DX: R06.02 Shortness of breath (principal); I71.01 Dissection of thoracic aorta; G89.29 Other chronic pain; I11.0 Hypertensive heart disease with heart failure; I50.9 Heart failure, unspecified; E11.9 Type 2 diabetes mellitus without complications; M13.88 Other specified arthritis, other site; G43.909 Migraine, unspecified, not intractable, without status migrainosus; J44.9 Chronic obstructive pulmonary disease, unspecified; Z87.891 Personal history of nicotine dependence; Z79.899 Other long term (current) drug therapy; Z95.818 Presence of other cardiac implants and grafts; F14.10 Cocaine abuse, uncomplicated; Z88.1 Allergy status to other antibiotic agents; Z88.6 Allergy status to analgesic agent
CPT/HCPCS: 36415; 71045; 71275; 74174; 80048; 83880; 84484; 85025; 85610; 85730; 93005; 96374; 99285; J1170; Q9967